=== PATIENT | female | born 1940 | race Caucasian/White ===

== ENCOUNTER → 2021-07-01 15:54 | Outpatient (CLI) | payer MEDICARE, SELFPAY ==
--- NOTE | ~2021-07-01 | XR_ITS ---
EXAMINATION: XR knee LT 3V DATE: 07/01/2021 16:16 INDICATION: Left knee pain. TECHNIQUE: 3 views of left knee were obtained. COMPARISON: None. FINDINGS: Bone alignment is normal. No fracture. There is mild tricompartmental osteoarthritis. No kn ee joint effusion. IMPRESSION: 1. Mild left knee osteoarthritis. Reviewed, dictated and finalized at location A.
== END ==
PROVIDERS: PCP Family Medicine; Visit Provider Family Medicine
DX: M17.12 Unilateral primary osteoarthritis, left knee (principal)
CPT/HCPCS: 73562

== ENCOUNTER 2021-12-11 09:30 | Outpatient (RCR) | payer MEDICARE, SELFPAY ==
--- NOTE | 2021-11-05 13:32 | PTOPEVAL ---
PHYSICAL THERAPY EVALUATION AND PLAN OF CARE Thank you for referring Maria Victoria Alfaro to [facility].? The patient is scheduled to be seen for therapy? 2x/week for 4 weeks. Please review, sign, date and return this plan of care JR. I agree with and certify that the following plan of care is medically necessary. Referring Physician Date Attending Provider: [place] [facility] Evaluation Outpatient Past Medical History Neurological History Hx Multiple Sclerosis Yes: 1980 Diagnosis left knee pain Onset chronic Additional Evaluation Detail symptoms of MS: left LE weakness; attacks of pain Subjective Information Maria Victoria is here today with c/o Query Text:As Reported By Patient/ left knee pain. She has had Family chronic pain. She states that the left leg became weak a long long time ago due to her MS and the knee has been hyperextending due to the weakness for a long long time . She has been using a cane for a very long time. Self Report Pain Assessment Left Leg(s) Reported Pain Level 3 Pain Description Aching Pain Frequency Chronic Lowest Pain Intensity 1 Greatest Pain Intensity 6 Pain Score Pain Score 3: Self Report Interventions Used Interventions Used By Clinicians Exercise Lower Extremity Muscle Strength Testing Hip Strength Left Hip Flexion Strength 3 Fair Hip Extension Strength 2+ Poor + Hip Abduction Strength 2+ Poor + Knee Strength Left Knee Flexion Strength 2+ Poor + Knee Extension Strength 3- Fair - Muscle Length Testing Muscle Length Testing Left Prone Knee Flexor Muscle Length ( 90 degrees) Balance Assessment 5 Time Sit to Stand Time in Seconds 20.86 5 Time Sit to Stand Comments with arm rests Query Text:Normative Data: If Greater Than 15 Seconds, 74% Increase Risk for Recurrent Falls Gait Assessment Gait Pattern Assessment Other Gait Observations severe hyperextension and valgus in stance phase; femoral adduction and internal rotation General Exercise General Exercises Side Left Exercise Location LE Exercise Type Active Exercise Description -clamshell Query Text:Record Sets, Reps, -supine hip abduction Resistance, and Position -bridge -supine SLR -prone knee flexi
--- NOTE | 2021-11-13 09:48 | PCPTNOTE ---
Called pt and she said that she can't come in today because she has family in town.
--- NOTE | 2021-12-04 10:24 | PTOPEVAL ---
PHYSICAL THERAPY PROGRESS REPORT Thank you for referring Maria Victoria Alfaro to [facility].? The patient is scheduled to be seen for therapy? 1x/week for 4 weeks. Please review, sign, date and return this plan of care JR. I agree with and certify that the following plan of care is medically necessary. Referring Physician Date Attending Provider: [place] AP[facility] Hx Multiple Sclerosis Yes: 1979 Diagnosis left knee pain Onset chronic Additional Evaluation Detail symptoms of MS: left LE weakness; attacks of pain Subjective Information Maria Victoria is here today with c/o Query Text:As Reported By Patient/ left knee pain. She has had Family chronic pain. She states that the left leg became weak a long long time ago due to her MS and the knee has been hyperextending due to the weakness for a long long time . She has been using a cane for a very long time. Pain Score Pain Score 0: Self Report Lower Extremity Muscle Strength Testing Hip Strength Left Hip Flexion Strength 4- Good - Hip Extension Strength 3- Fair - Hip Abduction Strength 3 Fair Knee Strength Left Knee Flexion Strength 3+ Fair + Knee Extension Strength 3+ Fair + Balance Assessment 5 Time Sit to Stand Time in Seconds 19.54 5 Time Sit to Stand Comments with arm rests Query Text:Normative Data: If Greater 1month ago = 20.86seconds Than 15 Seconds, 74% Increase Risk for Recurrent Falls General Exercise General Exercises Side Left Exercise Location LE Exercise Type Active,Resistive Exercise Description Yao: Query Text:Record Sets, Reps, -clamshell with yellow band Resistance, and Position resistance x15 -eccentric single leg bridge ( up on two, down on left) -sidelying hip abduction x10 - - assist to hold hip in proper position for hips -bridge with feet staggered x15 -lower abdominal bracing with marching held for time - continue -supine SLR 1#x 15 -supine SAQ x1#[id number] -prone knee flexion x1#x15 -prone hip ext 1#x 10 -resisted marchin
--- NOTE | 2021-12-18 09:36 | PCPTNOTE ---
Patient called & cancelled scheduled appointment this date due to having a fall yesterday and is unable to make it in. Informed PT will continue per POC.
--- NOTE | 2022-01-01 10:19 | PCPTNOTE ---
Patient did not show up for scheduled appointment this date. Called and left a voicemail.
--- NOTE | 2022-01-19 17:06 | PCPTNOTE ---
PHYSICAL THERAPY DISCHARGE NOTE Attending Provider: [place] [facility] Patient:Maria Victoria Alfaro Date of :1940 Patient has not returned for any further treatments since 12/11/2021, therefore she will be discharged at this time. Patient?s initial visit was on 11/05/2021 she had a total of 9 visits. She cancelled several visits due to inclement weather. At her attended visits she participated in and tolerated strengthening exercises for her left knee. We also discussed how she might obtain a brace for the knee that protects against hyperextension. She has not returned since this discussion. Thank you for referring this patient to [facility]. Please review, sign, date and return this discharge summary JR. I have been updated about the patient's current status and I agree with discharge from the above service at this time. Referring Physician Date
== END 2022-01-19 12:40 | disposition home or self-care (01) ==
LOC: ANHPT 09:30
PROVIDERS: PCP Family Medicine; Visit Provider Nurse Practitioner
DX: M25.562 Pain in left knee (principal)
CPT/HCPCS: 97110; 97162

== ENCOUNTER → 2022-06-11 12:59 | Outpatient (CLI) | payer MEDICARE, SELFPAY ==
--- NOTE | ~2022-06-11 | MR_ITS ---
EXAMINATION: MR brain/brain stem wo con DATE: 06/11/2022 13:52 INDICATION: Multiple sclerosis. TECHNIQUE: Magnetic resonance imaging (MRI) of the brain and brainstem was performed without intraven ous contrast. COMPARISON: None. FINDINGS: There are greater than 30 total lesions of increased T2-weighted signal intensity in the br ain. Of these lesions, many are periventricular, a few are juxtacortical, and some are infratentorial including in cervical spinal cord. There is no acute ischemic infarct or intracranial hemorrhage. Th e ventricles are normal in size. The orbits are normal. There is mild mucosal thickening in the ethmo id sinuses. The mastoid air cells are normal. IMPRESSION: 1. Lesions in the brain and spinal cord, likely a combination of multiple sclerosis and chronic small vessel ischemic disease. Reviewed, dictated and finalized at location A. IMPRESSION: 1. Lesions in the brain and spinal cord, likely a combination of multiple scler osis and chronic small vessel ischemic disease.
== END ==
PROVIDERS: PCP Family Medicine; Visit Provider Family Medicine
DX: R29.898 Other symptoms and signs involving the musculoskeletal system (principal); G35 Multiple sclerosis
CPT/HCPCS: 70551

== ENCOUNTER 2022-09-24 13:37 | Outpatient (CLI) | payer MEDICARE, SELFPAY ==
[2022-09-24 18:46] LABS: Alanine Aminotransferase 23 U/L (6-35); Albumin Level 4.6 g/dL (3.5-5.1); Alkaline Phosphatase 86 U/L (38-126); Anion Gap 12 mmol/L (8-16); Aspartate Amino Transferase 36 U/L (14-36); Bilirubin,Total 0.8 mg/dL (0.2-1.3); Blood Urea Nitrogen 15 mg/dL (7-17); Calcium 9.3 mg/dL (8.4-10.2); Carbon Dioxide 22 mmol/L (22-30); Chloride 101 mmol/L (98-107); Cholesterol 294 mg/dL (0-200); Estimated Glomerular Filt Rate > 60; Glucose 93 mg/dL (65-110); HDL Direct 67 mg/dL; Potassium 4.1 mmol/L (3.4-5.0); Sodium 135 mmol/L (137-145); Triglycerides 89 mg/dL (<150)
[2022-09-24 18:48] LABS: Basophils Percent Auto 0.6 % (0.2-1.2); Eosinophils Percent Auto 0.8 % (0-4.4); Hematocrit 41.3 % (37.0-47.0); Hemoglobin 13.6 g/dL (12.0-15.0); Immature Granulocyte Absolute 0.01 K/mm3 (0.00-0.031); Immature Granulocyte Percent A 0.2 % (0-0.5); Lymphocytes Absolute Auto 1.24 K/mm3 (0.9-3.2); Lymphocytes Percent Auto 25.4 % (18.3-44.2); Mean Corpuscular HGB Conc 32.9 g/dl (32-36); Mean Corpuscular Hemoglobin 30.4 pg (26-34); Mean Corpuscular Volume 92.2 fl (80-100); Mean Platelet Volume 9.1 fl (7.4-10.4); Monocytes Absolute Auto 0.6 K/mm3 (0.1-0.6); Monocytes Percent Auto 11.5 % (2.6-8.5); Neutrophils Percent Auto 61.5 % (45.5-73.1); Platelet Count Result 204 k/mm3 (150-375); Red Blood Count 4.48 M/mm3 (4.2-5.4); Red Cell Distribution Width 13.7 % (11.5-14.5); White Blood Count 4.9 K/mm3 (4.5-10.0)
[2022-09-24 18:57] LABS: LDL Cholesterol Direct 161 mg/dL
== END 2022-09-24 13:38 | disposition home or self-care (01) ==
LOC: ANHGOSHLAB 13:41
PROVIDERS: PCP Family Medicine; Visit Provider Family Medicine
DX: E03.9 Hypothyroidism, unspecified (principal); R53.83 Other fatigue; I10 Essential (primary) hypertension
CPT/HCPCS: 36415; 80053; 80061; 82607; 84443; 85025

== ENCOUNTER 2022-12-14 18:06 | Inpatient (IN) | payer MEDICARE, SELFPAY ==
[2022-12-14] VITALS (7 sets, daily range): BP systolic 126–179; BP diastolic 82–100; PULSE 92–110; RESP 13–30; TEMP 36.6–36.8; O2SAT 97–100
--- NOTE | ~2022-12-14 | XR_ITS ---
EXAMINATION: XR barium swallow modified DATE: 12/17/2022 09:20 INDICATION: Aspiration. TECHNIQUE: The patient was given barium-containing material of multiple consistencies to swallow by t audrey speech pathologist while I performed fluoroscopy. Fluoroscopy exposure time was 1.0 minutes. The n umber of fluoroscopy images saved to the PACS was 2. Dose-area product was 0.786 Gy-cm^2. FINDINGS: There is reduced laryngeal elevation, reduced tongue base retraction, vallecular residue, piriform si nus residue, and pharyngeal wall residue. There is laryngeal penetration without cough reflex with th in liquids, mildly thick liquids, and pudding with expected aspiration. IMPRESSION: 1. Laryngeal penetration and expected aspiration. 2. Please refer to the speech therapy report for recommendations. Reviewed, dictated and finalized at location A. FILLER MACHINE OPERATOR
--- NOTE | ~2022-12-14 | CT_ITS ---
EXAMINATION: CT cervical spine wo con DATE: 12/14/2022 19:09 INDICATION: Trauma, found on floor, cannot clear per NEXUS TECHNIQUE: Computed tomography (CT) of the cervical spine was performed without intravenous contrast. Automated exposure control and iterative reconstruction technique were employed. The dose-length pro duct was 105.81 mGy-cm. COMPARISON: None. FINDINGS: Vertebral Body Alignment: Intact. . Craniocervical and atlantoaxial alignment: Moderate degenerative change. Alignment intact. Osseous structures/fracture: No evidence of a lytic or blastic process in the visualized spine. No e vidence of acute fracture. . Cervical soft tissues: The paraspinal soft tissues planes are maintained. Senescent changes in the cher ngs. Degenerative changes: Multilevel degenerative disc disease, moderate-severe at C5-6. Severe left neur al foraminal narrowing at C5-6. Multilevel facet arthropathy. No severe central canal narrowing. IMPRESSION: No acute fracture or traumatic malalignment in the cervical spine Reviewed, dictated and finalized at location K. OR CLERK
--- NOTE | ~2022-12-14 | CT_ITS ---
EXAMINATION: CT chest abdomen pelvis wo con DATE: 12/14/2022 19:13 INDICATION: trauma, ams, found down on floor . TECHNIQUE: Computed tomography (CT) of the chest, abdomen, and pelvis was performed with 100 mL Omnip aque-350 intravenous contrast. Automated exposure control and iterative reconstruction technique were employed. The dose-length product was 366.20 mGy-cm. COMPARISON: X-ray shoulder, same date. FINDINGS: CHEST: No thoracic aortic injury. Mild arch ectasia and calcification. No mediastinal hematoma. Calcified right hilar and subcarinal nodes. Small hiatal hernia. No pericardial effusion. Moderate coronary artery calcification. Cardiomegaly. No acute lung injury. Senescent change. Dependent and basilar left lung scar/atelectasis. Right lower lobe granuloma. No pleural effusion or pneumothorax. ABDOMEN/PELVIS: No solid organ injury. Granulomatous calcifications in the spleen. Exophytic right upper pole subtle cyst. Nonobstructive right mid and lower pole calculi. No evidence of bowel or mesenteric injury. The rectum is dilated to 5.3 cm by formed stool. No free fluid or free air. No retroperitoneal hematoma. Atherosclerotic abdominal aortic and/or arterial calcifications. Pelvic contents are atraumatic. Uterus likely surgically absent. MUSCULOSKELETAL: No acute fracture. Soft tissue contusion over the left hip. Small left hip effusion. No fracture or traumatic malalignment of the thoracic or lumbar spine. IMPRESSION: Left hip soft tissue contusion. Otherwise, no acute traumatic detected in the chest, abdomen, or pelv is. Possible mild fecal impaction. Small left hip joint effusion. Additional chronic and incidental f indings are detailed above. Reviewed, dictated and finalized at location K. RY RIGGER IMPRESSION: Left hip soft tissue contusion. Otherwise, no acute traumatic detected in the c hest, abdomen, or pelvis. Possible mild fecal impaction. Small left hip joint e ffusion. Additional chronic and incidental findings are detailed above.
--- NOTE | ~2022-12-14 | XR_ITS ---
EXAMINATION: XR barium swallow modified DATE: 12/22/2022 10:13 INDICATION: Aspiration. TECHNIQUE: The patient was given barium-containing material of multiple consistencies to swallow by t he speech pathologist while I performed fluoroscopy. Fluoroscopy exposure time was 2.0 minutes. The n umber of fluoroscopy images saved to the PACS was 1. Dose-area product was 1.166 Gy-cm^2. FINDINGS: There was laryngeal penetration without cough. IMPRESSION: 1. Laryngeal penetration. 2. Please refer to the speech therapy report for recommendations. Reviewed, dictated and finalized at location A. RINARY MICROBIOLOGIST
--- NOTE | ~2022-12-14 | CT_ITS ---
EXAMINATION: CT brain wo con DATE: 12/14/2022 19:06 INDICATION: Trauma, AMS . TECHNIQUE: Computed tomography (CT) of the head was performed without intravenous contrast. The mA wa s adjusted according to patient size. Iterative reconstruction technique was employed. The dose-lengt h product was 605.33 mGy-cm. COMPARISON: None. FINDINGS: No acute intracranial hemorrhage or extra-axial fluid collection. No hydrocephalus, mass, or herniation. No acute ischemic infarct. Unremarkable dural venous sinus attenuation. No acute osseous abnormality. Dependent mucosal thickening/fluid in the left maxillary sinus. The remaining aerated spaces are jorge alberto r. Mild atrophy and moderate chronic white matter change. Atherosclerotic intracranial calcification. IMPRESSION: No acute intracranial process. Reviewed, dictated and finalized at location K. LE ROLL OPERATOR
--- NOTE | ~2022-12-14 | XR_ITS ---
EXAM: XR shoulder LT min 2V DATE: 12/14/2022 19:00 HISTORY: Bruising noted, appears fresh, pt. found on floor . COMPARISON: CT chest abdomen and pelvis, same date. FINDINGS: Decreased mineralization. Vertically oriented linear lucency in the body of the scapula re presents artifact or a vascular channel and was not evident in the subsequent CT. Distal narrowing of the clavicle. Superior displacement of the clavicle relative to the acromion which was reduced in th e following CT scan. The glenohumeral alignment is preserved. No erosion or periosteal change. Soft t issues within normal limits. IMPRESSION: Acute versus chronic AC separation, correlate with pain/tenderness. Distal clavicular ost eolysis. Reviewed, dictated and finalized at location K. MARKET SELLER IMPRESSION: Acute versus chronic AC separation, correlate with pain/tenderness. Distal clavicular osteolysis.
--- NOTE | ~2022-12-14 | XR_ITS ---
EXAMINATION: XR abdomen NG/feed tube insert DATE: 12/17/2022 14:09 INDICATION: Dysphagia. Nasogastric tube placement. TECHNIQUE: A supine view of the abdomen and lower chest was obtained for evaluation of feeding tube placement. COMPARISON: CT dated 12/14/2022 FINDINGS: Nasogastric tube tip in proximal side port in the body of the stomach. No dilated loops of gas-filled bowel to suggest obstruction. Small amount of oral contrast material project over the central abdome n likely related to prior modified barium swallow study. Discoid atelectasis at the bilateral lung ba ses. Cardiomegaly. IMPRESSION: 1. Nasogastric tube in the body of the stomach. Reviewed, dictated and finalized at location L. UNT RETENTION REPRESENTATIVE
--- NOTE | 2022-12-14 18:06 | ECG_ITS ---
Measurements Intervals [place] Rate: 101 P: 64 WI: 130 QRS: 10 QRSD: 78 T: 20 QT: 295 QTc: 383 Interpretive Statements SINUS TACHYCARDIA NONSPECIFIC T-WAVE ABNORMALITY- INFERIOR LEADS BASELINE ARTIFACT- I, II, III, AVR, AVL, AVF, V1-V6 BORDERLINE ECG NO PREVIOUS ECG AVAILABLE FOR COMPARISON Electronically Signed On 12-15-2022 7:44:53 LINE PREP COOK by Lauro Narvaez D.O.
--- NOTE | 2022-12-14 18:18 | ED.GENADULT ---
HPI - General Adult General Chief complaint: Seizure <KIMI Escobar - Last Filed: 02/22/23 09:02> Stated complaint: fall <KIMI Escobar Last Filed: 02/22/23 09:02> Time Seen by Provider: 12/14/22 18:06 <KIMI Escobar - Last Filed: 02/22/23 09:02> Source: EMS <KIMI Escobar - Last Filed: 02/22/23 09:02> Mode of arrival: EMS <KIMI Escobar Last Filed: 02/22/23 09:02> Limitations: altered mental status <KMII Escobar Last Filed: 02/22/23 09:02> History of Present Illness HPI narrative: All history provided by the EMS crew as the patient currently has AMS. Review of EMR documents a history of Hypothyroidism and MS. EMS was called by patient's neighbors as they had seen through her window that she was lying on the floor not moving. Upon arrival, EMS had to breach into the home and she was found laying in a bedroom. At that time she was alert and oriented and stated she falls all the time and that she had been there a couple of days. However, the neighbors state that they saw her the previous day. She was found to have blood around her and a cut on the back of her head. Initial oxygen saturations were low, requiring a NRB mask. En route to the ER she had an approximate 2-3 minute episode of tonic-clonic seizure activity. She arrives post-ictal, but arousable to pain. She has noted scabbed over laceration to the back of the head, purple bruise to the left anterior shoulder and an abraded area to the left lower abdomen in a belt like pattern. Pt. has pungent odor to her urine on arrival. Review of previous chart demonstrates a DNR. <KIMI Escobar Last Filed: 02/22/23 09:02> Onset (ago): unknown <KIMI Escobar Last Filed: 02/22/23 09:02> Location: head, pelvis and upper extremity <KMII Escobar - Last Filed: 02/22/23 09:02> Related Data Home medications: Home Medications Medication Instructions Recorded Confirmed gabapentin 100 mg capsule 200 mg PO TID 12/14/22 12/14/22 levothyroxine 88 mcg tablet 88 mcg PO DAILY 01/05/23 <KIMI Escobar - Last Filed: 02/22/23 09:02> Allergies/adverse reactions: Allergies Allergy/AdvReac Type Severity Reaction Status Date / Time No Known Allergies Allergy Unknown Verified 12/18/22 11:21 <KIMI Escobar - Last Filed: 02/22/23 09:02> Review of Systems Review of Systems: ROS unobtainable: Yes unobtainable due to mental status <KIMI Escobar - Last Filed: 02/22/23 09:02> [facility] Past Medical History Medical History: Medical History (System 12/18/22 @ 11:21 by Sandi Carlson) Hypertension Hypothyroid Multiple sclerosis Osteoarthritis of left knee Vitamin D deficiency <KIMI Escobar Last Filed: 02/22/23 09:02> Surgical History Surgical History: Surgical History (System 12/18/22 @ 11:21 by Sandi Carlson) Deficient knowledge of hysterectomy H/O thumb surgery ORIF right thumb Hx of tonsillectomy <KIMI Escobar - Last Filed: 02/22/23 09:02> Family History Family History: Family History (System 12/18/22 @ 11:21 by Sandi Carlson) Father Family history of premature coronary heart disease, Onset Age: 69 Mother Family history of Alzheimer's disease, Onset Age: 67 Sibling Multiple sclerosis <KIMI Escobar - Last Filed: 02/22/23 09:02> Social History Social History: Social History (System 12/18/22 @ 11:21 by Sandi Carlson) Social History: The patient with home in her own home. Her closest family members live 2 hours away. She has a friend who checks on her. Code status: DNR/DNI (per outpatient primary care report) Smoking status: Never smoker Second hand tobacco smoke exposure: No Alcohol intake: never Drinks per week: 1 Alcohol use details: beer Substance us
[2022-12-14 18:54] LABS: Basophils Percent Auto 0.1 % (0.2-1.2); Eosinophils Percent Auto 0.1 % (0-4.4); Hematocrit 42.5 % (37.0-47.0); Hemoglobin 14.2 g/dL (12.0-15.0); Immature Granulocyte Absolute 0.06 K/mm3 (0.00-0.031); Immature Granulocyte Percent A 0.4 % (0-0.5); Lymphocytes Absolute Auto 0.69 K/mm3 (0.9-3.2); Mean Corpuscular HGB Conc 33.4 g/dl (32-36); Mean Corpuscular Hemoglobin 30.4 pg (26-34); Mean Platelet Volume 8.4 fl (7.4-10.4); Monocytes Percent Auto 7.4 % (2.6-8.5); Neutrophils Absolute Auto 12.1 K/mm3 (1.3-6.7); Platelet Count Result 272 k/mm3 (150-375); Red Blood Count 4.67 M/mm3 (4.2-5.4); Red Cell Distribution Width 13.5 % (11.5-14.5); White Blood Count 13.9 K/mm3 (4.5-10.0)
[2022-12-14 19:05] LABS: Lactic Acid Reflex 3.9 mmol/L (0.7-2.0)
[2022-12-14 19:11] LABS: Appearance Urine Cloudy (Clear); Bilirubin Urine Negative (Negative); Blood Urine 3+ (Negative); Color Urine Yellow (Yellow); Glucose Urine UA Negative (Negative); Ketones Urine Trace mg/dL (Negative); Leukocyte Esterase Ur 2+ LEU/UL (Negative); Nitrate Urine Negative (Negative); Protein Urine 2+ mg/dL (Negative); Specific Grav Ur 1.025 (1.001-1.035); Urobilinogen Urine 0.2 mg/dL (<2.0)
[2022-12-14 19:16] LABS: Bacteria Urine Trace /hpf; Mucus Urine Few /lpf; WBC Clumps Urine Present /HPF; WBC Urine >75 /hpf
[2022-12-14 19:18] LABS: Partial Thromboplastin Time 25.5 SECONDS (22.3-36.8)
[2022-12-14 19:23] LABS: Add Urine Microscopic? YES
[2022-12-14 19:24] LABS: Alanine Aminotransferase 41 U/L (6-35); Albumin Level 4.2 g/dL (3.5-5.1); Alkaline Phosphatase 105 U/L (38-126); Anion Gap 10 mmol/L (8-16); Aspartate Amino Transferase 151 U/L (14-36); Bilirubin,Total 1.3 mg/dL (0.2-1.3); Blood Urea Nitrogen 16 mg/dL (7-17); Calcium 9.3 mg/dL (8.4-10.2); Carbon Dioxide 25 mmol/L (22-30); Chloride 105 mmol/L (98-107); Creatine Kinase > 3200 U/L (30-135); Estimated CRCL calculation 46 ml/min; Estimated Glomerular Filt Rate > 60; Glucose 158 mg/dL (65-110); Magnesium 1.8 mg/dL (1.6-2.3); Potassium 3.6 mmol/L (3.4-5.0); Sodium 140 mmol/L (137-145); Troponin I 0.209 ng/mL (0.000-0.034)
[2022-12-14 19:32] LABS: Influenza A QL RT-PCR Negative (Negative); Influenza B QL RT-PCR Negative (Negative); SARS-CoV-2 RNA PCR Negative
[2022-12-14] MEDS: cefTRIAXone 2 GM in SODIUM CHLORIDE 0.9% IV 100 ML 200 ML IVPB (19:42)
[2022-12-14] MEDS: SODIUM CHLORIDE 0.9% IV 1,000 ML 500 ML IV CONT (19:42)
[2022-12-14] MEDS: levETIRAcetam 1000MG/NACL100ML 1,000 MG/100 ML BAG 400 MG IVPB (20:42)
[2022-12-14] MEDS: SODIUM BICARBONATE 8.4% 150 MEQ in DEXTROSE 5% 1,000 ML 950 ML 100 MEQ IV CONT (21:30)
[2022-12-14] MEDS: SODIUM CHLORIDE 0.9% IV 1,000 ML 100 ML IV CONT (21:44)
[2022-12-14 21:52] LABS: Reflex Lactic Acid Yes or No Add Lactic
[2022-12-14 23:12] LABS: Lactic Acid 1.7 mmol/L (0.7-2.0)
--- NOTE | 2022-12-14 23:24 | ADMGEN ---
This patient, Maria Victoria Alfaro, was admitted to IMU Room 205-01. Patient/family oriented to hospital policies and general routines including ID bracelet, bed and alarms, visiting hours, pain management, procedures, bathroom and other care routines, personal items, smoking policy, room service/diet, and visiting hours. Information on how to activate the Rapid Response Team has been discussed. Patient/Family are encouraged to report perceived risks to care and to ask questions if they do not understand what they are told or what they should do.
[2022-12-14 23:30] LABS: Troponin I 0.267 ng/mL (0.000-0.034)
[2022-12-15] VITALS (12 sets, daily range): BP systolic 103–156; BP diastolic 54–85; PULSE 80–969; RESP 18–20; TEMP 36.4–37.3; O2SAT 95–99
[2022-12-15 01:49] LABS: Troponin I 0.269 ng/mL (0.000-0.034)
--- NOTE | 2022-12-15 03:17 | PM.IMHP ---
H&P: HPI History of Present Illness Date/Time: 12/15/22 03:17 Chief Complaint: Found down at home, witnessed seizure Narrative: 82-year-old female with a past medical history of multiple sclerosis, chronic pain and recent diagnosis of hypothyroidism who presented to the ER from home via EMS after she was found down. The entirety of history was obtained from ER report and EMS report. The patient was only answering yes and no questions to nursing staff. But at the time of my evaluation the patient had be sternal rubbed in order to moan at me in tell me know when I asked her to open her eyes. The patient would not answer any questions. Evidently the neighbor called EMS when she saw that the patient was down on the floor through a window. EMS had to break into the home and found the patient lying in her bedroom. At the time she is alert oriented in stated that she falls all the time. She stated that she had been on the floor for a couple of days but the neighbor stated that they saw the patient to previous day in the afternoon. She had a cut on the back of her head. EMS reported that there had been blood on the door to the patient's bedroom and near the patient's head where she was lying. The patient was reportedly alert oriented to person place and time but thought that she was lying on the bed when she was in fact on the floor. When EMS stood her up to put her on the stretcher the patient had a 2-3 minute tonic clonic seizure. By the time EMS could establish an IV the seizure had resolved. They put the patient on a non-rebreather as she became hypoxic during her seizure but patient was saturating fine on arrival to the ER. In route to the ER the the patient was postictal. The patient had loss of bladder control during seizure. In the ER the patient received 1.5 L of IV fluid hydration and I requested 1 g of Keppra be administered. Outpatient office visit notes were reviewed. At that time the patient stated that she wanted to be a DNR. The patient's multiple sclerosis is managed by Dr. Ciaran Galindo. Review of Systems Review of Systems: ROS unobtainable: Yes unobtainable due to medical condition (Postictal) [facility] Past Medical History Medical History (Updated 12/15/22 @ 04:06 by Belkis Galloway DO) Hypertension Hypothyroid Multiple sclerosis Osteoarthritis of left knee Vitamin D deficiency Surgical History Surgical History (Updated 12/15/22 @ 03:40 by Belkis Galloway DO) Deficient knowledge of hysterectomy H/O thumb surgery ORIF right thumb Hx of tonsillectomy Family History Family History (Updated 12/15/22 @ 03:40 by Belkis Galloway DO) Father Family history of premature coronary heart disease, Onset Age: 69 Mother Family history of Alzheimer's disease, Onset Age: 67 Sibling Multiple sclerosis Social History Social History (Updated 12/15/22 @ 03:42 by Belkis Galloway DO) Social History: The patient with home in her own home. Her closest family members live 2 hours away. She has a friend who checks on her. Code status: DNR/DNI (per outpatient primary care report) Smoking status: Never smoker Second hand tobacco smoke exposure: No Alcohol intake: never Drinks per week: 1 Alcohol use details: beer Substance use: never Substance use type: does not use Lack of Transportation: No Lack of Food: Never True Current Housing: I Have Housing Concerned About Future Housing: No Difficulty Paying Gas/Electric Bills: No Difficulty Paying for Meds: No Currently Unemployed: No Education: High School Diploma/GED Difficulty w/ Childcare or Family Care: No Living arrangements: alone Occupation/Education: retired Gender identity (if verbalized by the patient): Female Spiritual care concerns: No Agree to blood products: Yes Meds Home Medications and Allergies Home Medications Medication Instructions Recorded Confirmed Type lev
[2022-12-15] MEDS: SODIUM CHLORIDE 0.9% IV 1,000 ML 200 ML IV CONT ×4 (04:11→22:14)
[2022-12-15 05:00] LABS: Basophils Percent Auto 0.1 % (0.2-1.2); Eosinophils Percent Auto 0.1 % (0-4.4); Hemoglobin 10.4 g/dL (12.0-15.0); Immature Granulocyte Absolute 0.03 K/mm3 (0.00-0.031); Immature Granulocyte Percent A 0.4 % (0-0.5); Lymphocytes Absolute Auto 0.89 K/mm3 (0.9-3.2); Lymphocytes Percent Auto 11.5 % (18.3-44.2); Mean Corpuscular HGB Conc 32.5 g/dl (32-36); Mean Corpuscular Hemoglobin 30.1 pg (26-34); Mean Corpuscular Volume 92.5 fl (80-100); Mean Platelet Volume 8.9 fl (7.4-10.4); Monocytes Absolute Auto 0.7 K/mm3 (0.1-0.6); Monocytes Percent Auto 9.3 % (2.6-8.5); Neutrophils Absolute Auto 6.1 K/mm3 (1.3-6.7); Neutrophils Percent Auto 78.6 % (45.5-73.1); Platelet Count Result 195 k/mm3 (150-375); Red Blood Count 3.46 M/mm3 (4.2-5.4); Red Cell Distribution Width 13.3 % (11.5-14.5); White Blood Count 7.8 K/mm3 (4.5-10.0)
[2022-12-15 05:10] LABS: Alanine Aminotransferase 36 U/L (6-35); Alkaline Phosphatase 62 U/L (38-126); Anion Gap 3 mmol/L (8-16); Aspartate Amino Transferase 127 U/L (14-36); Bilirubin,Total 0.7 mg/dL (0.2-1.3); Blood Urea Nitrogen 14 mg/dL (7-17); Calcium 8.2 mg/dL (8.4-10.2); Carbon Dioxide 23 mmol/L (22-30); Chloride 109 mmol/L (98-107); Estimated CRCL calculation 56 ml/min; Estimated Glomerular Filt Rate > 60; Glucose 92 mg/dL (65-110); Potassium 3.4 mmol/L (3.4-5.0); Sodium 135 mmol/L (137-145)
[2022-12-15 05:34] LABS: Creatine Kinase 4131 U/L (30-135)
[2022-12-15 05:35] LABS: Magnesium 1.6 mg/dL (1.6-2.3)
[2022-12-15] MEDS: levETIRAcetam 1000MG/NACL100ML 1,000 MG/100 ML BAG 400 MG IVPB ×2 (08:27→20:36)
[2022-12-15 11:05] LABS: Creatine Kinase 5768 U/L (30-135)
--- NOTE | 2022-12-15 12:53 | WPDNEURCNPN ---
Assessment and Plan Assessment and plan (1) Seizure: Code(s): R56.9 - Unspecified convulsions Status: Acute (2) Head injury: Code(s): S09.90XA - Unspecified injury of head, initial encounter Status: Acute (3) Rhabdomyolysis: Qualifiers: Rhabdomyolysis type: non-traumatic Qualified Code(s): M62.82 - Rhabdomyolysis Code(s): M62.82 - Rhabdomyolysis Status: Acute (4) Laceration of scalp: Qualifiers: Encounter type: initial encounter Qualified Code(s): S01.01XA - Laceration without foreign body of scalp, initial encounter Code(s): S01.01XA - Laceration without foreign body of scalp, initial encounter Status: Acute (5) Multiple sclerosis: Code(s): G35 - Multiple sclerosis Status: Acute Plan 1 seizures 2 significant neurological deficit with history of multiple sclerosis 3 hypothyroidism by history for UTI 5 rhabdomyolysis and plan at this stage is to general medical care with hydration mode discussion with the family about the MS she has had recent B12 and folate levels which were within normal limits and will also obtain the EEG Consult date: 12/15/22 HPI: Maria Victoria Alfaro is a 82 year old female admitted to the hospital through the emergency room where all the information was provided by EMS crew patient carries the diagnosis of hypo thyroidism and MS reportedly EMS was called by patient's neighbors as he had seen through the window that she was lying on the floor and not moving EMS had to break in to the home she was found laying in a bedroom though she was alert and oriented and reported that she falls all the time with blood around her mouth and cart on the back of her head with low oxygen on initial evaluation and subsequently documented 3 minutes duration tonic clonic seizure observed by the EMS noted Abena postictal on arrival and and found to have laceration to the back of the head with bruise to the left anterior shoulder and abrasion on the left lower abdomen with poor hygiene. Patient carries the diagnosis of multiple sclerosis, osteoarthritis of left knee, history of currently alcohol intake or 1 drink per week, no substance use, and no tobacco use, initial vital signs with hypertension temp of 36.8? and pulse is 107 with respiration 30 routine lab with hematuria Dawson negative nitrate, medications included gabapentin 200 mg 3 times a day and levothyroxine 75 micro g daily, CT scan of the cervical spine negative for fracture dislocation , CT of the head negative for the bleed or territorial stroke, shoulder x-ray with AC separation acute versus chronic. She has had MRI of the brain in May of 2022 which has documented multiple sclerosis type of lesion involving the brainstem as Review of Systems Review of Systems: All systems reviewed & are unremarkable except as noted in HPI and below PMFSH Past Medical History Medical History (Updated 12/15/22 @ 04:06 by Belkis Galloway DO) Hypertension Hypothyroid Multiple sclerosis Osteoarthritis of left knee Vitamin D deficiency Surgical History Surgical History (Updated 12/15/22 @ 03:40 by Belkis Galloway DO) Deficient knowledge of hysterectomy H/O thumb surgery ORIF right thumb Hx of tonsillectomy Family History Family History (Updated 12/15/22 @ 03:40 by Belkis Galloway DO) Father Family history of premature coronary heart disease, Onset Age: 69 Mother Family history of Alzheimer's disease, Onset Age: 67 Sibling Multiple sclerosis Social History Social History (Updated 12/15/22 @ 03:42 by Belkis Galloway DO) Social History: The patient with home in her own home. Her closest family members live 2 hours away. She has a friend who checks on her. Code status: DNR/DNI (per outpatient primary care report) Smoking status: Never smoker Second hand tobacco smoke exposure: No Alcohol intake: never Drinks per week: 1 Alcohol use details: b
--- NOTE | 2022-12-15 15:27 | PM.IMPN ---
Progress Note: A&P Assessment and Plan (1) Seizure: Code(s): R56.9 - Unspecified convulsions Status: Acute (2) Acute UTI: Code(s): N39.0 - Urinary tract infection, site not specified Status: Acute (3) Rhabdomyolysis: Qualifiers: Rhabdomyolysis type: non-traumatic Qualified Code(s): M62.82 - Rhabdomyolysis Code(s): M62.82 - Rhabdomyolysis Status: Acute (4) Laceration of scalp: Qualifiers: Encounter type: initial encounter Qualified Code(s): S01.01XA - Laceration without foreign body of scalp, initial encounter Code(s): S01.01XA - Laceration without foreign body of scalp, initial encounter Status: Acute (5) Acute alteration in mental status: Code(s): R41.82 - Altered mental status, unspecified Status: Acute (6) Transaminitis: Code(s): R74.01 - Elevation of levels of liver transaminase levels Status: Acute Plan Seizures due to posttraumatic from fall versus new onset seizure disorder. Will place patient on seizure precautions. Neurology has been consulted. Patient received Keppra load. Will obtain EEG. Neuro checks q.4 hours. The patient does have increased tone on exam I think this is due to her multiple sclerosis. Especially given presence of Babinski's on the right. Will await further neurologic recommendations. Patient has acute altered mental status likely due to postictal phase in com been a mancia with metabolic encephalopathy. The patient does also have a known low mini-mental status exam in the past and has an MRI with significant evidence of microvascular changes. Patient may also have some underlying dementia. Patient had recent TSH with initiation of levothyroxine as outpatient. She had recent B12 and folate levels were within normal limits but borderline. Patient's urine is suggestive of probable UTI. Blood cultures and urine cultures have been obtained. Patient has been started on antibiotic therapy with Rocephin. Will check CBC with a.m. labs. White count was elevated in the ER. The patient had rhabdomyolysis from prolonged down time on the floor. Patient is on aggressive IV fluid hydration with normal saline. The patient's creatinine is not elevated but I suspect this is due to the patient's chronic low muscle mass. Will repeat CK level in a.m.. Will repeat electrolyte panel including magnesium and phosphorus. Patient had elevated troponins possibly due to type 2 infarct versus concomitant elevation with rhabdomyolysis. Patient is on telemetry in IMU. Patient has laceration scalp with adequate hemostasis. Will cleanse daily. Patient's transaminitis likely due to rhabdomyolysis. Will repeat CMP in a.m.. 12/15/2022 interval history: patient remains somnolent unable to provide any review of symptoms, clinically stable patient with new onset seizure started on Keppra 1000 mg b.i.d. patient also has developed rhabdomyolysis being gently hydrated will monitor CK level and kidney function, patient's urine is suspicious for UTI however patient unable to provide any symptoms review patient being treated with ceftriaxone, patient is seen by Neuro recommended EEG to further evaluate will follow-up. Subjective Date/time seen: 12/15/22 15:27 Chief Complaint: Found down at home, witnessed seizure HPI-Narrative: 82-year-old female with a past medical history of multiple sclerosis, chronic pain and recent diagnosis of hypothyroidism who presented to the ER from home via EMS after she was found down.? The entirety of history was obtained from ER report and EMS report.? The patient was only answering yes and no questions to nursing staff.? But at the time of my evaluation the patient had be sternal rubbed in order to moan at me in tell me know when I asked her to open her eyes.? The patient would not answer any questions.? Evidently the neighbor called EMS when she saw that the patient was down on the floor through
[2022-12-16] VITALS (14 sets, daily range): BP systolic 145–172; BP diastolic 72–94; PULSE 75–100; RESP 16–24; TEMP 36–36.7; O2SAT 95–99; BMI 10.0
[2022-12-16] MEDS: SODIUM CHLORIDE 0.9% IV 1,000 ML 200 ML IV CONT ×2 (03:08→08:34)
[2022-12-16 05:02] LABS: Hematocrit 35.7 % (37.0-47.0); Hemoglobin 11.4 g/dL (12.0-15.0); Mean Corpuscular HGB Conc 31.9 g/dl (32-36); Mean Corpuscular Volume 93.9 fl (80-100); Platelet Count Result 179 k/mm3 (150-375); Red Cell Distribution Width 13.6 % (11.5-14.5); White Blood Count 7.6 K/mm3 (4.5-10.0)
[2022-12-16 05:15] LABS: Alanine Aminotransferase 60 U/L (6-35); Albumin Level 3.2 g/dL (3.5-5.1); Alkaline Phosphatase 74 U/L (38-126); Anion Gap 6 mmol/L (8-16); Aspartate Amino Transferase 227 U/L (14-36); Bilirubin,Total 0.7 mg/dL (0.2-1.3); Blood Urea Nitrogen 12 mg/dL (7-17); Carbon Dioxide 18 mmol/L (22-30); Chloride 112 mmol/L (98-107); Estimated CRCL calculation 56 ml/min; Estimated Glomerular Filt Rate > 60; Glucose 66 mg/dL (65-110); Magnesium 1.7 mg/dL (1.6-2.3); Potassium 3.3 mmol/L (3.4-5.0); Sodium 136 mmol/L (137-145)
[2022-12-16] MEDS: levETIRAcetam 1000MG/NACL100ML 1,000 MG/100 ML BAG 400 MG IVPB ×2 (08:31→20:20)
--- NOTE | 2022-12-16 09:16 | WPDNEUROLOGY ---
Neurology EEG Report General Information Date of Study: 12/15/22 TEST eeg DIAGNOSIS Seizures CONDITION OF RECORDING drowsy and sleep EEG NUMBER [id number] CLINICAL HISTORY patient slept throughout the setting and tracing no particular history was available EEG DESCRIPTION background rhythm consists of medium voltage
--- NOTE | 2022-12-16 09:42 | PCOTNOTE ---
Attempted OT evaluation, patient is currently with PT, will follow.
--- NOTE | 2022-12-16 11:42 | PCSTNOTE ---
Therapist attempted Bedside Swallow Evaluation however patient refused due to significant pain in her legs, refused to sit up. THerapist suggested if she sat up and drank water, perhaps she would be able to take pain pills that way and patient still refused. Nurse was notified of patient's complain of pain in her legs and her refusal to cooperate with swallow evaluation secondary to pain in her legs. Therapist will attempt later.
[2022-12-16] MEDS: MORPHINE SULFATE (*CRX) 2 MG/ML INJ IV PUSH (11:53)
--- NOTE | 2022-12-16 15:00 | PCSTNOTE ---
Please refer to the Bedside Swallow Evaluation in the EMR. Please note, silent aspiration cannot be ruled out at bedside.
[2022-12-16] MEDS: GABAPENTIN 100 MG CAPSULE 200 MG PO ×2 (15:01→16:48)
--- NOTE | 2022-12-16 15:24 | PM.IMPN ---
Progress Note: A&P Assessment and Plan (1) Seizure: Code(s): R56.9 - Unspecified convulsions Status: Acute (2) Acute UTI: Code(s): N39.0 - Urinary tract infection, site not specified Status: Acute (3) Rhabdomyolysis: Qualifiers: Rhabdomyolysis type: non-traumatic Qualified Code(s): M62.82 - Rhabdomyolysis Code(s): M62.82 - Rhabdomyolysis Status: Acute (4) Laceration of scalp: Qualifiers: Encounter type: initial encounter Qualified Code(s): S01.01XA - Laceration without foreign body of scalp, initial encounter Code(s): S01.01XA - Laceration without foreign body of scalp, initial encounter Status: Acute (5) Acute alteration in mental status: Code(s): R41.82 - Altered mental status, unspecified Status: Acute (6) Transaminitis: Code(s): R74.01 - Elevation of levels of liver transaminase levels Status: Acute Plan Seizures due to posttraumatic from fall versus new onset seizure disorder. Will place patient on seizure precautions. Neurology has been consulted. Patient received Keppra load. Will obtain EEG. Neuro checks q.4 hours. The patient does have increased tone on exam I think this is due to her multiple sclerosis. Especially given presence of Babinski's on the right. Will await further neurologic recommendations. Patient has acute altered mental status likely due to postictal phase in com been a mancia with metabolic encephalopathy. The patient does also have a known low mini-mental status exam in the past and has an MRI with significant evidence of microvascular changes. Patient may also have some underlying dementia. Patient had recent TSH with initiation of levothyroxine as outpatient. She had recent B12 and folate levels were within normal limits but borderline. Patient's urine is suggestive of probable UTI. Blood cultures and urine cultures have been obtained. Patient has been started on antibiotic therapy with Rocephin. Will check CBC with a.m. labs. White count was elevated in the ER. The patient had rhabdomyolysis from prolonged down time on the floor. Patient is on aggressive IV fluid hydration with normal saline. The patient's creatinine is not elevated but I suspect this is due to the patient's chronic low muscle mass. Will repeat CK level in a.m.. Will repeat electrolyte panel including magnesium and phosphorus. Patient had elevated troponins possibly due to type 2 infarct versus concomitant elevation with rhabdomyolysis. Patient is on telemetry in IMU. Patient has laceration scalp with adequate hemostasis. Will cleanse daily. Patient's transaminitis likely due to rhabdomyolysis. Will repeat CMP in a.m.. 12/16/2022 interval history: patient remains somnolent unable to provide any review of symptoms, clinically stable patient with new onset seizure started on Keppra 1000 mg b.i.d. patient had a EEG today essentially normal, patient also has developed rhabdomyolysis being gently hydrated, patient's CK levels are rising, and will monitor kidney function, patient's urine is suspicious for UTI however patient unable to provide any symptoms review, urine culture is growing E coli pansensitive, patient being treated with ceftriaxone, patient was seen by speech pathology patient with difficulty swallowing will have MBS tomorrow and further recommendation to follow. Subjective Date/time seen: 12/16/22 15:24 12/16/2022 interval history: patient remains somnolent unable to provide any review of symptoms, clinically stable patient with new onset seizure started on Keppra 1000 mg b.i.d. patient had a EEG today essentially normal, patient also has developed rhabdomyolysis being gently hydrated, patient's CK levels are rising, and will monitor kidney function, patient's urine is suspicious for UTI however patient unable to provide any symptoms review, urine culture is growing E coli pansensitive, patient
[2022-12-16] MEDS: SODIUM CHLORIDE 0.9% IV 1,000 ML 100 ML IV CONT (16:48)
[2022-12-17] VITALS (13 sets, daily range): BP systolic 142–188; BP diastolic 83–95; PULSE 79–105; RESP 16–20; TEMP 36.3–36.8; O2SAT 92–100
[2022-12-17] MEDS: SODIUM CHLORIDE 0.9% IV 1,000 ML 100 ML IV CONT ×2 (02:00→16:26)
[2022-12-17 04:46] LABS: Hematocrit 34.9 % (37.0-47.0); Hemoglobin 11.3 g/dL (12.0-15.0); Mean Corpuscular HGB Conc 32.4 g/dl (32-36); Mean Corpuscular Hemoglobin 30.7 pg (26-34); Mean Corpuscular Volume 94.8 fl (80-100); Mean Platelet Volume 8.7 fl (7.4-10.4); Platelet Count Result 168 k/mm3 (150-375); Red Blood Count 3.68 M/mm3 (4.2-5.4); Red Cell Distribution Width 13.5 % (11.5-14.5); White Blood Count 5.7 K/mm3 (4.5-10.0)
[2022-12-17] MEDS: LEVOTHYROXINE SODIUM 75 MCG TABLET PO (04:53)
[2022-12-17] MEDS: MORPHINE SULFATE (*CRX) 2 MG/ML INJ IV PUSH ×3 (04:53→20:36)
[2022-12-17 05:08] LABS: Alanine Aminotransferase 66 U/L (6-35); Alkaline Phosphatase 63 U/L (38-126); Anion Gap 8 mmol/L (8-16); Aspartate Amino Transferase 190 U/L (14-36); Bilirubin,Total 0.7 mg/dL (0.2-1.3); Blood Urea Nitrogen 7 mg/dL (7-17); Calcium 7.9 mg/dL (8.4-10.2); Carbon Dioxide 17 mmol/L (22-30); Chloride 109 mmol/L (98-107); Estimated CRCL calculation 69 ml/min; Estimated Glomerular Filt Rate > 60; Glucose 77 mg/dL (65-110); Magnesium 1.6 mg/dL (1.6-2.3); Potassium 2.8 mmol/L (3.4-5.0); Sodium 134 mmol/L (137-145)
[2022-12-17] MEDS: POTASSIUM CHLORIDE INJ 40 MEQ in SODIUM CHLORIDE 0.9% IV 500 ML 125 MEQ IVPB (06:24)
[2022-12-17] MEDS: ASPIRIN 81 MG CHEWABLE TABLET PO (08:23)
[2022-12-17] MEDS: GABAPENTIN 100 MG CAPSULE 200 MG PO ×2 (08:24→16:26)
--- NOTE | 2022-12-17 08:47 | PCOTNOTE ---
Attempted OT evaluation, unable to complete at this time due to patients increased pain. Will follow.
--- NOTE | 2022-12-17 09:01 | PCPTNOTE ---
The patient treatment was not able to be completed due to patient out of room for testing. Will plan to continue treatment per plan of care.
[2022-12-17] MEDS: levETIRAcetam 1000MG/NACL100ML 1,000 MG/100 ML BAG 400 MG IVPB ×2 (10:07→22:25)
--- NOTE | 2022-12-17 10:13 | PCSTNOTE ---
Please refer to the Modified Barium Swallow Evaluation in the EMR.
--- NOTE | 2022-12-17 11:59 | PCNFU ---
Nutrition Follow-Up Complete: Inadequate energy intake related to diet order as evidenced by NPO status Goal:Diet advanced PO intake 50% or greater of meals. Pt is not progressing towards goal. Pt current nutrition is NPO per [employer]UE [employer]ENT recommendations. Nutrition recommendation: NPO, alternative nutrition support as needed Last recorded weight is 57 kg - increased from 48kg Bowel Motility: no BM recorded Labs Reviewed:hgb:11.3 HCT:34.9, Alb:3, NA:134, Cr:0.4 Meds Noted: KCL Skin: no skin issues noted Additional Notes: Pt was on a pureed diet, [employer]UE [employer] eval and MBS recommended NPO due to aspiration. Pt just completed both this AM. Recommendations for possible tube feeding if that route is chosen: Jevity 1.5 @ goal rate of 50ml/hr to total 1650kcals, 55g protein, 836ml fluid, plus 120ml flush q 4hrs for a total of 1556ml free water / day. Monitor for diet orders and/or alternative nutrition support, iwt, labs. Follow up in 3 days.
--- NOTE | 2022-12-17 12:53 | PCDIET ---
Recommendation for alternative nutrition support. Recommend tube feedings via an NGT: Jevity 1.5 @ goal rate of 50ml/hr to total 1650kcals, 55g protein, 836ml fluid, plus 120ml flush q 4hrs for a total of 1556ml free water / day. *Start Tube feeding at 20ml/hr and advance by 10ml q 4 hrs as tolerated, to goal rate.
--- NOTE | 2022-12-17 13:53 | PCOTNOTE ---
Attempted to see pt. for occupational therapy evaluation. Pt. currently having NG tub placed with nursing. Unable to participate at this time. Following.
--- NOTE | 2022-12-17 15:00 | PM.IMPN ---
Progress Note: A&P Assessment and Plan (1) Seizure: Code(s): R56.9 - Unspecified convulsions Status: Acute (2) Acute UTI: Code(s): N39.0 - Urinary tract infection, site not specified Status: Acute (3) Rhabdomyolysis: Qualifiers: Rhabdomyolysis type: non-traumatic Qualified Code(s): M62.82 - Rhabdomyolysis Code(s): M62.82 - Rhabdomyolysis Status: Acute (4) Laceration of scalp: Qualifiers: Encounter type: initial encounter Qualified Code(s): S01.01XA - Laceration without foreign body of scalp, initial encounter Code(s): S01.01XA - Laceration without foreign body of scalp, initial encounter Status: Acute (5) Acute alteration in mental status: Code(s): R41.82 - Altered mental status, unspecified Status: Acute (6) Transaminitis: Code(s): R74.01 - Elevation of levels of liver transaminase levels Status: Acute Plan Seizures due to posttraumatic from fall versus new onset seizure disorder. Will place patient on seizure precautions. Neurology has been consulted. Patient received Keppra load. Will obtain EEG. Neuro checks q.4 hours. The patient does have increased tone on exam I think this is due to her multiple sclerosis. Especially given presence of Babinski's on the right. Will await further neurologic recommendations. Patient has acute altered mental status likely due to postictal phase in com been a mancia with metabolic encephalopathy. The patient does also have a known low mini-mental status exam in the past and has an MRI with significant evidence of microvascular changes. Patient may also have some underlying dementia. Patient had recent TSH with initiation of levothyroxine as outpatient. She had recent B12 and folate levels were within normal limits but borderline. Patient's urine is suggestive of probable UTI. Blood cultures and urine cultures have been obtained. Patient has been started on antibiotic therapy with Rocephin. Will check CBC with a.m. labs. White count was elevated in the ER. The patient had rhabdomyolysis from prolonged down time on the floor. Patient is on aggressive IV fluid hydration with normal saline. The patient's creatinine is not elevated but I suspect this is due to the patient's chronic low muscle mass. Will repeat CK level in a.m.. Will repeat electrolyte panel including magnesium and phosphorus. Patient had elevated troponins possibly due to type 2 infarct versus concomitant elevation with rhabdomyolysis. Patient is on telemetry in IMU. Patient has laceration scalp with adequate hemostasis. Will cleanse daily. Patient's transaminitis likely due to rhabdomyolysis. Will repeat CMP in a.m.. 12/17/2022 interval history: patient remains somnolent unable to provide any review of symptoms, clinically stable patient with new onset seizure started on Keppra 1000 mg b.i.d. patient had a EEG on 12/16 essentially normal, patient also has developed rhabdomyolysis being gently hydrated, patient's CK levels were rising, and will monitor kidney function, patient's urine is suspicious for UTI however patient unable to provide any symptoms review, urine culture is growing E coli pansensitive, patient being treated with ceftriaxone, patient was seen by speech pathology patient with difficulty swallowing patient patient had MBS today and failed, will start the patient on NG and tube feeding will continue to monitor. Subjective Date/time seen: 12/17/22 15:00 12/17/2022 interval history: patient remains somnolent unable to provide any review of symptoms, clinically stable patient with new onset seizure started on Keppra 1000 mg b.i.d. patient had a EEG on 12/16 essentially normal, patient also has developed rhabdomyolysis being gently hydrated, patient's CK levels were rising, and will monitor kidney function, patient's urine is suspicious for UTI however patient unable to provide any symptoms revie
[2022-12-17 17:14] LABS: Basophils Percent Auto 0.2 % (0.2-1.2); Eosinophils Absolute Auto 0.1 K/mm3 (0-0.3); Eosinophils Percent Auto 1.2 % (0-4.4); Hematocrit 27.4 % (37.0-47.0); Hemoglobin 9.1 g/dL (12.0-15.0); Immature Granulocyte Absolute 0.02 K/mm3 (0.00-0.031); Immature Granulocyte Percent A 0.3 % (0-0.5); Lymphocytes Absolute Auto 0.42 K/mm3 (0.9-3.2); Lymphocytes Percent Auto 7.2 % (18.3-44.2); Mean Corpuscular HGB Conc 33.2 g/dl (32-36); Mean Corpuscular Hemoglobin 30.7 pg (26-34); Mean Corpuscular Volume 92.6 fl (80-100); Mean Platelet Volume 8.4 fl (7.4-10.4); Monocytes Absolute Auto 0.6 K/mm3 (0.1-0.6); Monocytes Percent Auto 9.9 % (2.6-8.5); Neutrophils Absolute Auto 4.8 K/mm3 (1.3-6.7); Neutrophils Percent Auto 81.2 % (45.5-73.1); Platelet Count Result 136 k/mm3 (150-375); Red Blood Count 2.96 M/mm3 (4.2-5.4); Red Cell Distribution Width 13.6 % (11.5-14.5); White Blood Count 5.9 K/mm3 (4.5-10.0)
[2022-12-17 17:24] LABS: Partial Thromboplastin Time 32.1 SECONDS (22.3-36.8)
[2022-12-17 17:27] LABS: Alanine Aminotransferase 38 U/L (6-35); Albumin Level 1.4 g/dL (3.5-5.1); Alkaline Phosphatase 35 U/L (38-126); Anion Gap 4 mmol/L (8-16); Aspartate Amino Transferase 85 U/L (14-36); Bilirubin,Total 0.4 mg/dL (0.2-1.3); Blood Urea Nitrogen 4 mg/dL (7-17); Calcium 4.4 mg/dL (8.4-10.2); Carbon Dioxide 10 mmol/L (22-30); Chloride 126 mmol/L (98-107); Estimated CRCL calculation 121 ml/min; Estimated Glomerular Filt Rate > 60; Glucose 55 mg/dL (65-110); Sodium 140 mmol/L (137-145)
[2022-12-17 17:37] LABS: Glucose Point of Care 81 mg/dl (65-105)
[2022-12-17 17:49] LABS: Transferrin < 80 mg/dL (206-381)
[2022-12-17] MEDS: POTASSIUM CHLORIDE INJ 40 MEQ in SODIUM CHLORIDE 0.9% IV 500 ML 130 MEQ IVPB (18:35)
[2022-12-17] MEDS: MAGNESIUM SULF 4 GM/WATER100ML 4 GM/100 ML BAG IVPB (18:35)
[2022-12-17] MEDS: POTASSIUM CHLORIDE 20 MEQ PACKET (FOR LIQUID) 40 MEQ FEED TUBE (18:41)
[2022-12-17 19:58] LABS: Methylmalonic Acid 122 nmol/L (87-318)
[2022-12-17] MEDS: CEPHALEXIN 500 MG CAPSULE PO (20:36)
[2022-12-18] VITALS (9 sets, daily range): BP systolic 149–175; BP diastolic 85–91; PULSE 81–111; RESP 20–25; TEMP 36.2–37.8; O2SAT 93–98
[2022-12-18] MEDS: CEPHALEXIN 500 MG CAPSULE PO ×4 (00:04→17:23)
[2022-12-18 00:14] LABS: Glucose Point of Care 139 mg/dl (65-105)
[2022-12-18 02:55] LABS: Anion Gap 4 mmol/L (8-16); Blood Urea Nitrogen 7 mg/dL (7-17); Carbon Dioxide 18 mmol/L (22-30); Chloride 111 mmol/L (98-107); Estimated CRCL calculation 69 ml/min; Estimated Glomerular Filt Rate > 60; Glucose 143 mg/dL (65-110); Magnesium 2.1 mg/dL (1.6-2.3); Potassium 3.9 mmol/L (3.4-5.0); Sodium 133 mmol/L (137-145)
[2022-12-18 03:04] LABS: Alanine Aminotransferase 65 U/L (6-35); Albumin Level 2.9 g/dL (3.5-5.1); Alkaline Phosphatase 66 U/L (38-126); Anion Gap 5 mmol/L (8-16); Aspartate Amino Transferase 145 U/L (14-36); Bilirubin,Total 0.7 mg/dL (0.2-1.3); Blood Urea Nitrogen 7 mg/dL (7-17); Carbon Dioxide 17 mmol/L (22-30); Chloride 111 mmol/L (98-107); Estimated CRCL calculation 69 ml/min; Estimated Glomerular Filt Rate > 60; Glucose 143 mg/dL (65-110); Magnesium 2.1 mg/dL (1.6-2.3); Phosphorus 2.1 mg/dL (2.5-4.5); Potassium 3.9 mmol/L (3.4-5.0); Sodium 133 mmol/L (137-145); Triglycerides 105 mg/dL (<150)
[2022-12-18 05:14] LABS: Hematocrit 33.4 % (37.0-47.0); Hemoglobin 11.2 g/dL (12.0-15.0); Mean Corpuscular HGB Conc 33.5 g/dl (32-36); Mean Corpuscular Hemoglobin 30.1 pg (26-34); Mean Corpuscular Volume 89.8 fl (80-100); Platelet Count Result 201 k/mm3 (150-375); Red Blood Count 3.72 M/mm3 (4.2-5.4); Red Cell Distribution Width 13.3 % (11.5-14.5); White Blood Count 6.2 K/mm3 (4.5-10.0)
[2022-12-18] MEDS: SODIUM CHLORIDE 0.9% IV 1,000 ML 100 ML IV CONT ×2 (05:30→17:23)
[2022-12-18] MEDS: LEVOTHYROXINE SODIUM 75 MCG TABLET PO (05:31)
[2022-12-18] MEDS: GABAPENTIN 100 MG CAPSULE 200 MG PO ×3 (08:54→17:23)
[2022-12-18] MEDS: ASPIRIN 81 MG CHEWABLE TABLET PO (08:55)
[2022-12-18] MEDS: levETIRAcetam 1000MG/NACL100ML 1,000 MG/100 ML BAG 400 MG IVPB ×2 (08:56→21:01)
[2022-12-18 09:10] LABS: Creatine Kinase 2391 U/L (30-135)
--- NOTE | 2022-12-18 10:53 | PCPTNOTE ---
Attempted to see patient for PT, however patient was too worn out from sitting up in chair and declined PT. Patient was leaning in chair and looked exhausted. Patient unable to participate in therapy at this time. Nursing assisting patient back to bed with Jose bowser.
--- NOTE | 2022-12-18 11:00 | PCNFU ---
Nutrition Follow-Up Complete: Inadequate energy intake related to diet order as evidenced by NPO status Goal:Diet advanced PO intake 50% or greater of meals - Not able to meet goal. Stared on NG tube feedings Pt current nutrition is Jevity 1.5 @ goal rate 50 ml/h with flushes 120 ml q 4 h. 1650 kcals, 55 g protein, 836 ml free water. Total water with flushes 1556 ml/day. Nutrition recommendation: Tube feeding is adequate for needs. Continue tube feeding. Patient may need PEG tube for long-term nutrition if swallowing issues continue. Last recorded weight is 57 kg. Bowel Motility: Last BM 12/14/22 Labs Reviewed: Hgb 11.2, Hct 33.4, Alb 2.9, Na 133, Cre 0.4, PO4 2.1 Meds Noted:Keppra, morphine Skin: Laceration to head with prasanth Additional Notes: Failed MBSS yesterday and stared on NG feeding. If swallow does not improve, likely patient will need a PEG tube for watermaster nutrition. Monitor for diet order, intake, wt, labs. Follow up Wednesday/Wednesday for tube feeding
[2022-12-18 11:58] LABS: Glucose Point of Care 150 mg/dl (65-105)
--- NOTE | 2022-12-18 11:59 | PM.IMPN ---
Progress Note: A&P Assessment and Plan (1) Seizure: Code(s): R56.9 - Unspecified convulsions Status: Acute Assessment and Plan: Continue antiseizure medication (2) Acute UTI: Code(s): N39.0 - Urinary tract infection, site not specified Status: Acute Assessment and Plan: Continue antibiotics (3) Rhabdomyolysis: Qualifiers: Rhabdomyolysis type: non-traumatic Qualified Code(s): M62.82 - Rhabdomyolysis Code(s): M62.82 - Rhabdomyolysis Status: Acute Assessment and Plan: CK improving (4) Laceration of scalp: Qualifiers: Encounter type: initial encounter Qualified Code(s): S01.01XA - Laceration without foreign body of scalp, initial encounter Code(s): S01.01XA - Laceration without foreign body of scalp, initial encounter Status: Acute (5) Acute alteration in mental status: Code(s): R41.82 - Altered mental status, unspecified Status: Acute Assessment and Plan: Improved (6) Transaminitis: Code(s): R74.01 - Elevation of levels of liver transaminase levels Status: Acute Subjective Date/time seen: 12/18/22 11:59 No new complaints Exam Narrative: Patient is comfortable, NAD HEENT: eyes are clear and none icteric LUNGS: normal respiratory effort ABD: not distended Lower extremities: no edema SKIN: nonjaundiced Neuro: grossly intact somnolent. Objective Data Vital Signs Vital Signs: Vital Signs - 24 hr 12/17/22 12:00 12/17/22 12:00 12/17/22 12:00 Temperature 97.4 F L Pulse Rate 88 85 Respiratory Rate 16 Blood Pressure 176/86 H Pulse Oximetry 98 Oxygen Delivery Room Air 12/17/22 14:00 12/17/22 15:22 12/17/22 16:00 Temperature 98.3 F Pulse Rate 87 91 Respiratory Rate 20 Blood Pressure 169/83 H Pulse Oximetry 92 98 Oxygen Delivery Room Air 12/17/22 16:00 12/17/22 18:00 12/17/22 16:00 Temperature Pulse Rate 85 84 Respiratory Rate Blood Pressure Pulse Oximetry Oxygen Delivery Room Air 12/17/22 20:00 12/17/22 20:00 12/17/22 20:00 Temperature 97.6 F Pulse Rate 95 105 H 105 H Respiratory Rate 16 16 Blood Pressure 178/95 H Pulse Oximetry 96 96 Oxygen Delivery Room Air 12/17/22 22:00 12/18/22 00:00 12/18/22 00:00 Temperature 99.2 F Pulse Rate 102 H 108 H 105 H Respiratory Rate 20 Blood Pressure 155/88 H Pulse Oximetry 93 Oxygen Delivery 12/18/22 00:00 12/18/22 02:00 12/18/22 04:00 Temperature Pulse Rate 105 H 98 111 H Respiratory Rate 20 Blood Pressure Pulse Oximetry 93 Oxygen Delivery Room Air 12/18/22 04:00 12/18/22 04:00 12/18/22 06:00 Temperature 97.2 F L Pulse Rate 111 H 103 H 98 Respiratory Rate 20 20 Blood Pressure 169/88 H Pulse Oximetry 93 94 Oxygen Delivery Room Air 12/18/22 08:00 12/18/22 08:24 12/18/22 08:00 Temperature 100.0 F H Pulse Rate 101 H Respiratory Rate 25 H Blood Pressure 175/86 H Pulse Oximetry 94 95 Oxygen Delivery Room Air Room Air 12/18/22 08:00 Temperature Pulse Rate 94 Respiratory Rate Blood Pressure Pulse Oximetry Oxygen Delivery Intake/Output Intake/Output: Intake & Output 12/15/22 12/16/22 12/17/22 12/18/22 23:59 23:59 23:59 23:59 Intake Total 3350 2370 3700 1100 Output Total 1350 3950 1500 1350 Balance 2000 -1580 2200 -250 Meds/Results Medications: Active Medications Generic Name Dose Route Start Last Admin Trade Name Zaireq PRN Reason Stop Dose Admin Aspirin 81 mg 12/15/22 08:00 12/18/22 08:55 Aspirin 81 Mg Chewable Tablet PO 81 mg DAILY@0800 MARCIO Administration Cephalexin HCl 500 mg 12/17/22 18:00 12/18/22 11:58 Cephalexin 500 Mg Capsule PO 12/21/22 12:01 500 mg Q6HR MARCIO Administration Gabapentin 200 mg 12/15/22 09:00 12/18/22 08:54 Gabapentin 100 Mg Capsule PO 200 mg TID MARCIO Administration Levetiracetam 1,000 mg in 100 mls @ 400 mls/hr
[2022-12-18 18:31] LABS: Glucose Point of Care 156 mg/dl (65-105)
[2022-12-18] MEDS: MORPHINE SULFATE (*CRX) 2 MG/ML INJ IV PUSH (21:01)
[2022-12-18 23:15] LABS: Glucose Point of Care 131 mg/dl (65-105)
[2022-12-19] VITALS (8 sets, daily range): BP systolic 118–141; BP diastolic 61–81; PULSE 84–100; RESP 14–22; TEMP 36.3–36.9; O2SAT 93–100
[2022-12-19] MEDS: CEPHALEXIN 500 MG CAPSULE PO ×4 (00:17→17:11)
[2022-12-19] MEDS: MORPHINE SULFATE (*CRX) 2 MG/ML INJ IV PUSH ×4 (01:24→21:09)
[2022-12-19 03:59] LABS: Hematocrit 30.9 % (37.0-47.0); Hemoglobin 10.4 g/dL (12.0-15.0); Mean Corpuscular HGB Conc 33.7 g/dl (32-36); Mean Corpuscular Hemoglobin 30.4 pg (26-34); Mean Corpuscular Volume 90.4 fl (80-100); Mean Platelet Volume 8.9 fl (7.4-10.4); Platelet Count Result 155 k/mm3 (150-375); Red Blood Count 3.42 M/mm3 (4.2-5.4); Red Cell Distribution Width 13.8 % (11.5-14.5); White Blood Count 5.5 K/mm3 (4.5-10.0)
[2022-12-19] MEDS: SODIUM CHLORIDE 0.9% IV 1,000 ML 100 ML IV CONT ×2 (04:08→15:06)
[2022-12-19 04:16] LABS: Alanine Aminotransferase 54 U/L (6-35); Albumin Level 2.5 g/dL (3.5-5.1); Alkaline Phosphatase 61 U/L (38-126); Anion Gap 0 mmol/L (8-16); Aspartate Amino Transferase 97 U/L (14-36); Bilirubin,Total 0.5 mg/dL (0.2-1.3); Blood Urea Nitrogen 10 mg/dL (7-17); Calcium 7.5 mg/dL (8.4-10.2); Carbon Dioxide 24 mmol/L (22-30); Chloride 113 mmol/L (98-107); Estimated CRCL calculation 69 ml/min; Estimated Glomerular Filt Rate > 60; Glucose 130 mg/dL (65-110); Magnesium 1.7 mg/dL (1.6-2.3); Phosphorus 2.8 mg/dL (2.5-4.5); Potassium 3.4 mmol/L (3.4-5.0); Sodium 137 mmol/L (137-145)
[2022-12-19] MEDS: LEVOTHYROXINE SODIUM 75 MCG TABLET PO (05:48)
[2022-12-19] MEDS: GABAPENTIN 100 MG CAPSULE 200 MG PO ×3 (08:34→16:36)
[2022-12-19] MEDS: levETIRAcetam 1000MG/NACL100ML 1,000 MG/100 ML BAG 400 MG IVPB (08:36)
[2022-12-19] MEDS: ASPIRIN 81 MG CHEWABLE TABLET PO (08:45)
[2022-12-19 11:58] LABS: Glucose Point of Care 113 mg/dl (65-105)
--- NOTE | 2022-12-19 13:23 | PM.IMPN ---
Progress Note: A&P Assessment and Plan (1) Seizure: Code(s): R56.9 - Unspecified convulsions Status: Acute Assessment and Plan: Continue antiseizure medication (2) Acute UTI: Code(s): N39.0 - Urinary tract infection, site not specified Status: Acute Assessment and Plan: Continue antibiotics (3) Rhabdomyolysis: Qualifiers: Rhabdomyolysis type: non-traumatic Qualified Code(s): M62.82 - Rhabdomyolysis Code(s): M62.82 - Rhabdomyolysis Status: Acute Assessment and Plan: CK improving (4) Laceration of scalp: Qualifiers: Encounter type: initial encounter Qualified Code(s): S01.01XA - Laceration without foreign body of scalp, initial encounter Code(s): S01.01XA - Laceration without foreign body of scalp, initial encounter Status: Acute (5) Acute alteration in mental status: Code(s): R41.82 - Altered mental status, unspecified Status: Acute Assessment and Plan: Improved (6) Transaminitis: Code(s): R74.01 - Elevation of levels of liver transaminase levels Status: Acute Subjective Date/time seen: 12/19/22 13:23 No new complaints Exam Narrative: Patient is comfortable, NAD HEENT: eyes are clear and none icteric LUNGS: normal respiratory effort ABD: not distended Lower extremities: no edema SKIN: nonjaundiced Neuro: grossly intact somnolent. Objective Data Vital Signs Vital Signs: Vital Signs - 24 hr 12/18/22 16:00 12/18/22 16:00 12/18/22 16:00 Temperature 98.3 F Pulse Rate 102 H 106 H Respiratory Rate 24 H Blood Pressure 149/85 H Pulse Oximetry 95 94 Oxygen Delivery Room Air 12/18/22 18:00 12/18/22 20:00 12/18/22 20:00 Temperature 97.3 F L Pulse Rate 87 107 H Respiratory Rate 22 H Blood Pressure 163/91 H Pulse Oximetry 95 Oxygen Delivery Room Air 12/19/22 00:00 12/18/22 20:00 12/19/22 00:00 Temperature 98.4 F Pulse Rate 91 104 H 87 Respiratory Rate 22 H Blood Pressure 126/78 Pulse Oximetry 97 Oxygen Delivery 12/19/22 04:00 12/19/22 04:00 12/19/22 07:36 Temperature 97.6 F Pulse Rate 94 94 Respiratory Rate 22 H Blood Pressure 119/75 Pulse Oximetry 93 100 Oxygen Delivery Room Air 12/19/22 08:00 12/19/22 08:00 12/19/22 11:59 Temperature 97.8 F 97.4 F L Pulse Rate 88 91 85 Respiratory Rate 20 16 Blood Pressure 129/68 119/61 Pulse Oximetry 94 98 Oxygen Delivery 12/19/22 12:00 Temperature Pulse Rate 84 Respiratory Rate Blood Pressure Pulse Oximetry Oxygen Delivery Intake/Output Intake/Output: Intake & Output 12/16/22 12/17/22 12/18/22 12/19/22 23:59 23:59 23:59 23:59 Intake Total 2370 3700 2825 1797 Output Total 3950 1500 1800 925 Balance -1580 2200 1025 872 Meds/Results Medications: Active Medications Generic Name Dose Route Start Last Admin Trade Name Freq PRN Reason Stop Dose Admin Aspirin 81 mg 12/15/22 08:00 12/19/22 08:45 Aspirin 81 Mg Chewable Tablet PO 81 mg DAILY@0800 MARCIO Administration Cephalexin HCl 500 mg 12/17/22 18:00 12/19/22 12:07 Cephalexin 500 Mg Capsule PO 12/21/22 12:01 500 mg Q6HR MARCIO Administration Gabapentin 200 mg 12/15/22 09:00 12/19/22 12:07 Gabapentin 100 Mg Capsule PO 200 mg TID MARCIO Administration Sodium Chloride 1,000 mls @ 100 mls/hr 12/16/22 15:35 12/19/22 04:08 Normal Saline Iv IV CONT 100 mls/hr .Q10H MARCIO Administration Levetiracetam 500 mg 12/19/22 21:00 Levetiracetam 500 Mg Tablet PO Q12HR MARCIO Levothyroxine Sodium 75 mcg 12/15/22 06:30 12/19/22 05:48 Levothyroxine Sodium 75 Mcg Tablet PO 75 mcg DAILY@0630 [facility] Administration Morphine Sulfate 2 mg 12/16/22 11:47 12/19/22 09:53 Morphine Sulfate (*Crx) 2 Mg/Ml Inj IV PUSH 2 mg Q4H PRN Administration Pain Rated 7-10 Radiology Results: ITS Impressions Shoulder X-Ray 12/14/22 19:02 IMPR
--- NOTE | 2022-12-19 13:33 | PCSTNOTE ---
Speech therapy attempted bedside swallowing treatment, patient sleeping soundly and unable to stay awake when woken.
--- NOTE | 2022-12-19 14:29 | PCOTNOTE ---
Attempted to see pt for Occupational therapy treatment. Pt was unable to stay awake for participation in treatment, therefore, therapy session was not completed at this time. Will continue per POC duration/frequency tomorrow.
--- NOTE | 2022-12-19 16:18 | PC.NURSE ---
Pt transferred to room 306-1. Report given to DELROY Linares. All questions answered. pt oriented to call light. Bed is in lowest and locked position with bed alarm on.
--- NOTE | 2022-12-19 16:41 | ADMGEN ---
This patient, Maria Victoria Alfaro, was admitted to 3 Med Surg Room 306-01 @ 1620. Patient/family oriented to hospital policies and general routines including ID bracelet, bed and alarms, visiting hours, pain management, procedures, bathroom and other care routines, personal items, smoking policy, room service/diet, and visiting hours. Information on how to activate the Rapid Response Team has been discussed. Patient/Family are encouraged to report perceived risks to care and to ask questions if they do not understand what they are told or what they should do.
[2022-12-19 18:02] LABS: Glucose Point of Care 146 mg/dl (65-105)
[2022-12-19] MEDS: levETIRAcetam 500 MG TABLET PO (21:11)
[2022-12-20] VITALS (9 sets, daily range): BP systolic 114–126; BP diastolic 74–87; PULSE 73–101; RESP 16–18; TEMP 36.2–37.2; O2SAT 96–99
[2022-12-20] MEDS: CEPHALEXIN 500 MG CAPSULE PO ×4 (00:26→17:38)
[2022-12-20] MEDS: SODIUM CHLORIDE 0.9% IV 1,000 ML 100 ML IV CONT ×2 (01:43→12:55)
[2022-12-20 02:32] LABS: Glucose Point of Care 145 mg/dl (65-105)
[2022-12-20] MEDS: MORPHINE SULFATE (*CRX) 2 MG/ML INJ IV PUSH ×5 (03:19→20:53)
[2022-12-20] MEDS: LEVOTHYROXINE SODIUM 75 MCG TABLET PO (05:11)
[2022-12-20 06:02] LABS: Hematocrit 30.3 % (37.0-47.0); Hemoglobin 9.9 g/dL (12.0-15.0); Mean Corpuscular HGB Conc 32.7 g/dl (32-36); Mean Corpuscular Hemoglobin 30.3 pg (26-34); Mean Corpuscular Volume 92.7 fl (80-100); Mean Platelet Volume 9.4 fl (7.4-10.4); Platelet Count Result 174 k/mm3 (150-375); Red Blood Count 3.27 M/mm3 (4.2-5.4); White Blood Count 6.1 K/mm3 (4.5-10.0)
[2022-12-20 06:16] LABS: Alanine Aminotransferase 53 U/L (6-35); Albumin Level 2.4 g/dL (3.5-5.1); Alkaline Phosphatase 56 U/L (38-126); Anion Gap 2 mmol/L (8-16); Aspartate Amino Transferase 73 U/L (14-36); Bilirubin,Total 0.5 mg/dL (0.2-1.3); Blood Urea Nitrogen 11 mg/dL (7-17); Calcium 7.5 mg/dL (8.4-10.2); Carbon Dioxide 24 mmol/L (22-30); Chloride 109 mmol/L (98-107); Estimated CRCL calculation 69 ml/min; Estimated Glomerular Filt Rate > 60; Glucose 115 mg/dL (65-110); Magnesium 1.7 mg/dL (1.6-2.3); Phosphorus 3.5 mg/dL (2.5-4.5); Potassium 3.5 mmol/L (3.4-5.0); Sodium 135 mmol/L (137-145)
[2022-12-20] MEDS: levETIRAcetam 500 MG TABLET PO ×2 (09:10→20:54)
[2022-12-20] MEDS: GABAPENTIN 100 MG CAPSULE 200 MG PO ×3 (09:10→17:38)
[2022-12-20] MEDS: ASPIRIN 81 MG CHEWABLE TABLET PO (09:10)
--- NOTE | 2022-12-20 10:39 | PM.IMPN ---
Progress Note: A&P Assessment and Plan (1) Seizure: Code(s): R56.9 - Unspecified convulsions Status: Acute Assessment and Plan: Continue antiseizure medication (2) Acute UTI: Code(s): N39.0 - Urinary tract infection, site not specified Status: Acute Assessment and Plan: Continue antibiotics (3) Rhabdomyolysis: Qualifiers: Rhabdomyolysis type: non-traumatic Qualified Code(s): M62.82 - Rhabdomyolysis Code(s): M62.82 - Rhabdomyolysis Status: Acute Assessment and Plan: CK improving (4) Laceration of scalp: Qualifiers: Encounter type: initial encounter Qualified Code(s): S01.01XA - Laceration without foreign body of scalp, initial encounter Code(s): S01.01XA - Laceration without foreign body of scalp, initial encounter Status: Acute (5) Acute alteration in mental status: Code(s): R41.82 - Altered mental status, unspecified Status: Acute Assessment and Plan: Improved (6) Transaminitis: Code(s): R74.01 - Elevation of levels of liver transaminase levels Status: Acute Subjective Date/time seen: 12/20/22 10:39 Resting comfortably when I was in the room. Exam Narrative: Patient is comfortable, NAD HEENT: eyes are clear and none icteric LUNGS: normal respiratory effort ABD: not distended Lower extremities: no edema SKIN: nonjaundiced Neuro: grossly intact somnolent. Objective Data Vital Signs Vital Signs: Vital Signs - 24 hr 12/19/22 11:59 12/19/22 12:00 12/19/22 16:25 Temperature 97.4 F L Pulse Rate 85 84 Respiratory Rate 16 Blood Pressure 119/61 Pulse Oximetry 98 Oxygen Delivery Room Air 12/19/22 16:00 12/19/22 20:00 12/19/22 20:00 Temperature 98 F 97.3 F L Pulse Rate 95 99 100 Respiratory Rate 14 16 Blood Pressure 118/67 141/81 H Pulse Oximetry 95 96 Oxygen Delivery 12/20/22 00:00 12/20/22 04:00 12/20/22 04:00 Temperature 97.2 F L Pulse Rate 101 H 96 73 Respiratory Rate 18 Blood Pressure 123/87 Pulse Oximetry 99 Oxygen Delivery Intake/Output Intake/Output: Intake & Output 01/2612/18/22 12/19/22 12/20/22 23:59 23:59 23:59 23:59 Intake Total 3700 2825 2797 1000 Output Total 1500 1800 1325 1550 Balance 2200 1025 1472 -550 Meds/Results Medications: Active Medications Generic Name Dose Route Start Last Admin Trade Name Freq PRN Reason Stop Dose Admin Aspirin 81 mg 12/15/22 08:00 12/20/22 09:10 Aspirin 81 Mg Chewable Tablet PO 81 mg DAILY@0800 MARCIO Administration Cephalexin HCl 500 mg 12/17/22 18:00 12/20/22 05:11 Cephalexin 500 Mg Capsule PO 12/21/22 12:01 500 mg Q6HR MARCIO Administration Gabapentin 200 mg 12/15/22 09:00 12/20/22 09:10 Gabapentin 100 Mg Capsule PO 200 mg TID MARCIO Administration Sodium Chloride 1,000 mls @ 100 mls/hr 12/16/22 15:35 12/20/22 01:43 Normal Saline Iv IV CONT 100 mls/hr .Q10H MARCIO Administration Levetiracetam 500 mg 12/19/22 21:00 12/20/22 09:10 Levetiracetam 500 Mg Tablet PO 500 mg Q12HR MARCIO Administration Levothyroxine Sodium 75 mcg 12/15/22 06:30 12/20/22 05:11 Levothyroxine Sodium 75 Mcg Tablet PO 75 mcg DAILY@0630 MARCIO Administration Morphine Sulfate 2 mg 12/16/22 11:47 12/20/22 07:32 Morphine Sulfate (*Crx) 2 Mg/Ml Inj IV PUSH 2 mg Q4H PRN Administration Pain Rated 7-10 Radiology Results: ITS Impressions Shoulder X-Ray 12/14/22 19:02 IMPRESSION: Acute versus chronic AC separation, correlate with pain/tenderness. Distal clavicular osteolysis. Head CT 12/14/22 19:09 IMPRESSION: No acute intracranial process. Chest/Abdomen/Pelvis CT 12/14/22 19:17 IMPRESSION: Left hip soft tissue contusion. Otherwise, no acute traumatic detected in the chest, abdomen, or pelvis. Possible mild fecal impaction. Small left hip joint effusion. Additional chronic and incidental findi
[2022-12-20 11:26] LABS: Triglycerides 98 mg/dL (<150)
[2022-12-20 11:33] LABS: Creatine Kinase 782 U/L (30-135)
[2022-12-20 12:13] LABS: Glucose Point of Care 110 mg/dl (65-105)
--- NOTE | 2022-12-20 12:29 | PCOTNOTE ---
Attempted to see pt for Occupational therapy treatment today. Pt observed to be very lethargic and requires max cueing for arousal to participate in ROM exercises. Pt is able to complete 5 reps of active assist ROM of LUE shoulder flexion with several rest breaks. Pt refuses to participate in anymore ROM requiring PROM for RUE shoulder flexion. Pt cries out in pain intermittently, but is unable to state where the pain is located. Due to decrease participation and inability to stay awake, therapy session was ended at this time. RN was made aware of pt's participation in therapy and having difficulty staying awake. Will continue per poc duration/frequency tomorrow.
[2022-12-20 17:50] LABS: Glucose Point of Care 110 mg/dl (65-105)
[2022-12-21] VITALS (9 sets, daily range): BP systolic 134–155; BP diastolic 76–89; PULSE 77–104; RESP 16–18; TEMP 36.4–36.8; O2SAT 95–99
[2022-12-21 00:59] LABS: Glucose Point of Care 106 mg/dl (65-105)
[2022-12-21] MEDS: MORPHINE SULFATE (*CRX) 2 MG/ML INJ IV PUSH ×4 (01:01→13:46)
[2022-12-21] MEDS: SODIUM CHLORIDE 0.9% IV 1,000 ML 100 ML IV CONT ×2 (01:01→12:30)
[2022-12-21] MEDS: CEPHALEXIN 500 MG CAPSULE PO ×3 (01:02→12:25)
[2022-12-21] MEDS: LEVOTHYROXINE SODIUM 75 MCG TABLET PO (05:20)
[2022-12-21 05:47] LABS: Glucose Point of Care 99 mg/dl (65-105)
[2022-12-21 06:40] LABS: Alanine Aminotransferase 57 U/L (6-35); Albumin Level 2.4 g/dL (3.5-5.1); Alkaline Phosphatase 59 U/L (38-126); Anion Gap 1 mmol/L (8-16); Aspartate Amino Transferase 69 U/L (14-36); Bilirubin,Total 0.5 mg/dL (0.2-1.3); Blood Urea Nitrogen 13 mg/dL (7-17); Calcium 7.7 mg/dL (8.4-10.2); Carbon Dioxide 27 mmol/L (22-30); Chloride 106 mmol/L (98-107); Estimated CRCL calculation 69 ml/min; Estimated Glomerular Filt Rate > 60; Glucose 106 mg/dL (65-110); Magnesium 1.8 mg/dL (1.6-2.3); Phosphorus 3.8 mg/dL (2.5-4.5); Potassium 4.1 mmol/L (3.4-5.0); Sodium 134 mmol/L (137-145)
[2022-12-21 06:41] LABS: Prothrombin Time 12.5 Seconds (11.1-14.7)
[2022-12-21 06:42] LABS: Partial Thromboplastin Time 20.4 SECONDS (22.3-36.8)
[2022-12-21 06:47] LABS: Transferrin 131 mg/dL (206-381)
[2022-12-21 07:37] LABS: Basophils Percent Auto 0.4 % (0.2-1.2); Eosinophils Absolute Auto 0.3 K/mm3 (0-0.3); Eosinophils Percent Auto 4.2 % (0-4.4); Hematocrit 36.9 % (37.0-47.0); Hemoglobin 11.7 g/dL (12.0-15.0); Immature Granulocyte Absolute 0.03 K/mm3 (0.00-0.031); Immature Granulocyte Percent A 0.4 % (0-0.5); Lymphocytes Absolute Auto 1.01 K/mm3 (0.9-3.2); Lymphocytes Percent Auto 15.1 % (18.3-44.2); Mean Corpuscular HGB Conc 31.7 g/dl (32-36); Mean Corpuscular Hemoglobin 30.4 pg (26-34); Mean Corpuscular Volume 95.8 fl (80-100); Monocytes Absolute Auto 0.9 K/mm3 (0.1-0.6); Monocytes Percent Auto 12.8 % (2.6-8.5); Neutrophils Absolute Auto 4.5 K/mm3 (1.3-6.7); Neutrophils Percent Auto 67.1 % (45.5-73.1); Platelet Count Result 212 k/mm3 (150-375); Red Blood Count 3.85 M/mm3 (4.2-5.4); Red Cell Distribution Width 14.3 % (11.5-14.5); White Blood Count 6.7 K/mm3 (4.5-10.0)
[2022-12-21] MEDS: levETIRAcetam 500 MG TABLET PO ×2 (09:01→20:47)
[2022-12-21] MEDS: ASPIRIN 81 MG CHEWABLE TABLET PO (09:01)
[2022-12-21] MEDS: GABAPENTIN 100 MG CAPSULE 200 MG PO ×3 (09:04→17:34)
--- NOTE | 2022-12-21 11:23 | PM.IMPN ---
Progress Note: A&P Assessment and Plan (1) Seizure: Code(s): R56.9 - Unspecified convulsions Status: Acute Assessment and Plan: Continue antiseizure medication No additional seizure activity noted (2) Acute UTI: Code(s): N39.0 - Urinary tract infection, site not specified Status: Acute Assessment and Plan: Continue antibiotics (3) Rhabdomyolysis: Qualifiers: Rhabdomyolysis type: non-traumatic Qualified Code(s): M62.82 - Rhabdomyolysis Code(s): M62.82 - Rhabdomyolysis Status: Acute Assessment and Plan: CK improving (4) Laceration of scalp: Qualifiers: Encounter type: initial encounter Qualified Code(s): S01.01XA - Laceration without foreign body of scalp, initial encounter Code(s): S01.01XA - Laceration without foreign body of scalp, initial encounter Status: Acute (5) Acute alteration in mental status: Code(s): R41.82 - Altered mental status, unspecified Status: Acute Assessment and Plan: Improved (6) Transaminitis: Code(s): R74.01 - Elevation of levels of liver transaminase levels Status: Acute Subjective Date/time seen: 12/21/22 11:23 More alert today, no new complaints Exam Narrative: Patient is comfortable, NAD HEENT: eyes are clear and none icteric LUNGS: normal respiratory effort ABD: not distended Lower extremities: no edema SKIN: nonjaundiced Neuro: grossly intact somnolent. Objective Data Vital Signs Vital Signs: Vital Signs - 24 hr 12/20/22 14:25 12/20/22 12:00 12/20/22 16:00 Temperature 98.9 F Pulse Rate 80 93 84 Respiratory Rate 16 Blood Pressure 126/80 Pulse Oximetry 97 12/20/22 22:13 12/20/22 20:00 12/21/22 00:00 Temperature 98.2 F Pulse Rate 85 84 83 Respiratory Rate 18 Blood Pressure 124/74 Pulse Oximetry 97 12/21/22 05:33 12/21/22 04:00 Temperature 98.3 F Pulse Rate 86 84 Respiratory Rate 18 Blood Pressure 155/89 H Pulse Oximetry 98 Intake/Output Intake/Output: Intake & Output 12/18/22 12/19/22 12/20/22 12/21/22 23:59 23:59 23:59 23:59 Intake Total 2825 2797 3000 Output Total 1800 1325 2350 650 Balance 1025 1472 650 -650 Meds/Results Medications: Active Medications Generic Name Dose Route Start Last Admin Trade Name Jennifer PRN Reason Stop Dose Admin Aspirin 81 mg 12/15/22 08:00 12/21/22 09:01 Aspirin 81 Mg Chewable Tablet PO 81 mg DAILY@0800 MARCIO Administration Cephalexin HCl 500 mg 12/17/22 18:00 12/21/22 05:20 Cephalexin 500 Mg Capsule PO 12/21/22 12:01 500 mg Q6HR MARCIO Administration Gabapentin 200 mg 12/15/22 09:00 12/21/22 09:04 Gabapentin 100 Mg Capsule PO 200 mg TID MARCIO Administration Sodium Chloride 1,000 mls @ 100 mls/hr 12/16/22 15:35 12/21/22 01:01 Normal Saline Iv IV CONT 100 mls/hr .Q10H MARCIO Administration Levetiracetam 500 mg 12/19/22 21:00 12/21/22 09:01 Levetiracetam 500 Mg Tablet PO 500 mg Q12HR MARCIO Administration Levothyroxine Sodium 75 mcg 12/15/22 06:30 12/21/22 05:20 Levothyroxine Sodium 75 Mcg Tablet PO 75 mcg DAILY@0630 MARCIO Administration Morphine Sulfate 2 mg 12/16/22 11:47 12/21/22 09:39 Morphine Sulfate (*Crx) 2 Mg/Ml Inj IV PUSH 2 mg Q4H PRN Administration Pain Rated 7-10 Radiology Results: ITS Impressions Shoulder X-Ray 12/14/22 19:02 IMPRESSION: Acute versus chronic AC separation, correlate with pain/tenderness. Distal clavicular osteolysis. Head CT 12/14/22 19:09 IMPRESSION: No acute intracranial process. Chest/Abdomen/Pelvis CT 12/14/22 19:17 IMPRESSION: Left hip soft tissue contusion. Otherwise, no acute traumatic detected in the chest, abdomen, or pelvis. Possible mild fecal impaction. Small left hip joint effusion. Additional chronic and incidental findings are detailed above. Cervical Spine CT 12/14/22 19:29 IMPRESSION: No a
--- NOTE | 2022-12-21 12:23 | PCDIET ---
Pt has a new DTPI to Left heel. Recommend TRISH BID, mix and administer via tube feeding.
[2022-12-21 12:43] LABS: Glucose Point of Care 103 mg/dl (65-105)
[2022-12-21 14:51] LABS: Glucose Point of Care 110 mg/dl (65-105)
[2022-12-21 18:22] LABS: Glucose Point of Care 120 mg/dl (65-105)
[2022-12-22] VITALS (9 sets, daily range): BP systolic 123–127; BP diastolic 63–84; PULSE 82–92; RESP 18–22; TEMP 36.3–36.8; O2SAT 95–99
[2022-12-22 00:20] LABS: Glucose Point of Care 97 mg/dl (65-105)
[2022-12-22] MEDS: MORPHINE SULFATE (*CRX) 2 MG/ML INJ IV PUSH ×4 (02:25→22:49)
[2022-12-22] MEDS: SODIUM CHLORIDE 0.9% IV 1,000 ML 100 ML IV CONT ×3 (02:25→21:11)
[2022-12-22 05:40] LABS: Glucose Point of Care 105 mg/dl (65-105)
[2022-12-22] MEDS: LEVOTHYROXINE SODIUM 75 MCG TABLET PO (05:41)
[2022-12-22 06:17] LABS: Hematocrit 32.8 % (37.0-47.0); Hemoglobin 10.6 g/dL (12.0-15.0); Mean Corpuscular HGB Conc 32.3 g/dl (32-36); Mean Corpuscular Hemoglobin 30.2 pg (26-34); Mean Corpuscular Volume 93.4 fl (80-100); Mean Platelet Volume 9.3 fl (7.4-10.4); Platelet Count Result 210 k/mm3 (150-375); Red Blood Count 3.51 M/mm3 (4.2-5.4); Red Cell Distribution Width 13.8 % (11.5-14.5); White Blood Count 4.7 K/mm3 (4.5-10.0)
[2022-12-22 06:33] LABS: Alanine Aminotransferase 62 U/L (6-35); Albumin Level 2.6 g/dL (3.5-5.1); Alkaline Phosphatase 73 U/L (38-126); Anion Gap 2 mmol/L (8-16); Aspartate Amino Transferase 62 U/L (14-36); Bilirubin,Total 0.5 mg/dL (0.2-1.3); Blood Urea Nitrogen 13 mg/dL (7-17); Carbon Dioxide 28 mmol/L (22-30); Chloride 108 mmol/L (98-107); Estimated CRCL calculation 69 ml/min; Estimated Glomerular Filt Rate > 60; Glucose 91 mg/dL (65-110); Phosphorus 3.9 mg/dL (2.5-4.5); Potassium 3.9 mmol/L (3.4-5.0); Sodium 138 mmol/L (137-145); Triglycerides 124 mg/dL (<150)
--- NOTE | 2022-12-22 09:58 | PCPTNOTE ---
The patient treatment was not able to be completed this morning due to being off the floor for test. Will plan to continue treatment per plan of care.
[2022-12-22] MEDS: levETIRAcetam 500 MG TABLET PO ×2 (10:35→21:11)
[2022-12-22] MEDS: ASPIRIN 81 MG CHEWABLE TABLET PO (10:35)
--- NOTE | 2022-12-22 10:38 | PCSTNOTE ---
Please refer to the Modified Barium Swallow Evaluation in the EMR.
[2022-12-22] MEDS: GABAPENTIN 100 MG CAPSULE 200 MG PO ×3 (10:40→16:33)
--- NOTE | 2022-12-22 11:16 | PM.IMPN ---
Progress Note: A&P Assessment and Plan (1) Seizure: Code(s): R56.9 - Unspecified convulsions Status: Acute Assessment and Plan: Continue antiseizure medication No additional seizure activity noted Mental status is much improved. NG tube has been pulled. Modified diet. (2) Acute UTI: Code(s): N39.0 - Urinary tract infection, site not specified Status: Acute Assessment and Plan: Treated (3) Rhabdomyolysis: Qualifiers: Rhabdomyolysis type: non-traumatic Qualified Code(s): M62.82 - Rhabdomyolysis Code(s): M62.82 - Rhabdomyolysis Status: Acute Assessment and Plan: CK improving (4) Laceration of scalp: Qualifiers: Encounter type: initial encounter Qualified Code(s): S01.01XA - Laceration without foreign body of scalp, initial encounter Code(s): S01.01XA - Laceration without foreign body of scalp, initial encounter Status: Acute (5) Acute alteration in mental status: Code(s): R41.82 - Altered mental status, unspecified Status: Acute Assessment and Plan: Improved (6) Transaminitis: Code(s): R74.01 - Elevation of levels of liver transaminase levels Status: Acute Plan Continue therapy and plan for discharge Subjective Date/time seen: 12/22/22 11:16 NG tube was incidentally pulled overnight. Modified barium swallow was performed patient did have some improvement her swallow eval. Exam Narrative: Patient is comfortable, NAD HEENT: eyes are clear and none icteric LUNGS: normal respiratory effort ABD: not distended Lower extremities: no edema SKIN: nonjaundiced Neuro: grossly intact somnolent. Objective Data Vital Signs Vital Signs: Vital Signs - 24 hr 12/21/22 14:00 12/21/22 12:00 12/21/22 16:00 Temperature 97.6 F Pulse Rate 77 94 94 Respiratory Rate 16 Blood Pressure 141/77 H Pulse Oximetry 95 12/21/22 22:27 12/21/22 20:00 12/22/22 00:00 Temperature 97.7 F Pulse Rate 80 79 83 Respiratory Rate 18 Blood Pressure 134/76 Pulse Oximetry 99 12/22/22 04:00 12/22/22 05:17 Temperature 98.2 F Pulse Rate 86 90 Respiratory Rate 18 Blood Pressure 123/68 Pulse Oximetry 99 Intake/Output Intake/Output: Intake & Output 01/28/23 01/29/23 01/30/23 01/31/23 23:59 23:59 23:59 23:59 Intake Total 2797 3000 2200 1100 Output Total 1325 2350 2350 2200 Balance 1472 650 -150 -1100 Meds/Results Medications: Active Medications Generic Name Dose Route Start Last Admin Trade Name Freq PRN Reason Stop Dose Admin Aspirin 81 mg 12/15/22 08:00 12/22/22 10:35 Aspirin 81 Mg Chewable Tablet PO 81 mg DAILY@0800 MARCIO Administration Gabapentin 200 mg 12/15/22 09:00 12/22/22 10:40 Gabapentin 100 Mg Capsule PO 200 mg TID MARCIO Administration Sodium Chloride 1,000 mls @ 100 mls/hr 12/16/22 15:35 12/22/22 10:40 Normal Saline Iv IV CONT 100 mls/hr .Q10H MARCIO Administration Acetaminophen 1,000 mg in 100 mls @ 400 mls/hr 12/21/22 14:00 12/22/22 05:55 Ofirmev 1,000 Mg Ivpb IVPB 12/22/22 13:59 Infused Q8HR MARCIO Infusion Levetiracetam 500 mg 12/19/22 21:00 12/22/22 10:35 Levetiracetam 500 Mg Tablet PO 500 mg Q12HR MARCIO Administration Levothyroxine Sodium 75 mcg 12/15/22 06:30 12/22/22 05:41 Levothyroxine Sodium 75 Mcg Tablet PO 75 mcg DAILY@0630 MARCIO Administration Morphine Sulfate 2 mg 12/16/22 11:47 12/22/22 10:46 Morphine Sulfate (*Crx) 2 Mg/Ml Inj IV PUSH 2 mg Q4H PRN Administration Pain Rated 7-10 Radiology Results: ITS Impressions Shoulder X-Ray 12/14/22 19:02 IMPRESSION: Acute versus chronic AC separation, correlate with pain/tenderness. Distal clavicular osteolysis. Head CT 12/14/22 19:09 IMPRESSION: No acute intracranial process. Chest/Abdomen/Pelvis CT 12/14/22 19:17 IMPRESSION: Left hip soft tissue contusion. Otherwise, no acute traumatic
[2022-12-22 11:26] LABS: Glucose Point of Care 87 mg/dl (65-105)
--- NOTE | 2022-12-22 11:36 | PC.NURSE ---
Upon entering the patient's room at 0835, the patient's NG tube was found on the floor. The patient stated that she doesn't need all of these tubes. Notified Dr. Carbajal that the patient removed her own NG. Dr. Carbajal gave me orders to request another MBS with speech therapy and leave the NG out.
--- NOTE | 2022-12-22 13:31 | PCNFU ---
Nutrition Follow-Up Complete: Inadequate energy intake related to diet order as evidenced by NPO status Goal:Diet advanced PO intake 50% or greater of meals. pt is progressing towards goal, Diet advanced today. Pt current nutrition is Pureed, honey thick liquids. Nutrition recommendation: Add TRISH BID and Ensure compact BID Last recorded weight is 56.8 kg - up 10kg from admission. Bowel Motility: +BM 12/18 Labs Reviewed: Hgb: 10.6, HCT:32.8, Alb:2.6, Cr:0.4 Meds Noted:KCL, keppra, morphine Skin: L heel DTPI - new Additional Notes: Pt pulled NG out, [employer]PER evaluated and recommendation for a pureed diet with honey thick liquids per order, to advance as tolerated. pt eager to advance to PO intake. Will add Ensure compact for additional calories and TRISH BID for wound healing due to new pressure injury on heel. Monitor for diet order, intake, wt, labs. Follow up in 3 days.
--- NOTE | 2022-12-22 14:13 | PCOTNOTE ---
Attempted to see pt for Occupational therapy treatment. Pt is with PT at this time. Will continue per POC duration/frequency tomorrow.
[2022-12-22 17:43] LABS: Glucose Point of Care 110 mg/dl (65-105)
[2022-12-23] VITALS (8 sets, daily range): BP systolic 128–148; BP diastolic 70–96; PULSE 73–89; RESP 14–18; TEMP 36.2–36.7; O2SAT 96–99
[2022-12-23 01:02] LABS: Glucose Point of Care 98 mg/dl (65-105)
[2022-12-23] MEDS: MORPHINE SULFATE (*CRX) 2 MG/ML INJ IV PUSH ×2 (05:25→18:10)
[2022-12-23] MEDS: LEVOTHYROXINE SODIUM 75 MCG TABLET PO (05:38)
[2022-12-23 06:07] LABS: Hematocrit 30.2 % (37.0-47.0); Hemoglobin 9.7 g/dL (12.0-15.0); Mean Corpuscular HGB Conc 32.1 g/dl (32-36); Mean Corpuscular Hemoglobin 30.2 pg (26-34); Mean Corpuscular Volume 94.1 fl (80-100); Mean Platelet Volume 9.3 fl (7.4-10.4); Platelet Count Result 231 k/mm3 (150-375); Red Blood Count 3.21 M/mm3 (4.2-5.4); White Blood Count 4.1 K/mm3 (4.5-10.0)
[2022-12-23 06:19] LABS: Glucose Point of Care 105 mg/dl (65-105)
[2022-12-23 06:22] LABS: Alanine Aminotransferase 53 U/L (6-35); Albumin Level 2.6 g/dL (3.5-5.1); Alkaline Phosphatase 64 U/L (38-126); Anion Gap 4 mmol/L (8-16); Aspartate Amino Transferase 47 U/L (14-36); Bilirubin,Total 0.5 mg/dL (0.2-1.3); Blood Urea Nitrogen 11 mg/dL (7-17); Calcium 8.3 mg/dL (8.4-10.2); Carbon Dioxide 26 mmol/L (22-30); Chloride 107 mmol/L (98-107); Estimated CRCL calculation 79 ml/min; Estimated Glomerular Filt Rate > 60; Glucose 98 mg/dL (65-110); Phosphorus 4.2 mg/dL (2.5-4.5); Potassium 3.9 mmol/L (3.4-5.0); Sodium 137 mmol/L (137-145)
[2022-12-23] MEDS: SODIUM CHLORIDE 0.9% IV 1,000 ML 100 ML IV CONT (06:42)
--- NOTE | 2022-12-23 11:24 | PM.IMPN ---
Progress Note: A&P Assessment and Plan (1) Seizure: Code(s): R56.9 - Unspecified convulsions Status: Acute Assessment and Plan: New onset seizures. EEG showing background rhythm consists of medium voltage. HCT showing no acute findings. No additional seizure activity noted. Mental status is much improved. NG tube has been pulled and she is tolerating modified diet. Continue antiseizure medication. Okay to stop tele Placement being arranged. Okay for discharge to SNF when available (2) Rhabdomyolysis: Qualifiers: Rhabdomyolysis type: non-traumatic Qualified Code(s): M62.82 - Rhabdomyolysis Code(s): M62.82 - Rhabdomyolysis Status: Acute Assessment and Plan: TCK up to 5770 but trending down now. Appears fluid overloaded. Will stop IV fluids. (3) Laceration of scalp: Qualifiers: Encounter type: initial encounter Qualified Code(s): S01.01XA - Laceration without foreign body of scalp, initial encounter Code(s): S01.01XA - Laceration without foreign body of scalp, initial encounter Status: Acute Assessment and Plan: Noted. Will need to have prasanth removed in 7-10 days. (4) Acute alteration in mental status: Code(s): R41.82 - Altered mental status, unspecified Status: Acute Assessment and Plan: Related to above. Improving (5) Transaminitis: Code(s): R74.01 - Elevation of levels of liver transaminase levels Status: Acute Assessment and Plan: LFTs elevated related to above. Levels trending down and are close to normal. (6) Multiple sclerosis: Code(s): G35 - Multiple sclerosis Status: Acute Assessment and Plan: MRI brain May 2022 showing lesions in the brain and spinal cord, likely a combination of multiple sclerosis and chronic small vessel ischemic disease. Neurology following. Contineu therapy. (7) Acute UTI: Code(s): N39.0 - Urinary tract infection, site not specified Status: Acute Assessment and Plan: UCx growing Ecoli and she has completed treatment Plan Continue therapy and plan for discharge Subjective Date/time seen: 12/23/22 11:24 Interval history: 82yo female with MS, HTN and hypothyroidism here for seizure. Assuming care. Chart reviewed. She denies chest pain or shortness of breath. She has been eating well. She has been able to sit side of the bed with assistance today. Exam Narrative: AF 7.1 148/96 81 18 96% ra Gen - NARD HEENT - posterior scalp laceration with prasanth in place Chest - bibasilar crackles, nml RR CV - RRR S1/S2. Tele showing PVCs Abd - Soft, NT/ND, Positive BS Ext - 1+ pedal edema Neuro - Alert and oriented x4. truncal ataxia Psych - Nml mood and affect Skin - splotchy faint red rash on her back Objective Data Vital Signs Vital Signs: Vital Signs - 24 hr 12/22/22 14:00 12/22/22 12:00 12/22/22 16:00 Temperature 97.3 F L Pulse Rate 92 84 85 Respiratory Rate 22 H Blood Pressure 127/63 Pulse Oximetry 96 Oxygen Delivery 12/22/22 21:25 12/22/22 21:11 12/22/22 20:00 Temperature 98.2 F Pulse Rate 84 82 Respiratory Rate 18 Blood Pressure 124/84 Pulse Oximetry 95 Oxygen Delivery Room Air 12/23/22 00:00 12/23/22 04:00 12/23/22 05:50 Temperature 97.1 F L Pulse Rate 83 76 82 Respiratory Rate 18 Blood Pressure 148/96 H Pulse Oximetry 96 Oxygen Delivery 12/23/22 08:00 Temperature Pulse Rate 81 Respiratory Rate Blood Pressure Pulse Oximetry Oxygen Delivery Intake/Output Intake/Output: Intake & Output 12/20/22 12/21/22 12/22/22 12/23/22 23:59 23:59 23:59 23:59 Intake Total 3000 2200 2440 1000 Output Total 2350 2350 4250 1250 Balance 567 -150 -1810 -250 Meds/Results Medications: Active Medications Generic Name Dose Route Start Last Admin Trade Name Freq PRN Reason Stop Dose Admin Aspirin 81 mg 12/15/22
[2022-12-23] MEDS: levETIRAcetam 500 MG TABLET PO (11:26)
[2022-12-23] MEDS: ASPIRIN 81 MG CHEWABLE TABLET PO (11:26)
[2022-12-23] MEDS: GABAPENTIN 100 MG CAPSULE 200 MG PO ×3 (11:31→17:11)
[2022-12-23 11:45] LABS: Glucose Point of Care 85 mg/dl (65-105)
[2022-12-23 18:17] LABS: Glucose Point of Care 106 mg/dl (65-105)
[2022-12-23] MEDS: levETIRAcetam 500MG/NACL 100ML 500 MG/100 ML BAG 400 MG IVPB (22:19)
[2022-12-24 00:02] LABS: Glucose Point of Care 82 mg/dl (65-105)
[2022-12-24 05:26] LABS: Glucose Point of Care 91 mg/dl (65-105)
[2022-12-24] MEDS: LEVOTHYROXINE SODIUM 75 MCG TABLET PO (05:37)
[2022-12-24 05:56] VITALS: BP 154/96; PULSE 82; RESP 18; TEMP 36.2; O2SAT 99
[2022-12-24] MEDS: MORPHINE SULFATE (*CRX) 2 MG/ML INJ IV PUSH ×2 (06:02→18:35)
[2022-12-24] MEDS: GABAPENTIN 100 MG CAPSULE 200 MG PO ×3 (08:12→17:13)
[2022-12-24] MEDS: levETIRAcetam 500MG/NACL 100ML 500 MG/100 ML BAG 400 MG IVPB (08:13)
[2022-12-24] MEDS: ASPIRIN 81 MG CHEWABLE TABLET PO (08:13)
--- NOTE | 2022-12-24 11:29 | PCNFU ---
Nutrition Follow-Up Complete: Inadequate energy intake related to diet order as evidenced by NPO status Goal:Diet advanced - pts diet has been advanced. PO intake 50% or greater of meals - pt slowly progressing, not meeting goal. Continue with same goal. Pt current nutrition is Pureed level 4, level 3 liquids. Nutrition recommendation: Add nutrition ice cream BID, increase Ensure compact to TID Last recorded weight is 66.2 kg. Bowel Motility: +BM 12/22 Labs Reviewed: Hgb:9.7, HCT:30.2, Alb:2.6 Meds Noted: Kcl, keppra, morphine Skin: L heel DTPI Additional Notes: Pt continues on a pureed diet, intake poor overall. pt reports being a small eater. Encouraged supplement intake and explained importance. Increased Ensure compact to TID and added nutritional ice cream treats BID per pt preference. Monitor for diet order, intake, wt, labs. Follow up in 5 days.
[2022-12-24 11:49] LABS: Glucose Point of Care 85 mg/dl (65-105)
--- NOTE | 2022-12-24 13:41 | PCPTNOTE ---
Attempted to see patient for PT, however patient was working with OT.
[2022-12-24 15:00] VITALS: BP 146/76; PULSE 80; RESP 17; TEMP 36.2; O2SAT 100
--- NOTE | 2022-12-24 15:26 | PM.IMPN ---
Progress Note: A&P Assessment and Plan (1) Seizure: Code(s): R56.9 - Unspecified convulsions Status: Acute Assessment and Plan: New onset seizures. EEG showing background rhythm consists of medium voltage. HCT showing no acute findings. No additional seizure activity noted. Mental status is much improved. NG tube has been pulled and she is tolerating modified diet. Continue antiseizure medication. Placement being arranged. Okay for discharge to SNF when available (2) Rhabdomyolysis: Qualifiers: Rhabdomyolysis type: non-traumatic Qualified Code(s): M62.82 - Rhabdomyolysis Code(s): M62.82 - Rhabdomyolysis Status: Acute Assessment and Plan: TCK up to 5770 but trending down now. Appeared fluid overloaded so IV fluids stopped. Exam better today. (3) Laceration of scalp: Qualifiers: Encounter type: initial encounter Qualified Code(s): S01.01XA - Laceration without foreign body of scalp, initial encounter Code(s): S01.01XA - Laceration without foreign body of scalp, initial encounter Status: Acute Assessment and Plan: Noted. Will need to have prasanth removed in 7-10 days. (4) Acute alteration in mental status: Code(s): R41.82 - Altered mental status, unspecified Status: Acute Assessment and Plan: Related to above. Improving (5) Transaminitis: Code(s): R74.01 - Elevation of levels of liver transaminase levels Status: Acute Assessment and Plan: LFTs elevated related to above. Levels trending down and are close to normal. (6) Multiple sclerosis: Code(s): G35 - Multiple sclerosis Status: Acute Assessment and Plan: MRI brain May 2022 showing lesions in the brain and spinal cord, likely a combination of multiple sclerosis and chronic small vessel ischemic disease. Neurology following. Continue therapy. Continue current diet. (7) Acute UTI: Code(s): N39.0 - Urinary tract infection, site not specified Status: Acute Assessment and Plan: UCx growing Ecoli and she has completed treatment Subjective Date/time seen: 12/24/22 15:26 Interval history: 82yo female with MS, HTN and hypothyroidism here for seizure. No complaints. Eating okay. Able to sit at the side of the bed unassisted now. No CP or SOB. Exam Narrative: AF 146/76 80 17 100% ra Gen - NARD HEENT - posterior scalp laceration with prasanth in place Chest - CTA bilaterally, nmlRR CV - RRR S1/S2 Abd - Soft, NT/ND, Positive BS - [place] secured draining clear yellow urine Ext - no pedal edema Back - kyphosis Neuro - Alert and appropriate. truncal ataxia much better today. Psych - Nml mood and affect Skin - splotchy faint red rash on her back is fading. Objective Data Vital Signs Vital Signs: Vital Signs - 24 hr 12/23/22 16:00 12/23/22 21:50 12/23/22 20:30 Temperature 97.5 F L Pulse Rate 89 77 Respiratory Rate 18 Blood Pressure 132/72 Pulse Oximetry 99 Oxygen Delivery Room Air 12/24/22 05:56 Temperature 97.2 F L Pulse Rate 82 Respiratory Rate 18 Blood Pressure 154/96 H Pulse Oximetry 99 Oxygen Delivery Intake/Output Intake/Output: Intake & Output 12/21/22 12/22/22 12/23/22 12/24/22 23:59 23:59 23:59 23:59 Intake Total 2200 2440 1280 100 Output Total 2350 4250 2700 1650 Balance -150 -1810 -1420 -1550 Meds/Results Medications: Active Medications Generic Name Dose Route Start Last Admin Trade Name Jennifer PRN Reason Stop Dose Admin Aspirin 81 mg 12/15/22 08:00 12/24/22 08:13 Aspirin 81 Mg Chewable Tablet PO 81 mg DAILY@0800 MARCIO Administration Gabapentin 200 mg 12/15/22 09:00 12/24/22 12:20 Gabapentin 100 Mg Capsule PO 200 mg TID MARCIO Administration Levetiracetam 500 mg in 100 mls @ 400 mls/hr 12/23/22 21:00 12/24/22 08:28 Keppra Iv IVPB Infused Q12HR MARCIO Infusion Levothyroxine Sodium 7
[2022-12-24 17:35] LABS: Glucose Point of Care 97 mg/dl (65-105)
[2022-12-24] MEDS: levETIRAcetam 500MG/NACL 100ML 500 MG/100 ML BAG 125 MG IVPB (20:06)
[2022-12-24 21:37] VITALS: BP 152/89; PULSE 85; RESP 16; TEMP 37.1; O2SAT 98
[2022-12-25] MEDS: LEVOTHYROXINE SODIUM 75 MCG TABLET PO (05:25)
[2022-12-25 06:00] VITALS: BP 132/83; PULSE 77; RESP 12; TEMP 36.1; O2SAT 97
[2022-12-25] MEDS: MORPHINE SULFATE (*CRX) 2 MG/ML INJ IV PUSH (06:41)
[2022-12-25] MEDS: ASPIRIN 81 MG CHEWABLE TABLET PO (09:00)
[2022-12-25] MEDS: GABAPENTIN 100 MG CAPSULE 200 MG PO ×3 (09:00→15:58)
[2022-12-25] MEDS: levETIRAcetam 500 MG TABLET PO ×2 (09:01→20:11)
[2022-12-25] MEDS: HYDROcodone/acetaminophen (*CRX) 5-325 MG TABLET 1 TAB PO ×2 (09:03→21:22)
--- NOTE | 2022-12-25 13:00 | PCOTNOTE ---
Attempted to see pt for Occupational Therapy. Pt is currently eating lunch at this time. Will attempt at a later time.
--- NOTE | 2022-12-25 14:23 | PM.DS ---
DS: Admitting Diagnosis Discharge Date 12/25/22 Admitting Diagnosis Seizure DS: Discharge Diagnosis Discharge Diagnosis (1) Seizure: Code(s): R56.9 - Unspecified convulsions Status: Acute (2) Rhabdomyolysis: Qualifiers: Rhabdomyolysis type: non-traumatic Qualified Code(s): M62.82 - Rhabdomyolysis Code(s): M62.82 - Rhabdomyolysis Status: Acute (3) Laceration of scalp: Qualifiers: Encounter type: initial encounter Qualified Code(s): S01.01XA - Laceration without foreign body of scalp, initial encounter Code(s): S01.01XA - Laceration without foreign body of scalp, initial encounter Status: Acute (4) Acute alteration in mental status: Code(s): R41.82 - Altered mental status, unspecified Status: Acute (5) Transaminitis: Code(s): R74.01 - Elevation of levels of liver transaminase levels Status: Acute (6) Multiple sclerosis: Code(s): G35 - Multiple sclerosis Status: Acute (7) Acute UTI: Code(s): N39.0 - Urinary tract infection, site not specified Status: Acute DS: Summary Hospital Course Reason for hospitalization: 82yo female with MS, HTN and hypothyroidism here for seizure. Please see H&P for details Hospital Course: Patient presents after having new onset seizure. EEG showing background rhythm consists of medium voltage. Head CT showing no acute findings. [place] related to her MS. Neuro consulted and appreciate their input. She was started on Keppra. No additional seizure activity noted. Mental status is much improved.? NG tube placed for nutrition but able to be removed. She is now tolerating modified diet. TCK up to 5770 related to the seizure but trending down on repeat; she was treated with IV fluids. Scalp laceration treated with tayler. Tayler removed prior to discharge. LFTs were elevated related to above. Levels trending down and are close to normal. Patient has Multiple sclerosis. MRI brain May 2022 showing?lesions in the brain and spinal cord, likely a combination of multiple sclerosis and chronic small vessel ischemic disease. UA noted and UCx grew Ecoli. She completed treatment during her hospital course. She worked with PT/OT. She did well and was able to be discharged to SNF on 12/25/22. Status at Discharge Cognitive/behavioral status at discharge: Stable Time Spent with Patient Time attestation: Total time spent providing and/or coordinating discharge services: 34 minutes Time spent: Greater than 30 minutes Exam Narrative: AF 132/83 77 12 97% ra Gen - NARD sitting up in chair Chest - CTA bilaterally, nmlRR CV - RRR S1/S2 Abd - Soft, NT/ND, Positive BS Ext - no pedal edema Psych - Nml mood and affect Skin - warm and dry. wound dressings clean and dry. DS: Data Data Completed and Pending Labs on day of discharge: Labs from last 24 hours 12/24/22 17:32 POC Capillary Glucose 97 Discharge Plan Discharge Attending physician on discharge: Irineo Aguilar Consulting providers: Ciaran Galindo Discharging Clinician: Irineo Aguilar Anticipated Discharge Date/Time: 12/25/22 14:30 Patient Disposition: SNF Activity: as tolerated Diet: other - see discharge instructions Discharge Instructions: Pureed Level 4 regular diet with moderately level 3 thickened liquids. Continue supplements. Take precautions to avoid falls. Rise slowly from a lying or sitting position. Pause before standing or walking. Follow-up with the provider at the facility Follow-up with Neurologist in 3-4 months. Thank you for using [facility] for your health care needs. Stand Alone Forms: General Discharge Information Follow-up/Referrals: Arti Barrientos MD [Primary Care Provider] - Call for Appointment Ciaran Galindo MD [Physician] - Call for Appointment Discharge Medications: New aspirin [Children's Aspirin] 81 mg Tablet,Chewable
[2022-12-25 15:33] LABS: EDCOVIDSCREEN Negative (Negative)
[2022-12-25 17:06] VITALS: BP 130/85; PULSE 70; RESP 17; TEMP 36.6; O2SAT 97
[2022-12-25 22:00] VITALS: BP 135/78; PULSE 75; RESP 14; TEMP 36.7; O2SAT 100
== END 2022-12-25 21:30 | DRG 101 ==
LOC: ANHED 20:39 → ANHIMU 21:35 → ANH3MEDSUR 12-19 15:52
PROVIDERS: Chiropractor; Emergency Medicine; Family Medicine; Admitting Provider Internal Medicine; Emergency Provider Nurse Practitioner Adult Health; PCP Family Medicine; Visit Provider Internal Medicine
DX: G40.89 Other seizures (principal); N39.0 Urinary tract infection, site not specified; M62.82 Rhabdomyolysis; G35 Multiple sclerosis; S01.01XA Laceration without foreign body of scalp, initial encounter; S30.1XXA Contusion of abdominal wall, initial encounter; S40.012A Contusion of left shoulder, initial encounter; W19.XXXA Unspecified fall, initial encounter; B96.20 Unspecified Escherichia coli [E. coli] as the cause of diseases classified elsewhere; E03.9 Hypothyroidism, unspecified; E55.9 Vitamin D deficiency, unspecified; F03.90 Unspecified dementia, unspecified severity, without behavioral disturbance, psychotic disturbance, mood disturbance, and anxiety; G89.29 Other chronic pain; I10 Essential (primary) hypertension; M17.12 Unilateral primary osteoarthritis, left knee; R41.82 Altered mental status, unspecified; R74.01 Elevation of levels of liver transaminase levels; R77.8 Other specified abnormalities of plasma proteins; Z20.822 Contact with and (suspected) exposure to COVID-19; Z91.81 History of falling; Z66 Do not resuscitate
CPT/HCPCS: 12002; 36415; 51701; 70450; 71250; 72125; 73030; 74176; 80048; 80053; 81001; 82550; 82948; 83605; 83735; 83921; 84100; 84466; 84478; 84484; 85025; 85027; 85610; 85730; 87040; 87077; 87086; 87088; 87186; 87426; 87636; 92526; 92610; 92611; 93005; 95816; 96365; 97110; 97162; 97166; 97530; 97535; 99285; A9270; C9803; J0131; J0696; J1953; J2270; J3475; J3480; J7030; J7040; J7070

== ENCOUNTER 2023-03-18 10:21 | Observation (INO) | payer MEDICARE, SELFPAY ==
[2023-03-18] VITALS (45 sets, daily range): BP systolic 110–177; BP diastolic 68–125; PULSE 80–98; RESP 13–26; TEMP 36.4–37; O2SAT 98–100; BMI 17.4
--- NOTE | ~2023-03-18 | CT_ITS ---
EXAMINATION: CT brain wo con INDICATION: Weakness, fall COMPARISON: 12/14/2022 TECHNIQUE: Standard unenhanced head CT. The dose-length product (DLP) was 605.33 mGy-cm. The mA was a djusted according to patient size. Iterative reconstruction technique was employed. FINDINGS: There is no acute intraparenchymal hemorrhage. No evidence of mass lesion. No evidence of a cute infarction. Again noted are multiple areas of low attenuation, particularly in the periventricul ar regions, consistent with history of multiple sclerosis. There is mild periventricular and subcorti saige hypodensity probably related to small vessel ischemic disease. There is mild prominence of the gagnon lci and ventricles related to cerebral atrophy. Intracranial calcified cerebral atherosclerosis is no claudia. There are no extra-axial collections. There is no mass effect or midline shift. The orbits and s oft tissues are unremarkable. The visualized sinuses and mastoid air cells are well aerated. IMPRESSION: 1. No acute intracranial abnormality. 2. Chronic findings related to multiple sclerosis. Reviewed, dictated and finalized at location L.
--- NOTE | ~2023-03-18 | XR_ITS ---
EXAMINATION: XR knee LT min 4V DATE: 03/18/2023 12:48 INDICATION: Left knee pain TECHNIQUE: Four views of the left knee were obtained. COMPARISON: 07/01/2021 FINDINGS: Alignment is normal. No fracture or osteochondral lesion. There is tricompartmental osteoar thritis, moderate in the lateral compartment. No joint effusion/synovitis. Soft tissues are unremark able. IMPRESSION: 1. Mild osteoarthritis without acute osseous abnormality. Reviewed, dictated and finalized at location L.
--- NOTE | 2023-03-18 10:38 | ECG_ITS ---
Measurements Intervals [place] Rate: 91 P: 41 MT: 132 QRS: 4 QRSD: 85 T: 16 QT: 380 QTc: 469 Interpretive Statements SINUS RHYTHM COMPARED TO ECG 12/14/2022 20:05:45 SINUS RHYTHM NOW PRESENT Electronically Signed On 03-18-2023 11:58:12 CDT by Yung Cabrera M.D.
--- NOTE | 2023-03-18 10:38 | PC.NURSE ---
Pt does have complaints of bilateral leg pain but states this is a chronic pain due to her MS.
--- NOTE | 2023-03-18 12:01 | ED.GENADULT ---
HPI - General Adult General Chief complaint: Weakness Stated complaint: FALL/LETHARGY Time Seen by Provider: 03/18/23 10:52 History of Present Illness HPI narrative: 82-year-old female presented the emergency department for evaluation after having a ground-level fall. Patient states that last night when she was at her home she saw some bright lights and thought there was some issue with the neighbors so she reports that she laid down on the floor and was unable to get off the floor. Patient does have history of frequent falls but states she did not have a fall last night. Patient denies striking her head denies loss of consciousness. Patient has history of MS and does appear more confused per the patient's friend. Patient [place] [facility] previously and was discharged back to home. Patient was supposed to have evaluation by Anca Anne today regarding placement back into a care facility. Patient states that she has not been eating and drinking well. Related Data Home Medications Medication Instructions Recorded Confirmed levetiracetam 500 mg tablet 500 mg PO Q12HR 02/23/23 02/23/23 (Keppra) potassium chloride 10 mEq 10 meq PO DAILY 02/23/23 02/23/23 capsule,extended release Allergies Allergy/AdvReac Type Severity Reaction Status Date / Time No Known Allergies Allergy Unknown Verified 02/23/23 13:43 Review of Systems Review of Systems: All systems reviewed & are unremarkable except as noted in HPI and below PMFSH Past Medical History Medical History (Updated 03/18/23 @ 18:59 by Chucho Diamond MD) Hypertension Hypothyroid Multiple sclerosis Osteoarthritis of left knee Vitamin D deficiency Surgical History Surgical History Deficient knowledge of hysterectomy H/O thumb surgery ORIF right thumb Hx of tonsillectomy Family History Family History Father Family history of premature coronary heart disease, Onset Age: 69 Mother Family history of Alzheimer's disease, Onset Age: 67 Sibling Multiple sclerosis Social History Social History Social History: The patient with home in her own home. Her closest family members live 2 hours away. She has a friend who checks on her. Code status: DNR/DNI (per outpatient primary care report) Smoking status: Never smoker Second hand tobacco smoke exposure: No Alcohol intake: never Drinks per week: 1 Alcohol use details: beer Substance use: never Substance use type: does not use Lack of Transportation: No Lack of Food: Never True Current Housing: I Have Housing Concerned About Future Housing: No Difficulty Paying Gas/Electric Bills: No Difficulty Paying for Meds: No Currently Unemployed: No Education: High School Diploma/GED Difficulty w/ Childcare or Family Care: No Living arrangements: alone Occupation/Education: retired Gender identity (if verbalized by the patient): Female Spiritual care concerns: No Agree to blood products: Yes Exam Narrative: APPEARANCE: Well appearing, no pain, no distress, well-nourished. HEAD: normocephalic, atraumatic. EYES: PERRLA/EOMI, conjunctivae clear. NOSE: Normal no drainage NECK: Supple. No adenopathy, no masses. RESPIRATORY: Airway patent, respirations nonlabored. Clear to auscultation bilaterally, no rales, rhonchi, wheezing. CARDIOVASCULAR: Regular rate and rhythm without murmurs rubs or gallops. ABDOMINAL: Soft, nontender, nondistended, normal bowel sounds MUSCULOSKELETAL: Moves all extremities. Left knee contusion. NEURO: Alert. Cranial nerves II through XII intact. SKIN: Contusions to knees Course Course Emergency Course: 82-year-old female presented to the emergency department for evaluation of increased weakness, increased falls and knee pain. Ileana
[2023-03-18 12:43] LABS: Basophils Percent Auto 0.3 % (0.2-1.2); Eosinophils Percent Auto 0.1 % (0-4.4); Hematocrit 37.7 % (37.0-47.0); Hemoglobin 12.3 g/dL (12.0-15.0); Immature Granulocyte Absolute 0.03 K/mm3 (0.00-0.031); Immature Granulocyte Percent A 0.4 % (0-0.5); Lymphocytes Absolute Auto 0.37 K/mm3 (0.9-3.2); Lymphocytes Percent Auto 4.6 % (18.3-44.2); Mean Corpuscular HGB Conc 32.6 g/dl (32-36); Mean Corpuscular Hemoglobin 29.9 pg (26-34); Mean Corpuscular Volume 91.7 fl (80-100); Mean Platelet Volume 9.2 fl (7.4-10.4); Monocytes Absolute Auto 0.6 K/mm3 (0.1-0.6); Monocytes Percent Auto 7.4 % (2.6-8.5); Neutrophils Absolute Auto 6.9 K/mm3 (1.3-6.7); Neutrophils Percent Auto 87.2 % (45.5-73.1); Platelet Count Result 251 k/mm3 (150-375); Red Blood Count 4.11 M/mm3 (4.2-5.4); Red Cell Distribution Width 13.7 % (11.5-14.5)
[2023-03-18 12:44] LABS: Alanine Aminotransferase 20 U/L (6-35); Albumin Level 4.2 g/dL (3.5-5.1); Alkaline Phosphatase 78 U/L (38-126); Anion Gap 4 mmol/L (8-16); Aspartate Amino Transferase 29 U/L (14-36); Bilirubin,Total 0.9 mg/dL (0.2-1.3); Blood Urea Nitrogen 13 mg/dL (7-17); Calcium 9.4 mg/dL (8.4-10.2); Carbon Dioxide 31 mmol/L (22-30); Chloride 102 mmol/L (98-107); Creatine Kinase 155 U/L (30-135); Estimated CRCL calculation 58 ml/min; Estimated Glomerular Filt Rate > 60; Glucose 112 mg/dL (65-110); Potassium 3.7 mmol/L (3.4-5.0); Sodium 137 mmol/L (137-145)
[2023-03-18 13:04] LABS: Influenza A QL RT-PCR Negative (Negative); Influenza B QL RT-PCR Negative (Negative); RSV RNA, RT-PCR Negative (Negative); SARS-CoV-2 RNA PCR Negative (Negative)
[2023-03-18 13:12] LABS: Appearance Urine Clear (Clear); Bacteria Urine None Seen /hpf; Bilirubin Urine Negative (Negative); Blood Urine Negative (Negative); Color Urine Yellow (Yellow); Glucose Urine UA Negative (Negative); Ketones Urine Negative (Negative); Leukocyte Esterase Ur Negative LEU/UL (Negative); Need Manual Microscopic Reviewed; Nitrate Urine Negative (Negative); Non Pathogenic Casts 0-2; Protein Urine Trace mg/dL (Negative); RBC Urine 0-2 /hpf (0-2); Squamous Epithelial Cell Urine None seen /hpf (Few); Urobilinogen Urine 0.2 mg/dL (<2.0); WBC Urine 0-5 /hpf
[2023-03-18 13:18] LABS: Add Urine Microscopic? YES
--- NOTE | 2023-03-18 16:31 | PM.IMHP ---
H&P: HPI History of Present Illness Date/Time: 03/18/23 17:30 Chief Complaint: Weakness. Narrative: This is a very pleasant 82-year-old female with history of seizures, multiple sclerosis, and hypothyroidism who presented to the emergency department via EMS from home for evaluation of weakness. The patient provides the following history; her friend Dayanna provides additional information with the patients permission. The patient lives in her own apartment and she has recently realized that she needs more help and in fact today a floor representative from [facility] was coming to her home today to evaluate her for placement. Friend Dayanna came over this morning as she wanted to be present for that meeting and she found the patient lying on the floor near the kitchen in her undergarments. Patient reports that last night she was seeing flashes of bright lights and a lot of noise which reportedly made her lie down on the floor. She seems confused when talking about that now, however. Dayanna reports that the patient was incontinent of urine when she found her on the floor today and she is wondering if perhaps she may have had a seizure sometime last evening. It does not look like she ever made to bed. The patient herself has no complaints at this time and she denies headache, neck ache, vertigo, focal weakness, paresthesias, visual changes, difficulty speaking and swallowing, chest pain, pleuritic pain, shortness a breath, cough, nausea, vomiting, diarrhea, and dysuria. Her vital signs were stable on arrival to the ED. Her CK was mildly elevated at 155 but other labs were pretty unremarkable. Brain CT and left knee x-ray showed no acute findings. She is being admitted in this setting for hydration and care coordination consult for help with placement. Review of Systems Review of Systems: Twelve systems were reviewed and are negative except for as per HPI. [facility] Past Medical History Medical History (Updated 03/18/23 @ 22:47 by Sarai Nascimento PA-C) Hypertension Multiple sclerosis Osteoarthritis of left knee Seizures Vitamin D deficiency Surgical History Surgical History Deficient knowledge of hysterectomy History of hysterectomy History of open reduction and internal fixation (ORIF) procedure Repair of right thumb fracture. 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 Code status: Full code. Smoking status: Never smoker Second hand tobacco smoke exposure: No Alcohol intake: never Substance use: never Substance use type: does not use Lack of Transportation: No Lack of Food: Never True Current Housing: I Have Housing Concerned About Future Housing: No Difficulty Paying Gas/Electric Bills: No Difficulty Paying for Meds: No Currently Unemployed: No Education: High School Diploma/GED Difficulty w/ Childcare or Family Care: No Living arrangements: alone Additional living arrangements comments: Lives in her own apartment in [place]. Three children who all live out of town. 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 Spiritual care concerns: No Agree to blood products: Yes Meds Home Medications and Allergies Home Medications Medication Instructions Recorded Confirmed Type cholecalciferol (vitamin D3) 1,250 1,250 mcg PO WEEKLY #12 caps 12/18/22 03/18/23 Rx mcg (50,000 unit) capsule aspirin 81 mg chewable tablet 81 mg PO DAILY@0800 #30 tabs 12/25/22 03/18/23 Rx (Children's Aspirin)
[2023-03-19] MEDS: levETIRAcetam 500 MG TABLET PO ×2 (00:14→20:54)
[2023-03-19] MEDS: SODIUM CHLORIDE 0.9% IV 1,000 ML 100 ML IV CONT (00:14)
[2023-03-19] MEDS: GABAPENTIN 100 MG CAPSULE 200 MG BY MOUTH ×2 (00:15→16:29)
[2023-03-19 05:13] LABS: Hematocrit 33.3 % (37.0-47.0); Hemoglobin 11.1 g/dL (12.0-15.0); Mean Corpuscular HGB Conc 33.3 g/dl (32-36); Mean Corpuscular Hemoglobin 30.6 pg (26-34); Mean Corpuscular Volume 91.7 fl (80-100); Mean Platelet Volume 8.6 fl (7.4-10.4); Platelet Count Result 215 k/mm3 (150-375); Red Blood Count 3.63 M/mm3 (4.2-5.4); Red Cell Distribution Width 13.8 % (11.5-14.5); White Blood Count 5.5 K/mm3 (4.5-10.0)
[2023-03-19 05:32] LABS: Anion Gap 8 mmol/L (8-16); Blood Urea Nitrogen 13 mg/dL (7-17); Calcium 9.4 mg/dL (8.4-10.2); Carbon Dioxide 26 mmol/L (22-30); Chloride 106 mmol/L (98-107); Estimated CRCL calculation 54 ml/min; Estimated Glomerular Filt Rate > 60; Glucose 103 mg/dL (65-110); Magnesium 1.9 mg/dL (1.6-2.3); Potassium 3.5 mmol/L (3.4-5.0); Sodium 140 mmol/L (137-145)
[2023-03-19] MEDS: LEVOTHYROXINE SODIUM 75 MCG TABLET PO (05:40)
[2023-03-19 06:33] VITALS: PULSE 72; RESP 16; TEMP 36.4; O2SAT 97
--- NOTE | 2023-03-19 12:54 | PC.NURSE ---
On 03/19/23, the student, [Taina Serrato], provided care and [facility]. I have reviewed the student's documentation and agree with the findings.
[2023-03-19 13:01] VITALS: BMI 17.4
[2023-03-19 14:00] VITALS: BP 169/71; PULSE 69; RESP 16; TEMP 36.6; O2SAT 100
--- NOTE | 2023-03-19 14:41 | PM.IMPN ---
Progress Note: A&P Assessment and Plan (1) Fall from ground level: Code(s): W18.30XA - Fall on same level, unspecified, initial encounter Status: Acute Assessment and Plan: Patient reports that she lay on the ground last night after seeing a bunch of bright lights and hearing noises. Friend found her in her undergarments and incontinent of urine this morning as detailed above. I am wondering if perhaps she had a seizure last night. Luckily she sustained no injuries. Initiate fall precautions. CT head acute intracranial process Patient is not orthostatic Labs and vital signs stable Knee x-ray negative for fracture Patient negative for COVID and flu Patient need placement into assisted living facility PT and OT evaluation. (2) Elevated creatine kinase level: Code(s): R74.8 - Abnormal levels of other serum enzymes Status: Acute Assessment and Plan: CK is only minimally elevated. patient received IV fluids. CK under 1000 and not concerning. Liver enzymes within normal limits (3) Seizures: Code(s): R56.9 - Unspecified convulsions Status: Chronic Assessment and Plan: Continue levetiracetam; she states compliance with the medication. (4) Multiple sclerosis: Code(s): G35 - Multiple sclerosis Status: Acute Assessment and Plan: She has gotten progressively more weak and is having difficulties caring for self. Care coordination consulted as she is hoping to get into assisted living at [facility]. Plan Patient having difficulty swallowing. When looking back at patient's record she was seen at the end of November by speech therapy and they recommended mildly thick liquids level 2 and Minced and moist diet level 5. will order additional speech therapy evaluation but for now will place patient on this diet. Subjective Date/time seen: 03/19/23 14:41 Interval history: Patient is lying in bed and is very lethargic. I talked with the patient and she was able to answer my questions. She kept falling asleep in the middle of talking to me. She stated that she is very and did not have any other complaints. Patient could be postictal. Per nurse she is having trouble swallowing water and had a choking episode earlier today. Speech evaluation consult ordered. Patient needing placement at this time Review of Systems Review of Systems: All systems reviewed & are unremarkable except as noted in HPI and below Exam Narrative: GENERAL: Comfortable, no acute distress, lethargic HENMT: moist mucous membranes EYES: EOM intact b/l NECK: no lymphadenopathy RESPIRATORY: clear to auscultation CARDIO: RRR GI: soft, nontender, bowel sounds present SKIN: no rashes EXTREMITIES: no edema, redness or tenderness Objective Data Vital Signs Vital Signs: Vital Signs - 24 hr 03/18/23 16:25 03/18/23 14:45 03/18/23 15:00 Temperature Pulse Rate 90 89 88 Respiratory Rate 20 19 17 Blood Pressure 163/93 H Pulse Oximetry 98 100 Oxygen Delivery 03/18/23 15:15 03/18/23 15:30 03/18/23 15:45 Temperature Pulse Rate 87 90 92 Respiratory Rate 17 20 23 H Blood Pressure Pulse Oximetry Oxygen Delivery 03/18/23 16:00 03/18/23 16:15 03/18/23 17:58 Temperature Pulse Rate 90 92 93 Respiratory Rate 16 26 H 14 Blood Pressure 148/83 H Pulse Oximetry 98 Oxygen Delivery 03/18/23 16:25 03/18/23 16:30 03/18/23 16:31 Temperature Pulse Rate 86 89 89 Respiratory Rate 18 18 17 Blood Pressure 163/103 H 177/109 H Pulse Oximetry Oxygen Delivery 03/18/23 16:45 03/18/23 17:00 03/18/23 17:01 Temperature Pulse Rate 80 86 89 Respiratory Rate 20 19 18 Blood Pressure 174/99 H Pulse Oximetry Oxygen Delivery 03/18/23 17:15 03/18/23 17:30 03/18/23 17:31 Temperature Pulse Rate 94 96 93 Respiratory Rate 17 19 20 Blood Pressure 169/104 H
[2023-03-19 20:00] VITALS: PULSE 75; RESP 14; O2SAT 100
[2023-03-19 22:37] VITALS: BP 143/72; PULSE 75; RESP 14; TEMP 36.4; O2SAT 100
[2023-03-20 06:00] VITALS: BP 132/78; PULSE 76; RESP 16; TEMP 36.6; O2SAT 97
[2023-03-20] MEDS: LEVOTHYROXINE SODIUM 75 MCG TABLET PO (06:10)
[2023-03-20 06:22] LABS: Hematocrit 31.7 % (37.0-47.0); Mean Corpuscular HGB Conc 31.5 g/dl (32-36); Mean Corpuscular Hemoglobin 29.5 pg (26-34); Mean Corpuscular Volume 93.5 fl (80-100); Mean Platelet Volume 9.3 fl (7.4-10.4); Platelet Count Result 177 k/mm3 (150-375); Red Blood Count 3.39 M/mm3 (4.2-5.4); Red Cell Distribution Width 13.7 % (11.5-14.5); White Blood Count 4.4 K/mm3 (4.5-10.0)
[2023-03-20 06:39] LABS: Alanine Aminotransferase 16 U/L (6-35); Albumin Level 3.4 g/dL (3.5-5.1); Alkaline Phosphatase 58 U/L (38-126); Anion Gap 5 mmol/L (8-16); Aspartate Amino Transferase 26 U/L (14-36); Bilirubin,Total 0.9 mg/dL (0.2-1.3); Blood Urea Nitrogen 13 mg/dL (7-17); Carbon Dioxide 26 mmol/L (22-30); Chloride 106 mmol/L (98-107); Estimated CRCL calculation 46 ml/min; Estimated Glomerular Filt Rate > 60; Glucose 87 mg/dL (65-110); Potassium 3.1 mmol/L (3.4-5.0); Sodium 137 mmol/L (137-145)
[2023-03-20] MEDS: POTASSIUM CHLORIDE 20 MEQ PACKET (FOR LIQUID) 60 MEQ PO (10:14)
[2023-03-20] MEDS: ASPIRIN 81 MG CHEWABLE TABLET PO (10:15)
[2023-03-20] MEDS: levETIRAcetam 500 MG TABLET PO ×2 (10:15→21:34)
[2023-03-20] MEDS: GABAPENTIN 100 MG CAPSULE 200 MG BY MOUTH ×3 (10:15→17:51)
[2023-03-20] MEDS: POTASSIUM CHLORIDE 10 MEQ TABLET.ER PO (10:15)
[2023-03-20] MEDS: traMADol HCL (*CRX) 50 MG TABLET PO ×2 (10:19→17:50)
--- NOTE | 2023-03-20 10:31 | WPDNEURCNPN ---
Assessment and Plan Assessment and plan (1) Seizures: Code(s): R56.9 - Unspecified convulsions Status: Chronic (2) Elevated creatine kinase level: Code(s): R74.8 - Abnormal levels of other serum enzymes Status: Acute (3) Fall from ground level: Code(s): W18.30XA - Fall on same level, unspecified, initial encounter Status: Acute (4) Multiple sclerosis: Code(s): G35 - Multiple sclerosis Status: Acute Plan Maria Victoria Alfaro is a 82 year old female with a history of MS, hypothyroidism, epilepsy who was found down with urinary incontinence confusion. She does have a history of epilepsy so breakthrough seizure is a concern. She has not been taking Keppra correctly, which could be the culprit. - Recommend Keppra 500mg BID. Discussed importance of taking twice a day. - Discussed no driving until seizure free for at least 6 months Consult date: 03/20/23 HPI: Maria Victoria Alfaro is a 82 year old female with a history of MS, hypothyroidism, epilepsy who presented from home due to concerns for altered mental status. Patient lives alone in her apartment. Her friend came over on the day of presentation and found patient lying on the floor in her undergarments. Patient reports that the night prior to this she was seeing flashes of bright lights and a lot of noise, which caused her to lie down on the floor. She appeared to be confused when talking to her friend and she was also incontinence of urine at that time.When patient presented to [place] ED, she was back to baseline. Her CK was mildly elevated to 155 but the rest of her labs were unrevealing. CT head showed no acute changes. For her epilepsy she is supposed to take Keppra 500mg BID, but only taking 500mg daily. She has had only one lifetime seizure, that occurred several months ago. Review of Systems Constitutional: Constitutional: Reports weakness Eyes: Eyes: Reports no additional eye complaints ENT: Reports system reviewed and no additional complaints, except as documented Cardiovascular: Cardiovascular: Reports no additional cardiovascular complaints Respiratory: Respiratory: Reports no additional respiratory complaints Gastrointestinal: Gastrointestinal: Reports constipation Genitourinary: Genitourinary: Reports no additional female genitourinary complaints Musculoskeletal: Musculoskeletal: Reports myalgias Integumentary/Breasts: Skin/Breast: Reports system reviewed and no additional complaints, except as docu Neurologic: Reports as per HPI Psychiatric: Psychiatric: Reports depression PMFSH Past Medical History Medical History Hypertension Multiple sclerosis Osteoarthritis of left knee Seizures Vitamin D deficiency Surgical History Surgical History Deficient knowledge of hysterectomy History of hysterectomy History of open reduction and internal fixation (ORIF) procedure Repair of right thumb fracture. Family History Family History Father Family history of premature coronary heart disease, Onset Age: 69 Mother Family history of Alzheimer's disease, Onset Age: 67 Sibling Multiple sclerosis Social History Social History Social History: Healthcare power of state attorney: Manan Paula, son. Code status: Full code. Smoking status: Never smoker Second hand tobacco smoke exposure: No Alcohol intake: never Substance use: never Substance use type: does not use Lack of Transportation: No Lack of Food: Never True Current Housing: I Have Housing Concerned About Future Housing: No Difficulty Paying Gas/Electric Bills: No Difficulty Paying for Meds: No Currently Unemployed: No Education: High School Diploma/GED Difficulty w/ Childcare or Family Care: No
--- NOTE | 2023-03-20 12:30 | PM.IMPN ---
Progress Note: A&P Assessment and Plan (1) Fall from ground level: Code(s): W18.30XA - Fall on same level, unspecified, initial encounter Status: Acute Assessment and Plan: Patient reports that she lay on the ground last night after seeing a bunch of bright lights and hearing noises. Friend found her in her undergarments and incontinent of urine this morning as detailed above. I am wondering if perhaps she had a seizure. Initiate fall precautions. CT head acute intracranial process Patient is not orthostatic Labs and vital signs stable Knee x-ray negative for fracture Patient negative for COVID and flu Patient need placement into assisted living facility PT and OT evaluation. (2) Elevated creatine kinase level: Code(s): R74.8 - Abnormal levels of other serum enzymes Status: Acute Assessment and Plan: CK is only minimally elevated. patient received IV fluids. CK under 1000 and not concerning. Liver enzymes within normal limits (3) Seizures: Code(s): R56.9 - Unspecified convulsions Status: Chronic Assessment and Plan: Continue levetiracetam Neurology consulted According the patient she had only been taking her Keppra once daily when was prescribed twice a day. Now giving Keppra b.i.d.. Seizure precautions initiated (4) Multiple sclerosis: Code(s): G35 - Multiple sclerosis Status: Acute Assessment and Plan: She has gotten progressively more weak and is having difficulties caring for self. Care coordination consulted as she is hoping to get into assisted living at [facility]. Subjective Date/time seen: 03/20/23 12:30 Interval history: Patient up to bed with no new complaints. Patient seen by speech therapy and they are not recommending any changes to her diet. Patient appears to be much better today and up awake in bed talking. Currently waiting for placement into medical administrative assistant living facility due to patient being unsafe at home by herself. PT and OT continuing to work with patient. Review of Systems Review of Systems: All systems reviewed & are unremarkable except as noted in HPI and below Exam Narrative: GENERAL: Comfortable, no acute distress, lethargic HENMT: moist mucous membranes EYES: EOM intact b/l NECK: no lymphadenopathy RESPIRATORY: clear to auscultation CARDIO: RRR GI: soft, nontender, bowel sounds present SKIN: no rashes EXTREMITIES: no edema, redness or tenderness Objective Data Vital Signs Vital Signs: Vital Signs - 24 hr 04/28/23 14:00 03/19/23 22:37 03/19/23 20:00 Temperature 97.9 F 97.6 F Pulse Rate 69 75 75 Respiratory Rate 16 14 14 Blood Pressure 169/71 H 143/72 H Pulse Oximetry 100 100 100 Oxygen Delivery Room Air 03/20/23 06:00 03/20/23 08:30 Temperature 97.8 F Pulse Rate 76 Respiratory Rate 16 Blood Pressure 132/78 Pulse Oximetry 97 Oxygen Delivery Room Air Intake/Output Intake/Output: Intake & Output 03/17/23 03/18/23 03/19/23 03/20/23 23:59 23:59 23:59 23:59 Intake Total 40 Output Total 100 Balance -60 Meds/Results Medications: Active Medications Generic Name Dose Route Start Last Admin Trade Name Freq PRN Reason Stop Dose Admin Acetaminophen 650 mg 03/18/23 22:50 Acetaminophen 325 Mg Tablet PO Q6H PRN Mild Pain (1-3) or Fever Aspirin 81 mg 03/19/23 08:00 03/20/23 10:15 Aspirin 81 Mg Chewable Tablet PO 81 mg DAILY@0800 MARCIO Administration Gabapentin 200 mg 03/18/23 22:55 03/20/23 10:15 Gabapentin 100 Mg Capsule BY MOUTH 200 mg TID MARCIO Administration Levetiracetam 500 mg 03/18/23 22:55 03/20/23 10:15 Levetiracetam 500 Mg Tablet PO 500 mg Q12HR MARCIO Administration Levothyroxine Sodium 75 mcg 03/19/23 06:30 03/20/23 06:10 Levothyroxine Sodium 75 Mcg Tablet PO 75 mcg DAILY@0630 MARCIO Administration Potassium C
[2023-03-20 14:12] VITALS: BP 113/66; PULSE 74; RESP 16; TEMP 36.3; O2SAT 96
[2023-03-20 15:04] LABS: Potassium 3.6 mmol/L (3.4-5.0)
[2023-03-20 20:00] VITALS: PULSE 74; RESP 16; O2SAT 96
[2023-03-20 22:00] VITALS: BP 123/78; PULSE 85; RESP 16; TEMP 36.6; O2SAT 99
[2023-03-21] MEDS: traMADol HCL (*CRX) 50 MG TABLET PO (04:21)
[2023-03-21 04:43] VITALS: BP 130/68; PULSE 65; RESP 16; TEMP 36.9; O2SAT 94
[2023-03-21] MEDS: LEVOTHYROXINE SODIUM 75 MCG TABLET PO (06:27)
[2023-03-21 07:04] LABS: Hematocrit 31.8 % (37.0-47.0); Mean Corpuscular HGB Conc 31.4 g/dl (32-36); Mean Corpuscular Hemoglobin 29.7 pg (26-34); Mean Corpuscular Volume 94.4 fl (80-100); Mean Platelet Volume 9.1 fl (7.4-10.4); Platelet Count Result 187 k/mm3 (150-375); Red Blood Count 3.37 M/mm3 (4.2-5.4); Red Cell Distribution Width 13.6 % (11.5-14.5); White Blood Count 4.5 K/mm3 (4.5-10.0)
[2023-03-21 07:13] LABS: Anion Gap 5 mmol/L (8-16); Blood Urea Nitrogen 15 mg/dL (7-17); Calcium 8.7 mg/dL (8.4-10.2); Carbon Dioxide 27 mmol/L (22-30); Chloride 104 mmol/L (98-107); Estimated CRCL calculation 57 ml/min; Estimated Glomerular Filt Rate > 60; Glucose 86 mg/dL (65-110); Potassium 3.5 mmol/L (3.4-5.0); Sodium 136 mmol/L (137-145)
[2023-03-21] MEDS: ASPIRIN 81 MG CHEWABLE TABLET PO (09:40)
[2023-03-21] MEDS: levETIRAcetam 500 MG TABLET PO ×2 (09:40→21:25)
[2023-03-21] MEDS: GABAPENTIN 100 MG CAPSULE 200 MG BY MOUTH ×2 (09:40→17:01)
[2023-03-21] MEDS: POTASSIUM CHLORIDE 10 MEQ TABLET.ER PO (09:40)
[2023-03-21 14:05] VITALS: BP 127/65; PULSE 75; RESP 16; TEMP 36.2; O2SAT 97
--- NOTE | 2023-03-21 15:10 | PM.IMPN ---
Progress Note: A&P Assessment and Plan (1) Fall from ground level: Code(s): W18.30XA - Fall on same level, unspecified, initial encounter Status: Acute Assessment and Plan: Patient reports that she lay on the ground last night after seeing a bunch of bright lights and hearing noises. Friend found her in her undergarments and incontinent of urine this morning as detailed above. I am wondering if perhaps she had a seizure. Initiate fall precautions. CT head acute intracranial process Patient is not orthostatic Labs and vital signs stable Knee x-ray negative for fracture Patient negative for COVID and flu Patient need placement into assisted living facility PT and OT evaluation. (2) Elevated creatine kinase level: Code(s): R74.8 - Abnormal levels of other serum enzymes Status: Acute Assessment and Plan: CK is only minimally elevated. patient received IV fluids. CK under 1000 and not concerning. Liver enzymes within normal limits (3) Seizures: Code(s): R56.9 - Unspecified convulsions Status: Chronic Assessment and Plan: Continue levetiracetam Neurology consulted According the patient she had only been taking her Keppra once daily when was prescribed twice a day. Now giving Keppra b.i.d.. Seizure precautions initiated (4) Multiple sclerosis: Code(s): G35 - Multiple sclerosis Status: Acute Assessment and Plan: She has gotten progressively more weak and is having difficulties caring for self. Care coordination consulted as she is hoping to get into assisted living at [facility]. Subjective Date/time seen: 03/21/23 15:10 Interval history: patient doing well today with no new complaints. Talked a residential child care counselor and patient is able to be accepted into SNF on Wednesday03/22/2023. Review of Systems Review of Systems: All systems reviewed & are unremarkable except as noted in HPI and below Exam Narrative: GENERAL: Comfortable, no acute distress, lethargic HENMT: moist mucous membranes EYES: EOM intact b/l NECK: no lymphadenopathy RESPIRATORY: clear to auscultation CARDIO: RRR GI: soft, nontender, bowel sounds present SKIN: no rashes EXTREMITIES: no edema, redness or tenderness Objective Data Vital Signs Vital Signs: Vital Signs - 24 hr 03/20/23 20:00 03/20/23 22:00 03/21/23 04:43 Temperature 97.8 F 98.4 F Pulse Rate 74 85 65 Respiratory Rate 16 16 16 Blood Pressure 123/78 130/68 Pulse Oximetry 96 99 94 Oxygen Delivery Room Air 03/21/23 08:30 Temperature Pulse Rate Respiratory Rate Blood Pressure Pulse Oximetry Oxygen Delivery Room Air Intake/Output Intake/Output: Intake & Output 03/18/23 03/19/23 03/20/23 03/21/23 23:59 23:59 23:59 23:59 Intake Total 40 790 100 Output Total 100 Balance -60 790 100 Meds/Results Medications: Active Medications Generic Name Dose Route Start Last Admin Trade Name Freq PRN Reason Stop Dose Admin Acetaminophen 650 mg 03/18/23 22:50 Acetaminophen 325 Mg Tablet PO Q6H PRN Mild Pain (1-3) or Fever Aspirin 81 mg 03/19/23 08:00 03/21/23 09:40 Aspirin 81 Mg Chewable Tablet PO 81 mg DAILY@0800 MARCIO Administration Gabapentin 200 mg 03/18/23 22:55 03/21/23 13:49 Gabapentin 100 Mg Capsule BY MOUTH Not Given TID MARCIO Levetiracetam 500 mg 03/18/23 22:55 03/21/23 09:40 Levetiracetam 500 Mg Tablet PO 500 mg Q12HR MARCIO Administration Levothyroxine Sodium 75 mcg 03/19/23 06:30 03/21/23 06:27 Levothyroxine Sodium 75 Mcg Tablet PO 75 mcg DAILY@0630 MARCIO Administration Potassium Chloride 10 meq 03/19/23 09:00 03/21/23 09:40 Potassium Chloride 10 Meq Tablet.Er PO 10 meq DAILY MARCIO Administration Tramadol HCl 50 mg 03/18/23 22:51 03/21/23 04:21 Tramadol Hcl (*Crx) 50 Mg Tablet PO 50 mg Q6H PRN Administration
[2023-03-21 20:00] VITALS: PULSE 76; RESP 17; O2SAT 98
[2023-03-21 20:19] VITALS: BP 124/58; PULSE 76; RESP 17; TEMP 36.6; O2SAT 98
[2023-03-22 05:17] VITALS: BP 130/73; PULSE 75; RESP 17; TEMP 36.9; O2SAT 97
[2023-03-22 05:57] LABS: Hematocrit 30.7 % (37.0-47.0); Hemoglobin 9.8 g/dL (12.0-15.0); Mean Corpuscular HGB Conc 31.9 g/dl (32-36); Mean Corpuscular Hemoglobin 29.8 pg (26-34); Mean Corpuscular Volume 93.3 fl (80-100); Mean Platelet Volume 9.1 fl (7.4-10.4); Platelet Count Result 194 k/mm3 (150-375); Red Blood Count 3.29 M/mm3 (4.2-5.4); Red Cell Distribution Width 13.4 % (11.5-14.5); White Blood Count 3.9 K/mm3 (4.5-10.0)
[2023-03-22] MEDS: LEVOTHYROXINE SODIUM 75 MCG TABLET PO (06:09)
[2023-03-22 06:12] LABS: Anion Gap 3 mmol/L (8-16); Blood Urea Nitrogen 15 mg/dL (7-17); Calcium 8.8 mg/dL (8.4-10.2); Carbon Dioxide 29 mmol/L (22-30); Chloride 106 mmol/L (98-107); Estimated CRCL calculation 57 ml/min; Estimated Glomerular Filt Rate > 60; Glucose 84 mg/dL (65-110); Potassium 3.5 mmol/L (3.4-5.0); Sodium 138 mmol/L (137-145)
[2023-03-22] MEDS: GABAPENTIN 100 MG CAPSULE 200 MG BY MOUTH ×3 (08:48→17:27)
[2023-03-22] MEDS: POTASSIUM CHLORIDE 10 MEQ TABLET.ER PO (08:48)
[2023-03-22] MEDS: ASPIRIN 81 MG CHEWABLE TABLET PO (08:48)
[2023-03-22] MEDS: levETIRAcetam 500 MG TABLET PO (08:48)
--- NOTE | 2023-03-22 11:29 | PM.DS ---
DS: Admitting Diagnosis Discharge Date 03/22/23 Admitting Diagnosis Fall, placement DS: Discharge Diagnosis Discharge Diagnosis (1) Fall from ground level: Code(s): W18.30XA - Fall on same level, unspecified, initial encounter Status: Acute Assessment and Plan: Patient reports that she lay on the ground last night after seeing a bunch of bright lights and hearing noises. Friend found her in her undergarments and incontinent of urine this morning as detailed above. I am wondering if perhaps she had a seizure. Initiate fall precautions. CT head acute intracranial process Patient is not orthostatic Labs and vital signs stable Knee x-ray negative for fracture Patient negative for COVID and flu Patient need placement into assisted living facility PT and OT evaluation. (2) Elevated creatine kinase level: Code(s): R74.8 - Abnormal levels of other serum enzymes Status: Acute Assessment and Plan: CK is only minimally elevated. patient received IV fluids. CK under 1000 and not concerning. Liver enzymes within normal limits (3) Seizures: Code(s): R56.9 - Unspecified convulsions Status: Chronic Assessment and Plan: Continue levetiracetam Neurology consulted According the patient she had only been taking her Keppra once daily when was prescribed twice a day. Now giving Keppra b.i.d.. Seizure precautions initiated (4) Multiple sclerosis: Code(s): G35 - Multiple sclerosis Status: Acute Assessment and Plan: She has gotten progressively more weak and is having difficulties caring for self. Care coordination consulted as she is hoping to get into assisted living at [facility]. DS: Summary Hospital Course Hospital Course: This is an 82-year-old female with history of seizures, multiple sclerosis, and hypothyroidism the presented to the ED on 03/18/2023 for evaluation of weakness. Patient had been found on the floor by her friend and had been incontinent of urine when she was found. Patient stated that she was seeing flashes of bright lights in a lot of noise which is reportedly made her lie down on the floor. Upon arrival to the ED patient's vital signs were stable. Her CK was mildly elevated 155 but other than that labs are pretty unremarkable. CT head and left knee x-ray no acute findings. Patient admitted for help with placement. Patient is stable during her hospital stay and worked with PT and OT. Is thought the patient had a seizure and Neurology was consulted. Patient was supposed to be taking her Keppra twice a day although she states that she is on the taking once a day. Neurology gave education to patient and reminded her to be taking Keppra twice a day. On 03/22/2023 she was placed into [facility]. Patient's labs and vital signs stable she is medically clear for discharge. Time Spent with Patient Time attestation: Total time spent providing and/or coordinating discharge services: Exam Narrative: GENERAL: Comfortable, no acute distress, lethargic HENMT: moist mucous membranes EYES: EOM intact b/l NECK: no lymphadenopathy RESPIRATORY: clear to auscultation CARDIO: RRR GI: soft, nontender, bowel sounds present SKIN: no rashes EXTREMITIES: no edema, redness or tenderness DS: Data Data Completed and Pending Labs on day of discharge: Labs from last 24 hours 03/22/23 05:32 WBC 3.9 L RBC 3.29 L Hgb 9.8 L Hct 30.7 L MCV 93.3 MCH 29.8 MCHC 31.9 L RDW 13.4 Plt Count 194 MPV 9.1 Sodium 138 Potassium 3.5 Chloride 106 Carbon Dioxide 29 Anion Gap 3 L BUN 15 Creatinine 0.50 L Estim Creat Clear Calc 57 Estimated GFR > 60 Glucose 84 Calcium 8.8 Discharge Plan Discharge Attending physician on discharge: Irineo Aguilar Consulting providers: Susan Whitfield Discharging Clinician: Radha Mccormick Patient Dis
--- NOTE | 2023-03-22 12:12 | WPDNEUROPN ---
Subjective Date/time seen: 03/22/23 12:12 Interval history: 82 years old right-handed female with ongoing history of multiple sclerosis for which she has not been taking any treatment in addition to the diagnosis of 1. Hypothyroidism 2. Epilepsy with the possibility of breakthrough seizures as she had not been taking Keppra regularly which was started during this hospitalization to the dosage of 500 mg twice a day and patient obviously is not expecting the treatment for the demyelinating disease. The seizure has happened only once several months ago and she is being continued on aspirin 81 mg daily along withe other medication. Objective Data Vital Signs Vital Signs: Vital Signs - 24 hr 03/21/23 14:05 03/21/23 20:19 03/21/23 20:00 Temperature 36.2 C L 36.6 C Pulse Rate 75 76 76 Respiratory Rate 16 17 17 Blood Pressure 127/65 124/58 L Pulse Oximetry 97 98 98 Oxygen Delivery Room Air 03/22/23 05:17 Temperature 36.9 C Pulse Rate 75 Respiratory Rate 17 Blood Pressure 130/73 Pulse Oximetry 97 Oxygen Delivery Intake/Output Intake/Output: Intake & Output 03/19/23 03/20/23 03/21/23 03/22/23 23:59 23:59 23:59 23:59 Intake Total 40 790 550 120 Output Total 100 Balance -60 790 550 120 Meds/Results Medications: Active Medications Generic Name Dose Route Start Last Admin Trade Name Freq PRN Reason Stop Dose Admin Acetaminophen 650 mg 03/18/23 22:50 Acetaminophen 325 Mg Tablet PO Q6H PRN Mild Pain (1-3) or Fever Aspirin 81 mg 03/19/23 08:00 03/22/23 08:48 Aspirin 81 Mg Chewable Tablet PO 81 mg DAILY@0800 MARCIO Administration Gabapentin 200 mg 03/18/23 22:55 03/22/23 12:10 Gabapentin 100 Mg Capsule BY MOUTH 200 mg TID MARCIO Administration Levetiracetam 500 mg 03/18/23 22:55 03/22/23 08:48 Levetiracetam 500 Mg Tablet PO 500 mg Q12HR MARCIO Administration Levothyroxine Sodium 75 mcg 03/19/23 06:30 03/22/23 06:09 Levothyroxine Sodium 75 Mcg Tablet PO 75 mcg DAILY@0630 MARCIO Administration Potassium Chloride 10 meq 03/19/23 09:00 03/22/23 08:48 Potassium Chloride 10 Meq Tablet.Er PO 10 meq DAILY MARCIO Administration Tramadol HCl 50 mg 03/18/23 22:51 03/21/23 04:21 Tramadol Hcl (*Crx) 50 Mg Tablet PO 50 mg Q6H PRN Administration Pain Rated 4-6 Radiology Results: ITS Impressions Head CT 03/18/23 12:38 IMPRESSION: 1. No acute intracranial abnormality. 2. Chronic findings related to multiple sclerosis. Knee X-Ray 03/18/23 12:57 IMPRESSION: 1. Mild osteoarthritis without acute osseous abnormality. Labs Labs: Laboratory Results - last 24 hr 03/22/23 05:32 WBC 3.9 L RBC 3.29 L Hgb 9.8 L Hct 30.7 L MCV 93.3 MCH 29.8 MCHC 31.9 L RDW 13.4 Plt Count 194 MPV 9.1 Sodium 138 Potassium 3.5 Chloride 106 Carbon Dioxide 29 Anion Gap 3 L BUN 15 Creatinine 0.50 L Estim Creat Clear Calc 57 Estimated GFR > 60 Glucose 84 Calcium 8.8 Amg Follow-up Billing [facility] Follow-up Hospital Follow-up: [id number] [facility]
[2023-03-22 13:35] LABS: EDCOVIDSCREEN Negative (Negative)
[2023-03-22 14:17] VITALS: BP 137/87; PULSE 89; RESP 17; TEMP 36.9; O2SAT 96
[2023-03-22] MEDS: traMADol HCL (*CRX) 50 MG TABLET PO (17:27)
== END 2023-03-22 18:45 ==
LOC: ANHED 16:25 → ANH2MED 03-19 14:00
PROVIDERS: Physician Assistant; Admitting Provider Internal Medicine; Emergency Provider Emergency Medicine; PCP Family Medicine; Visit Provider Internal Medicine Critical Care Medicine
DX: R74.8 Abnormal levels of other serum enzymes (principal); W18.30XA Fall on same level, unspecified, initial encounter; R56.9 Unspecified convulsions; G35 Multiple sclerosis; R42 Dizziness and giddiness; Z20.822 Contact with and (suspected) exposure to COVID-19; I10 Essential (primary) hypertension; E03.9 Hypothyroidism, unspecified; M19.90 Unspecified osteoarthritis, unspecified site; E55.9 Vitamin D deficiency, unspecified; M25.562 Pain in left knee; M62.81 Muscle weakness (generalized); R29.6 Repeated falls; M17.9 Osteoarthritis of knee, unspecified; Z79.82 Long term (current) use of aspirin; Z79.891 Long term (current) use of opiate analgesic; Z79.899 Other long term (current) drug therapy
CPT/HCPCS: 36415; 70450; 73564; 80048; 80053; 81001; 82550; 83735; 84132; 85025; 85027; 87426; 87637; 92610; 93005; 97161; 97165; 97530; 99285; A9270; C9803; G0378; J7030

== ENCOUNTER 2023-11-04 15:38 | Outpatient (CLI) | payer MEDICARE, SELFPAY ==
[2023-11-04 20:12] LABS: Basophils Percent Auto 0.5 % (0.2-1.2); Eosinophils Absolute Auto 0.1 K/mm3 (0-0.3); Eosinophils Percent Auto 1.4 % (0-4.4); Hematocrit 37.7 % (37.0-47.0); Hemoglobin 12.3 g/dL (12.0-15.0); Immature Granulocyte Absolute 0.01 K/mm3 (0.00-0.031); Immature Granulocyte Percent A 0.2 % (0-0.5); Lymphocytes Absolute Auto 0.78 K/mm3 (0.9-3.2); Lymphocytes Percent Auto 17.8 % (18.3-44.2); Mean Corpuscular HGB Conc 32.6 g/dl (32-36); Mean Corpuscular Hemoglobin 29.9 pg (26-34); Mean Corpuscular Volume 91.7 fl (80-100); Mean Platelet Volume 9.2 fl (7.4-10.4); Monocytes Absolute Auto 0.4 K/mm3 (0.1-0.6); Monocytes Percent Auto 9.2 % (2.6-8.5); Neutrophils Absolute Auto 3.1 K/mm3 (1.3-6.7); Neutrophils Percent Auto 70.9 % (45.5-73.1); Platelet Count Result 219 k/mm3 (150-375); Red Blood Count 4.11 M/mm3 (4.2-5.4); Red Cell Distribution Width 13.2 % (11.5-14.5); White Blood Count 4.4 K/mm3 (4.5-10.0)
[2023-11-04 20:33] LABS: Hepatitis B Surface Antigen Negative (Negative)
[2023-11-04 20:39] LABS: HAV RESULT Negative (Negative); Hepatitis B Core IgM Result Negative (Negative)
[2023-11-04 20:50] LABS: Hepatitis C Virus Antibody Negative (Negative)
[2023-11-04 21:29] LABS: Alanine Aminotransferase 20 U/L (6-35); Albumin Level 3.9 g/dL (3.5-5.1); Alkaline Phosphatase 75 U/L (38-126); Anion Gap 6 mmol/L (8-16); Aspartate Amino Transferase 42 U/L (14-36); Bilirubin,Total 0.7 mg/dL (0.2-1.3); Blood Urea Nitrogen 13 mg/dL (7-17); Calcium 9.5 mg/dL (8.4-10.2); Carbon Dioxide 26 mmol/L (22-30); Chloride 108 mmol/L (98-107); Cholesterol 235 mg/dL (0-200); Estimated Glomerular Filt Rate > 60; Glucose 113 mg/dL (65-110); HDL Direct 56 mg/dL; Potassium 3.8 mmol/L (3.4-5.0); Sodium 140 mmol/L (137-145); Triglycerides 64 mg/dL (<150)
[2023-11-04 21:40] LABS: LDL Cholesterol Direct 139 mg/dL
[2023-11-04 22:00] LABS: Thyroid Stimulating Hormone 0.677 uIU/mL (0.465-4.680)
== END 2023-11-04 15:39 | disposition home or self-care (01) ==
LOC: ANHGOSHLAB 15:40
PROVIDERS: PCP Family Medicine; Visit Provider Family Medicine
DX: E03.9 Hypothyroidism, unspecified (principal); R74.01 Elevation of levels of liver transaminase levels; G35 Multiple sclerosis; D64.9 Anemia, unspecified; F99 Mental disorder, not otherwise specified; Z78.0 Asymptomatic menopausal state; M62.81 Muscle weakness (generalized)
CPT/HCPCS: 36415; 80053; 80061; 80074; 82248; 82306; 82607; 82728; 84443; 85025

== ENCOUNTER 2023-11-23 12:02 | Emergency (ER) | payer MEDICARE, SELFPAY ==
[2023-11-23] VITALS (24 sets, daily range): BP systolic 120–188; BP diastolic 70–99; PULSE 63–80; RESP 12–22; TEMP 36.2–36.7; O2SAT 94–100
--- NOTE | ~2023-11-23 | XR_ITS ---
EXAM: [id number] DATE: 11/23/2023 17:39 HISTORY: NONTRAUMATIC PAIN; PT. UNABLE TO FULL EXTEND LEG . COMPARISON: None available. FINDINGS: Decreased mineralization. Subtle sclerosis in the medial tibial plateau. No lytic or blast ic lesion. Moderate lateral joint space narrowing. Chondrocalcinosis. Extrusion of the medial meniscu s. Mild tricompartmental osteophytosis. No erosion or periosteal change. Soft tissues within normal l imits. IMPRESSION: Findings suspicious for an incomplete, insufficiency type fracture of the medial tibial p lateau. Medial meniscal extrusion. Consider conservative management and MRI of the knee for further e valuation. Reviewed, dictated and finalized at location K. KNITTER IMPRESSION: Findings suspicious for an incomplete, insufficiency type fracture of the medial tibial plateau. Medial meniscal extrusion. Consider conservative management and MRI of the knee for further evaluation.
--- NOTE | ~2023-11-23 | XR_ITS ---
EXAMINATION: XR chest 1V portable Exam Date/Time: 11/23/2023 15:15 FIREBREAK CUTTER HISTORY: new weakness Comparison: CT cap. RESULT: Lines, tubes, and devices: None. Lungs and pleura: Rightward rotation. Senescent changes. Cardiomediastinal silhouette: Stable, given interval differences in positioning. Other: No acute osseous or upper abdominal finding. Osteopenia. IMPRESSION: No acute cardiopulmonary process. Reviewed, dictated and finalized at location K. BREAK CUTTER
--- NOTE | 2023-11-23 14:52 | ECG_ITS ---
Measurements Intervals [place] Rate: 68 P: 52 ND: 124 QRS: 22 QRSD: 85 T: 52 QT: 391 QTc: 418 Interpretive Statements SINUS RHYTHM VENTRICULAR PREMATURE COMPLEX BASELINE ARTIFACT- I, III, AVR, AVL, AVF, V5-V6 BORDERLINE ECG COMPARED TO ECG 03/18/2023 10:28:46 NO SIGNIFICANT CHANGES Electronically Signed On 11-23-2023 15:08:04 GIFT PACKER by Lauro Narvaez D.O.
[2023-11-23 15:55] LABS: Basophils Percent Auto 0.5 % (0.2-1.2); Eosinophils Absolute Auto 0.1 K/mm3 (0-0.3); Eosinophils Percent Auto 1.8 % (0-4.4); Hematocrit 34.9 % (37.0-47.0); Immature Granulocyte Absolute 0.01 K/mm3 (0.00-0.031); Immature Granulocyte Percent A 0.3 % (0-0.5); Lymphocytes Absolute Auto 0.99 K/mm3 (0.9-3.2); Lymphocytes Percent Auto 25.3 % (18.3-44.2); Mean Corpuscular HGB Conc 31.5 g/dl (32-36); Mean Corpuscular Hemoglobin 29.8 pg (26-34); Mean Corpuscular Volume 94.6 fl (80-100); Mean Platelet Volume 9.3 fl (7.4-10.4); Monocytes Absolute Auto 0.5 K/mm3 (0.1-0.6); Monocytes Percent Auto 12.3 % (2.6-8.5); Neutrophils Absolute Auto 2.3 K/mm3 (1.3-6.7); Neutrophils Percent Auto 59.8 % (45.5-73.1); Platelet Count Result 229 k/mm3 (150-375); Red Blood Count 3.69 M/mm3 (4.2-5.4); Red Cell Distribution Width 13.7 % (11.5-14.5); White Blood Count 3.9 K/mm3 (4.5-10.0)
[2023-11-23 15:57] LABS: Alanine Aminotransferase 18 U/L (6-35); Albumin Level 3.6 g/dL (3.5-5.1); Alkaline Phosphatase 66 U/L (38-126); Anion Gap 8 mmol/L (8-16); Aspartate Amino Transferase 33 U/L (14-36); Bilirubin,Total 0.7 mg/dL (0.2-1.3); Blood Urea Nitrogen 11 mg/dL (7-17); Calcium 9.1 mg/dL (8.4-10.2); Carbon Dioxide 26 mmol/L (22-30); Chloride 104 mmol/L (98-107); Estimated CRCL calculation 53 ml/min; Estimated Glomerular Filt Rate > 60; Glucose 82 mg/dL (65-110); Potassium 3.6 mmol/L (3.4-5.0); Sodium 138 mmol/L (137-145)
--- NOTE | 2023-11-23 16:10 | ED.WEAKNESS ---
HPI - Weakness General Chief complaint: Weakness Stated complaint: decline in health Time Seen by Provider: 11/23/23 16:10 Source: patient and EMS Mode of arrival: EMS Limitations: no limitations History of Present Illness HPI Narrative: PATIENT CAME TO THE ED FROM [facility] WITH GENERAL WEAKNESS. PATIENT DENIES ANY SYMPTOM. PATIENT IS AWAKE, ALERT ORIENTED X4, DOES NOT KNOW WHY THEY BROUGHT HER TO THE EMERGENCY ROOM. SHE DENIES ANY FEVER, CHILLS, NAUSEA, VOMITING, DIARRHEA, CONSTIPATION, CHEST PAIN, SHORTNESS OF BREATH, HEADACHE. Related Data Home Medications Medication Instructions Recorded Confirmed levetiracetam 500 mg tablet 500 mg PO Q12HR 02/23/23 11/04/23 (Keppra) potassium chloride 10 mEq 10 meq PO DAILY 02/23/23 11/04/23 capsule,extended release Allergies Allergy/AdvReac Type Severity Reaction Status Date / Time No Known Allergies Allergy Unknown Verified 11/04/23 14:29 Review of Systems Review of Systems: All systems reviewed & are unremarkable except as noted in HPI and below PMFSH Past Medical History Medical History Hypertension Multiple sclerosis Osteoarthritis of left knee Seizures Vitamin D deficiency Surgical History Surgical History Deficient knowledge of hysterectomy History of hysterectomy History of open reduction and internal fixation (ORIF) procedure Repair of right thumb fracture. Family History Family History Father Family history of premature coronary heart disease, Onset Age: 69 Mother Family history of Alzheimer's disease, Onset Age: 67 Sibling Multiple sclerosis Social History Social History Social History: Healthcare power of transactional attorney: Manan Paula, son. Code status: Full code. Smoking status: Never smoker Second hand tobacco smoke exposure: No Alcohol intake: current Alcohol use details: Rare Substance use: never Substance use type: does not use Lack of Transportation: No Lack of Food: Never True Current Housing: I Have Housing Concerned About Future Housing: No Difficulty Paying Gas/Electric Bills: No Difficulty Paying for Meds: No Currently Unemployed: No Education: High School Diploma/GED Difficulty w/ Childcare or Family Care: No Living arrangements: alone Additional living arrangements comments: Lives in her own apartment in [place]. Three children who all live out of town. 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 Spiritual care concerns: No Agree to blood products: Yes Exam Narrative: GENERAL APPEARANCE: WELL-DEVELOPED, WELL-NOURISHED SKIN: NORMAL COLOR HEAD: NORMOCEPHALIC, NONTRAUMATIC EYES: CLEAR CONJUNCTIVA ENT: OROPHARYNX NORMAL, EARS NORMAL, NOSE NORMAL NECK: SUPPLE, NONTENDER CHEST AND RESPIRATORY: AIRWAY PATENT, NO RESPIRATORY DISTRESS, NO ACCESSORY MUSCLE USE HEART: REGULAR RATE/RHYTHM ABDOMEN: SOFT, NONTENDER, NO ORGANOMEGALY, QUIET BOWEL SOUNDS VASCULAR: NORMAL PERIPHERAL PULSES, NORMAL CAPILLARY REFILL. MUSCULOSKELETAL: PAINFUL LEFT KNEE MOVEMENT, CHRONIC, NO SWELLING, NO RASH, NO ERYTHEMA, NO DEFORMITY NEUROLOGIC: ALERT AND ORIENTED ?3, WIRE GALVANIZER IS NORMAL TESTED, NO GROSS MOTOR DEFICIT Course Vital Signs Vital signs: Vital Signs Temperature 36.2 C L 11/23/23 12:18 Pulse Rate 69 11/23/23 12:18 Respiratory Rate 16 11/23/23 12:18 Blood Pressure 137/82 11/23/23 12:18 Pulse Oximetry 94
[2023-11-23 16:14] LABS: Appearance Urine Cloudy (Clear); Bacteria Urine 4+ /hpf; Bilirubin Urine Negative (Negative); Blood Urine Negative (Negative); Color Urine Yellow (Yellow); Glucose Urine UA Negative (Negative); Ketones Urine Negative (Negative); Leukocyte Esterase Ur 2+ LEU/UL (Negative); Need Manual Microscopic Reviewed; Nitrate Urine Negative (Negative); Non Pathogenic Casts 0-2; Protein Urine Negative (Negative); Specific Grav Ur 1.018 (1.001-1.035); Squamous Epithelial Cell Urine None seen /hpf (Few); WBC Urine 21-50 /hpf; pH Urine 6.5 (5.0-9.0)
[2023-11-23 16:19] LABS: Add Urine Microscopic? YES
[2023-11-23] MEDS: ACETAMINOPHEN 500 MG TABLET 1000 MG PO (17:14)
[2023-11-23 17:16] LABS: Influenza A QL RT-PCR Negative (Negative); Influenza B QL RT-PCR Negative (Negative); RSV RNA, RT-PCR Negative (Negative); SARS-CoV-2 RNA PCR Negative (Negative)
--- NOTE | 2023-11-23 17:53 | PC.NURSE ---
called mook ulrich @2155 to provide verbal discharge instruction. all questions answered.
== END 2023-11-23 18:38 ==
PROVIDERS: Emergency Provider Emergency Medicine; PCP Family Medicine
DX: N39.0 Urinary tract infection, site not specified (principal); R53.1 Weakness; I10 Essential (primary) hypertension; G35 Multiple sclerosis; M17.12 Unilateral primary osteoarthritis, left knee; R93.6 Abnormal findings on diagnostic imaging of limbs; I49.3 Ventricular premature depolarization
CPT/HCPCS: 36415; 71045; 73560; 80053; 81001; 85025; 87086; 87088; 87637; 93005; 96365; 99284; A9270; J0696

== ENCOUNTER 2023-12-22 11:12 | Emergency (ER) | payer MEDICARE, SELFPAY ==
--- NOTE | ~2023-12-22 | US_ITS ---
EXAMINATION: US venous doppler [facility] DATE: 12/22/2023 13:43 INDICATION: Lower limb swelling. TECHNIQUE: Grayscale ultrasound images without and with compression and Doppler ultrasound images of the bilateral lower extremity veins were obtained. COMPARISON: Ultrasound 05/31/2012 FINDINGS: The visualized portions of right common femoral vein, profunda (deep) femoral vein, femoral vein, pop liteal vein, peroneal veins, posterior tibial veins, and greater saphenous vein outflow are patent. The visualized portions of left common femoral vein, profunda femoral vein, femoral vein, popliteal v ein, peroneal veins, posterior tibial veins, and greater saphenous vein outflow are patent. IMPRESSION: 1. No deep venous thrombosis. Reviewed, dictated and finalized at location A. [facility]
[2023-12-22 11:17] VITALS: BP 154/90; PULSE 78; RESP 18; TEMP 36.6; O2SAT 100
[2023-12-22 12:54] LABS: Basophils Percent Auto 0.6 % (0.2-1.2); Eosinophils Percent Auto 1.2 % (0-4.4); Hematocrit 34.8 % (37.0-47.0); Hemoglobin 11.1 g/dL (12.0-15.0); Lymphocytes Percent Auto 23.5 % (18.3-44.2); Mean Corpuscular HGB Conc 31.9 g/dl (32-36); Mean Corpuscular Volume 94.1 fl (80-100); Mean Platelet Volume 8.7 fl (7.4-10.4); Monocytes Absolute Auto 0.5 K/mm3 (0.1-0.6); Monocytes Percent Auto 14.4 % (2.6-8.5); Neutrophils Absolute Auto 2.1 K/mm3 (1.3-6.7); Neutrophils Percent Auto 60.3 % (45.5-73.1); Platelet Count Result 214 k/mm3 (150-375); Red Cell Distribution Width 13.4 % (11.5-14.5); White Blood Count 3.4 K/mm3 (4.5-10.0)
[2023-12-22 13:13] LABS: Alanine Aminotransferase 13 U/L (6-35); Albumin Level 3.9 g/dL (3.5-5.1); Alkaline Phosphatase 68 U/L (38-126); Anion Gap 7 mmol/L (8-16); Aspartate Amino Transferase 26 U/L (14-36); Bilirubin,Total 0.7 mg/dL (0.2-1.3); Blood Urea Nitrogen 12 mg/dL (7-17); Calcium 9.4 mg/dL (8.4-10.2); Carbon Dioxide 26 mmol/L (22-30); Chloride 106 mmol/L (98-107); Estimated Glomerular Filt Rate > 60; Glucose 89 mg/dL (65-110); Sodium 139 mmol/L (137-145)
[2023-12-22 13:32] LABS: Influenza A QL RT-PCR Negative (Negative); Influenza B QL RT-PCR Negative (Negative); RSV RNA, RT-PCR Negative (Negative); SARS-CoV-2 RNA PCR Negative (Negative)
[2023-12-22 13:43] LABS: Thyroid Stimulating Hormone 0.203 uIU/mL (0.465-4.680)
[2023-12-22 14:04] LABS: Add Urine Microscopic? YES; Appearance Urine Clear (Clear); Bacteria Urine None Seen /hpf; Bilirubin Urine Negative (Negative); Blood Urine Negative (Negative); Color Urine Yellow (Yellow); Glucose Urine UA Negative (Negative); Ketones Urine Trace mg/dL (Negative); Leukocyte Esterase Ur Trace LEU/UL (Negative); Need Manual Microscopic Reviewed; Nitrate Urine Negative (Negative); Non Pathogenic Casts 0-2; Protein Urine Negative (Negative); RBC Urine 0-2 /hpf (0-2); Specific Grav Ur 1.019 (1.001-1.035); Squamous Epithelial Cell Urine None seen /hpf (Few); WBC Urine 0-5 /hpf
[2023-12-22 14:12] LABS: Amphetamine Screen Urine Negative (Negative); Barbiturate Screen Urine Negative (Negative); Benzodiazepines Screen Urine Negative (Negative); Cannabinoid Screen Urine Negative (Negative); Cocaine Screen Urine Negative (Negative); Methadone Screen Urine Negative (Negative); Opiate Screen Urine Negative (Negative); Phencyclidine Screen Urine Negative (Negative)
--- NOTE | 2023-12-22 15:21 | PC.NURSE ---
spoke to [place] digital content marketing manager Jeaneth. Updated her on pt condition.
[2023-12-22 16:03] LABS: Ethanol < 10 mg/dL (<10)
--- NOTE | 2023-12-22 17:10 | ED.GENADULT ---
HPI - General Adult General Chief complaint: Extremity Problem,Nontraumatic Stated complaint: lethargy Time Seen by Provider: 12/22/23 12:00 History of Present Illness HPI narrative: Patient is an 83-year-old female with history of MS who presents ER for 2 issues. First issues lower extremity swelling that is new the last week. Patient is bedbound does not walk. She has no chest pain or shortness of breath. No history DVT. No calf pain. No recent trauma or surgery. Additionally patient is here for evaluation for mental health. She had become agitated and fought with her nursing staff. She had told then she is going take some of her medication to hurt herself. At this time she has no SI. She reports she has no access to her medications and that they are not controlling her medication administration. Related Data Home Medications Medication Instructions Recorded Confirmed levetiracetam 500 mg tablet 500 mg PO Q12HR 02/23/23 11/04/23 (Keppra) potassium chloride 10 mEq 10 meq PO DAILY 02/23/23 11/04/23 capsule,extended release Allergies Allergy/AdvReac Type Severity Reaction Status Date / Time No Known Allergies Allergy Unknown Verified 12/15/23 15:06 Review of Systems Review of Systems: All systems reviewed & are unremarkable except as noted in HPI and below Constitutional: Constitutional: Reports no additional constitutional complaints ENT: Reports system reviewed and no additional complaints, except as documented Cardiovascular: Cardiovascular: Reports no additional cardiovascular complaints Respiratory: Respiratory: Reports no additional respiratory complaints Gastrointestinal: Gastrointestinal: Reports no additional gastrointestinal complaints Musculoskeletal: Musculoskeletal: Reports no additional musculoskeletal complaints Psychiatric: Psychiatric: Denies anxiety, Reports depression, Denies homicidal ideation and Reports suicidal ideation [facility] Past Medical History Medical History Hypertension Multiple sclerosis Osteoarthritis of left knee Seizures Vitamin D deficiency Surgical History Surgical History Deficient knowledge of hysterectomy History of hysterectomy History of open reduction and internal fixation (ORIF) procedure Repair of right thumb fracture. Family History Family History Father Family history of premature coronary heart disease, Onset Age: 69 Mother Family history of Alzheimer's disease, Onset Age: 67 Sibling Multiple sclerosis Social History Social History Social History: Healthcare power of criminal defense attorney: Manan Paula, son. Code status: Full code. Smoking status: Never smoker Second hand tobacco smoke exposure: No Alcohol intake: current Alcohol use details: Rare Substance use: never Substance use type: does not use Lack of Transportation: No Lack of Food: Never True Current Housing: I Have Housing Concerned About Future Housing: No Difficulty Paying Gas/Electric Bills: No Difficulty Paying for Meds: No Currently Unemployed: No Education: High School Diploma/GED Difficulty w/ Childcare or Family Care: No Living arrangements: alone Additional living arrangements comments: Lives in her own apartment in [place]. Three children who all live out of town. 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 Spiritual care concerns: No Agree to blood products: Yes Exam Narrative: GENERAL: Frail-appearing, well-nourished, and in no acute distress. HEAD: Normocephalic, atraumatic. ENT: Mucous membranes moist. NECK: Supple. CHEST: Clear to auscultation. No respiratory distress. HEART: Regular rate and rhythm. Normal periphera
--- NOTE | 2023-12-22 18:58 | PC.NURSE ---
Report was called to Anca Fox and Nurse Nia took report.
[2023-12-22 19:30] VITALS: BP 160/86; PULSE 77; RESP 16; TEMP 36.6; O2SAT 100
== END 2023-12-22 19:44 ==
PROVIDERS: Emergency Provider Emergency Medicine; PCP Family Medicine
DX: R60.0 Localized edema (principal); R45.1 Restlessness and agitation; Z11.52 Encounter for screening for COVID-19; G35 Multiple sclerosis; I10 Essential (primary) hypertension; M17.12 Unilateral primary osteoarthritis, left knee; E55.9 Vitamin D deficiency, unspecified; Z90.710 Acquired absence of both cervix and uterus; Z74.01 Bed confinement status; Z79.82 Long term (current) use of aspirin; Z79.899 Other long term (current) drug therapy
CPT/HCPCS: 36415; 80053; 80307; 81001; 84443; 85025; 87637; 93970; 99284

== ENCOUNTER 2024-03-15 10:46 | Outpatient (CLI) | payer MEDICARE, SELFPAY ==
[2024-03-15 20:18] LABS: Basophils Percent Auto 0.8 % (0.2-1.2); Eosinophils Absolute Auto 0.1 K/mm3 (0-0.3); Eosinophils Percent Auto 1.8 % (0-4.4); Hematocrit 38.7 % (37.0-47.0); Hemoglobin 11.9 g/dL (12.0-15.0); Immature Granulocyte Absolute 0.01 K/mm3 (0.00-0.031); Immature Granulocyte Percent A 0.3 % (0-0.5); Lymphocytes Absolute Auto 0.95 K/mm3 (0.9-3.2); Mean Corpuscular HGB Conc 30.7 g/dl (32-36); Mean Corpuscular Hemoglobin 28.8 pg (26-34); Mean Corpuscular Volume 93.7 fl (80-100); Mean Platelet Volume 9.4 fl (7.4-10.4); Monocytes Absolute Auto 0.4 K/mm3 (0.1-0.6); Monocytes Percent Auto 10.9 % (2.6-8.5); Neutrophils Absolute Auto 2.5 K/mm3 (1.3-6.7); Neutrophils Percent Auto 62.2 % (45.5-73.1); Platelet Count Result 241 k/mm3 (150-375); Red Blood Count 4.13 M/mm3 (4.2-5.4); Red Cell Distribution Width 13.3 % (11.5-14.5)
[2024-03-15 21:52] LABS: Vitamin B12 > 1000.0 pg/mL (239-931)
[2024-03-20 12:24] LABS: Immunoglobulin A 136 mg/dL (70-320); TTG IGA AB <1.0 U/mL
== END 2024-03-15 10:47 | disposition home or self-care (01) ==
LOC: ANHGOSHLAB 10:47
PROVIDERS: PCP Family Medicine; Visit Provider Family Medicine
DX: D64.9 Anemia, unspecified (principal)
CPT/HCPCS: 36415; 82607; 82728; 82784; 85025; 86364

== ENCOUNTER 2024-06-02 21:23 | Inpatient (IN) | payer MEDICARE, SELFPAY ==
--- NOTE | ~2024-06-02 | CT_ITS ---
EXAMINATION: CT brain wo con DATE: 06/02/2024 21:46 INDICATION: Head injury. Weakness. Multiple sclerosis. TECHNIQUE: Computed tomography (CT) of the head was performed without intravenous contrast. The mA wa s adjusted according to patient size. Iterative reconstruction technique was employed. The dose-lengt h product was 681.00 mGy-cm. COMPARISON: Head CT 03/18/2023 FINDINGS: There are scattered areas of low attenuation in the cerebral white matter. There is no intr acranial hemorrhage, acute infarction, or abnormal intracranial mass lesion. The ventricles are shandra l in size. The orbits are normal. There is mild mucosal thickening in the paranasal sinuses. The mast oid air cells are normal. IMPRESSION: 1. Stable moderate nonspecific cerebral white matter disease, consistent with chronic small vessel is chemic disease and/or multiple sclerosis. Reviewed, dictated and finalized at location E. IMPRESSION: 1. Stable moderate nonspecific cerebral white matter disease, consistent with c hronic small vessel ischemic disease and/or multiple sclerosis.
--- NOTE | ~2024-06-02 | XR_ITS ---
XR heel RT min 2V Ordering provider: Kai Figueroa MD History: . fracture . Comparison: None. FINDINGS: BONES: No definite acute fracture or dislocation although interruption of the bony trabeculae posteri karla is not excluded which may indicate stress fracture. Follow-up advised. JOINT SPACES: Well maintained. SOFT TISSUES: Normal. IMPRESSION: Possible interruption of the bony trabeculae posteriorly in the calcaneus which may indicate stress f racture. Follow-up advised. Reviewed, dictated and finalized at location A. IMPRESSION: Possible interruption of the bony trabeculae posteriorly in the calcaneus which may indicate stress fracture. Follow-up advised.
--- NOTE | ~2024-06-02 | XR_ITS ---
EXAMINATION: XR chest 2V DATE: 06/02/2024 21:56 INDICATION: Weakness. TECHNIQUE: Frontal and lateral views of the chest were obtained. COMPARISON: Chest single view 11/23/2023, chest CT 12/14/2022 FINDINGS: Calcified pulmonary nodules and calcified hilar lymph nodes are consistent with old granulo matous disease. There is no pneumonia, pleural effusion, or pneumothorax. Cardiomegaly is noted. IMPRESSION: 1. Cardiomegaly. Reviewed, dictated and finalized at location E. IMPRESSION: 1. Cardiomegaly.
--- NOTE | ~2024-06-02 | MR_ITS ---
EXAMINATION: MR foot RT wo con DATE: 06/05/2024 12:26 INDICATION: Heel pain. Concern for ligament injury. TECHNIQUE: Magnetic resonance imaging (MRI) of the right foot excluding the toes was performed withou t intravenous contrast. Sequences included axial, sagittal and coronal PD-weighted FSE and PD-weighte d FS FSE. COMPARISON: None FINDINGS: Bone alignment is normal. Nondisplaced stress versus insufficiency fracture underlying the posterior tuberosity of the calcaneus with surrounding edema. Bone marrow signal is otherwise normal throughout . Additional small region of indeterminate marrow edema without evident fracture line at the medial m argin of the medial malleolus. No other fractures or pathologic marrow replacing process. Plantar apo neurosis is normal. There is prominent increased signal of the distal 2 cm the Achilles tendon which does not appear thickened as would typically be expected for tendinosis severity sufficient to accoun t for the increased signal. Within this region of increased signal there is a thin low signal intensi ty line extending transversely across the tendon but without fluid evident tendon discontinuity or fl uid signal intensity tear defect. This could potentially represent scarring related to prior repair t ear or more likely along the surrounding increased signal related to magic angle artifact. The remain ing flexor and extensor tendons at the foot and ankle are normal. The medial and lateral stabilizing ligaments of the ankle are normal. Joint spaces appear relatively preserved. No joint effusions. Ther e is muscular edema along the quadratus plantae muscle. IMPRESSION: 1. Nondisplaced calcaneal tuberosity stress/insufficiency fracture. 2. Unusual appearance of abnormal signal at the distal Achilles tendon without evident thickening. Th e increased signal could represent tendinosis of a linear low signal is more difficult to explain the re is no evident fluid signal, architectural distortion or discontinuous tendon fibers which would be expected for a tear could potentially represent scarring related to a prior repaired tear or abnorma l signal related to magic angle artifact. 3. Diffuse increased signal throughout the quadratus plantae muscle which could be due to or low-grad e muscle strain, denervation change or nonspecific myositis. Reviewed, dictated and finalized at location A. IMPRESSION: 1. Nondisplaced calcaneal tuberosity stress/insufficiency fracture. 2. Unusual appearance of abnormal signal at the distal Achilles tendon without evident thickening. The increased signal could represent tendinosis of a linear low signal is more difficult to explain there is no evident fluid signal, arch itectural distortion or discontinuous tendon fibers which would be expected for a tear could potentially represent scarring related to a prior repaired tear o r abnormal signal related to magic angle artifact. 3. Diffuse increased signal throughout the quadratus plantae muscle which could be due to or low-grade muscle strain, denervation change or nonspecific myosit is.
[2024-06-02 21:22] VITALS: BP 135/97; PULSE 86; RESP 19; TEMP 36.4; O2SAT 97
--- NOTE | 2024-06-02 21:27 | ECG_ITS ---
Test Date: 2024-06-02 21:31:47 Measurements Intervals Prim Rate: 79 P: 55 WY: 153 QRS: 19 QRSD: 86 T: 42 QT: 363 QTc: 416 Interpretive Statements SINUS RHYTHM CONSIDER INFERIOR INFARCT, AGE INDETERMINATE ABNORMAL ECG No previous ECG available for comparison Electronically Signed On 06-03-2024 07:11:18 CDT by Lauro Narvaez D.O.
[2024-06-02 21:41] LABS: Basophils Percent Auto 0.5 % (0.2-1.2); Eosinophils Absolute Auto 0.1 K/mm3 (0-0.3); Hematocrit 33.1 % (37.0-47.0); Hemoglobin 10.9 g/dL (12.0-15.0); Immature Granulocyte Absolute 0.01 K/mm3 (0.00-0.031); Immature Granulocyte Percent A 0.2 % (0-0.5); Lymphocytes Absolute Auto 0.88 K/mm3 (0.9-3.2); Lymphocytes Percent Auto 21.7 % (18.3-44.2); Mean Corpuscular HGB Conc 32.9 g/dl (32-36); Mean Corpuscular Volume 91.2 fl (80-100); Mean Platelet Volume 8.9 fl (7.4-10.4); Monocytes Absolute Auto 0.5 K/mm3 (0.1-0.6); Monocytes Percent Auto 12.1 % (2.6-8.5); Neutrophils Absolute Auto 2.5 K/mm3 (1.3-6.7); Neutrophils Percent Auto 62.5 % (45.5-73.1); Platelet Count Result 229 k/mm3 (150-375); Red Blood Count 3.63 M/mm3 (4.2-5.4); Red Cell Distribution Width 14.3 % (11.5-14.5); White Blood Count 4.1 K/mm3 (4.5-10.0)
[2024-06-02 21:55] LABS: Alanine Aminotransferase 22 U/L (6-35); Albumin Level 4.4 g/dL (3.5-5.1); Alkaline Phosphatase 80 U/L (38-126); Anion Gap 9 mmol/L (4-12); Aspartate Amino Transferase 28 U/L (14-36); Bilirubin,Total 0.5 mg/dL (0.2-1.3); Blood Urea Nitrogen 24 mg/dL (7-17); Calcium 9.5 mg/dL (8.4-10.2); Carbon Dioxide 25 mmol/L (22-30); Chloride 104 mmol/L (98-107); Estimated CRCL calculation 44 ml/min; Estimated Glomerular Filt Rate > 60; Glucose 103 mg/dL (65-110); Potassium 4.3 mmol/L (3.4-5.0); Sodium 138 mmol/L (137-145)
--- NOTE | 2024-06-02 22:17 | ED.GENADULT ---
HPI - General Adult General Chief complaint: Weakness Stated complaint: weakness Time Seen by Provider: 06/02/24 21:30 History of Present Illness HPI narrative: 83-year-old female presenting emergency department for evaluation for worsening weakness over the last few days. Patient was at the care facility when she attempted to stand for a wheelchair but was too weak to do so. Patient denies any pain or injury. Related Data Home Medications Medication Instructions Recorded Confirmed levetiracetam 500 mg tablet 500 mg PO Q12HR 02/23/23 06/03/24 (Keppra) potassium chloride 10 mEq 10 meq PO DAILY 02/23/23 06/03/24 capsule,extended release acetaminophen 325 mg tablet 650 mg PO Q6H PRN Pain (Scale 06/03/24 06/03/24 Score 1-3) ascorbic acid (vitamin C) 500 mg 500 mg PO DAILY 06/03/24 06/03/24 tablet cholecalciferol (vitamin D3) 1,250 25 mcg PO DAILY 06/03/24 06/03/24 mcg (50,000 unit) capsule gabapentin 100 mg capsule 200 mg PO TID 06/03/24 06/03/24 magnesium hydroxide 400 mg/5 mL 30 ml PO DAILY PRN Constipation 06/03/24 06/03/24 oral suspension (Milk of Magnesia) sennosides 8.6 mg-docusate sodium 1 tab-cap PO BID 06/03/24 06/03/24 50 mg capsule (Senna Plus) tramadol 50 mg tablet 50 mg PO Q6H PRN Pain (Scale Score 06/03/24 06/03/24 4-6) Allergies Allergy/AdvReac Type Severity Reaction Status Date / Time No Known Allergies Allergy Unknown Verified 03/15/24 10:04 Review of Systems Review of Systems: All systems reviewed & are unremarkable except as noted in HPI and below PMFSH Past Medical History Medical History Hypertension Multiple sclerosis Osteoarthritis of left knee Seizures Vitamin D deficiency Surgical History Surgical History Deficient knowledge of hysterectomy History of hysterectomy History of open reduction and internal fixation (ORIF) procedure Repair of right thumb fracture. Family History Family History Father Family history of premature coronary heart disease, Onset Age: 69 Mother Family history of Alzheimer's disease, Onset Age: 67 Sibling Multiple sclerosis Social History Social History Social History: Healthcare power of state's attorney: Manan Paula, son. Code status: Full code. Smoking status: Never smoker Second hand tobacco smoke exposure: No Alcohol intake: never Alcohol use details: Rare Substance use: never Substance use type: does not use Do You Feel Safe in your Home?: Yes Lack of Transportation: No Lack of Food: Never True Current Housing: I Have Housing Concerned About Future Housing: No Difficulty Paying Gas/Electric Bills: No Difficulty Paying for Meds: No Currently Unemployed: No Education: High School Diploma/GED Difficulty w/ Childcare or Family Care: No Living arrangements: alone Additional living arrangements comments: Lives in her own apartment in [place]. Three children who all live out of town. 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 Spiritual care concerns: No Agree to blood products: Yes Exam Narrative: APPEARANCE: Well appearing, no pain, no distress, well-nourished. HEAD: normocephalic, atraumatic. EYES: PERRLA/EOMI, conjunctivae clear. NOSE: Normal no drainage EARS:TMS clear with good light reflex. THROAT: Pharynx clear, no exudate. NECK: Supple. No adenopathy, no masses. RESPIRATORY: Airway patent, respirations nonlabored. Clear to auscultation bilaterally, no rales, rhonchi, wheezing. CARDIOVASCULAR: Regular rate and rhythm without murmurs rubs or gallops. ABDOMINAL: Soft, nontender, nondistended, normal bowel sounds MUSCULOSKELETAL: Moves all extremities. Strengt
[2024-06-02 22:30] LABS: Appearance Urine Cloudy (Clear); Bacteria Urine 4+ /hpf; Bilirubin Urine Negative (Negative); Blood Urine Non-Hemolyzed Trace (Negative); Color Urine Yellow (Yellow); Glucose Urine UA Negative (Negative); Ketones Urine Negative (Negative); Leukocyte Esterase Ur 3+ LEU/UL (Negative); Nitrate Urine Negative (Negative); Non Pathogenic Casts 0-2; Protein Urine Trace mg/dL (Negative); RBC Urine 21-50 /hpf (0-2); Specific Grav Ur 1.013 (1.001-1.035); Squamous Epithelial Cell Urine None Seen /hpf (Few); Urobilinogen Urine 0.2 mg/dL (<2.0); WBC Urine >100 /hpf (0-3); pH Urine 6.5 (5.0-9.0)
[2024-06-02 22:34] LABS: Add Urine Microscopic? YES
--- NOTE | 2024-06-02 22:46 | PM.IMHP ---
H&P: HPI History of Present Illness Date/Time: 06/02/24 22:46 Chief Complaint: altered mental status Narrative: This is an 83-year-old female with past medical history significant for hypothyroidism, seizure disorder. Patient resides at [facility] was brought for evaluation to the emergency room due to generalized weakness unable to get up from her wheelchair. Most of the history has been obtained upon reviewing medical records as patient was obtunded at the time of my visit. Preliminary workup significant for urinalysis with numerous WBCs present. Patient has been admitted for further evaluation, management and treatment. EXAMINATION: CT brain wo con DATE: 06/02/2024 21:46 INDICATION: Head injury. Weakness. Multiple sclerosis. TECHNIQUE: Computed tomography (CT) of the head was performed without intravenous contrast. The mA was adjusted according to patient size. Iterative reconstruction technique was employed. The dose-length product was 681.00 mGy-cm. COMPARISON: Head CT 03/18/2023 FINDINGS: There are scattered areas of low attenuation in the cerebral white matter. There is no intracranial hemorrhage, acute infarction, or abnormal intracranial mass lesion. The ventricles are normal in size. The orbits are normal. There is mild mucosal thickening in the paranasal sinuses. The mastoid air cells are normal. IMPRESSION: 1. Stable moderate nonspecific cerebral white matter disease, consistent with chronic small vessel ischemic disease and/or multiple sclerosis. EXAMINATION: XR chest 2V DATE: 06/02/2024 21:56 INDICATION: Weakness. TECHNIQUE: Frontal and lateral views of the chest were obtained. COMPARISON: Chest single view 11/23/2023, chest CT 12/14/2022 FINDINGS: Calcified pulmonary nodules and calcified hilar lymph nodes are consistent with old granulomatous disease. There is no pneumonia, pleural effusion, or pneumothorax. Cardiomegaly is noted. IMPRESSION: 1. Cardiomegaly. Review of Systems Review of Systems: ROS unobtainable: Yes unobtainable due to mental status ( obtundation /lethargy) [facility] Past Medical History Medical History Hypertension Multiple sclerosis Osteoarthritis of left knee Seizures Vitamin D deficiency Surgical History Surgical History Deficient knowledge of hysterectomy History of hysterectomy History of open reduction and internal fixation (ORIF) procedure Repair of right thumb fracture. Family History Family History Father Family history of premature coronary heart disease, Onset Age: 69 Mother Family history of Alzheimer's disease, Onset Age: 67 Sibling Multiple sclerosis Social History Social History Social History: Healthcare power of set up and lay out inspector: Manan Paula, son. Code status: Full code. Smoking status: Never smoker Second hand tobacco smoke exposure: No Alcohol intake: never Alcohol use details: Rare Substance use: never Substance use type: does not use Do You Feel Safe in your Home?: Yes Lack of Transportation: No Lack of Food: Never True Current Housing: I Have Housing Concerned About Future Housing: No Difficulty Paying Gas/Electric Bills: No Difficulty Paying for Meds: No Currently Unemployed: No Education: High School Diploma/GED Difficulty w/ Childcare or Family Care: No Living arrangements: alone Additional living arrangements comments: Lives in her own apartment in [place]. Three children who all live out of town. 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 Spiritual care concerns: No Agree to blood products: Yes Meds Home Medications and Allergies Home Medications Medication
[2024-06-02 23:12] VITALS: BP 112/71; PULSE 68; RESP 14; O2SAT 97
[2024-06-02 23:43] VITALS: BP 109/75; PULSE 67; RESP 14; O2SAT 97
[2024-06-02 23:58] VITALS: BMI 15.7
[2024-06-02 23:59] VITALS: BP 132/85; PULSE 67; RESP 16; TEMP 36.5; O2SAT 99
--- NOTE | 2024-06-03 00:43 | ADMGEN ---
This patient, Maria Victoria Alfaro, was admitted to 2 Medical Room 249-01. Patient/family oriented to hospital policies and general routines including ID bracelet, bed and alarms, visiting hours, pain management, procedures, bathroom and other care routines, personal items, smoking policy, room service/diet, and visiting hours. Information on how to activate the Rapid Response Team has been discussed. Patient/Family are encouraged to report perceived risks to care and to ask questions if they do not understand what they are told or what they should do.
[2024-06-03 04:30] VITALS: BP 110/67; PULSE 63; RESP 16; TEMP 36.5; O2SAT 100
[2024-06-03 04:31] VITALS: BP 110/67; PULSE 63; RESP 16; TEMP 36.5; O2SAT 100
[2024-06-03] MEDS: LEVOTHYROXINE SODIUM 75 MCG TABLET PO (06:20)
--- NOTE | 2024-06-03 07:22 | PM.IMPN ---
Progress Note: A&P Assessment and Plan (1) Acute UTI: Code(s): N39.0 - Urinary tract infection, site not specified Status: Acute Assessment and Plan: - UA: Cloudy appearance, negative nitrates, 3+ leukocyte, 21-50 RBC, > 100 WBC, 4+ bacteria - UC obtained on 06/02: pending - previous micro reviewed 11/2022: Ecoli pansensitive - started on Rocephin 06/03 (2) Muscle weakness: Code(s): M62.81 - Muscle weakness (generalized) Status: Acute Assessment and Plan: Likely related to patients underlying infection, however could be worsening MS symptoms vs ankle injury. - Will continue to treat the UTI treatment (see #1) - MRI ankle ordered to rule out possible ligament vs muscle injury - PT/OT (3) Multiple sclerosis: Code(s): G35 - Multiple sclerosis Status: Acute Assessment and Plan: Patients neurologist is Dr. Whitfield, last seen 10/19/23. According to chart review patient has never been on any treatment. - Continue to monitor (4) Hypothyroid: Code(s): E03.9 - Hypothyroidism, unspecified Status: Acute Assessment and Plan: Chronic, continue home medications. - Levothyroxine 75 mcg daily (5) Seizures: Code(s): R56.9 - Unspecified convulsions Status: Chronic Assessment and Plan: Chronic. Follows neurology Dr. Whitfield. Continue home medications. - Keppra 500 mg BID - Monitor Time Spent With Patient Time with patient: 25 - 35 minutes Subjective Date/time seen: 06/03/24 07:22 Interval history: 83 year old female with past medical history of seizures, multiple sclerosis and hypothyroidism presents to the hospital from her nursing facility for evaluation of generalized weakness. According to chart review patient attempted to rise from her wheelchair and was unable to do so. Patient is pleasant lying comfortably in bed. She endorses right ankle pain specifically to the heel. She states that she had lost her balance causing her to twist laterally over her right ankle a few days ago. She has been experiencing pain since that time. She denies hearing any popping, but notes increased swelling to the right foot. Patient had an XR performed on 05/26 which showed normal calcaneus and no evidence of fracture, dislocation, or soft tissue swelling. MRI ankle ordered to rule out ligament vs muscle injury. Patient states that she has noticed increased weakness for some time, but has been able to ambulate short distances out of her wheel chair until this injury. Patient also notes that she has been having some pain and burning with urination. She denies hematuria. Patient also denies chest pain, shortness of breath, nausea/vomiting and abdominal pain. Review of Systems Review of Systems: All systems reviewed & are unremarkable except as noted in HPI and below Exam Narrative: AF HR 63 RR 16 SpO2 100 BP 110/67 General: frail female in no acute respiratory distress who is nontoxic appearing, lying semi recumbent in bed. HEENT: Normocephalic. Atraumatic. Pupils equal round reactive to light. Extraocular movement intact. Sclera clear and anicteric. No facial asymmetry. Chest: Lungs are clear but diminished to auscultation bilaterally. No wheezes or crackles. CV: Heart was regular rate and rhythm. Systolic murmur. S1-S2. No gallops, or rubs. Abd: Abdomen was soft. Nontender. Nondistended. Positive bowel sounds. No organomegaly or masses. Ext: Decreased ROM of the right ankle with increased pain to palpation of the calcaneus and anterior talofibular ligament. No pain to the internal aspect of the right ankle. 1+ pitting edema of the right foot. No clubbing, cyanosis. 2+ DP pulses bilaterally. Neuro: Patient is alert and oriented x4. Strength is symmetrical of the upper extremities. Cranial nerves 2-12 are intact. Speech is clear. Psych: Normal mood and affect. Patient is pleasant and cooperative. Skin: Warm and dry. No rashes noted. Objective Da
--- OUTSIDE RECORDS SUMMARY | 2024-06-03 08:05 | XMS_ITS | Continuity of Care Document ---
Author Name Unknown Organization [facility] Address [address] [place] [address] Care Team Providers Care Sampler Radioactive Waste Name Role Phone Brianna Allen Primary Care Physician [phone] Encounter ERNIE JESSIE NBR [id number] Date(s): 03/07/21 - 03/07/[address] [place] [id number] Discharge Disposition: Home or Self Care Allergies, Adverse Reactions, Alerts No Known Medication Allergies Immunizations Given and Recorded Vaccine Date Status Refusal Reason SARS-CoV-2 (COVID-19) mRNA-1273 vaccine 02/06/21 G iven SARS-CoV-2 (COVID-19) mRNA-1273 vaccine 01/09/21 G iven Medications gabapentin 100 mg oral capsule 2 CAP, By Mouth, TID, # 540 CAP, 1 Refill(s), Maintenance, eRx: [facility] #[id number] Start Date: 03/07/21 Stop Date: 09/03/21 Status: Ordered lisinopril 10 mg oral tablet 1 TAB, BY MOUTH, DAILY, # 30 TAB, 11 Refill(s), Maintenance Start Date: 07/23/20 Status: Ordered Problem List Condition Effective Dates Status Health Status Inform ant Hypertension(Confirmed) Active Multiple sclerosis(Confirmed) Active Procedures Procedure Date Related Diagnosis Body Site Status Hysterectomy 1980 Complet ed Tonsillectomy Completed Social History Social History Type Response Smoking Status Never smoker entered on: 02/06/21 Sex Female
--- OUTSIDE RECORDS SUMMARY | 2024-06-03 08:05 | XMS_ITS | Continuity of Care Document ---
Author Name Unknown Organization [facility] Address [address] [place] [phone] Encounter ERNIE ROMAN LOBOR [id number] Date(s): 09/30/20 - 09/30/[address] [place] [address] Discharge Disposition: Home or Self Care Medications gabapentin 100 mg oral capsule See Instructions, TAKE TWO CAPSULES BY MOUTH THREE TIMES A DAY, # 180 CAP, 0 Refill(s), Maintenance, eRx: [facility] [id number] Start Date: 09/30/20 Status: Ordered gabapentin 100 mg oral capsule See Instructions, TAKE TWO CAPSULES BY MOUTH THREE TIMES A DAY, # 180 CAP, 0 Refill(s), Maintenance, eRx: [facility] [id number] Start Date: 08/27/20 Status: Ordered gabapentin 100 mg oral capsule 2 CAP, BY MOUTH, TID, # 180 CAP, 0 Refill(s), Maintenance, eRx: [facility] #[id number] Start Date: 07/23/20 Stop Date: 08/22/20 Status: Ordered lisinopril 10 mg oral tablet [...] Response Smoking Status Never smoker entered on: 07/23/20 Sex
--- OUTSIDE RECORDS SUMMARY | 2024-06-03 08:05 | XMS_ITS | Continuity of Care Document ---
Author Name Unknown Organization [facility] Address [address] [place] [phone] Encounter ERNIE ROMAN R [id number] Date(s): 10/30/20 - 10/30/[address] [place] [address] Discharge Disposition: Home or Self Care Medications gabapentin 100 mg oral capsule See Instructions, TAKE TWO CAPSULES BY MOUTH THREE TIMES A DAY, # 180 CAP, 0 Refill(s), Maintenance, eRx: [facility] [id number] Start Date: 09/30/20 Status: Ordered gabapentin 100 mg oral capsule See Instructions, TAKE TWO CAPSULES BY MOUTH THREE TIMES A DAY, # 180 CAP, 0 Refill(s), Maintenance, eRx: [facility] [id number] Start Date: 08/27/20 Status: Ordered gabapentin 100 mg oral capsule See Instructions, TAKE TWO CAPSULES BY MOUTH THREE TIMES A DAY, # 180 CAP, 0 Refill(s), Maintenance, eRx: [facility] [id number] Start Date: 10/30/20 Status: Ordered gabapentin 100 mg oral capsule 2 CAP, BY MOUTH, TID, # 180 CAP, 0 Refill(s), Maintenance, eRx: [facility] #[id number] Start Date: 07/23/20 Stop Date: 08/22/20 Status: [...]
[2024-06-03] MEDS: ASPIRIN 81 MG CHEWABLE TABLET PO (08:29)
[2024-06-03] MEDS: levETIRAcetam 500 MG TABLET PO ×2 (08:30→20:22)
[2024-06-03] MEDS: SENNA/DOCUSATE SODIUM TABLET 1 TAB PO ×2 (08:30→18:37)
[2024-06-03] MEDS: GABAPENTIN 100 MG CAPSULE 200 MG PO ×3 (08:30→18:37)
[2024-06-03 09:19] LABS: Basophils Percent Auto 0.8 % (0.2-1.2); Eosinophils Absolute Auto 0.1 K/mm3 (0-0.3); Eosinophils Percent Auto 3.1 % (0-4.4); Hematocrit 34.6 % (37.0-47.0); Hemoglobin 10.7 g/dL (12.0-15.0); Immature Granulocyte Absolute 0.01 K/mm3 (0.00-0.031); Immature Granulocyte Percent A 0.3 % (0-0.5); Lymphocytes Absolute Auto 0.92 K/mm3 (0.9-3.2); Lymphocytes Percent Auto 25.7 % (18.3-44.2); Mean Corpuscular HGB Conc 30.9 g/dl (32-36); Mean Corpuscular Hemoglobin 29.6 pg (26-34); Mean Corpuscular Volume 95.6 fl (80-100); Mean Platelet Volume 8.7 fl (7.4-10.4); Monocytes Absolute Auto 0.4 K/mm3 (0.1-0.6); Monocytes Percent Auto 11.2 % (2.6-8.5); Neutrophils Absolute Auto 2.1 K/mm3 (1.3-6.7); Neutrophils Percent Auto 58.9 % (45.5-73.1); Platelet Count Result 212 k/mm3 (150-375); Red Blood Count 3.62 M/mm3 (4.2-5.4); Red Cell Distribution Width 14.3 % (11.5-14.5); White Blood Count 3.6 K/mm3 (4.5-10.0)
[2024-06-03 09:21] LABS: Alanine Aminotransferase 20 U/L (6-35); Albumin Level 3.9 g/dL (3.5-5.1); Alkaline Phosphatase 69 U/L (38-126); Anion Gap 9 mmol/L (4-12); Aspartate Amino Transferase 29 U/L (14-36); Bilirubin,Total 0.4 mg/dL (0.2-1.3); Blood Urea Nitrogen 19 mg/dL (7-17); Calcium 9.3 mg/dL (8.4-10.2); Carbon Dioxide 24 mmol/L (22-30); Chloride 105 mmol/L (98-107); Estimated CRCL calculation 41 ml/min; Estimated Glomerular Filt Rate > 60; Glucose 75 mg/dL (65-110); Potassium 4.1 mmol/L (3.4-5.0); Sodium 138 mmol/L (137-145)
[2024-06-03 14:00] VITALS: BP 137/71; PULSE 66; RESP 16; TEMP 36.7; O2SAT 100
[2024-06-03] MEDS: SODIUM CHLORIDE 0.9% IV 1,000 ML 75 ML IV CONT (18:37)
[2024-06-03] MEDS: traMADol HCL (*CRX) 50 MG TABLET PO (20:22)
[2024-06-03 22:00] VITALS: BP 123/62; PULSE 78; RESP 20; TEMP 37.1; O2SAT 97
--- NOTE | 2024-06-04 04:37 | PC.NURSE ---
Dr. Urrutia notified final urine culture positive for Aerococcus Urinae, continue rocephin, no new orders. Lab report posted at 4389 06/03, staff was NOT notified by lab of new critical result.
[2024-06-04 04:47] LABS: Basophils Percent Auto 0.3 % (0.2-1.2); Eosinophils Absolute Auto 0.1 K/mm3 (0-0.3); Hematocrit 30.3 % (37.0-47.0); Hemoglobin 9.6 g/dL (12.0-15.0); Immature Granulocyte Absolute 0.01 K/mm3 (0.00-0.031); Immature Granulocyte Percent A 0.3 % (0-0.5); Lymphocytes Absolute Auto 0.91 K/mm3 (0.9-3.2); Lymphocytes Percent Auto 30.1 % (18.3-44.2); Mean Corpuscular HGB Conc 31.7 g/dl (32-36); Mean Corpuscular Hemoglobin 29.9 pg (26-34); Mean Corpuscular Volume 94.4 fl (80-100); Mean Platelet Volume 8.9 fl (7.4-10.4); Monocytes Absolute Auto 0.4 K/mm3 (0.1-0.6); Monocytes Percent Auto 13.2 % (2.6-8.5); Neutrophils Absolute Auto 1.6 K/mm3 (1.3-6.7); Neutrophils Percent Auto 53.1 % (45.5-73.1); Platelet Count Result 184 k/mm3 (150-375); Red Blood Count 3.21 M/mm3 (4.2-5.4); Red Cell Distribution Width 14.5 % (11.5-14.5)
[2024-06-04 05:00] LABS: Alanine Aminotransferase 19 U/L (6-35); Albumin Level 3.2 g/dL (3.5-5.1); Alkaline Phosphatase 60 U/L (38-126); Anion Gap 7 mmol/L (4-12); Aspartate Amino Transferase 24 U/L (14-36); Bilirubin,Total 0.3 mg/dL (0.2-1.3); Blood Urea Nitrogen 18 mg/dL (7-17); Calcium 8.8 mg/dL (8.4-10.2); Carbon Dioxide 23 mmol/L (22-30); Chloride 111 mmol/L (98-107); Estimated CRCL calculation 41 ml/min; Estimated Glomerular Filt Rate > 60; Glucose 81 mg/dL (65-110); Potassium 3.9 mmol/L (3.4-5.0); Sodium 141 mmol/L (137-145)
[2024-06-04 06:00] VITALS: BP 126/68; PULSE 71; RESP 18; TEMP 36.6; O2SAT 97
[2024-06-04] MEDS: LEVOTHYROXINE SODIUM 75 MCG TABLET PO (06:37)
--- NOTE | 2024-06-04 08:30 | PM.IMPN ---
Progress Note: A&P Assessment and Plan (1) Acute UTI: Code(s): N39.0 - Urinary tract infection, site not specified Status: Acute Assessment and Plan: - UA: Cloudy appearance, negative nitrates, 3+ leukocyte, 21-50 RBC, > 100 WBC, 4+ bacteria - UC obtained on 06/02: Aerococcus urinae. The wound culture states that this usually responds to Bactrim. - previous micro reviewed 11/2022: Ecoli pansensitive - started on Rocephin 06/03, transitioned to Bactrim DS BID on 06/04 (2) Muscle weakness: Code(s): M62.81 - Muscle weakness (generalized) Status: Acute Assessment and Plan: Likely related to patients underlying infection, however could be worsening MS symptoms vs ankle injury. Patient states that the weakness and decreased mobility is related to the ankle pain. Patient has no focal deficits on exam that would be more concerning for MS flare. - Will continue to treat the UTI (see #1) - MRI ankle ordered to rule out possible ligament vs muscle injury - PT/OT (3) Multiple sclerosis: Code(s): G35 - Multiple sclerosis Status: Acute Assessment and Plan: Patients neurologist is Dr. Whitfield, last seen 10/19/23. According to chart review patient has never been on any treatment. Patient has no focal deficits on exam that would be more concerning for MS flare. - Continue to monitor (4) Hypothyroid: Code(s): E03.9 - Hypothyroidism, unspecified Status: Acute Assessment and Plan: Chronic, continue home medications. - Levothyroxine 75 mcg daily (5) Seizures: Code(s): R56.9 - Unspecified convulsions Status: Chronic Assessment and Plan: Chronic. Follows neurology Dr. Whitfield. Continue home medications. - Keppra 500 mg BID - Monitor Time Spent With Patient Time with patient: 25 - 35 minutes Subjective Date/time seen: 06/04/24 08:30 Interval history: 83 year old female with past medical history of seizures, multiple sclerosis and hypothyroidism presents to the hospital from her nursing facility for evaluation of generalized weakness. According to chart review patient attempted to rise from her wheelchair and was unable to do so. Patient appears a bit weaker today. She is lying comfortably in bed. She continues to work with PT/OT. Again discussed patients weakness and she relates it more to the right foot pain. No focal deficits concerning for MS flare. MRI ordered to evaluate possible tear. Patients urine culture grew Aerococcus urinae. The wound culture states that this usually responds to Bactrim. Patient transitioned from Rocephin to Bactrim. Patient states her urinary symptoms have improved. She denies chest pain, shortness of breath, palpitations, nausea/vomiting and dizziness/lightheadedness. Review of Systems Review of Systems: All systems reviewed & are unremarkable except as noted in HPI and below Exam Narrative: AF HR 71 RR 20 SpO2 96 BP 126/68 General: Frail female in no acute respiratory distress who is nontoxic appearing, lying semi recumbent in bed. Chest: Lungs are clear but diminished to auscultation bilaterally. No wheezes or crackles. CV: Heart was regular rate and rhythm. Systolic murmur. S1-S2. No gallops, or rubs. Abd: Abdomen was soft. Nontender. Nondistended. Positive bowel sounds. No organomegaly or masses. Ext: Decreased ROM of the right ankle with pain to palpation of the calcaneus and anterior talofibular ligament. No pain to the internal aspect of the right ankle. 1+ pitting edema of the right foot. No clubbing, cyanosis. 2+ DP pulses bilaterally. Neuro: Patient is alert and oriented x4. Strength is symmetrical of the upper extremities. She is able to lift lower extremities off the bed. Speech is clear but soft. Objective Data Vital Signs Vital Signs: Vital Signs - 24 hr 06/03/24 13:36 06/03/24 13:32 06/03/24 14:00 Temperature 98.0 F Pulse Rate 66 Respiratory Rate 16 Blood Pressure 137/71
[2024-06-04] MEDS: SODIUM CHLORIDE 0.9% IV 1,000 ML 75 ML IV CONT ×2 (08:58→22:55)
[2024-06-04] MEDS: ASPIRIN 81 MG CHEWABLE TABLET PO (08:59)
[2024-06-04] MEDS: SENNA/DOCUSATE SODIUM TABLET 1 TAB PO ×2 (08:59→17:01)
[2024-06-04] MEDS: GABAPENTIN 100 MG CAPSULE 200 MG PO ×3 (08:59→17:01)
[2024-06-04] MEDS: ENOXAPARIN 40 MG/0.4 ML SYRINGE SUB-Q (08:59)
[2024-06-04 09:00] VITALS: PULSE 71; RESP 20; O2SAT 96
[2024-06-04] MEDS: levETIRAcetam 500 MG TABLET PO ×2 (09:00→20:16)
--- NOTE | 2024-06-04 13:40 | PC.NURSE ---
Patient left unit for MRI
[2024-06-04 14:00] VITALS: BP 122/62; PULSE 73; RESP 18; TEMP 36.7; O2SAT 96
--- NOTE | 2024-06-04 14:10 | PC.NURSE ---
Patient returned from MRI.
[2024-06-04] MEDS: SULFAMETHOXAZOLE/TRIMETHOPRIM 800/160 MG DS TABLET 1 TAB PO (20:17)
[2024-06-04 20:23] VITALS: BP 150/79; PULSE 73; RESP 17; TEMP 36.8; O2SAT 98
[2024-06-04] MEDS: traMADol HCL (*CRX) 50 MG TABLET PO (22:47)
[2024-06-05] MEDS: ACETAMINOPHEN 325 MG TABLET 650 MG PO (00:04)
[2024-06-05 04:52] LABS: Basophils Percent Auto 0.8 % (0.2-1.2); Eosinophils Absolute Auto 0.2 K/mm3 (0-0.3); Eosinophils Percent Auto 4.5 % (0-4.4); Immature Granulocyte Absolute 0.01 K/mm3 (0.00-0.031); Immature Granulocyte Percent A 0.3 % (0-0.5); Lymphocytes Absolute Auto 0.96 K/mm3 (0.9-3.2); Lymphocytes Percent Auto 25.5 % (18.3-44.2); Mean Corpuscular HGB Conc 31.3 g/dl (32-36); Mean Corpuscular Hemoglobin 29.7 pg (26-34); Mean Platelet Volume 8.7 fl (7.4-10.4); Monocytes Absolute Auto 0.5 K/mm3 (0.1-0.6); Neutrophils Absolute Auto 2.1 K/mm3 (1.3-6.7); Neutrophils Percent Auto 56.9 % (45.5-73.1); Platelet Count Result 205 k/mm3 (150-375); Red Blood Count 3.37 M/mm3 (4.2-5.4); Red Cell Distribution Width 14.2 % (11.5-14.5); White Blood Count 3.8 K/mm3 (4.5-10.0)
[2024-06-05 05:07] LABS: Alanine Aminotransferase 21 U/L (6-35); Albumin Level 3.4 g/dL (3.5-5.1); Alkaline Phosphatase 65 U/L (38-126); Anion Gap 9 mmol/L (4-12); Aspartate Amino Transferase 28 U/L (14-36); Bilirubin,Total 0.6 mg/dL (0.2-1.3); Blood Urea Nitrogen 13 mg/dL (7-17); Calcium 8.8 mg/dL (8.4-10.2); Carbon Dioxide 22 mmol/L (22-30); Chloride 107 mmol/L (98-107); Estimated CRCL calculation 48 ml/min; Estimated Glomerular Filt Rate > 60; Glucose 79 mg/dL (65-110); Potassium 3.4 mmol/L (3.4-5.0); Sodium 138 mmol/L (137-145)
[2024-06-05 05:10] VITALS: BP 122/69; PULSE 63; RESP 16; TEMP 36.5; O2SAT 96
[2024-06-05] MEDS: LEVOTHYROXINE SODIUM 75 MCG TABLET PO (06:07)
--- NOTE | 2024-06-05 07:17 | PM.IMPN ---
Progress Note: A&P Assessment and Plan (1) Acute UTI: Code(s): N39.0 - Urinary tract infection, site not specified Status: Acute Assessment and Plan: - UA: Cloudy appearance, negative nitrates, 3+ leukocyte, 21-50 RBC, > 100 WBC, 4+ bacteria - UC obtained on 06/02: Aerococcus urinae. The wound culture states that this usually responds to Bactrim. - previous micro reviewed 11/2022: Ecoli pansensitive - started on Rocephin 06/03, transitioned to Bactrim DS BID on 06/04 (2) Fracture of tuberosity of calcaneus: Code(s): S92.043A - Displaced other fracture of tuberosity of unspecified calcaneus, initial encounter for closed fracture Status: Acute Assessment and Plan: - Ankle XR outpatient facility: Normal calcaneus - MRI ankle: Nondisplaced calcaneal tuberosity stress/insufficiency fracture. - Ortho consulted - PT/OT Light/Partial weight bearing in the CAM walker boot (3) Muscle weakness: Code(s): M62.81 - Muscle weakness (generalized) Status: Acute Assessment and Plan: Likely related to patients underlying infection and ankle inury, however could be worsening MS symptoms. Patient states that the weakness and decreased mobility is related to the ankle pain. Patient has no focal deficits on exam that would be more concerning for MS flare. - Will continue to treat the UTI (see #1) - MRI ankle: Nondisplaced calcaneal tuberosity stress/insufficiency fracture. - PT/OT Light/Partial weight bearing Cam walker boot - ER (4) Multiple sclerosis: Code(s): G35 - Multiple sclerosis Status: Acute Assessment and Plan: Patients neurologist is Dr. Whitfield, last seen 10/19/23. According to chart review patient has never been on any treatment. Patient has no focal deficits on exam that would be more concerning for MS flare. - Continue to monitor (5) Hypothyroid: Code(s): E03.9 - Hypothyroidism, unspecified Status: Acute Assessment and Plan: Chronic, continue home medications. - Levothyroxine 75 mcg daily (6) Seizures: Code(s): R56.9 - Unspecified convulsions Status: Chronic Assessment and Plan: Chronic. Follows neurology Dr. Whitfield. Continue home medications. - Keppra 500 mg BID - Monitor Time Spent With Patient Time with patient: 25 - 35 minutes Subjective Date/time seen: 06/05/24 07:17 Interval history: 83 year old female with past medical history of seizures, multiple sclerosis and hypothyroidism presents to the hospital from her nursing facility for evaluation of generalized weakness. According to chart review patient attempted to rise from her wheelchair and was unable to do so. Patient is pleasant lying comfortably in bed. She continues to endorse right ankle/foot pain. An MRI was performed and shows a nondisplaced calcaneal tuberosity stress/insufficiency fracture. Discussed this with ortho, Dr. Figueroa and patient will be made light/partial weight bearing in a CAM boot. Ortho has been consulted as patient will need to have follow up. Patient denies dysuria, burning sensation, and hematuria with urination. She denies chest pain, shortness of breath, nausea/vomiting and changes in bowel. Review of Systems Review of Systems: All systems reviewed & are unremarkable except as noted in HPI and below Exam Narrative: AF HR 72 RR 14 SpO2 96 BP 121/65 General: Frail female in no acute respiratory distress who is nontoxic appearing, lying semi recumbent in bed. Chest: Lungs are clear but diminished to auscultation bilaterally. No wheezes or crackles. CV: Heart was regular rate and rhythm. Systolic murmur. S1-S2. No gallops, or rubs. Abd: Abdomen was soft. Nontender. Nondistended. Positive bowel sounds. No organomegaly or masses. Ext: Decreased ROM in all francis of the right ankle with pain to palpation of the calcaneus and anterior talofibular ligament. No pain to the internal aspect of the right ankle. Triv
[2024-06-05] MEDS: levETIRAcetam 500 MG TABLET PO ×2 (09:11→20:09)
[2024-06-05] MEDS: SULFAMETHOXAZOLE/TRIMETHOPRIM 800/160 MG DS TABLET 1 TAB PO ×2 (09:11→20:10)
[2024-06-05] MEDS: ASPIRIN 81 MG CHEWABLE TABLET PO (09:11)
[2024-06-05] MEDS: SENNA/DOCUSATE SODIUM TABLET 1 TAB PO ×2 (09:11→16:36)
[2024-06-05] MEDS: ENOXAPARIN 40 MG/0.4 ML SYRINGE SUB-Q (09:11)
[2024-06-05] MEDS: GABAPENTIN 100 MG CAPSULE 200 MG PO ×3 (09:11→16:36)
--- NOTE | 2024-06-05 10:35 | PCOTNOTE ---
Patient refused treatment this session due to having a bad day Patient states she has to go down for a procedure today. Patient educated on purpose of therapy and goals. Patient insisted that she is just having a bad day. Will follow up.
--- NOTE | 2024-06-05 11:31 | PCPTNOTE ---
Patient refused PT treatment session this date. Patient reported pain in her right heel and that she does not feel up to it right now. Educated patient on the improtance of therapy and getting up to chair, patient continued to refuse.
[2024-06-05] MEDS: MORPHINE SULFATE (*CRX) 2 MG/ML INJ IV PUSH (11:43)
[2024-06-05] MEDS: SODIUM CHLORIDE 0.9% IV 1,000 ML 75 ML IV CONT (11:47)
--- NOTE | 2024-06-05 11:51 | PC.NURSE ---
Patient left unit for MRI procedure.
--- NOTE | 2024-06-05 12:14 | PC.NURSE ---
Patient returned to room from MRI procedure.
[2024-06-05 14:00] VITALS: BP 121/65; PULSE 72; RESP 14; TEMP 37.3; O2SAT 96
[2024-06-05 14:40] VITALS: BMI 15.7
[2024-06-05 19:47] VITALS: BP 108/58; PULSE 64; RESP 18; TEMP 36.7; O2SAT 98
[2024-06-06 05:10] LABS: Basophils Percent Auto 0.9 % (0.2-1.2); Eosinophils Absolute Auto 0.2 K/mm3 (0-0.3); Hematocrit 28.7 % (37.0-47.0); Immature Granulocyte Absolute 0.01 K/mm3 (0.00-0.031); Immature Granulocyte Percent A 0.3 % (0-0.5); Lymphocytes Absolute Auto 0.75 K/mm3 (0.9-3.2); Lymphocytes Percent Auto 23.6 % (18.3-44.2); Mean Corpuscular HGB Conc 31.4 g/dl (32-36); Mean Corpuscular Hemoglobin 29.4 pg (26-34); Mean Corpuscular Volume 93.8 fl (80-100); Mean Platelet Volume 8.8 fl (7.4-10.4); Monocytes Absolute Auto 0.4 K/mm3 (0.1-0.6); Monocytes Percent Auto 12.3 % (2.6-8.5); Neutrophils Absolute Auto 1.8 K/mm3 (1.3-6.7); Neutrophils Percent Auto 57.9 % (45.5-73.1); Platelet Count Result 185 k/mm3 (150-375); Red Blood Count 3.06 M/mm3 (4.2-5.4); Red Cell Distribution Width 14.4 % (11.5-14.5); White Blood Count 3.2 K/mm3 (4.5-10.0)
[2024-06-06 05:15] VITALS: BP 109/66; PULSE 61; RESP 17; TEMP 36.7; O2SAT 95
[2024-06-06 05:22] LABS: Alanine Aminotransferase 17 U/L (6-35); Alkaline Phosphatase 58 U/L (38-126); Anion Gap 7 mmol/L (4-12); Aspartate Amino Transferase 21 U/L (14-36); Bilirubin,Total 0.4 mg/dL (0.2-1.3); Blood Urea Nitrogen 17 mg/dL (7-17); Calcium 8.6 mg/dL (8.4-10.2); Carbon Dioxide 22 mmol/L (22-30); Chloride 110 mmol/L (98-107); Estimated CRCL calculation 36 ml/min; Estimated Glomerular Filt Rate > 60; Glucose 82 mg/dL (65-110); Potassium 3.9 mmol/L (3.4-5.0); Sodium 139 mmol/L (137-145)
[2024-06-06] MEDS: SODIUM CHLORIDE 0.9% IV 1,000 ML 75 ML IV CONT (05:50)
[2024-06-06] MEDS: LEVOTHYROXINE SODIUM 75 MCG TABLET PO (05:50)
[2024-06-06 07:30] LABS: Iron 41 ug/dL (37-170)
[2024-06-06 07:43] LABS: Percent Iron Saturation 16 % (20-50)
[2024-06-06 08:37] LABS: Folic Acid 6.4 ng/mL (2.76->20)
[2024-06-06] MEDS: levETIRAcetam 500 MG TABLET PO ×2 (08:44→20:33)
[2024-06-06] MEDS: SULFAMETHOXAZOLE/TRIMETHOPRIM 800/160 MG DS TABLET 1 TAB PO ×2 (08:44→20:34)
[2024-06-06] MEDS: SENNA/DOCUSATE SODIUM TABLET 1 TAB PO ×2 (08:44→18:43)
[2024-06-06] MEDS: GABAPENTIN 100 MG CAPSULE 200 MG PO ×3 (08:44→18:43)
[2024-06-06] MEDS: ENOXAPARIN 40 MG/0.4 ML SYRINGE SUB-Q (08:44)
[2024-06-06] MEDS: ASPIRIN 81 MG CHEWABLE TABLET PO (08:44)
--- NOTE | 2024-06-06 10:36 | PM.IMPN ---
Progress Note: A&P Assessment and Plan (1) Acute UTI: Code(s): N39.0 - Urinary tract infection, site not specified Status: Acute Assessment and Plan: - UA: Cloudy appearance, negative nitrates, 3+ leukocyte, 21-50 RBC, > 100 WBC, 4+ bacteria - UC obtained on 06/02: Aerococcus urinae. The wound culture states that this usually responds to Bactrim. - previous micro reviewed 11/2022: Ecoli pansensitive - started on Rocephin 06/03, transitioned to Bactrim DS BID on 06/04 (2) Fracture of tuberosity of calcaneus: Code(s): S92.043A - Displaced other fracture of tuberosity of unspecified calcaneus, initial encounter for closed fracture Status: Acute Assessment and Plan: - Ankle XR outpatient facility: Normal calcaneus - Heel XR: Possible interruption of the bony trabeculae posteriorly in the calcaneus which may indicate stress fracture. - MRI ankle: Nondisplaced calcaneal tuberosity stress/insufficiency fracture. - Ortho consulted - PT/OT Per Dr. Shawnee chino walker boot is not going to work due to patients equinus contracture. Patient is to remain nonweightbearing on the right leg for the next 4-6 weeks. PT working on bed to chair transfers with toe touch weight bearing on the right only with transfers. (3) Muscle weakness: Code(s): M62.81 - Muscle weakness (generalized) Status: Acute Assessment and Plan: Likely related to patients underlying infection and ankle inury, however could be worsening MS symptoms. Patient states that the weakness and decreased mobility is related to the ankle pain. Patient has no focal deficits on exam that would be more concerning for MS flare. - Will continue to treat the UTI (see #1) - MRI ankle: Nondisplaced calcaneal tuberosity stress/insufficiency fracture. - PT/OT Per Dr. Shawnee chino walker boot is not going to work due to patients equinus contracture. Patient is to remain nonweightbearing on the right leg for the next 4-6 weeks. PT working on bed to chair transfers with toe touch weight bearing on the right only with transfers. - Neuro consulted by Ortho for muscle rigidity (4) Multiple sclerosis: Code(s): G35 - Multiple sclerosis Status: Acute Assessment and Plan: Patients neurologist is Dr. Whitfield, last seen 10/19/23. According to chart review patient has never been on any treatment. Patient has no focal deficits on exam that would be more concerning for MS flare. - Continue to monitor (5) Hypothyroid: Code(s): E03.9 - Hypothyroidism, unspecified Status: Acute Assessment and Plan: Chronic, continue home medications. - Levothyroxine 75 mcg daily (6) Seizures: Code(s): R56.9 - Unspecified convulsions Status: Chronic Assessment and Plan: Chronic. Follows neurology Dr. Whitfield. Continue home medications. - Keppra 500 mg BID - Monitor Time Spent With Patient Time with patient: 25 - 35 minutes Subjective Date/time seen: 06/06/24 10:36 Interval history: 83 year old female with past medical history of seizures, multiple sclerosis and hypothyroidism presents to the hospital from her nursing facility for evaluation of generalized weakness. According to chart review patient attempted to rise from her wheelchair and was unable to do so. Patient is pleasant lying comfortably in bed. She has no complaints at this time, denying chest pain, shortness of breath, nausea/vomiting, and changes in bowel/bladder. Patient was evaluated by ortho today. Per Dr. Mallory a cam walker boot is not going to work due to patients equinus contracture. As a result patient is to remain nonweightbearing on the right leg for the next 4-6 weeks. PT will continue to follow and work with patient on bed to chair transfers with toe touch weight bearing on the right only with transfers. Ortho consulted neurology for recommendations on patients rigidity. Per patients RN Kirby, patient has made comments a
--- NOTE | 2024-06-06 12:58 | PM.CNOR ---
Assessment and Plan Assessment and plan (1) Fracture of tuberosity of calcaneus: Qualifiers: Encounter type: initial encounter Fracture type: closed Fracture morphology: other fracture Fracture alignment: nondisplaced Laterality: right Qualified Code(s): S92.044A - Nondisplaced other fracture of tuberosity of right calcaneus, initial encounter for closed fracture Code(s): S92.043A - Displaced other fracture of tuberosity of unspecified calcaneus, initial encounter for closed fracture Status: Acute Assessment and Plan: Patient is an 83-year-old female who was admitted on 06/02/2024 for inability to ambulate. She normally resides at in [facility]. She has a long history of multiple sclerosis and also history of seizure disorder and moderate anemia. She reports that she has had pain in her right heel for the past week. She recalls shortly before she noted pain in her heel falling backwards and landing into a garbage can actually but she does not believe she noticed any pain in her right heel after this accident but her soreness developed subsequently. Yesterday an MRI scan of the right hindfoot showed a impaction type fracture of the calcaneal tuberosity which is transverse to the axis of the tuberosity running close to and parallel to the posterior surface of the calcaneal tuberosity which would be consistent with a an insufficiency stress fracture pattern or possibly fracture pattern due to direct impact on the posterior heel. On exam today she has severe tenderness over the lateral aspect of the posterior most portion of the calcaneal tuberosity mild to moderate tenderness in the medial aspect of the posterior most aspect of the calcaneal tuberosity. Her Achilles tendon is palpably intact and nontender. There is no significant swelling or ecchymosis present. That would lead us to believe that this is an insufficiency fracture. I could not feel pedal pulses but the foot was warm and of normal color. 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 Babinski's test is downgoing however. She can dorsiflex her ankle to about 20? short of neutral actively. That is with the knee bent a little bit. She seems to have inability to relax her knees and hips well for examination. This would be consistent with spasticity due to longstanding multiple sclerosis affecting the brain and spinal cord potentially. For management, a cam walker boot is not going to work because of her equinus contracture. It will not really provide any benefit as her heel would rest a full 2 in off the portion of the boot that he will would be designed to rest. I would recommend that she be nonweightbearing on the right leg for the next 4-6 weeks. I would like to see her in the office in 4 weeks for x-rays and if she has no tenderness at that time she could be allowed to start weight-bearing. I am suspicious that she may have severe osteoporosis. I asked her if she is taking prednisone or steroids over the years but she is uncertain. She seems oriented but she does have a hard time finding her words I noticed. She states that prior to her admission she was able to get in and out of bed and walk a short distance to her bathroom using a walker. Since she is not going to be able to bear weight on this right leg I think that will be impossible without assistance so she is going to need a higher level of care. For DVT prophylaxis I think it would be appropriate to use a baby aspirin twice a day instead of the once daily she is currently taking. I would also like physical therapy to work with her on gentle stretching exercises for her gastrocsoleus bilaterally to see if she can have any improvements. She has been in the wheelchair for the last 3 years and she may have lost a lot of her flexibility during that time. History of Present Illne
[2024-06-06 14:00] VITALS: BP 147/69; PULSE 70; RESP 14; TEMP 36.6; O2SAT 90
[2024-06-06 19:45] VITALS: BP 135/67; PULSE 80; RESP 18; TEMP 36.5; O2SAT 97
[2024-06-07 04:30] VITALS: BP 137/81; PULSE 64; RESP 18; TEMP 36.5; O2SAT 99
[2024-06-07 05:12] LABS: Basophils Percent Auto 0.5 % (0.2-1.2); Eosinophils Absolute Auto 0.2 K/mm3 (0-0.3); Eosinophils Percent Auto 5.3 % (0-4.4); Hematocrit 31.6 % (37.0-47.0); Immature Granulocyte Absolute 0.01 K/mm3 (0.00-0.031); Immature Granulocyte Percent A 0.3 % (0-0.5); Lymphocytes Absolute Auto 0.77 K/mm3 (0.9-3.2); Lymphocytes Percent Auto 20.5 % (18.3-44.2); Mean Corpuscular HGB Conc 31.6 g/dl (32-36); Mean Corpuscular Volume 94.9 fl (80-100); Mean Platelet Volume 8.9 fl (7.4-10.4); Monocytes Absolute Auto 0.4 K/mm3 (0.1-0.6); Monocytes Percent Auto 10.9 % (2.6-8.5); Neutrophils Absolute Auto 2.3 K/mm3 (1.3-6.7); Neutrophils Percent Auto 62.5 % (45.5-73.1); Platelet Count Result 206 k/mm3 (150-375); Red Blood Count 3.33 M/mm3 (4.2-5.4); Red Cell Distribution Width 14.6 % (11.5-14.5); White Blood Count 3.8 K/mm3 (4.5-10.0)
[2024-06-07 05:24] LABS: Alanine Aminotransferase 20 U/L (6-35); Albumin Level 3.5 g/dL (3.5-5.1); Alkaline Phosphatase 65 U/L (38-126); Anion Gap 9 mmol/L (4-12); Aspartate Amino Transferase 25 U/L (14-36); Bilirubin,Total 0.5 mg/dL (0.2-1.3); Blood Urea Nitrogen 21 mg/dL (7-17); Calcium 9.2 mg/dL (8.4-10.2); Carbon Dioxide 22 mmol/L (22-30); Chloride 108 mmol/L (98-107); Estimated CRCL calculation 36 ml/min; Estimated Glomerular Filt Rate > 60; Glucose 80 mg/dL (65-110); Potassium 4.4 mmol/L (3.4-5.0); Sodium 139 mmol/L (137-145)
[2024-06-07] MEDS: LEVOTHYROXINE SODIUM 75 MCG TABLET PO (06:38)
[2024-06-07] MEDS: GABAPENTIN 100 MG CAPSULE 200 MG PO ×3 (08:53→16:51)
[2024-06-07] MEDS: levETIRAcetam 500 MG TABLET PO ×2 (08:54→20:37)
[2024-06-07] MEDS: ASPIRIN 81 MG CHEWABLE TABLET PO (08:54)
[2024-06-07] MEDS: ENOXAPARIN 40 MG/0.4 ML SYRINGE SUB-Q (08:54)
[2024-06-07] MEDS: SENNA/DOCUSATE SODIUM TABLET 1 TAB PO ×2 (08:54→16:51)
[2024-06-07] MEDS: SULFAMETHOXAZOLE/TRIMETHOPRIM 800/160 MG DS TABLET 1 TAB PO ×2 (08:54→20:37)
[2024-06-07] MEDS: polyethylene glycoL 3350 17 GM POWD.PACK PO (08:55)
--- NOTE | 2024-06-07 11:52 | PM.IMPN ---
Progress Note: A&P Assessment and Plan (1) Acute UTI: Code(s): N39.0 - Urinary tract infection, site not specified Status: Acute (2) Fracture of tuberosity of calcaneus: Qualifiers: Encounter type: initial encounter Fracture type: closed Fracture morphology: other fracture Fracture alignment: nondisplaced Laterality: right Qualified Code(s): S92.044A - Nondisplaced other fracture of tuberosity of right calcaneus, initial encounter for closed fracture Code(s): S92.043A - Displaced other fracture of tuberosity of unspecified calcaneus, initial encounter for closed fracture Status: Acute (3) Muscle weakness: Code(s): M62.81 - Muscle weakness (generalized) Status: Acute (4) Multiple sclerosis: Code(s): G35 - Multiple sclerosis Status: Acute (5) Hypothyroid: Code(s): E03.9 - Hypothyroidism, unspecified Status: Acute (6) Seizures: Code(s): R56.9 - Unspecified convulsions Status: Chronic (7) Hematuria: Code(s): R31.9 - Hematuria, unspecified Status: Acute Plan UTI: UA: Cloudy appearance, negative nitrates, 3+ leukocyte, 21-50 RBC, > 100 WBC, 4+ bacteria UC obtained on 06/02: Aerococcus urinae. The wound culture states that this usually responds to Bactrim. previous micro reviewed 11/2022: Ecoli pansensitive started on Rocephin 06/03, transitioned to Bactrim DS BID on 06/04 Hematuria RN noted blood and pure wake and patient depend HGB stable Will hold ASA and Lovenox Repeat H&H Fracture of Tuberosity Ankle XR outpatient facility: Normal calcaneus Heel XR: Possible interruption of the bony trabeculae posteriorly in the calcaneus which may indicate stress fracture. MRI ankle: Nondisplaced calcaneal tuberosity stress/insufficiency fracture. Ortho consulted PT/OT Per Dr. Shawnee chino walker boot is not going to work due to patients equinus contracture. Patient is to remain nonweightbearing on the right leg for the next 4-6 weeks. PT working on bed to chair transfers with toe touch weight bearing on the right only with transfers. Pain control Muscle weakness/muscle rigidity/MS follows with dr. Whitfield O/P No previous medication seen in chart for MS Neurology consulted for further recs on muscle rigidity PT/OT Hx hypothyroidism: Resume levothyroxine History of convulsions: Resume patient's Keppra/follows with Neurology outpatient Code status: Full code per patient DVT prophylaxis: SCD's Stress ulcer prophylaxis: Protonix 40 daily PT/OT notes: PT/OT (weight bearing per ortho) Disposition: Patient continues admission to the medical unit currently working on SNF placement for weight-bearing fracture. There was reported some hematuria per RN monitor H&H and hold ASA on Lovenox for now. Time Spent With Patient Time with patient: 15 - 25 minutes Subjective Date/time seen: 06/07/24 11:52 Interval history: 83 year old female with past medical history of seizures, multiple sclerosis and hypothyroidism presents to the hospital from her nursing facility for evaluation of generalized weakness. According to chart review patient attempted to rise from her wheelchair and was unable to do so. Patient is pleasant lying comfortably in bed. She has no complaints at this time, denying chest pain, shortness of breath, nausea/vomiting, and changes in bowel/bladder. Patient was evaluated by ortho today. Per Dr. Shawnee west cam walker boot is not going to work due to patients equinus contracture. As a result patient is to remain nonweightbearing on the right leg for the next 4-6 weeks. PT will continue to follow and work with patient on bed to chair transfers with toe touch weight bearing on the right only with transfers. Ortho consulted neurology for recommendations on patients rigidity. Per patients RN Kirby, patient has made comments about wanting to . Spoke with patient about these comments
--- NOTE | 2024-06-07 12:30 | PCPTNOTE ---
On 06/07/24, the student, [Maira Naqvi], provided care and completed [facility] documentation on this patient. I have reviewed the student's documentation and agree with the findings.
[2024-06-07] MEDS: traMADol HCL (*CRX) 50 MG TABLET PO (13:41)
[2024-06-07 13:53] VITALS: BP 135/72; PULSE 87; RESP 20; TEMP 36.2; O2SAT 98
[2024-06-07 15:33] LABS: Hematocrit 32.8 % (37.0-47.0); Hemoglobin 10.1 g/dL (12.0-15.0)
[2024-06-07 21:59] VITALS: BP 137/79; PULSE 80; RESP 18; TEMP 36.7; O2SAT 95
[2024-06-08 05:36] LABS: Basophils Percent Auto 0.6 % (0.2-1.2); Eosinophils Absolute Auto 0.2 K/mm3 (0-0.3); Eosinophils Percent Auto 4.5 % (0-4.4); Hematocrit 31.5 % (37.0-47.0); Hemoglobin 9.9 g/dL (12.0-15.0); Immature Granulocyte Absolute 0.01 K/mm3 (0.00-0.031); Immature Granulocyte Percent A 0.3 % (0-0.5); Lymphocytes Absolute Auto 0.82 K/mm3 (0.9-3.2); Lymphocytes Percent Auto 24.6 % (18.3-44.2); Mean Corpuscular HGB Conc 31.4 g/dl (32-36); Mean Corpuscular Hemoglobin 29.8 pg (26-34); Mean Corpuscular Volume 94.9 fl (80-100); Mean Platelet Volume 8.9 fl (7.4-10.4); Monocytes Absolute Auto 0.4 K/mm3 (0.1-0.6); Monocytes Percent Auto 11.1 % (2.6-8.5); Neutrophils Percent Auto 58.9 % (45.5-73.1); Platelet Count Result 213 k/mm3 (150-375); Red Blood Count 3.32 M/mm3 (4.2-5.4); Red Cell Distribution Width 14.7 % (11.5-14.5); White Blood Count 3.3 K/mm3 (4.5-10.0)
[2024-06-08 05:56] LABS: Alanine Aminotransferase 22 U/L (6-35); Albumin Level 3.5 g/dL (3.5-5.1); Alkaline Phosphatase 70 U/L (38-126); Anion Gap 7 mmol/L (4-12); Aspartate Amino Transferase 30 U/L (14-36); Bilirubin,Total 0.5 mg/dL (0.2-1.3); Blood Urea Nitrogen 23 mg/dL (7-17); Calcium 9.2 mg/dL (8.4-10.2); Carbon Dioxide 27 mmol/L (22-30); Chloride 105 mmol/L (98-107); Estimated CRCL calculation 36 ml/min; Estimated Glomerular Filt Rate > 60; Glucose 81 mg/dL (65-110); Potassium 4.3 mmol/L (3.4-5.0); Sodium 139 mmol/L (137-145)
[2024-06-08 06:00] VITALS: BP 111/66; PULSE 61; RESP 18; TEMP 36.4; O2SAT 98
[2024-06-08] MEDS: LEVOTHYROXINE SODIUM 75 MCG TABLET PO (06:14)
[2024-06-08] MEDS: SULFAMETHOXAZOLE/TRIMETHOPRIM 800/160 MG DS TABLET 1 TAB PO (10:19)
[2024-06-08] MEDS: GABAPENTIN 100 MG CAPSULE 200 MG PO ×2 (10:19→12:23)
[2024-06-08] MEDS: levETIRAcetam 500 MG TABLET PO (10:19)
[2024-06-08] MEDS: ASPIRIN 81 MG CHEWABLE TABLET PO (10:19)
[2024-06-08] MEDS: SENNA/DOCUSATE SODIUM TABLET 1 TAB PO (10:19)
[2024-06-08] MEDS: PANTOPRAZOLE 40 MG TABLET PO (10:20)
[2024-06-08] MEDS: polyethylene glycoL 3350 17 GM POWD.PACK PO (10:20)
--- NOTE | 2024-06-08 11:55 | P.DS_ITS ---
DS: Admitting Diagnosis Discharge Date 06/08/2024 Admitting Diagnosis Fracture of Tuberosity/UTI DS: Discharge Diagnosis Discharge Diagnosis (1) Acute UTI: Code(s): N39.0 - Urinary tract infection, site not specified Status: Acute (2) Fracture of tuberosity of calcaneus: Qualifiers: Encounter type: initial encounter Fracture alignment: nondisplaced Fracture morphology: other fracture Fracture type: closed Laterality: right Qualified Code(s): S92.044A - Nondisplaced other fracture of tuberosity of right calcaneus, initial encounter for closed fracture Code(s): S92.043A - Displaced other fracture of tuberosity of unspecified calcaneus, initial encounter for closed fracture Status: Acute (3) Muscle weakness: Code(s): M62.81 - Muscle weakness (generalized) Status: Acute (4) Multiple sclerosis: Code(s): G35 - Multiple sclerosis Status: Acute (5) Hypothyroid: Code(s): E03.9 - Hypothyroidism, unspecified Status: Acute (6) Seizures: Code(s): R56.9 - Unspecified convulsions Status: Chronic (7) Hematuria: Code(s): R31.9 - Hematuria, unspecified Status: Acute Plan UTI: * UA: Cloudy appearance, negative nitrates, 3+ leukocyte, 21-50 RBC, > 100 WBC, 4+ bacteria * UC obtained on 06/02: Aerococcus urinae. The wound culture states that this usually responds to Bactrim. * previous micro reviewed * 11/2022: Ecoli pansensitive * started on Rocephin 06/03, transitioned to Bactrim DS BID on 06/04 Hematuria * RN noted blood and pure wake and patient depend * HGB stable * Will hold ASA and Lovenox * Repeat H&H Fracture of Tuberosity * Ankle XR outpatient facility: Normal calcaneus * Heel XR: Possible interruption of the bony trabeculae posteriorly in the calcaneus which may indicate stress fracture. * MRI ankle: * Nondisplaced calcaneal tuberosity stress/insufficiency fracture. * Ortho consulted * PT/OT * Per Dr. Mallory a cam walker boot is not going to work due to patients equinus contracture. * Patient is to remain nonweightbearing on the right leg for the next 4-6 weeks. * PT working on bed to chair transfers with toe touch weight bearing on the right only with transfers. * Pain control Muscle weakness/muscle rigidity/MS * follows with dr. Whitfield O/P * No previous medication seen in chart for MS * Neurology consulted for further recs on muscle rigidity * PT/OT Hx hypothyroidism: Resume levothyroxine History of convulsions: Resume patient's Keppra/follows with Neurology outpatient Disposition: Discharged to SNF for continued PT/OT Non-weight bearing on RLE for 4-6 weeks. DS: Summary Hospital Course Reason for hospitalization: Fracture of Tuberosity/UTI Hospital Course: Admission: Medical Record 83 year old female with past medical history of seizures, multiple sclerosis and hypothyroidism presents to the hospital from her nursing facility for evaluation of generalized weakness. According to chart review patient attempted to rise from her wheelchair and was unable to do so. Patient is pleasant lying comfortably in bed. She has no complaints at this time, denying chest pain, shortness of breath, nausea/vomiting, and changes in bowel/bladder. Patient was evaluated by ortho today. Per Dr. Shawnee west cam walker boot is not going to work due to patients equinus contracture. As a result patient is to remain nonweightbearing on the right leg for
--- NOTE | 2024-06-08 11:55 | PM.DS ---
DS: Admitting Diagnosis Discharge Date 06/08/2024 Admitting Diagnosis Fracture of Tuberosity/UTI DS: Discharge Diagnosis Discharge Diagnosis (1) Acute UTI: Code(s): N39.0 - Urinary tract infection, site not specified Status: Acute (2) Fracture of tuberosity of calcaneus: Qualifiers: Encounter type: initial encounter Fracture alignment: nondisplaced Fracture morphology: other fracture Fracture type: closed Laterality: right Qualified Code(s): S92.044A - Nondisplaced other fracture of tuberosity of right calcaneus, initial encounter for closed fracture Code(s): S92.043A - Displaced other fracture of tuberosity of unspecified calcaneus, initial encounter for closed fracture Status: Acute (3) Muscle weakness: Code(s): M62.81 - Muscle weakness (generalized) Status: Acute (4) Multiple sclerosis: Code(s): G35 - Multiple sclerosis Status: Acute (5) Hypothyroid: Code(s): E03.9 - Hypothyroidism, unspecified Status: Acute (6) Seizures: Code(s): R56.9 - Unspecified convulsions Status: Chronic (7) Hematuria: Code(s): R31.9 - Hematuria, unspecified Status: Acute Plan UTI: UA: Cloudy appearance, negative nitrates, 3+ leukocyte, 21-50 RBC, > 100 WBC, 4+ bacteria UC obtained on 06/02: Aerococcus urinae. The wound culture states that this usually responds to Bactrim. previous micro reviewed 11/2022: Ecoli pansensitive started on Rocephin 06/03, transitioned to Bactrim DS BID on 06/04 Hematuria RN noted blood and pure wake and patient depend HGB stable Will hold ASA and Lovenox Repeat H&H Fracture of Tuberosity Ankle XR outpatient facility: Normal calcaneus Heel XR: Possible interruption of the bony trabeculae posteriorly in the calcaneus which may indicate stress fracture. MRI ankle: Nondisplaced calcaneal tuberosity stress/insufficiency fracture. Ortho consulted PT/OT Per Dr. Shawnee chino walker boot is not going to work due to patients equinus contracture. Patient is to remain nonweightbearing on the right leg for the next 4-6 weeks. PT working on bed to chair transfers with toe touch weight bearing on the right only with transfers. Pain control Muscle weakness/muscle rigidity/MS follows with dr. Whitfield O/P No previous medication seen in chart for MS Neurology consulted for further recs on muscle rigidity PT/OT Hx hypothyroidism: Resume levothyroxine History of convulsions: Resume patient's Keppra/follows with Neurology outpatient Disposition: Discharged to SNF for continued PT/OT Non-weight bearing on RLE for 4-6 weeks. DS: Summary Hospital Course Reason for hospitalization: Fracture of Tuberosity/UTI Hospital Course: Admission: Medical Record 83 year old female with past medical history of seizures, multiple sclerosis and hypothyroidism presents to the hospital from her nursing facility for evaluation of generalized weakness. According to chart review patient attempted to rise from her wheelchair and was unable to do so. Patient is pleasant lying comfortably in bed. She has no complaints at this time, denying chest pain, shortness of breath, nausea/vomiting, and changes in bowel/bladder. Patient was evaluated by ortho today. Per Dr. Mallory a cam walker boot is not going to work due to patients equinus contracture. As a result patient is to remain nonweightbearing on the right leg for the next 4-6 weeks. PT will continue to follow and work with patient on bed to chair transfers with toe touch weight bearing on the right only with transfers. Ortho consulted neurology for recommendations on patients rigidity. Per patients RN Kirby, patient has made comments about wanting to . Spoke with patient about these comments and she denies suicidal ideations. She states she is 83 years old and doesn't want to keep coming in and out of the hospital any more. She states when her
--- NOTE | 2024-06-08 12:01 | WPDNEURCNPN ---
Assessment and Plan Assessment and plan (1) Multiple sclerosis: Code(s): G35 - Multiple sclerosis Status: Acute (2) Seizure disorder: Code(s): G40.909 - Epilepsy, unspecified, not intractable, without status epilepticus Status: Acute (3) Fracture of tuberosity of calcaneus: Qualifiers: Encounter type: initial encounter Fracture type: closed Fracture morphology: other fracture Fracture alignment: nondisplaced Laterality: right Qualified Code(s): S92.044A - Nondisplaced other fracture of tuberosity of right calcaneus, initial encounter for closed fracture Code(s): S92.043A - Displaced other fracture of tuberosity of unspecified calcaneus, initial encounter for closed fracture Status: Acute Plan 1.The patient has had MRI of the brain which has shown MS plaques in the brain and upper part of the blood spinal cord consistent with her diagnosis which was made from around age 42 or so. She is not on any preventive medications however given her age and state of life she may be considered to be in remission unless the any other issues I would not suggest starting her on any medications. Patient has chronic disability in terms of walking as a result of this condition. 2.With regard to seizures it appears she is fairly well controlled with the Keppra 500 mg twice a day hence I would not suggest any change in this at this time given at age and state of the life. 3. With regard to the injury to the right foot this will appear to be and accidental finding does not made any changes in her anticonvulsants since he does not appear she had any seizure-like spell as a cause for this injury. Consult date: 06/08/24 HPI: Maria Victoria Alfaro is a 83 year old female history of multiple sclerosis since her 40s currently on Keppra 500 mg twice a day was seen for neurologic evaluation. She has had an injury to right ankle. She has been evaluated by the orthopedist. The current records were reviewed. I also noted the patient has not been on the for most but it is able to walk short distance with a walker under supervision of a therapist. She lives in assisted living. Her children live far from here the closest 1 is 2 hours away. However she does have friends and family in the local area. She does not think she had a seizure that led to the injury. In fact she is thinking that she probably does not even have seizure disorder. Based upon the previous notes it appears that after much consideration she was placed on Keppra and fact after that she had no more spells. Review of Systems Review of Systems: All systems reviewed & are unremarkable except as noted in HPI and below PMFSH Past Medical History Medical History (Updated 06/08/24 @ 12:06 by Edi Vaenssa MD) Hypertension Multiple sclerosis Multiple sclerosis Osteoarthritis of left knee Seizure disorder Seizures Vitamin D deficiency Surgical History Surgical History Deficient knowledge of hysterectomy History of hysterectomy History of open reduction and internal fixation (ORIF) procedure Repair of right thumb fracture. Family History Family History Father Family history of premature coronary heart disease, Onset Age: 69 Mother Family history of Alzheimer's disease, Onset Age: 67 Sibling Multiple sclerosis Social History Social History Social History: Healthcare power of business attorney: Manan Paula, son. Code status: Full code. Smoking status: Never smoker Second hand tobacco smoke exposure: No Alcohol intake: never Alcohol use details: Rare Substance use: never Substance use type: does not use Do You Feel Safe in your Home?: Yes Lack of Transportation: No Lack of Food: Never True Current Housing: I Have Housing C
--- NOTE | 2024-06-08 12:20 | PM.PNORT ---
Progress Note: A&P Assessment and Plan (1) Fracture of tuberosity of calcaneus: Qualifiers: Encounter type: initial encounter Fracture type: closed Fracture morphology: other fracture Fracture alignment: nondisplaced Laterality: right Qualified Code(s): S92.044A - Nondisplaced other fracture of tuberosity of right calcaneus, initial encounter for closed fracture Code(s): S92.043A - Displaced other fracture of tuberosity of unspecified calcaneus, initial encounter for closed fracture Status: Acute Assessment and Plan: Patient is up in the chair. She has no complaints. She is tearful. She denies any pain in her heel at this time. Continue present care and follow-up with me in 1 month in the office Subjective Subjective Date/Time Seen: 06/08/24 12:20 Objective Data Vital Signs Vital Signs: Vital Signs - 24 hr 06/07/24 13:53 06/07/24 20:35 06/07/24 21:59 Temperature 36.2 C L 36.7 C Pulse Rate 87 80 Respiratory Rate 20 18 Blood Pressure 135/72 137/79 Pulse Oximetry 98 95 Oxygen Delivery Room Air 06/08/24 06:00 06/08/24 10:30 Temperature 36.4 C Pulse Rate 61 Respiratory Rate 18 Blood Pressure 111/66 Pulse Oximetry 98 Oxygen Delivery Room Air Intake/Output Intake/Output: Intake & Output 06/05/24 06/06/24 06/07/24 06/08/24 23:59 23:59 23:59 23:59 Intake Total 1800 2720 1510 Output Total 1650 0703 023 1221 Balance 150 1320 710 -1000 Meds/Results Medications: Active Medications Generic Name Dose Route Start Last Admin Trade Name Freq PRN Reason Stop Dose Admin Acetaminophen 650 mg 06/03/24 02:37 06/05/24 00:04 Acetaminophen 325 Mg Tablet PO 650 mg Q6H PRN Administration Pain (Scale Score 1-3) Aspirin 81 mg 06/03/24 08:00 06/08/24 10:19 Aspirin 81 Mg Chewable Tablet PO 81 mg DAILY@0800 [facility] Administration Gabapentin 200 mg 06/03/24 09:00 06/08/24 10:19 Gabapentin 100 Mg Capsule PO 200 mg TID MARCIO Administration Levetiracetam 500 mg 06/03/24 09:00 06/08/24 10:19 Levetiracetam 500 Mg Tablet PO 500 mg Q12HR MARCIO Administration Levothyroxine Sodium 75 mcg 06/03/24 06:30 06/08/24 06:14 Levothyroxine Sodium 75 Mcg Tablet PO 75 mcg DAILY@0630 MARCIO Administration Magnesium Hydroxide 30 ml 06/03/24 02:37 Magnesium Hydroxide Susp 30 Ml Udc PO DAILY PRN Constipation Pantoprazole Sodium 40 mg 06/08/24 09:00 06/08/24 10:20 Pantoprazole 40 Mg Tablet PO 40 mg QAM MARCIO Administration Polyethylene Glycol 17 gm 06/06/24 10:45 06/08/24 10:20 Polyethylene Glycol 3350 17 Gm Powd.Pack PO 17 gm QAM MARCIO Administration Senna/Docusate Sodium 1 tab 06/03/24 09:00 06/08/24 10:19 Senna/Docusate Sodium Tablet PO 1 tab BID MARCIO Administration Tramadol HCl 50 mg 06/03/24 02:37 06/07/24 13:41 Tramadol Hcl (*Crx) 50 Mg Tablet PO 50 mg Q6H PRN Administration Pain (Scale Score 4-6) Trimethoprim/Sulfamethoxazole 1 tab 06/04/24 21:00 06/08/24 10:19 Sulfamethoxazole/Trimethoprim 800/160 Mg Ds Tablet PO 1 tab Q12HR MARCIO Administration Radiology Results: ITS Impressions Head CT 06/02/24 21:49 IMPRESSION: 1. Stable moderate nonspecific cerebral white matter disease, consistent with chronic small vessel ischemic disease and/or multiple sclerosis. Chest X-Ray 06/02/24 21:57 IMPRESSION: 1. Cardiomegaly. Foot MRI 06/05/24 13:41 IMPRESSION: 1. Nondisplaced calcaneal tuberosity stress/insufficiency fracture. 2. Unusual appearance of abnormal signal at the distal Achilles tendon without evident thickening. The increased signal could represent tendinosis of a linear low signal is more difficult to explain there is no evident fluid signal, architectural distortion or discontinuous tendon fibers which would be expected for a tear could potentially represent scarring related to a prior repaired tear or abnormal signal related to magic angle a
[2024-06-08 13:09] LABS: SARS-CoV-2 RNA PCR Negative (Negative)
== END 2024-06-08 14:15 | DRG 690 ==
LOC: ANHED 22:38 → ANH2MED 06-03 04:07
PROVIDERS: Student in an Organized Health Care Education/Training Program; Admitting Provider Internal Medicine; Emergency Provider Emergency Medicine; PCP Family Medicine; Visit Provider Nurse Practitioner Family
DX: N39.0 Urinary tract infection, site not specified (principal); B96.89 Other specified bacterial agents as the cause of diseases classified elsewhere; R31.9 Hematuria, unspecified; M84.374A Stress fracture, right foot, initial encounter for fracture; E03.9 Hypothyroidism, unspecified; G40.909 Epilepsy, unspecified, not intractable, without status epilepticus; M17.12 Unilateral primary osteoarthritis, left knee; E55.9 Vitamin D deficiency, unspecified; D64.9 Anemia, unspecified; G35 Multiple sclerosis; I10 Essential (primary) hypertension; K59.00 Constipation, unspecified; X58.XXXA Exposure to other specified factors, initial encounter; Z11.52 Encounter for screening for COVID-19; Z90.710 Acquired absence of both cervix and uterus; Z79.82 Long term (current) use of aspirin
CPT/HCPCS: 36415; 70450; 71046; 73650; 73718; 80053; 81001; 82607; 82746; 83540; 83550; 85014; 85018; 85025; 87086; 87635; 93005; 96365; 97110; 97161; 97164; 97165; 97530; 97535; 99285; A9270; J0696; J1650; J2270; J7030

== ENCOUNTER 2024-10-13 11:15 | Emergency (ER) | payer MEDICARE, SELFPAY ==
[2024-10-13] VITALS (7 sets, daily range): BP systolic 148–161; BP diastolic 81–87; PULSE 68–74; RESP 14–23; TEMP 35.8; O2SAT 97–98
--- NOTE | ~2024-10-13 | XR_ITS ---
EXAMINATION: XR chest 1V portable DATE: 10/13/2024 13:31 INDICATION: Weakness TECHNIQUE: frontal view of the chest was obtained. COMPARISON: Chest radiograph dated 06/02/2024 FINDINGS: No focal airspace opacities, pulmonary edema, pleural effusion or pneumothorax. Cardiomediastinal patsy houette is within normal limits conifer AP technique and rightward rotation of the patient. Visualize d bones and soft tissues are unremarkable. IMPRESSION: 1. No acute cardiopulmonary disease. Reviewed, dictated and finalized at location B. S REPRESENTATIVE ADDING MACHINES
[2024-10-13 12:34] LABS: Basophils Percent Auto 0.8 % (0.2-1.2); Eosinophils Absolute Auto 0.1 K/mm3 (0-0.3); Eosinophils Percent Auto 1.6 % (0-4.4); Hematocrit 34.3 % (37.0-47.0); Hemoglobin 10.6 g/dL (12.0-15.0); Immature Granulocyte Absolute 0.01 K/mm3 (0.00-0.031); Immature Granulocyte Percent A 0.3 % (0-0.5); Lymphocytes Absolute Auto 0.61 K/mm3 (0.9-3.2); Mean Corpuscular HGB Conc 30.9 g/dl (32-36); Mean Corpuscular Hemoglobin 27.4 pg (26-34); Mean Corpuscular Volume 88.6 fl (80-100); Mean Platelet Volume 9.2 fl (7.4-10.4); Monocytes Absolute Auto 0.4 K/mm3 (0.1-0.6); Monocytes Percent Auto 9.9 % (2.6-8.5); Neutrophils Absolute Auto 2.7 K/mm3 (1.3-6.7); Neutrophils Percent Auto 71.4 % (45.5-73.1); Platelet Count Result 202 k/mm3 (150-375); Red Blood Count 3.87 M/mm3 (4.2-5.4); Red Cell Distribution Width 15.3 % (11.5-14.5); White Blood Count 3.8 K/mm3 (4.5-10.0)
[2024-10-13 12:44] LABS: Prothrombin Time 13.2 Seconds (11.1-14.7)
[2024-10-13 12:45] LABS: Partial Thromboplastin Time 28.8 Seconds (22.3-36.8)
[2024-10-13 13:03] LABS: Alanine Aminotransferase 14 U/L (6-35); Alkaline Phosphatase 79 U/L (38-126); Anion Gap 6 mmol/L (4-12); Aspartate Amino Transferase 35 U/L (14-36); Bilirubin,Total 0.8 mg/dL (0.2-1.3); Blood Urea Nitrogen 16 mg/dL (7-17); Calcium 9.2 mg/dL (8.4-10.2); Carbon Dioxide 25 mmol/L (22-30); Chloride 105 mmol/L (98-107); Estimated CRCL calculation 43 ml/min; Estimated Glomerular Filt Rate > 60; Glucose 83 mg/dL (65-110); Potassium 4.1 mmol/L (3.4-5.0); Sodium 136 mmol/L (137-145)
[2024-10-13 13:07] LABS: Add Urine Microscopic? YES; Appearance Urine Turbid (Clear); Bacteria Urine 4+ /hpf; Bilirubin Urine Negative (Negative); Blood Urine 1+ (Negative); Color Urine Yellow (Yellow); Glucose Urine UA Negative (Negative); Ketones Urine Negative (Negative); Leukocyte Esterase Ur 3+ LEU/UL (Negative); Nitrate Urine Positive (Negative); Protein Urine Trace mg/dL (Negative); Specific Grav Ur 1.018 (1.001-1.035); Squamous Epithelial Cell Urine None Seen /hpf (Few); WBC Urine >100 /hpf (0-3)
--- NOTE | 2024-10-13 13:11 | ED.WEAKNESS ---
HPI - Weakness General Chief complaint: Weakness Stated complaint: not acting to her normal Time Seen by Provider: 10/13/24 12:01 History of Present Illness HPI Narrative: 84-year-old female with a history of MS presenting with increased weakness. Patient is coming from assisted living. Her daughter is at bedside and helps with the history. She has been increasingly weak over the last week or 2. She has been requiring 2 person assist and baseline she is able to transfer from her wheelchair to chairs by herself. Assisted living became concerned so they called EMS to bring her in today. Patient denies complaints other than chronic pain in her lower legs. Related Data Home Medications Medication Instructions Recorded Confirmed magnesium hydroxide 400 mg/5 mL 30 ml PO DAILY PRN Constipation 06/03/24 10/10/24 oral suspension (Milk of Magnesia) Allergies Allergy/AdvReac Type Severity Reaction Status Date / Time No Known Allergies Allergy Unknown Verified 10/10/24 11:38 Review of Systems Review of Systems: All systems reviewed & are unremarkable except as noted in HPI and below PMFSH Past Medical History Medical History Hypertension Multiple sclerosis Multiple sclerosis Multiple sclerosis Osteoarthritis of left knee Seizure disorder Seizures Vitamin D deficiency Surgical History Surgical History Deficient knowledge of hysterectomy History of hysterectomy History of open reduction and internal fixation (ORIF) procedure Repair of right thumb fracture. Family History Family History Father Family history of premature coronary heart disease, Onset Age: 69 Mother Family history of Alzheimer's disease, Onset Age: 67 Sibling Multiple sclerosis Social History Social History Social History: Healthcare power of life skills instructor: Manan Paula, son. Code status: Full code. Smoking status: Never smoker Second hand tobacco smoke exposure: No Alcohol intake: current Alcohol use details: Rare Substance use: never Substance use type: does not use Do You Feel Safe in your Home?: Yes Lack of Transportation: YES Lack of Food: Never True Current Housing: I Have Housing Concerned About Future Housing: No Difficulty Paying Gas/Electric Bills: No Difficulty Paying for Meds: No Currently Unemployed: No Education: Associate Degree Difficulty w/ Childcare or Family Care: No Living arrangements: alone Additional living arrangements comments: Lives in her own apartment in [place]. Three children who all live out of town. 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 Gender identity (if verbalized by the patient): Female Spiritual care concerns: No Agree to blood products: Yes Exam Narrative: GENERAL: Nontoxic, no acute distress, pleasant cooperative HEAD: Normocephalic, atraumatic. EYES: PERRLA and EOMI. ENT: Mucous membranes moist. NECK: Supple. CHEST: Clear to auscultation. No respiratory distress. HEART: Regular rate and rhythm ABDOMEN: Soft, nontender, nondistended EXTREMITIES: Normal range of motion SKIN: Warm, dry, no rash. NEURO: Alert and oriented x3. PSYCH: Normal mood and affect. Course Vital Signs Vital signs: Vital Signs Pulse Rate 69 10/13/24 11:25 Respiratory Rate 14 10/13/24 11:25 Temperature 96.4 F L 10/13/24 11:26 Pulse Rate 68 10/13/24 12:32 Respiratory Rate 18 10/13/24 12:31 Blood Pressure 161/87 H 10/13/24 11:31 Pulse Oximetry 97 10/13/24 12:31 Oxygen Delivery Room Air 10/13/24 11:26 MDM - Weakness MDM Narrative Medical decision making narrative: 84-year-old female presenting with increased generalized weakness. Vitals are stable. Exam remarkable for the above. Blood work without significant abnormality. Chest x-ray without acute abnormalities. UA is concerning for UTI. Patient received a L of fluids and IV Rocephin. Feel she is safe for outpatient management which is very much what she would prefer. Discussed appropriate supportive care and return precautions. Will send in for Keflex. Discharged in stable condition. Differential Diagnosis Differential diagnosis: Likely dehydration and other (UTI, generalized weakness) Medical Records Attestation: I reviewed the patient's medical records. Lab Data Attestation: I reviewed the patient's lab results. 10/13/24 12:26 10/13/24 12:26 Labs: Lab Results 10/13/24 10/13/24 Range/Units 12: 12:53 WBC 3.8 L (4.5-10.0) K/mm3 RBC 3.87 L (4.2-5.4) M/mm3 Hgb 10.6 L (12.0-15.0) g/dL Hct 34.3 L (37.0-47.0) % MCV 88.6 (80-100) fl MCH 27.4 (26-34) pg MCHC 30.9 L (32-36) g/dl RDW 15.3 H (11.5-14.5) % Plt Count 202 (150-375) k/mm3 MPV 9.2 (7.4-10.4) fl Immature Gran % (Auto) 0.3 (0-0.5) % Neut % (Auto) 71.4 (45.5-73.1) % Lymph % (Auto) 16.0 L (18.3-44.2) % [place] % (Auto) 9.9 H (2.6-8.5) % Eos % (Auto) 1.6 (0-4.4) % Baso % (Auto) 0.8 (0.2-1.2) % Lymph # (Auto) 0.61 L (0.9-3.2) K/mm3 [place] # (Auto) 0.4 (0.1-0.6) K/mm3 Eos # (Auto) 0.1 (0-0.3) K/mm3 Baso # (Auto) 0.0 (0.0-0.1) K/mm3 Abs Immat Gran (auto) 0.01 (0.00-0.031) K/mm3 Absolute Neuts (auto) 2.7 (1.3-6.7) K/mm3 Absolute Nucleated RBC 0.000 (0.0-0.012) K/mm3 Nucleated RBC % 0.0 (0.0-0.2) % PT 13.2 (11.1-14.7) Seconds INR 1.0 APTT 28.8 (22.3-36.8) Seconds Sodium 136 L (137-145) mmol/L Potassium 4.1 (3.4-5.0) mmol/L Chloride 105 (98-107) mmol/L Carbon Dioxide 25 (22-30) mmol/L Anion Gap 6 (4-12) mmol/L BUN 16 (7-17) mg/dL Creatinine 0.60 L (0.7-1.0) mg/dL Estim Creat Clear Calc 43 ml/min Estimated GFR > 60 (59 - ) Glucose 83 (65-110) mg/dL Calcium 9.2 (8.4-10.2) mg/dL Total Bilirubin 0.8 (0.2-1.3) mg/dL AST 35 (14-36) U/L ALT 14 (6-35) U/L Alkaline Phosphatase 79 (38-126) U/L Troponin I < 0.012 (0.000-0.034) ng/mL NT-Pro-B Natriuret Pep 211 H (19.9-100) pg/mL Total Protein 7.0 (6.3-8.2) g/dL Albumin 4.0 (3.5-5.1) g/dL Urine Color Yellow (Yellow) Urine Appearance Turbid H (Clear) Urine pH 7.0 (5.0-9.0) Ur Specific [place] 1.018 (1.001-1.035) Urine Protein Trace (Negative) mg/dL Urine Glucose (UA) Negative (Negative) mg/dL Urine Ketones Negative (Negative) mg/dL Ur Blood (Man) 1+ H (Negative) Urine Nitrate Positive H (Negative) Urine Bilirubin Negative (Negative) Urine Urobilinogen 1.0 (<2.0) mg/dL Leukocyte Esterase Rfl 3+ H (Negative) MIQUEL/UL Urine RBC 11-20 H (0-2) /hpf Urine WBC >100 H (0-3) /hpf Ur Squamous Epith Cells None seen (Few) /hpf Urine Bacteria 4+ H /hpf Urine Casts 3-5 Influenza A (RT-PCR) Negative (Negative) Influenza B (RT-PCR) Negative (Negative) RSV (RT-PCR) Negative (Negative) SARS-CoV-2 RNA (RT-PCR) Negative (Negative) Imaging Data Radiologist's impression: ITS Impressions Chest X-Ray 10/13/24 13:33 IMPRESSION: 1. No acute cardiopulmonary disease. Critical Care Time Critical Care Time Critical Care Time: No Discharge Plan Discharge Clinical Impression: UTI (urinary tract infection), Generalized weakness Patient Disposition: Home, Self-Care Condition: Stable Instructions: Antibiotic Form, Urinary Tract Infection in Older Adults (ED) Additional Instructions: We are treating you for a UTI. Please complete the antibiotics as prescribed. Please follow-up closely with your PCP. If your symptoms worsen or other concerning symptoms arise, please return to the ER. Prescriptions: New cephalexin 500 mg capsule 500 mg PO Q12H 7 Days Qty: 14 0RF No Action (DME) Elbow wrap See Rx Instructions .Route .MEDSUPPLY Qty: 1 0RF Rx Instructions: Pt to have right elbow wrapped daily to help with bursitis. magnesium hydroxide [Milk of Magnesia] 400 mg/5 mL Suspension 30 ml PO DAILY PRN (Reason: Constipation) sulfamethoxazole-trimethoprim 800-160 mg tablet 1 tablet PO Q12HR Qty: 14 0RF acetaminophen 325 mg tablet 650 mg PO QHS PRN (Reason: pain) Qty: 180 1RF Rx Instructions: DUE FOR APPOINTMENT IN AUGUST Senna Plus 8.6-50 mg capsule 1 tab-cap PO BID Qty: 180 1RF potassium chloride 10 mEq capsule, extended release 10 meq PO DAILY Qty: 90 1RF levothyroxine 75 mcg tablet 75 mcg PO DAILY Qty: 90 1RF levetiracetam [Keppra] 500 mg tablet 500 mg PO Q12HR Qty: 180 1RF aspirin [Children's Aspirin] 81 mg tablet,chewable 81 mg PO BID Qty: 90 1RF ascorbic acid (vitamin C) 500 mg tablet 500 mg PO DAILY Qty: 90 1RF tramadol 50 mg tablet 50 mg PO TID Qty: 90 5RF Rx Instructions: during the day. Not when she is asleep at night. gabapentin 100 mg capsule 200 mg PO TID Qty: 180 6RF Rx Instructions: TAKE 2 CAPSULES BY MOUTH 3 TIMES A DAY cholecalciferol (vitamin D3) 1,250 mcg (50,000 unit) capsule 1,250 mcg PO WEEKLY Qty: 14 3RF Follow-up/Referrals: Arti Barrientos MD [Primary Care Provider] -
[2024-10-13 13:12] LABS: Influenza A QL RT-PCR Negative (Negative); Influenza B QL RT-PCR Negative (Negative); RSV RNA, RT-PCR Negative (Negative); SARS-CoV-2 RNA PCR Negative (Negative)
[2024-10-13 13:15] LABS: NT Pro B Type Natriuretic Pept 211 pg/mL (19.9-100); Troponin I < 0.012 ng/mL (0.000-0.034)
[2024-10-13] MEDS: SODIUM CHLORIDE 0.9% IV 1,000 ML 999 ML IV CONT (13:31)
[2024-10-13] MEDS: cefTRIAXone 2 GM/NS 100 ML 2 GM/100 ML BAG IVPB (13:59)
[2024-10-13] MEDS: traMADol HCL (*CRX) 50 MG TABLET PO (14:39)
== END 2024-10-13 16:52 ==
PROVIDERS: Emergency Provider Emergency Medicine; PCP Family Medicine
DX: N39.0 Urinary tract infection, site not specified (principal); R53.1 Weakness; Z20.822 Contact with and (suspected) exposure to COVID-19; G40.909 Epilepsy, unspecified, not intractable, without status epilepticus; G35 Multiple sclerosis; M79.662 Pain in left lower leg; M79.661 Pain in right lower leg; G89.29 Other chronic pain; I10 Essential (primary) hypertension; E55.9 Vitamin D deficiency, unspecified; M17.12 Unilateral primary osteoarthritis, left knee; Z79.899 Other long term (current) drug therapy
CPT/HCPCS: 36415; 71045; 80053; 81001; 83880; 84484; 85025; 85610; 85730; 87086; 87181; 87637; 96361; 96365; 99284; A9270; J0696; J7030

== ENCOUNTER 2024-10-27 11:15 | Outpatient (NON) | payer MEDICARE, SELFPAY | END 2024-10-27 11:16 | disposition home or self-care (01) | LOC: ANHGOSHLAB 11:15 | PROVIDERS: PCP Family Medicine; Visit Provider Student in an Organized Health Care Education/Training Program | DX: R82.90 Unspecified abnormal findings in urine (principal) | CPT/HCPCS: 87086 ==

== ENCOUNTER 2025-04-26 11:15 | Outpatient (CLI) | payer MEDICARE, SELFPAY ==
--- OUTSIDE RECORDS SUMMARY | 2025-04-26 12:21 | XMS_ITS | Encounter Summary ---
Author Organization [employer] Address [address] [place] [address] Care Team Providers Care Infertility Nurse Name Role Phone Jacqueline Sethi MD Primary Care Provider +1- [phone] Encounter Details Date Type Department Care Team (Late st Contact Info) Description 11/06/2003 Outpatient [facility] Division of Neurology [address] [address] [address] Debora Bailey MD [address] [facility] [address] [place] [address] Social History Tobacco Use Types Packs/Day Years Used Date Smoking Tobacco: Never Assessed Comments Unknown Sex and Gender Information Value Date Recorded Sex Assigned at Not on file 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
--- OUTSIDE RECORDS SUMMARY | 2025-04-26 12:21 | XMS_ITS | Encounter Summary ---
Author Organization [employer] Address [address] [place] [address] Care Team Providers Care Stone Rigger Name Role Phone Jacqueline Sethi MD Primary Care Provider +1- [phone] Encounter Details Date Type Department Care Team (Late st Contact Info) Description 09/22/2006 Outpatient [facility] Division of Neurology [address] [address] [address] Debora Bailey MD [address] [facility] [address] [place] [address] Social History Tobacco Use Types Packs/Day Years Used Date Smoking Tobacco: Never Assessed Comments Unknown Sex and Gender Information Value Date Recorded Sex Assigned at Not on file 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
--- OUTSIDE RECORDS SUMMARY | 2025-04-26 12:21 | XMS_ITS | Encounter Summary ---
Author Organization [facility] Address [address] [place] [address] Care Team Providers Care Mental Health Specialist Name Role Phone Jacqueline Sethi MD Primary Care Provider +1- [phone] Encounter Details Date Type Department Care Team (Latest Contact Info) Description 06/19/2009 Outpatient Historical [facility] Bailey, Debora Flores MD [address] [facility] [address] [place] [address] Multiple Sclerosis (CMS/HCC) Social History Tobacco Use Types Packs/Day Years Used Date Smoking Tobacco: Never Assessed Comments Unknown Sex and Gender Information Value Date Recorded Sex Assigned at Not on file 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
--- OUTSIDE RECORDS SUMMARY | 2025-04-26 12:21 | XMS_ITS | Encounter Summary ---
Author Organization [facility] Address [address] [place] [address] Care Team Providers Care Tribal Judge Name Role Phone Jacqueline Sethi MD Primary Care Provider +1- [phone] Encounter Details Date Type Department Care Team (Latest Contact Info) Description 01/08/2005 Outpatient Historical HIS [facility] Bailey, Debora Flores MD [address] [facility] [address] [place] [address] AFTERCARE [facility] USE MEDICATN (Primary Dx) Social History Tobacco Use Types Packs/Day Years Used Date Smoking Tobacco: Never Assessed Comments Unknown Sex and Gender Information Value Date Recorded Sex Assigned at Not on file Legal Sex Female 4:35 AM JUMPBASTING MACHINE OPERATOR Gender Identity Not on file Sexual Orientation Not on file documented as of this encounter Plan of Treatment Not on file documented as of this encounter Procedures Procedure Name Priority Date/Time Associated Diagnosis Comments CBC WITH DIFFERENTIAL Routine 01/08/2005 3:24 PM JUMPBASTING MACHINE OPERATOR CBC WITH DIFFERENTIAL Routine 01/08/2005 3:24 PM JUMPBASTING MACHINE OPERATOR COMPREHENSIVE METABOLIC PANEL Routine 01/08/2005 3:24 PM JUMPBASTING MACHINE OPERATOR documented in this encounter Results * CBC WITH DIFFERENTIAL (01/08/2005 3:24 PM JUMPBASTING MACHINE OPERATOR) NEUTROPHILS 59 45 - 70 % INTERFAC E SYSTEM LYMPHOCYTES 27 16 - 45 % INTERFAC E SYSTEM MONOCYTES 9 3 - 13 % INTERFACE SYSTEM EOSINOPHILS 5 0 - 7 % INTERFAC E SYSTEM BASOPHILS 0 0 - 2 % INTERFACE SYSTEM NEUTROPHIL ABSOLUTE 3.48 1.90 - 7.00 K/uL INTERFACE SYSTEM LYMPHOCYTE ABSOLUTE 1.59 0.70 - 4.50 K/uL INTERFACE SYSTEM MONOCYTE ABSOLUTE 0.55 0.10 - 1.30 K/uL INTERFACE SYSTEM EOSINOPHIL ABSOLUTE 0.29 0.00 - 0.70 K/uL INTERFACE SYSTEM BASOPHILS ABSOLUTE 0.02 0.00 - 0.20 K/uL INTERFACE SYSTEM 01/08/2005 3:24 PM JUMPBASTING MACHINE OPERATOR Debora Bailey MD HEMATOLOGY ORDERABLES Final R esult Performing Organization Address City/[facility] de Phone Number INTERFACE SYSTEM Refer to clinic/hospital department * (ABNORMAL) CBC WITH DIFFERENTIAL (01/08/2005 3:24 PM JUMPBASTING MACHINE OPERATOR) WBC 5.9 4.0 - 9.8 K/uL INTERFACE SYSTEM RBC 4.24 3.90 - 4.90 M/uL INTERFACE SYSTEM HEMOGLOBIN 12.8 11.8 - 14.8 g/dL INTERFACE SYSTEM HEMATOCRIT 39.6 35.5 - 44.0 % INTERFACE SYSTEM MCV 93.4 82.0 - 99.0 fL INTERFACE SYSTEM MCH 30.2 27.2 - 32.6 pg INTERFACE SYSTEM MCHC 32.3 31.5 - 35.5 % INTERFACE SYSTEM RDW 13.3 11.5 - 14.5 % INTERFACE SYSTEM RDW-STDEV 45.1 37.1 - 48.7 fL INTERFACE SYSTEM PLATELETS 294 140 - 350 K/uL INTERFACE SYSTEM MPV 8.9(L) 9.3 - 12.4 fL INTERFACE SYSTEM 01/08/2005 3:24 PM JUMPBASTING MACHINE OPERATOR Debora Bailey MD HEMATOLOGY ORDERABLES Final R esult Performing Organization Address City/[facility] Co de Phone Number INTERFACE SYSTEM Refer to clinic/hospital department * COMPREHENSIVE METABOLIC PANEL (01/08/2005 3:24 PM JUMPBASTING MACHINE OPERATOR) GLUCOSE 84 65 - 109 mg/dL INTERFACE SYSTEM Comment:faxed 1630 CREATININE 0.8 0.4 - 1.2 mg/dL INTERFACE SYSTEM CALCIUM 9.3 8.6 - 10.2 mg/dL INTERFACE SYSTEM AST 18 12 - 32 U/L INTERFACE SYSTEM ALKALINE PHOSPHATASE 65 35 - 104 U/L INTERFACE SYSTEM BUN 17 6 - 20 mg/dL INTERFACE SYSTEM BILIRUBIN TOTAL 0.4 0.2 - 1.0 mg/dL INTERFACE SYSTEM ALBUMIN 4.3 3.4 - 4.8 g/dL INTERFACE SYSTEM TOTAL PROTEIN 7.5 6.3 - 8.6 g/dL INTERFACE SYSTEM ALT 13 0 - 31 U/L INTERFACE SYSTEM SODIUM 139 135 - 145 mmol/L INTERFACE SYSTEM POTASSIUM 4.4 3.5 - 4.9 mmol/L INTERFACE SYSTEM CHLORIDE 102 96 - 108 mmol/L INTERFACE SYSTEM CO2 28 22 - 30 mmol/L INTERFACE SYSTEM 01/08/2005 3:24 PM JUMPBASTING MACHINE OPERATOR us Debora Bailey MD CHEMISTRY ORDERABLES Final Re sult INTERFACE SYSTEM Refer to clinic/hospital department documented in this encounter Visit Diagnoses Diagnosis Encounter for long-term (current) use of other medications- Primary documented in this encounter Care Teams Tribal Judge Relationship Specialty Start Date End Date Jacqueline Sethi MD PCP - General Family Practice 04/21/13 documented as of this encounter
--- OUTSIDE RECORDS SUMMARY | 2025-04-26 12:21 | XMS_ITS | Encounter Summary ---
Author Organization [facility] Address [address] [place] [address] Care Team Providers Care Mat Machine Operator Name Role Phone Jacqueline Sethi MD Primary Care Provider +1- [phone] Encounter Details Date Type Department Care Team (Latest Contact Info) Description 03/30/2007 Outpatient Historical [facility] Bailey, Debora Flores MD [address] [facility] [address] [place] [address] Multiple Sclerosis (CMS/HCC) (Primary Dx) Social History Tobacco Use Types Packs/Day Years Used Date Smoking Tobacco: Never Assessed Comments Unknown Sex and Gender Information Value Date Recorded Sex Assigned at Not on file 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 Gender Identity Not on file Sexual Orientation Not on file documented as of this encounter Plan of Treatment Not on file documented as of this encounter Procedures Procedure Name Priority Date/Time Associated Diagnosis Comments CBC WITH DIFFERENTIAL Routine 03/30/2007 12:24 PM CDT CBC WITH DIFFERENTIAL Routine 03/30/2007 12:24 PM CDT COMPREHENSIVE METABOLIC PANEL Routine 03/30/2007 12:24 PM CDT documented in this encounter Results * (ABNORMAL) CBC WITH DIFFERENTIAL (03/30/2007 12:24 PM CDT) NEUTROPHILS 58 45 - 70 % INTERFAC E SYSTEM LYMPHOCYTES 24 16 - 45 % INTERFAC E SYSTEM MONOCYTES 10 3 - 13 % INTERFACE SYSTEM EOSINOPHILS 8(H) 0 - 7 % INTERFAC E SYSTEM BASOPHILS 1 0 - 2 % INTERFACE SYSTEM NEUTROPHIL ABSOLUTE 3.31 1.90 - 7.00 K/uL INTERFACE SYSTEM LYMPHOCYTE ABSOLUTE 1.39 0.70 - 4.50 K/uL INTERFACE SYSTEM MONOCYTE ABSOLUTE 0.54 0.10 - 1.30 K/uL INTERFACE SYSTEM EOSINOPHIL ABSOLUTE 0.44 0.00 - 0.70 K/uL INTERFACE SYSTEM BASOPHILS ABSOLUTE 0.03 0.00 - 0.20 K/uL INTERFACE SYSTEM 03/30/2007 12:2 4 PM CDT Debora Bailey MD HEMATOLOGY ORDERABLES Edited INTERFACE SYSTEM Refer to clinic/hospital department * CBC WITH DIFFERENTIAL (03/30/2007 12:24 PM CDT) WBC 5.7 4.0 - 9.8 K/uL INTERFACE SYSTEM RBC 4.59 3.90 - 4.90 M/uL INTERFACE SYSTEM HEMOGLOBIN 13.8 11.8 - 14.8 g/dL INTERFACE SYSTEM HEMATOCRIT 41.3 35.5 - 44.0 % INTERFACE SYSTEM MCV 90.0 82.0 - 99.0 fL INTERFACE SYSTEM MCH 30.1 27.2 - 32.6 pg INTERFACE SYSTEM MCHC 33.4 31.5 - 35.5 % INTERFACE SYSTEM RDW 13.5 11.5 - 14.5 % INTERFACE SYSTEM RDW-STDEV 44.2 37.1 - 48.7 fL INTERFACE SYSTEM PLATELETS 329 140 - 350 K/uL INTERFACE SYSTEM MPV 9.6 9.3 - 12.4 fL INTERFACE SYSTEM 03/30/2007 12:2 4 PM CDT Debora Bailey MD HEMATOLOGY ORDERABLES Edited INTERFACE SYSTEM Refer to clinic/hospital department * COMPREHENSIVE METABOLIC PANEL (03/30/2007 12:24 PM CDT) GLUCOSE 91 65 - 99 mg/dL INTERFACE SYSTEM CREATININE 0.59 0.51 - 0.95 mg/dL INTERFACE SYSTEM CALCIUM 9.6 8.4 - 10.2 mg/dL INTERFACE SYSTEM ALKALINE PHOSPHATASE 93 35 - 104 U/L INTERFACE SYSTEM AST 30 12 - 32 U/L INTERFACE SYSTEM ALT 19 0 - 31 U/L INTERFACE SYSTEM TOTAL PROTEIN 7.8 6.3 - 8.6 g/dL INTERFACE SYSTEM ALBUMIN 4.7 3.4 - 4.8 g/dL INTERFACE SYSTEM BILIRUBIN TOTAL 0.4 0.2 - 1.0 mg/dL INTERFACE SYSTEM BUN 10 6 - 20 mg/dL INTERFACE SYSTEM SODIUM 141 135 - 145 mmol/L INTERFACE SYSTEM POTASSIUM 4.2 3.5 - 4.9 mmol/L INTERFACE SYSTEM CHLORIDE 103 96 - 108 mmol/L INTERFACE SYSTEM CO2 29 22 - 30 mmol/L INTERFACE SYSTEM GFR, >60 >=60 mL/min/1.7 sq meter INTERFACE SYSTEM GFR >60 >=60 mL/min/1.7 sq meter INTERFACE SYSTEM Comment: Estimated GFR rate interpretative information for both Americans and non- Americans is available on the [facility] Intranet at: [email or web address] Select: Lab Policies and Procedures Select: Reference Ranges - GFR 03/30/2007 12:2 4 PM CDT us Debora Bailey MD CHEMISTRY ORDERABLES Edited INTERFACE SYSTEM Refer to clinic/hospital department documented in this encounter Visit Diagnoses Diagnosis Multiple sclerosis (CMS/HCC)- Primary Multiple sclerosis documented in this encounter Care Teams Mat Machine Operator Relationship Specialty Start Date End Date Jacqueline Sethi MD PCP - General Family Practice 04/21/13 documented as of this encounter
--- OUTSIDE RECORDS SUMMARY | 2025-04-26 12:21 | XMS_ITS | Encounter Summary ---
Author Organization [employer] Address 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
--- OUTSIDE RECORDS SUMMARY | 2025-04-26 12:21 | XMS_ITS | Encounter Summary ---
Author Organization [employer] Address [address] [place] [address] Care Team Providers Care Line Dancer Name Role Phone Jacqueline Sethi MD Primary Care Provider +1- [phone] Encounter Details Date Type Department Care Team (Late st Contact Info) Description 03/30/2007 Outpatient [facility] Division of Neurology [address] [facility] [address] [address] Debora Bailey MD [address] [facility] [address] [place] [address] Social History Tobacco Use Types Packs/Day Years Used Date Smoking Tobacco: Never Assessed Comments Unknown Sex and Gender Information Value Date Recorded Sex Assigned at Not on file Legal Sex Female 4:35 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
--- OUTSIDE RECORDS SUMMARY | 2025-04-26 12:21 | XMS_ITS | Encounter Summary ---
Author Organization [employer] Address [address] [place] [address] Care Team Providers Care Checker Loader Name Role Phone Jacqueline Sethi MD Primary Care Provider +1- [phone] Encounter Details Date Type Department Care Team (Late st Contact Info) Description 08/10/2002 Outpatient [facility] Division of Neurology [address] [facility] [address] [address] Debora Bailey MD [address] [facility] [address] [place] [address] Social History Tobacco Use Types Packs/Day Years Used Date Smoking Tobacco: Never Assessed Comments Unknown Sex and Gender Information Value Date Recorded Sex Assigned at Not on file Legal Sex Female 4:35 AM STATISTICAL ENGINEER Gender Identity Not on file Sexual Orientation Not on file documented as of this encounter Plan of Treatment Not on file documented as of this encounter Visit Diagnoses Not on filedocumented in this encounter Care Teams Checker Loader Relationship Specialty Start Date End Date Jacqueline Sethi MD PCP - General Family Practice 04/21/13 documented as of this encounter
--- OUTSIDE RECORDS SUMMARY | 2025-04-26 12:21 | XMS_ITS ---
Author Organization [facility] Care Team Providers Care Political Science Chair Name Role Phone Gissell An Unavailable Unavailable Lupillo Lujan Unavailable Unavailable Allergies and adverse reactions No Known Allergies Care Team Name Role Address Phone Organization Dates Lupillo Lujan PCP [address] [place], [place], [facility], [facility] (Office): : [facility] 12/26/2022 - 02/06/2023 Gissell An [address] [place] [address], [facility] (Office): [facility] 12/26/2022 - 02/06/2023 Immunizations Immunization Status Vaccine Details Vaccine Code CodeSystem Ugo e Notes SARS-COV-2 (COVID-19) completed SARS-COV-2 (COVID-19) vaccine, D614, prefusion spike recombinant protein subunit (CoV2 preS dTM), AS03 adjuvant added, preservative free, 5mcg/0.5mL dose Step 2 of Multi-step with next step required 225 CVX created date: 01/01/2023 administered date: 02/06/2021 SARS-COV-2 (COVID-19) completed SARS-COV-2 (COVID-19) vaccine, D614, prefusion spike recombinant protein subunit (CoV2 preS dTM), AS03 adjuvant added, preservative free, 5mcg/0.5mL dose Step 1 of Multi-step with next step required 225 CVX created date: 01/01/2023 administered date: 01/09/2021 SARS-COV-2 (COVID-19 Booster) completed SARS-COV-2 (COVID-19) vaccine, mRNA, spike protein, LNP, preservative free, 100 mcg/0.5mL dose or 50 mcg/0.25mL dose 207 CVX created date: 01/01/2023 administered date: 11/06/2021 Mental Status Section Date Assessment Total Score Description 02/06/2023 CAM 0 No delirium ind icated 12/30/2022 BIMS 12 moderate cognit sage impairment CAM 0 No delirium ind icated PHQ-9 10 moderate depres danna Problems Problem # Description Date of onset Resolved Date Code CodeSystem Concern Status 1 MULTIPLE SCLEROSIS 12/28/[address] active 2 CONTUSION OF LEFT HIP, SUBSEQUENT ENCOUNTER 12/25/[address] active 3 ESSENTIAL (PRIMARY) HYPERTENSION 12/25/[address] active 4 HYPOTHYROIDISM, UNSPECIFIED 12/25/[address] active 5 LACERATION WITHOUT FOREIGN BODY OF SCALP, SUBSEQUENT ENCOUNTER 12/25/[address] active 6 RHABDOMYOLYSIS 12/25/[address] ac tive 7 UNSPECIFIED CONVULSIONS 12/25/[address] active 8 UNSPECIFIED INJURY OF HEAD, SUBSEQUENT ENCOUNTER 12/25/[address] active 9 VITAMIN D DEFICIENCY, UNSPECIFIED 12/25/[address] active Reason for Referral No Reasons for Referral Entered Social History Social History Observation Description Start Date End Date Code Code System Current Smoking Status Tobacco smoking consumption unknown 983979024 SNOMED CT Sex Assigned At Female 1940 [address]-5 [facility] Gender Identity Vital Signs Code Code System Vitals Name Values and Units Timing Information 24888-4 LOINC Pain Level Value=3.0 02/05/2023 9279-1 LOINC Respiratory Rate Value=16.0 Units=/m in 02/04/2023 8462-4 [facility] Blood Pressure-Diastolic Value=82 Un its=mmHg 02/04/2023 8480-6 [facility] Blood Pressure-Systolic Jjjiz=840 Un its=mmHg 02/04/2023 8310-5 [facility] Body Temperature Value=97.6 Units= F 02/04/2023 8867-4 [facility] Heart rate Value=74.0 Units=/min 30897-9 [facility] O2 % BldC Oximetry Value=96.0 Units= % 02/04/2023 96446-7 [facility] Weight Qflyc=609.6 Units=Lbs 8302-2 [facility] Height Value=64.0 Units=Inches 12/29/2022
--- OUTSIDE RECORDS SUMMARY | 2025-04-26 12:21 | XMS_ITS | Encounter Summary ---
Author Organization [employer] Address [address] [place] [address] Care Team Providers Care Invasive Manager Name Role Phone Jacqueline Sethi MD Primary Care Provider +1- [phone] Encounter Details Date Type Department Care Team (Late st Contact Info) Description 07/20/2001 Outpatient [facility] Division of Neurology [address] [facility] [address] [address] Debora Bailey MD [address] [facility] [address] [place] [address] Social History Tobacco Use Types Packs/Day Years Used Date Smoking Tobacco: Never Assessed Comments Unknown Sex and Gender Information Value Date Recorded Sex Assigned at Not on file 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
--- OUTSIDE RECORDS SUMMARY | 2025-04-26 12:21 | XMS_ITS | Encounter Summary ---
Author Organization [employer] Address [address] [place] [address] Care Team Providers Care Clerk Funeral Detail Name Role Phone Jacqueline Sethi MD Primary Care Provider +1- [phone] Encounter Details Date Type Department Care Team (Late st Contact Info) Description 01/08/2005 Outpatient [facility] Division of Neurology [address] [facility] [address] [address] Debora Bailey MD [address] [facility] [address] [place] [address] Social History Tobacco Use Types Packs/Day Years Used Date Smoking Tobacco: Never Assessed Comments Unknown Sex and Gender Information Value Date Recorded Sex Assigned at Not on file 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
--- OUTSIDE RECORDS SUMMARY | 2025-04-26 12:21 | XMS_ITS | Encounter Summary ---
Author Organization [employer] Address [address] [place] [address] Care Team Providers Care Assistant Professor Of Chemistry Name Role Phone Jacqueline Sethi MD Primary Care Provider +1- [phone] Encounter Details Date Type Department Care Team (Late st Contact Info) Description 11/02/2007 Outpatient [facility] Division of Neurology [address] [facility] [address] [address] Debora Bailey MD [address] [facility] [address] [place] [address] Social History Tobacco Use Types Packs/Day Years Used Date Smoking Tobacco: Never Assessed Comments Unknown Sex and Gender Information Value Date Recorded Sex Assigned at Not on file Legal Sex Female 4:35 AM DIRECTOR OF INDUSTRIAL RELATIONS Gender Identity Not on file Sexual Orientation Not on file documented as of this encounter Plan of Treatment Not on file documented as of this encounter Visit Diagnoses Not on filedocumented in this encounter Care Teams Assistant Professor Of Chemistry Relationship Specialty Start Date End Date Jacqueline Sethi MD PCP - General Family Practice 04/21/13 documented as of this encounter
--- OUTSIDE RECORDS SUMMARY | 2025-04-26 12:21 | XMS_ITS | Clinical Summary ---
Author Organization [facility] Address [address] [place] [address] Phone Care Team Providers Care Balance Weigher Name Role Phone Jacqueline Sethi MD Primary Care Provider +1- [phone] Allergies No known active allergies Medications ibuprofen (ADVIL) 200 mg Oral tablet Take 200 mg by mouth every 4 hours as needed. Active cholecalciferol , Vitamin D3, (VITAMIN D3) 1,000 unit Capsule Take 1,000 Units by mouth daily. Active lisinopril (PRINIVIL) 10 mg tablet Take 1 Tab (10 mg) by mouth daily. 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 Never treated with immunomodulators. Propoxyphene 10/2007, Tramadol 50 mg 10/2007, Ibuprofen 03/2007, Neurontin 2001. 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 Gender Identity Not on file Sexual Orientation Not on file Last Filed Vital Signs Vital Sign Reading Time Taken Comments Blood Pressure 144/76 05/01/2015 3:27 PM CDT Pulse 73 05/01/2015 3:27 PM CDT Temperature - - Respiratory Rate - - Oxygen Saturation - - Inhaled Oxygen Concentration - - Weight 49.9 kg (110 lb) 05/01/2015 3:27 PM CDT Height 165.1 cm (5' 5) 05/01/2015 3:27 PM CDT Body Mass Index 18.3 05/01/2015 3:27 PM CDT Plan of Treatment Health Maintenance Due Date Last Done Comments DTAP/TDAP/TD VACCINES (1 - Tdap) 1961 PNEUMOCOCCAL VACCINE 50+ YEARS (1 of 1 - PCV) 07/08/19 92 ZOSTER VACCINE (1 of 2) 1992 OSTEOPOROSIS SCREENING 2007 RSV VACCINE (60+ or ) (1 - 1-dose 75+ series) 2017 INFLUENZA VACCINE (#1) 2024 Insurance Care Teams Balance Weigher Relationship Specialty Start Date End Date Jacqueline Sethi MD PCP - General Family Practice 04/21/13
[2025-04-26 13:09] LABS: Basophils Percent Auto 0.7 % (0.2-1.2); Eosinophils Absolute Auto 0.1 K/mm3 (0-0.3); Eosinophils Percent Auto 1.2 % (0-4.4); Hematocrit 37.7 % (37.0-47.0); Hemoglobin 11.1 g/dL (12.0-15.0); Immature Granulocyte Absolute 0.01 K/mm3 (0.00-0.031); Immature Granulocyte Percent A 0.2 % (0-0.5); Lymphocytes Absolute Auto 0.76 K/mm3 (0.9-3.2); Lymphocytes Percent Auto 17.8 % (18.3-44.2); Mean Corpuscular HGB Conc 29.4 g/dl (32-36); Mean Corpuscular Hemoglobin 25.7 pg (26-34); Mean Corpuscular Volume 87.3 fl (80-100); Mean Platelet Volume 9.2 fl (7.4-10.4); Monocytes Absolute Auto 0.4 K/mm3 (0.1-0.6); Monocytes Percent Auto 8.7 % (2.6-8.5); Neutrophils Absolute Auto 3.1 K/mm3 (1.3-6.7); Neutrophils Percent Auto 71.4 % (45.5-73.1); Platelet Count Result 215 k/mm3 (150-375); Red Blood Count 4.32 M/mm3 (4.2-5.4); Red Cell Distribution Width 16.4 % (11.5-14.5); White Blood Count 4.3 K/mm3 (4.5-10.0)
[2025-04-26 13:44] LABS: Alanine Aminotransferase 17 U/L (6-35); Albumin Level 4.3 g/dL (3.5-5.1); Alkaline Phosphatase 81 U/L (38-126); Anion Gap 7 mmol/L (4-12); Aspartate Amino Transferase 37 U/L (14-36); Bilirubin,Total 0.5 mg/dL (0.2-1.3); Blood Urea Nitrogen 11 mg/dL (7-17); Calcium 9.5 mg/dL (8.4-10.2); Carbon Dioxide 26 mmol/L (22-30); Chloride 105 mmol/L (98-107); Estimated Glomerular Filt Rate > 60; Glucose 92 mg/dL (65-110); Potassium 5.1 mmol/L (3.4-5.0); Sodium 138 mmol/L (137-145); Total Protein 7.2 g/dL (6.3-8.2)
[2025-04-26 14:15] LABS: Hypochromasia 1+; Ovalocytes 1+; Platelet Estimate Adequate (Adequate); Schistocytes None Seen
== END 2025-04-26 11:16 | disposition home or self-care (01) ==
LOC: ANHGOSHLAB 11:15
PROVIDERS: PCP Family Medicine; Visit Provider Student in an Organized Health Care Education/Training Program
DX: E03.9 Hypothyroidism, unspecified (principal); G35 Multiple sclerosis; D64.9 Anemia, unspecified
CPT/HCPCS: 36415; 80053; 84443; 85025

== ENCOUNTER 2025-05-02 09:02 | Inpatient (IN) | payer MEDICARE, SELFPAY ==
[2025-05-02] VITALS (10 sets, daily range): BP systolic 110–176; BP diastolic 62–98; PULSE 63–84; RESP 10–18; TEMP 36.4–36.8; O2SAT 94–100
--- NOTE | ~2025-05-02 | XR_ITS ---
EXAMINATION: XR chest 1V portable 05/02/2025 13:04 INDICATION: Status post fall. Elevated troponin. PROCEDURE: AP portable chest COMPARISON: 10/13/2024 FINDINGS: The lungs are clear. Cardiomegaly. Study limited by rotation.. There are no pleural effusi ons. There is no pneumothorax suspected. There are healed right rib fractures. IMPRESSION: 1: NO ACUTE CARDIOPULMONARY DISEASE. Reviewed, dictated and finalized at location B.
--- NOTE | ~2025-05-02 | CT_ITS ---
EXAMINATION: CT brain wo con DATE: 05/02/2025 09:38 INDICATION: Fall with possible head injury TECHNIQUE: Computed tomography (CT) of the head was performed without intravenous contrast. Sagittal and coronal reconstructions were performed. Dr. Zainab Joiner head The dose-length product was 605.33 mGy-cm. COMPARISON: head CT dated 06/02/2024 FINDINGS: No fracture. No acute intracranial hemorrhage, acute infarction or abnormal extra axial fluid collect ion. There are multiple small old lacunar infarcts including at the left thalamus, bilateral basal ga nglia and in the white matter of the bilateral frontal lobes, right occipital parietal region and rig ht cerebellum. There is moderate scattered white matter hypoattenuation consistent with chronic small vessel ischemic disease. Symmetric prominence of the sulci and ventricles consistent with moderate a ge-appropriate diffuse cerebral volume loss. No mass/mass effect. The orbits, paranasal sinuses and m astoid air cells are normal. IMPRESSION: 1. No fracture or acute intracranial process. 2. Numerous scattered small old infarcts in the right cerebellum, bilateral cerebral hemispheres, tayler ateral basal ganglia and left thalamus. 3. Age-related changes including moderate diffuse volume loss and moderate scattered white matter hyp oattenuation consistent with chronic small vessel ischemic disease. Reviewed, dictated and finalized at location A. IMPRESSION: 1. No fracture or acute intracranial process. 2. Numerous scattered small old infarcts in the right cerebellum, bilateral cer ebral hemispheres, bilateral basal ganglia and left thalamus. 3. Age-related changes including moderate diffuse volume loss and moderate scat tered white matter hypoattenuation consistent with chronic small vessel ischemi c disease.
--- NOTE | ~2025-05-02 | CT_ITS ---
EXAMINATION: CT cervical spine wo con DATE: 05/02/2025 09:39 INDICATION: Fall with possible head injury TECHNIQUE: Computed tomography (CT) of the cervical spine was performed without intravenous contrast. Automated exposure control and iterative reconstruction technique were employed. The dose-length pro duct was 99.58 mGy-cm. 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 Bone alignment is normal. Vertebral body heights are normal. No fracture. Severe disc height loss with severe uncovertebral ost eoarthritis at C5-C6. Moderate disc height loss with additional severe uncovertebral osteoarthritis a t C3-C4. Mild disc height loss at C2-C3, C4-C5 and C7-T1 with additional severe uncovertebral osteoar thritis on the left at C4-C5 and mild to moderate osteoarthritis at many of the remaining uncovertebr al joints. Multilevel moderate and severe facet osteoarthritis throughout the cervical and visualized upper thoracic spine. Disc bulges contributing to mild central canal stenosis at C4-C5 and C5-C6. Mu ltilevel neural foraminal stenosis, moderate on the left at C3-C4 through C5-C6 and mild at many of t he remaining cervical neural foramina. Cervical soft tissues are unremarkable. Minimal biapical pleur al-parenchymal scarring. IMPRESSION: 1. Severe cervical spondylosis with no acute osseous abnormality. Reviewed, dictated and finalized at location A.
--- NOTE | ~2025-05-02 | XR_ITS ---
AP view of the pelvis and AP and lateral views of the bilateral hips Clinical history: Pain Findings: No acute fracture or dislocation is seen. Osseous alignment is anatomic. Bilateral hip and SI joint spaces are preserved. Soft tissues are unremarkable. Impression: No significant abnormality is seen. Reviewed, dictated and finalized at location . Impression: No significant abnormality is seen.
--- NOTE | 2025-05-02 09:16 | ECG_ITS ---
Test Date: 2025-05-02 09:25:03 Measurements Intervals [place] Rate: 77 P: 55 [place]: 143 QRS: 18 QRSD: 94 T: 204 QT: 414 QTc: 470 Interpretive Statements SINUS RHYTHM ST-T WAVE ABNORMALITY IN DIFFUSE LEADS- CONSIDER ISCHEMIA BASELINE ARTIFACT- II, III, AVR, AVL, AVF, V4-V6 ABNORMAL ECG Compared to ECG 06/02/2024 21:31:47 ST-T WAVE ABNORMALITY NOW PRESENT Possible ischemia now present Electronically Signed On 05-02-2025 10:12:44 CDT by Lauro Narvaez D.O.
[2025-05-02 09:32] LABS: Basophils Percent Auto 0.3 % (0.2-1.2); Eosinophils Percent Auto 0.4 % (0-4.4); Hematocrit 35.1 % (37.0-47.0); Hemoglobin 10.5 g/dL (12.0-15.0); Immature Granulocyte Absolute 0.02 K/mm3 (0.00-0.031); Immature Granulocyte Percent A 0.3 % (0-0.5); Lymphocytes Absolute Auto 0.65 K/mm3 (0.9-3.2); Lymphocytes Percent Auto 8.9 % (18.3-44.2); Mean Corpuscular HGB Conc 29.9 g/dl (32-36); Mean Corpuscular Hemoglobin 25.5 pg (26-34); Mean Corpuscular Volume 85.4 fl (80-100); Mean Platelet Volume 8.6 fl (7.4-10.4); Monocytes Absolute Auto 0.6 K/mm3 (0.1-0.6); Monocytes Percent Auto 8.1 % (2.6-8.5); Platelet Count Result 210 k/mm3 (150-375); Red Blood Count 4.11 M/mm3 (4.2-5.4); Red Cell Distribution Width 16.8 % (11.5-14.5); White Blood Count 7.3 K/mm3 (4.5-10.0)
[2025-05-02 09:42] LABS: Alanine Aminotransferase 18 U/L (6-35); Alkaline Phosphatase 76 U/L (38-126); Anion Gap 6 mmol/L (4-12); Aspartate Amino Transferase 33 U/L (14-36); Bilirubin,Total 0.5 mg/dL (0.2-1.3); Blood Urea Nitrogen 18 mg/dL (7-17); Calcium 9.2 mg/dL (8.4-10.2); Carbon Dioxide 26 mmol/L (22-30); Chloride 108 mmol/L (98-107); Creatine Kinase 191 U/L (30-135); Estimated CRCL calculation 36 ml/min; Estimated Glomerular Filt Rate > 60; Glucose 104 mg/dL (65-110); Lactic Acid Reflex 1.2 mmol/L (0.7-2.0); Magnesium 1.8 mg/dL (1.6-2.3); Potassium 3.6 mmol/L (3.4-5.0); Sodium 140 mmol/L (137-145); Total Protein 6.8 g/dL (6.3-8.2)
--- NOTE | 2025-05-02 09:46 | ED.FALL ---
HPI - Fall General Chief Complaint: Fall <GUSTAVO Flores Last Filed: 05/02/25 12:14> Stated Complaint: found on floor <GUSTAVO Flores Filed: 05/02/25 12:14> Time Seen by Provider: 05/02/25 09:05 <GUSTAVO Flores Last Filed: 05/02/25 12:14> Source: patient <GUSTAVO Flores Filed: 05/02/25 12:14> Mode of arrival: EMS <GUSTAVO Flores Filed: 05/02/25 12:14> Limitations: no limitations <GUSTAVO Flores Filed: 05/02/25 12:14> History of Present Illness HPI Narrative: Patient is an 84-year-old female, with PMH of MS, wheelchair bound, hypothyroidism, seizure disorder, who presents to the ED via EMS with c/o fall. Patient is a resident of [facility]. She reportedly had a fall today. Unsure how the fall occurred. Per EMS, it appeared as though patient was attempting to transfer from her chair to her wheelchair and fell in between. EMS reported that she was in a very awkward position on the ground, contracted with her legs near her head. It appeared as though she had hit her head. Patient is unsure. Denied LOC. Patient has no acute complaints. Denies any areas of pain. <GUSTAVO Flores Last Filed: 05/02/25 12:14> Related Data Home Medications: Home Medications ?Medication ?Instructions ?Recorded ?Confirmed ?Last Taken ?Type magnesium hydroxide 400 mg/5 mL 15 ml PO DAILY PRN Constipation 06/03/24 05/02/25 Unknown History oral suspension (Milk of Magnesia) acetaminophen 325 mg tablet 325 mg PO Q6H PRN pain 05/02/25 05/02/25 Unknown History <GUSTAVO Flores Last Filed: 05/02/25 12:14> Allergies/Adverse Reactions: Allergies Allergy/AdvReac Type Severity Reaction Status Date / Time No Known Allergies Allergy Unknown Verified 05/02/25 13:12 <Kadie Durand PA-C - Last Filed: 05/02/25 12:14> Review of Systems Review of Systems: All systems reviewed & are unremarkable except as noted in HPI. <Kadie Durand PA-C - Last Filed: 05/02/25 12:14> All systems reviewed & are unremarkable except as noted in HPI and below <Kadie Durand PA-C - Last Filed: 05/02/25 12:14> [facility] Past Medical History Medical History: Medical History (Updated 05/02/25 @ 17:03 by Arti Barrientos MD) Seizures Osteoarthritis of left knee Vitamin D deficiency Hypertension Multiple sclerosis <Kadie Durand PA-C - Last Filed: 05/02/25 12:14> Surgical History Surgical History: Surgical History History of hysterectomy History of open reduction and internal fixation (ORIF) procedure Repair of right thumb fracture. Deficient knowledge of hysterectomy <Kadie Durand PA-C - Last Filed: 05/02/25 12:14> Family History Family History: Family History Father Family history of premature coronary heart disease, Onset Age: 69 Mother Family history of Alzheimer's disease, Onset Age: 67 Sibling Multiple sclerosis <Kadie Durand PA-C - Last Filed: 05/02/25 12:14> Social History Social History: Social History Social History: Healthcare power of criminal defense attorney: Manan Paula, son. Code status: Full code. Smoking status: Never smoker Second hand tobacco smoke exposure: No Alcohol intake: former Alcohol use details: Rare Substance use: never Substance use type: does not use Do You Feel Safe in your Home?: Yes Lack of Transportation: No Lack of Food: Never True Current Housing: I Have Housing Concerned About Future Housing: No Difficulty Paying Gas/Electric Bills: No Difficulty Paying for Meds: No Currently Unemployed: No Education: High School Diploma/GED Difficulty w/ Childcare or Family Care: No Living arrangements: alone Additional living arrangements comments: Lives in her own apartment in [place]. Three children who all live out of town. 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 Gender identity (if verbalized by the patient): Female Spiritual care concerns: No Agree to blood products: Yes <Kadie Durand PA-C - Last Filed: 05/02/25 12:14> Exam Narrative: GENERAL: Elderly, thin/frail, non-toxic, in no acute distress. HEAD: Normocephalic, atraumatic. ENT: MMs dry RESPIRATORY: Airway patent, respirations nonlabored. Clear to auscultation bilaterally, no rales, rhonchi, wheezing. CARDIOVASCULAR: Regular rate and rhythm without murmurs, rubs, or gallops. ABDOMINAL: Soft, nontender, nondistended. Normoactive BS. MUSCULOSKELETAL: Moves all extremities. Extremities are contracted, but able to move. No tenderness throughout extremities or tayler hips. SKIN: Warm, dry, normal color. NEURO: A&O X3. Speech clear. Cranial nerves II-XII grossly intact. Steady gait. No ataxic movements. No focal deficits. PSYCHIATRIC: Appropriate mood and affect. Normal interaction. <Kadie Durand PA-C - Last Filed: 05/02/25 12:14> Course GROUNDS AND NURSERY SPECIALIST/PA Physician Supervision This visit was performed by both a physician and an APC. I performed all aspects of the MDM as documented. <Brent Corona MD - Last Filed: 05/02/25 17:30> Vital Signs Vital signs: Vital Signs Temperature 98.1 F 05/02/25 09:03 Pulse Rate 84 05/02/25 09:03 Respiratory Rate 17 05/02/25 09:03 Blood Pressure 158/92 H 05/02/25 09:03 Pulse Oximetry 100 05/02/25 09:03 Oxygen Delivery Room Air 05/02/25 09:03 Temperature 98.3 F 05/02/25 16:00 Pulse Rate 79 05/02/25 16:00 Respiratory Rate 16 05/02/25 16:00 Blood Pressure 176/80 H 05/02/25 16:00 Pulse Oximetry 98 05/02/25 16:00 Oxygen Delivery Room Air 05/02/25 16:00 <Kadie Durand PA-C - Last Filed: 05/02/25 12:14> Vital Signs Temperature 98.1 F 05/02/25 09:03 Pulse Rate 84 05/02/25 09:03 Respiratory Rate 17 05/02/25 09:03 Blood Pressure 158/92 H 05/02/25 09:03 Pulse Oximetry 100 05/02/25 09:03 Oxygen Delivery Room Air 05/02/25 09:03 Temperature 98.3 F 05/02/25 16:00 Pulse Rate 79 05/02/25 16:00 Respiratory Rate 16 05/02/25 16:00 Blood Pressure 176/80 H 05/02/25 16:00 Pulse Oximetry 98 05/02/25 16:00 Oxygen Delivery Room Air 05/02/25 16:00 <Brent Corona MD - Last Filed: 05/02/25 17:30> MDM - Fall MDM Narrative Medical decision making narrative: Patient presented to ED with fall from local assisted living facility. Unsure exactly how the fall occurred. Vital signs are stable upon arrival. Patient is in no acute distress. Denies any acute complaints. EKG was obtained and showing several areas of moderate ST depression and deep T-wave inversions. These appear new from EKG in May of last year. Laboratory studies w/o leukocytosis, chronic anemia- consistent with previous records. CMP unremarkable. Stable electrolytes. Mag within normal range. Lactic acid WNL. CK very mildly elevated to 191. Patient given fluids in the ED. She did appear very dry on exam. Troponin did result elevated to 0.052. Patient denies CP at this time. Will continue to trend. CT brain and cervical spine without acute traumatic findings. Showing previous infarcts. X-ray of bilateral hips negative. CXR pending EMS did report NH staff expressed concern over patient's frequent falls and needing more around the clock fdc care vs assisted living. Will place care coordination consult. Discussed case with Dr. Roberts, hospitalist, accepted patient for admission to IMU. <Kadie Durand PA-C - Last Filed: 05/02/25 12:14> Medical Records Attestation: I reviewed the patient's medical records. <Kadie Durand PA-C - Last Filed: 05/02/25 12:14> Lab Data Attestation: I reviewed the patient's lab results. <Kadie Durand PA-C - Last Filed: 05/02/25 12:14> Result diagrams: 05/02/25 09:26 05/02/25 09:26 <Kadie Durand PA-C - Last Filed: 05/02/25 12:14> Labs: Lab Results 05/02/25 Range/Units 09:26 WBC 7.3 (4.5-10.0) K/mm3 RBC 4.11 L (4.2-5.4) M/mm3 Hgb 10.5 L (12.0-15.0) g/dL Hct 35.1 L (37.0-47.0) % MCV 85.4 (80-100) fl MCH 25.5 L (26-34) pg MCHC 29.9 L (32-36) g/dl RDW 16.8 H (11.5-14.5) % Plt Count 210 (150-375) k/mm3 MPV 8.6 (7.4-10.4) fl Immature Gran % (Auto) 0.3 (0-0.5) % Neut % (Auto) 82.0 H (45.5-73.1) % Lymph % (Auto) 8.9 L (18.3-44.2) % [place] % (Auto) 8.1 (2.6-8.5) % Eos % (Auto) 0.4 (0-4.4) % Baso % (Auto) 0.3 (0.2-1.2) % Lymph # (Auto) 0.65 L (0.9-3.2) K/mm3 [place] # (Auto) 0.6 (0.1-0.6) K/mm3 Eos # (Auto) 0.0 (0-0.3) K/mm3 Baso # (Auto) 0.0 (0.0-0.1) K/mm3 Abs Immat Gran (auto) 0.02 (0.00-0.031) K/mm3 Absolute Neuts (auto) 6.0 (1.3-6.7) K/mm3 Absolute Nucleated RBC 0.000 (0.0-0.012) K/mm3 Band Neutrophils % Not Reportable Nucleated RBC % 0.0 (0.0-0.2) % Platelet Estimate Adequate (Adequate) Hypochromasia 1+ Schistocytes None seen Sodium 140 (137-145) mmol/L Potassium 3.6 (3.4-5.0) mmol/L Chloride 108 H (98-107) mmol/L Carbon Dioxide 26 (22-30) mmol/L Anion Gap 6 (4-12) mmol/L BUN 18 H (7-17) mg/dL Creatinine 0.69 L (0.7-1.0) mg/dL Estim Creat Clear Calc 36 ml/min Estimated GFR > 60 (59 - ) Glucose 104 (65-110) mg/dL Lactic Acid 1.2 (0.7-2.0) mmol/L Calcium 9.2 (8.4-10.2) mg/dL Magnesium 1.8 (1.6-2.3) mg/dL Total Bilirubin 0.5 (0.2-1.3) mg/dL AST 33 (14-36) U/L ALT 18 (6-35) U/L Alkaline Phosphatase 76 (38-126) U/L Total Creatine Kinase 191 H (30-135) U/L Troponin I 0.052 H* (0.000-0.034) ng/mL Total Protein 6.8 (6.3-8.2) g/dL Albumin 4.0 (3.5-5.1) g/dL <Kadie Durand PA-C - Last Filed: 05/02/25 12:14> Lab Results 05/02/25 Range/Units 09:26 WBC 7.3 (4.5-10.0) K/mm3 RBC 4.11 L (4.2-5.4) M/mm3 Hgb 10.5 L (12.0-15.0) g/dL Hct 35.1 L (37.0-47.0) % MCV 85.4 (80-100) fl MCH 25.5 L (26-34) pg MCHC 29.9 L (32-36) g/dl RDW 16.8 H (11.5-14.5) % Plt Count 210 (150-375) k/mm3 MPV 8.6 (7.4-10.4) fl Immature Gran % (Auto) 0.3 (0-0.5) % Neut % (Auto) 82.0 H (45.5-73.1) % Lymph % (Auto) 8.9 L (18.3-44.2) % [place] % (Auto) 8.1 (2.6-8.5) % Eos % (Auto) 0.4 (0-4.4) % Baso % (Auto) 0.3 (0.2-1.2) % Lymph # (Auto) 0.65 L (0.9-3.2) K/mm3 [place] # (Auto) 0.6 (0.1-0.6) K/mm3 Eos # (Auto) 0.0 (0-0.3) K/mm3 Baso # (Auto) 0.0 (0.0-0.1) K/mm3 Abs Immat Gran (auto) 0.02 (0.00-0.031) K/mm3 Absolute Neuts (auto) 6.0 (1.3-6.7) K/mm3 Absolute Nucleated RBC 0.000 (0.0-0.012) K/mm3 Band Neutrophils % Not Reportable Nucleated RBC % 0.0 (0.0-0.2) % Platelet Estimate Adequate (Adequate) Hypochromasia 1+ Schistocytes None seen Sodium 140 (137-145) mmol/L Potassium 3.6 (3.4-5.0) mmol/L Chloride 108 H (98-107) mmol/L Carbon Dioxide 26 (22-30) mmol/L Anion Gap 6 (4-12) mmol/L BUN 18 H (7-17) mg/dL Creatinine 0.69 L (0.7-1.0) mg/dL Estim Creat Clear Calc 36 ml/min Estimated GFR > 60 (59 - ) Glucose 104 (65-110) mg/dL Lactic Acid 1.2 (0.7-2.0) mmol/L Calcium 9.2 (8.4-10.2) mg/dL Magnesium 1.8 (1.6-2.3) mg/dL Total Bilirubin 0.5 (0.2-1.3) mg/dL AST 33 (14-36) U/L ALT 18 (6-35) U/L Alkaline Phosphatase 76 (38-126) U/L Total Creatine Kinase 191 H (30-135) U/L Troponin I 0.052 H* (0.000-0.034) ng/mL Total Protein 6.8 (6.3-8.2) g/dL Albumin 4.0 (3.5-5.1) g/dL <Brent Corona MD - Last Filed: 05/02/25 17:30> Imaging Data Attestation: I personally reviewed and interpreted this imaging study as follows: <Kadie Durand PA-C - Last Filed: 05/02/25 12:14> Radiologist's impression: ITS Impressions Head CT 05/02/25 09:44 IMPRESSION: 1. No fracture or acute intracranial process. 2. 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 3. Age-related changes including moderate diffuse volume loss and moderate scattered white matter hypoattenuation consistent with chronic small vessel ischemic disease. Hip/Pelvis X-Ray 05/02/25 10:18 Impression: No significant abnormality is seen. Cervical Spine CT 05/02/25 10:55 IMPRESSION: 1. Severe cervical spondylosis with no acute osseous abnormality. <Kadie Durand PA-C - Last Filed: 05/02/25 12:14> ECG Data EKG #1: Attestation: I personally reviewed and interpreted this ECG as follows: <Kadie Durand PA-C - Last Filed: 05/02/25 12:14> ECG completion date: 05/02/25 <Kadie Durand PA-C - Last Filed: 05/02/25 12:14> ECG completion time: : <GUSTAVO Flores Last Filed: 05/02/25 12:14> Prior ECG tracings: available for review (ST depression and T wave inversions not present on EKG 06/02/24) <Kadie Durand PA-C - Last Filed: 05/02/25 12:14> EKG Interpretation: normal rate (77), sinus rhythm, non-specific ST changes (t wave inversions anterior leads) and ST depression <Kadie Durand PA-C - Last Filed: 05/02/25 12:14> Discharge Plan Discharge Clinical Impression: Fall from ground level, Elevated troponin, ST segment depression, Multiple sclerosis <Kadie Durand PA-C - Last Filed: 05/02/25 12:14> Patient Disposition: Still a Patient <Kadie Durand PA-C - Last Filed: 05/02/25 12:14> Condition: Stable <Kadie Durand PA-C - Last Filed: 05/02/25 12:14>
--- OUTSIDE RECORDS SUMMARY | 2025-05-02 09:47 | XMS_ITS | Encounter Summary ---
Author Organization [facility] Address [address] [place] [address] Care Team Providers Care Gate Technician Name Role Phone Jacqueline Sethi MD Primary Care Provider +1- [phone] Encounter Details Date Type Department Care Team (Late st Contact Info) Description 01/08/2005 Outpatient [facility] Division of Neurology [address] [address] Debora Bailey MD [address] [facility] [address] [place] [address] Social History Tobacco Use Types Packs/Day Years Used Date Smoking Tobacco: Never Assessed Comments Unknown Sex and Gender Information Value Date Recorded Sex Assigned at Not on file Legal Sex 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
--- OUTSIDE RECORDS SUMMARY | 2025-05-02 09:48 | XMS_ITS | Encounter Summary ---
Author Organization [facility] Address [address] [place] [address] Care Team Providers Care Sales Route Driver Helper Name Role Phone Jacqueline Sethi MD Primary Care Provider +1- [phone] Encounter Details Date Type Department Care Team (Late st Contact Info) Description 11/20/2002 Outpatient Historical [facility] Debora Bailey MD [address] [facility] [address] [address] [place] [address] HEMIPLEG/PARES UNSP SIDE NOS (CMS/HCC) (Primary Dx) Social History Tobacco Use Types Packs/Day Years Used Date Smoking Tobacco: Never Assessed Comments Unknown Sex and Gender Information Value Date Recorded Sex Assigned at Not on file Legal Sex Female 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
--- OUTSIDE RECORDS SUMMARY | 2025-05-02 09:48 | XMS_ITS | Encounter Summary ---
Author Organization [facility] Address [address] [place] [address] Care Team Providers Care Control Clerk Subassembly Name Role Phone Jacqueline Sethi MD Primary Care Provider +1- [phone] Encounter Details Date Type Department Care Team (Latest Contact Info) Description 03/30/2007 Outpatient Historical [facility] Bailey, Debora Flores MD [address] [address] [place] [address] Multiple Sclerosis (CMS/HCC) (Primary Dx) Social History Tobacco Use Types Packs/Day Years Used Date Smoking Tobacco: Never Assessed Comments Unknown Sex and Gender Information Value Date Recorded Sex Assigned at Not on file Legal Sex Female 4:35 AM CUSTOMER ADVOCACY MANAGER Gender Identity Not on file Sexual Orientation [...] and non- Americans is available on the [facility] Intranet at: [email or web address] Select: Lab Policies and Procedures Select: Reference Ranges - GFR 03/30/2007 12:2 4 PM CDT us Debora Bailey MD CHEMISTRY ORDERABLES Edited INTERFACE SYSTEM Refer to clinic/hospital department documented in this encounter Visit Diagnoses Diagnosis Multiple sclerosis (CMS/HCC)- Primary Multiple sclerosis documented in this encounter Care Teams Control Clerk Subassembly Relationship Specialty Start Date End Date Jacqueline Sethi MD PCP - General Family Practice 04/21/13 documented as of this encounter
--- OUTSIDE RECORDS SUMMARY | 2025-05-02 09:48 | XMS_ITS | Encounter Summary ---
Author Organization [facility] Address [address] [place] [address] Care Team Providers Care Process Machine Operator Name Role Phone Jacqueline Sethi MD Primary Care Provider +1- [phone] Encounter Details Date Type Department Care Team (Late st Contact Info) Description 11/06/2003 Outpatient [facility] Division of Neurology [address] [address] Debora Bailey MD [address] [facility] [address] [place] [address] Social History Tobacco Use Types Packs/Day Years Used Date Smoking Tobacco: Never Assessed Comments Unknown Sex and Gender Information Value Date Recorded Sex Assigned at Not on file 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
--- OUTSIDE RECORDS SUMMARY | 2025-05-02 09:48 | XMS_ITS | Encounter Summary ---
Author Organization [facility] Address [address] [place] [address] Care Team Providers Care Thread Trimmer Name Role Phone Jacqueline Sethi MD Primary Care Provider +1- [phone] Encounter Details Date Type Department Care Team (Latest Contact Info) Description 01/08/2005 Outpatient Historical [facility] Bailey, Debora Flores MD [address] [facility] [address] [place] [address] AFTERCARE SMOKE CONTROL SUPERVISOR USE MEDICATN (Primary Dx) Social History Tobacco Use Types Packs/Day Years Used Date Smoking Tobacco: Never Assessed Comments Unknown Sex and Gender Information Value Date Recorded Sex Assigned at Not on file Legal Sex Female 4:35 AM REPAIRER SWITCHGEAR Gender Identity Not on file Sexual Orientation Not on file documented as of this encounter Plan of Treatment Not on file documented as of this encounter Procedures Procedure Name Priority Date/Time Associated Diagnosis Comments CBC WITH DIFFERENTIAL Routine 01/08/2005 3:24 PM REPAIRER SWITCHGEAR CBC WITH DIFFERENTIAL Routine 01/08/2005 3:24 PM REPAIRER SWITCHGEAR COMPREHENSIVE METABOLIC PANEL Routine 01/08/2005 3:24 PM REPAIRER SWITCHGEAR documented in this encounter Results * CBC WITH DIFFERENTIAL (01/08/2005 3:24 PM REPAIRER SWITCHGEAR) NEUTROPHILS 59 45 - 70 % INTERFAC [...] 0.20 K/uL INTERFACE SYSTEM 01/08/2005 3:24 PM REPAIRER SWITCHGEAR Debora Bailey MD HEMATOLOGY ORDERABLES Final R esult Performing Organization Address City/[facility] de Phone Number INTERFACE SYSTEM Refer to clinic/hospital department * (ABNORMAL) CBC WITH DIFFERENTIAL (01/08/2005 3:24 PM REPAIRER SWITCHGEAR) WBC 5.9 4.0 - 9.8 K/uL INTERFACE [...] 12.4 fL INTERFACE SYSTEM 01/08/2005 3:24 PM REPAIRER SWITCHGEAR Debora Bailey MD HEMATOLOGY ORDERABLES Final R esult Performing Organization Address City/[facility] Co de Phone Number INTERFACE SYSTEM Refer to clinic/hospital department * COMPREHENSIVE METABOLIC PANEL (01/08/2005 3:24 PM REPAIRER SWITCHGEAR) GLUCOSE 84 65 - 109 mg/dL INTERFACE [...] 30 mmol/L INTERFACE SYSTEM 01/08/2005 3:24 PM REPAIRER SWITCHGEAR us Debora Bailey MD CHEMISTRY ORDERABLES Final Re sult INTERFACE SYSTEM Refer to clinic/hospital department documented in this encounter Visit Diagnoses Diagnosis Encounter for long-term (current) use of other medications- Primary documented in this encounter Care Teams Thread Trimmer Relationship Specialty Start Date End Date Jacqueline Sethi MD PCP - General Family Practice 04/21/13 documented as of this encounter
--- OUTSIDE RECORDS SUMMARY | 2025-05-02 09:48 | XMS_ITS | Encounter Summary ---
Author Organization [facility] Address [address] [place] [address] Care Team Providers Care Hand Router Operator Name Role Phone Jacqueline Sethi MD Primary Care Provider +1- [phone] Encounter Details Date Type Department Care Team (Latest Contact Info) Description 06/19/2009 Outpatient Historical [facility] Bailey, Debora Flores MD [address] [facility] [address] [place] [address] Multiple Sclerosis (CMS/HCC) Social History Tobacco Use Types Packs/Day Years Used Date Smoking Tobacco: Never Assessed Comments Unknown Sex and Gender Information Value Date Recorded Sex Assigned at Not on file Legal Sex Female 4:35 AM MANAGER CHILD Gender Identity Not on file Sexual Orientation Not on file documented as of this encounter Plan of Treatment Not on file documented as of this encounter Visit Diagnoses Diagnosis Multiple sclerosis (CMS/HCC) Multiple sclerosis documented in this encounter Care Teams Hand Router Operator Relationship Specialty Start Date End Date Jacqueline Sethi MD PCP - General Family Practice 04/21/13 documented as of this encounter
--- OUTSIDE RECORDS SUMMARY | 2025-05-02 09:48 | XMS_ITS | Encounter Summary ---
Author Organization [facility] Address [address] [place] [address] Care Team Providers Care Generating Plant Superintendent Name Role Phone Jacqueline Sethi MD Primary Care Provider +1- [phone] Encounter Details Date Type Department Care Team (Late st Contact Info) Description 03/30/2007 Outpatient [facility] Division of Neurology [address] [address] Debora Bailey MD [address] [facility] [address] [place] [address] Social History Tobacco Use Types Packs/Day Years Used Date Smoking Tobacco: Never Assessed Comments Unknown Sex and Gender Information Value Date Recorded Sex Assigned at Not on file Legal Sex Female 4:35 AM DIRECTOR BIOSTATISTICS Gender Identity Not on file Sexual Orientation Not on file documented as of this encounter Plan of Treatment Not on file documented as of this encounter Visit Diagnoses Not on filedocumented in this encounter Care Teams Generating Plant Superintendent Relationship Specialty Start Date End Date Jacqueline Sethi MD PCP - General Family Practice 04/21/13 documented as of this encounter
--- OUTSIDE RECORDS SUMMARY | 2025-05-02 09:48 | XMS_ITS | Encounter Summary ---
Author Organization [facility] Address [address] [place] [address] Care Team Providers Care Jackscrew Man Name Role Phone Jacqueline Sethi MD Primary Care Provider +1- [phone] Encounter Details Date Type Department Care Team (Late st Contact Info) Description 11/02/2007 Outpatient [facility] Division of Neurology [address] [address] Debora Bailey MD [address] [facility] [address] [place] [address] Social History Tobacco Use Types Packs/Day Years Used Date Smoking Tobacco: Never Assessed Comments Unknown Sex and Gender Information Value Date Recorded Sex Assigned at Not on file Legal Sex Female 4:35 AM SOIL TECHNICIAN Gender Identity Not on file Sexual Orientation Not on file documented as of this encounter Plan of Treatment Not on file documented as of this encounter Visit Diagnoses Not on filedocumented in this encounter Care Teams Jackscrew Man Relationship Specialty Start Date End Date Jacqueline Sethi MD PCP - General Family Practice 04/21/13 documented as of this encounter
--- OUTSIDE RECORDS SUMMARY | 2025-05-02 09:48 | XMS_ITS | Encounter Summary ---
Author Organization [facility] Address [address] [place] [address] Care Team Providers Care Cutting And Splicing Supervisor Name Role Phone Jacqueline Sethi MD Primary Care Provider +1- [phone] Encounter Details Date Type Department Care Team (Late st Contact Info) Description 09/22/2006 Outpatient [facility] Division of Neurology [address] [address] Debora Bailey MD [address] [facility] [place] [address] [place] [address] Social History Tobacco Use Types Packs/Day Years Used Date Smoking Tobacco: Never Assessed Comments Unknown Sex and Gender Information Value Date Recorded Sex Assigned at Not on file 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
--- OUTSIDE RECORDS SUMMARY | 2025-05-02 09:48 | XMS_ITS | Clinical Summary ---
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
--- OUTSIDE RECORDS SUMMARY | 2025-05-02 09:48 | XMS_ITS | Encounter Summary ---
Author Organization [facility] Address [address] [place] [address] Care Team Providers Care Caustic Purification Operator Name Role Phone Jacqueline Sethi MD Primary Care Provider +1- [phone] Encounter Details Date Type Department Care Team (Late st Contact Info) Description 07/20/2001 Outpatient [facility] Division of Neurology 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
--- OUTSIDE RECORDS SUMMARY | 2025-05-02 09:48 | XMS_ITS | Encounter Summary ---
Author Organization [facility] [employer] Address [address] [place] [address] Care Team Providers Care Brick Picker Name Role Phone Jacqueline Sethi MD Primary Care Provider +1- [phone] Encounter Details Date Type Department Care Team (Late st Contact Info) Description 08/10/2002 Outpatient [facility] Division of Neurology [address] [address] Debora Bailey MD [address] [facility] [address] [place] [address] Social History Tobacco Use Types Packs/Day Years Used Date Smoking Tobacco: Never Assessed Comments Unknown Sex and Gender Information Value Date Recorded Sex Assigned at Not on file 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
--- NOTE | 2025-05-02 09:49 | PC.NURSE ---
patient in imaging at this time
[2025-05-02 09:51] LABS: Hypochromasia 1+; Platelet Estimate Adequate (Adequate); Schistocytes None Seen
[2025-05-02] MEDS: SODIUM CHLORIDE 0.9% IV 1,000 ML 999 ML IV CONT (10:01)
[2025-05-02 10:11] LABS: Troponin I 0.052 ng/mL (0.000-0.034)
--- NOTE | 2025-05-02 12:27 | PM.IMHP ---
H&P: HPI History of Present Illness Date/Time: 05/02/25 12:27 Chief Complaint: Fall Narrative: 84 y/o F with PMH of multiple sclerosis, wheelchair-bound, hypothyroidism, and seizure disorder presents here with fall. The patient presents here from [facility] EMS on 05/02 for further evaluation post fall. She reports an unwitnessed ground level fall that occurred today. She is unsure how the fall occurred, however EMS reports that it. The patient may have been attempting to transfer from the chair to her wheelchair and fell in between based off of findings seen. She believes the fall occurred because she was transferring too quickly. Believes she was on the floor for approximately 3 hours. The patient is unsure if she had a positive head strike, but does not believe she did. Denies loss of consciousness. She denies neck pain, headache, or pain in her extremities. During the initial evaluation in the emergency department, the patient was found to have EKG changes including ST depressions and T-wave inversions that are new compared to previous EKG as well as a mildly elevated troponin. The patient denies associated chest pain, shortness of breath, diaphoresis, nausea, GERD-like symptoms. She does report intermittent fatigue. Initial VS at presentation: 98.1? F, HR 84, RR 17, 158/92, and 100% on RA. ED workup showed: No leukocytosis, hemoglobin 10.5 (at baseline), creatinine 0.69 and GFR >60, no significant electrolyte derangements, lactic 1.2, CK 191, troponin 0.052. Head CT showed no acute fracture or intracranial process, numerous scattered small old infarcts, age related changes. Hip/pelvic XR showed he no significant abnormality. C-spine CT showed severe cervical spondylosis with no acute osseous abnormality. EKG showed sinus rhythm, rate 77, ST-T-wave abnormality in diffuse leads consider ischemia. When compared to EKG done 06/02/2024, ST-T-wave abnormality now present. Review of Systems Review of Systems: All systems reviewed & are unremarkable except as noted in HPI and below [facility] Past Medical History Medical History (Updated 05/02/25 @ 12:39 by Maryjane Wellington, ARA) Seizures Osteoarthritis of left knee Vitamin D deficiency Hypertension Multiple sclerosis Surgical History Surgical History History of hysterectomy History of open reduction and internal fixation (ORIF) procedure Repair of right thumb fracture. Deficient knowledge of hysterectomy Family History Family History Father Family history of premature coronary heart disease, Onset Age: 69 Mother Family history of Alzheimer's disease, Onset Age: 67 Sibling Multiple sclerosis Social History Social History Social History: Healthcare power of assistant city attorney: Manan Paula, son. Code status: Full code. Smoking status: Never smoker Second hand tobacco smoke exposure: No Alcohol intake: former Alcohol use details: Rare Substance use: never Substance use type: does not use Do You Feel Safe in your Home?: Yes Lack of Transportation: No Lack of Food: Never True Current Housing: I Have Housing Concerned About Future Housing: No Difficulty Paying Gas/Electric Bills: No Difficulty Paying for Meds: No Currently Unemployed: No Education: High School Diploma/GED Difficulty w/ Childcare or Family Care: No Living arrangements: alone Additional living arrangements comments: Lives in her own apartment in [place]. Three children who all live out of town. 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 Gender identity (if verbalized by the patient): Female Spiritual care concerns: No Agree to blood products: Yes Meds Home Medications and Allergies Home Medications ?Medication ?Instructions ?Recorded ?Confirmed ?Type magnesium hydroxide 400 mg/5 mL 15 ml PO DAILY PRN Constipation 06/03/24 05/02/25 History oral suspension (Milk of Magnesia) gabapentin 100 mg capsule 200 mg (2 x 100 mg) PO TID #180 08/28/24 05/02/25 Rx caps cholecalciferol (vitamin D3) 1,250 1,250 mcg PO WEEKLY #14 caps 09/07/24 05/02/25 Rx mcg (50,000 unit) capsule Elbow wrap #1 ea 10/10/24 04/26/25 Rx aspirin 81 mg chewable tablet 81 mg PO BID #90 tabs 12/29/24 05/02/25 Rx (Children's Aspirin) ascorbic acid (vitamin C) 500 mg 500 mg PO DAILY #90 tabs 01/12/25 05/02/25 Rx tablet potassium chloride 10 mEq 10 meq PO DAILY #90 caps 01/12/25 05/02/25 Rx capsule,extended release levetiracetam 500 mg tablet See Rx Instructions .Route 01/26/25 05/02/25 Rx .COMPLEX #180 tabs sennosides 8.6 mg-docusate sodium 1 tab-cap PO BID #180 caps 01/26/25 05/02/25 Rx 50 mg capsule (Senna Plus) levothyroxine 75 mcg tablet 75 mcg PO DAILY #90 tabs 02/09/25 05/02/25 Rx tramadol 50 mg tablet 50 mg PO TID #90 tabs 02/23/25 05/02/25 Rx fluticasone propionate 50 1 spray intranasal DAILY #16 grams 04/26/25 05/02/25 Rx mcg/actuation nasal spray,suspension (Flonase Allergy Relief) prednisone 20 mg tablet See Rx Instructions PO DAILY #21 04/26/25 05/02/25 Rx tabs acetaminophen 325 mg tablet 325 mg PO Q6H PRN pain 05/02/25 05/02/25 History Allergies Allergy/AdvReac Type Severity Reaction Status Date / Time No Known Allergies Allergy Unknown Verified 05/02/25 13:12 Vital Signs Vital Signs - 24 hr 05/02/25 09:03 05/02/25 11:18 Temperature 98.1 F Pulse Rate 84 71 Respiratory Rate 17 10 L Blood Pressure 158/92 H 150/88 H Pulse Oximetry 100 96 Oxygen Delivery Room Air Exam Const: General: comfortable and no acute distress Other: , female, nontoxic appearance HENMT: Face/Nose/Sinus: Normal nares present Mouth: Yes dry mucous membranes Eyes: General: appearance normal, both eyes and all related structures Sclera: sclerae normal Pupils: Equal, round and reactive pupils present EOM: EOMs intact bilaterally Cardio: Rate: regular rate Rhythm: regular rhythm Other: S1-S2 present without murmur, rub, ectopy GI: Other: Abdomen soft, nondistended, nontender. Normoactive bowel sounds in all quadrants. Skin: General skin exam: normal color and no rashes or lesions noted Wounds: no wounds Neuro: Speech: normal speech Sensory Exam: normal sensation Other: A&O x4, generalized weakness more so in the lower extremities Extrem: Other: Mild edema to dorsum of bilateral feet, nonpitting and symmetric. Psych: Mental Status: mental status grossly normal Affect: normal affect Other: Good insight and judgment, very pleasant H&P: Results Labs Labs: Short CBC 05/02/25 Range/Units 09:26 WBC 7.3 (4.5-10.0) K/mm3 Hgb 10.5 L (12.0-15.0) g/dL Hct 35.1 L (37.0-47.0) % Plt Count 210 (150-375) k/mm3 BMP 05/02/25 09:26 Sodium 140 Potassium 3.6 Chloride 108 H Carbon Dioxide 26 BUN 18 H Creatinine 0.69 L Glucose 104 Calcium 9.2 Cardiac Enzymes 05/02/25 Range/Units 09:26 Total Creatine Kinase 191 H (30-135) U/L Troponin I 0.052 H* (0.000-0.034) ng/mL Liver Function 05/02/25 Range/Units 09:26 Total Bilirubin 0.5 (0.2-1.3) mg/dL AST 33 (14-36) U/L ALT 18 (6-35) U/L Alkaline Phosphatase 76 (38-126) U/L Albumin 4.0 (3.5-5.1) g/dL Assessment and Plan Assessment and plan (1) Elevated troponin: Code(s): R79.89 - Other specified abnormal findings of blood chemistry Status: Acute Assessment and Plan: - EKG, initial: sinus rhythm, rate 77, ST-T-wave abnormality in diffuse leads consider ischemia. When compared to EKG done 06/02/2024, ST-T-wave abnormality now present. repeat EKG with 3 and 6 hr troponins - CX ordered - Troponin: 0.052 -> 0.062 - ASA 324 -> 81 daily (home med) - SL nitro PRN - if troponin continues to up-trend and EKG findings do not resolve, will consult cardiology. no current symptoms concerning for ACS. Troponin mildly up trended, discussed cardiology consultation with patient. She would like to forego cardiac workup at this time as she would not want any interventions if abnormal. 6 hour troponin discontinued. - no previous stress test or echo on file - telemetry monitoring (2) Fall from ground level: Code(s): W18.30XA - Fall on same level, unspecified, initial encounter Status: Acute Assessment and Plan: - unwitnessed ground level fall, -head strike (patient unsure), no loss of consciousness - C-spine CT, head CT, hip/pelvic XR negative for acute traumatic findings. Chronic findings noted, see impressions for details. - fall precautions - analgesics p.r.n. (3) Elevated creatine kinase level: Code(s): R74.8 - Abnormal levels of other serum enzymes Status: Acute Assessment and Plan: - CK 191 - IV fluids: 1L bolus -> LR at 100 mL/hr x1L - trend down (4) Frequent falls: Code(s): R29.6 - Repeated falls Status: Acute Assessment and Plan: - history of MS, wheelchair-bound - assisted living reported concerns due to frequency of falls and recommended evaluation for possible further level of care PT/OT evaluation for placement Care coordination for placement (5) Hypothyroid: Qualifiers: Hypothyroidism type: unspecified Qualified Code(s): E03.9 - Hypothyroidism, unspecified Code(s): E03.9 - Hypothyroidism, unspecified Status: Acute Assessment and Plan: - continue home medication: Synthroid 75 mcg daily (6) Multiple sclerosis: Code(s): G35 - Multiple sclerosis Status: Acute Assessment and Plan: - fall precautions - continue home medication: Tramadol, gabapentin (7) Seizure disorder: Code(s): G40.909 - Epilepsy, unspecified, not intractable, without status epilepticus Status: Acute Assessment and Plan: - continue home medications: Keppra 500 mg b.i.d. Plan Diet: Heart healthy GI Prophylaxis: Not currently indicated DVT Prophylaxis: SCDs IV fluids: LR 100 mL/hour x1 L Lines/Tubes: Peripheral IV Code Status: DNR Quality VTE Prophylaxis VTE prophylaxis: mechanical ordered Hospitalist MIPS Advance Care Plan I have confirmed that the patient's Advanced Care Plan is present, code status is documented, or surrogate decision maker is listed in patient medical record.: Yes Medication Reconciliation I have utilized all available resources to obtain, update and review the patients current medications (includes all prescriptions, OTC, herbals, cannabis, and nutritional supplements).: Yes
--- NOTE | 2025-05-02 12:30 | ECG_ITS ---
Test Date: 2025-05-02 13:04:32 Measurements Intervals [place] Rate: 75 P: 27 IA: 114 QRS: 2 QRSD: 88 T: 179 QT: 390 QTc: 438 Interpretive Statements SINUS RHYTHM WITH SHORT IA INTERVAL CANNOT R/O SEPTAL INFARCT, AGE INDETERMINATE ST-T WAVE ABNORMALITY IN ANTEROLAT/HIGH LAT LEADS- CONSIDER ISCHEMIA BASELINE ARTIFACT- I, II, III, AVR, AVL ,AVF, V1-V6 ABNORMAL ECG Compared to ECG 05/02/2025 09:25:03 NO SIGNIFICANT CHANGE Electronically Signed On 05-02-2025 13:22:29 CDT by Lauro Narvaez D.O.
--- NOTE | 2025-05-02 12:30 | PC.NURSE ---
Attempted at this time to call report to Anca Anne with patient updates and update to admission to the hospital, no answer after being transferred by paralegal legal secretary. Will call again
--- NOTE | 2025-05-02 12:59 | ADMGEN ---
This patient, Maria Victoria Alfaro, was admitted to IMU Room 205-02 at approximately 1230. Patient/family oriented to hospital policies and general routines including ID bracelet, bed and alarms, visiting hours, pain management, procedures, bathroom and other care routines, personal items, smoking policy, room service/diet, and visiting hours. Information on how to activate the Rapid Response Team has been discussed. Patient/Family are encouraged to report perceived risks to care and to ask questions if they do not understand what they are told or what they should do.
[2025-05-02] MEDS: LACTATED RINGERS 1,000 ML 100 ML IV CONT (13:09)
[2025-05-02] MEDS: ASPIRIN 81 MG CHEWABLE TABLET 324 MG PO (13:09)
[2025-05-02 13:37] LABS: Troponin I 0.062 ng/mL (0.000-0.034)
[2025-05-02] MEDS: levETIRAcetam 500 MG TABLET PO ×2 (14:46→21:21)
[2025-05-02] MEDS: POTASSIUM CHLORIDE 10 MEQ ER TABLET PO (14:46)
[2025-05-02] MEDS: traMADol HCL (*CRX) 50 MG TABLET PO ×2 (14:46→17:44)
[2025-05-02] MEDS: GABAPENTIN 100 MG CAPSULE 200 MG PO ×2 (14:46→17:44)
[2025-05-02] MEDS: ASCORBIC ACID 500 MG TABLET PO (14:46)
--- NOTE | 2025-05-02 15:30 | ECG_ITS ---
Test Date: 2025-05-02 15:39:03 Measurements Intervals [place] Rate: 78 P: 56 FL: 117 QRS: 8 QRSD: 96 T: 176 QT: 420 QTc: 479 Interpretive Statements SINUS RHYTHM WITH SHORT [place] INTERVAL CANNOT R/O SEPTAL INFARCT, AGE INDETERMINATE ST-T WAVE ABNORMALITY IN ANTEROLAT/HIGH LAT LEADS- CONSIDER ISCHEMIA BASELINE ARTIFACT- I, II ,III, AVR, AVL ,AVF, V1-V6 ABNORMAL ECG Compared to ECG 05/02/2025 13:04:32 NO SIGNIFICANT CHANGE Electronically Signed On 05-02-2025 15:43:43 CDT by Lauro Narvaez D.O.
[2025-05-02] MEDS: ACETAMINOPHEN 325 MG TABLET 650 MG PO (16:47)
[2025-05-02] MEDS: SENNA/DOCUSATE SODIUM TABLET 1 TAB PO (16:48)
[2025-05-02] MEDS: ASPIRIN 81 MG CHEWABLE TABLET PO (16:48)
[2025-05-03] VITALS (16 sets, daily range): BP systolic 111–149; BP diastolic 59–81; PULSE 65–87; RESP 14–18; TEMP 36.5–37.1; O2SAT 96–98; BMI 16.7
[2025-05-03 04:52] LABS: Basophils Percent Auto 0.8 % (0.2-1.2); Eosinophils Absolute Auto 0.1 K/mm3 (0-0.3); Eosinophils Percent Auto 2.6 % (0-4.4); Hematocrit 29.3 % (37.0-47.0); Hemoglobin 8.7 g/dL (12.0-15.0); Immature Granulocyte Absolute 0.01 K/mm3 (0.00-0.031); Immature Granulocyte Percent A 0.3 % (0-0.5); Lymphocytes Absolute Auto 0.86 K/mm3 (0.9-3.2); Lymphocytes Percent Auto 21.9 % (18.3-44.2); Mean Corpuscular HGB Conc 29.7 g/dl (32-36); Mean Corpuscular Hemoglobin 25.7 pg (26-34); Mean Corpuscular Volume 86.4 fl (80-100); Mean Platelet Volume 8.9 fl (7.4-10.4); Monocytes Absolute Auto 0.5 K/mm3 (0.1-0.6); Monocytes Percent Auto 11.7 % (2.6-8.5); Neutrophils Absolute Auto 2.5 K/mm3 (1.3-6.7); Neutrophils Percent Auto 62.7 % (45.5-73.1); Platelet Count Result 168 k/mm3 (150-375); Red Blood Count 3.39 M/mm3 (4.2-5.4); Red Cell Distribution Width 16.9 % (11.5-14.5); White Blood Count 3.9 K/mm3 (4.5-10.0)
[2025-05-03 05:13] LABS: Alanine Aminotransferase 15 U/L (6-35); Alkaline Phosphatase 59 U/L (38-126); Anion Gap 3 mmol/L (4-12); Aspartate Amino Transferase 36 U/L (14-36); Bilirubin,Total 0.4 mg/dL (0.2-1.3); Blood Urea Nitrogen 11 mg/dL (7-17); Calcium 8.5 mg/dL (8.4-10.2); Carbon Dioxide 24 mmol/L (22-30); Chloride 110 mmol/L (98-107); Creatine Kinase 665 U/L (30-135); Estimated CRCL calculation 46 ml/min; Estimated Glomerular Filt Rate > 60; Glucose 83 mg/dL (65-110); Potassium 3.6 mmol/L (3.4-5.0); Sodium 137 mmol/L (137-145); Total Protein 5.5 g/dL (6.3-8.2)
[2025-05-03 05:22] LABS: Add Urine Microscopic? NO; Appearance Urine Clear (Clear); Bilirubin Urine Negative (Negative); Blood Urine Negative (Negative); Color Urine Yellow (Yellow); Glucose Urine UA Negative (Negative); Ketones Urine Negative (Negative); Leukocyte Esterase Ur Negative LEU/UL (Negative); Nitrate Urine Negative (Negative); Protein Urine Negative (Negative); Specific Grav Ur 1.017 (1.001-1.035)
[2025-05-03 05:31] LABS: Anisocytosis 1+; Hypochromasia 1+; Ovalocytes 1+; Platelet Estimate Adequate (Adequate); Poikilocytosis 1+; Schistocytes None Seen
[2025-05-03] MEDS: LEVOTHYROXINE SODIUM 75 MCG TABLET PO (05:35)
[2025-05-03] MEDS: traMADol HCL (*CRX) 50 MG TABLET PO ×3 (08:38→17:00)
[2025-05-03] MEDS: SENNA/DOCUSATE SODIUM TABLET 1 TAB PO ×2 (08:38→17:00)
[2025-05-03] MEDS: POTASSIUM CHLORIDE 10 MEQ ER TABLET PO (08:38)
[2025-05-03] MEDS: ASPIRIN 81 MG CHEWABLE TABLET PO ×2 (08:38→17:00)
[2025-05-03] MEDS: GABAPENTIN 100 MG CAPSULE 200 MG PO ×3 (08:38→17:00)
[2025-05-03] MEDS: ASCORBIC ACID 500 MG TABLET PO (08:38)
[2025-05-03] MEDS: levETIRAcetam 500 MG TABLET PO ×2 (08:38→21:30)
[2025-05-03] MEDS: ACETAMINOPHEN 325 MG TABLET 650 MG PO ×3 (08:38→21:30)
--- NOTE | 2025-05-03 08:55 | PM.IMPN ---
Progress Note: A&P Assessment and Plan (1) Elevated troponin: Code(s): R79.89 - Other specified abnormal findings of blood chemistry Status: Acute Assessment and Plan: - EKG, initial: sinus rhythm, rate 77, ST-T-wave abnormality in diffuse leads consider ischemia. When compared to EKG done 06/02/2024, ST-T-wave abnormality now present. repeat EKG with 3 and 6 hr troponins - CXR no acute cardiopulmonary process - Troponin: 0.052 -> 0.062 - ASA 324 -> 81 daily (home med) - SL nitro PRN - no previous stress test or echo on file - telemetry monitoring No current symptoms concerning for ACS. Patient denies chest pain. Troponin was mildly up trended, however again discussed cardiology consultation and further workup with patient and she would like to forego cardiac workup at this time as she would not want any interventions if abnormal. (2) Fall from ground level: Code(s): W18.30XA - Fall on same level, unspecified, initial encounter Status: Acute Assessment and Plan: - wheelchair bound at baseline - unwitnessed ground level fall, unsure if head strike, no loss of consciousness - C-spine CT, head CT, hip/pelvic XR negative for acute traumatic findings. Chronic findings noted, see impressions for details. - fall precautions - analgesics p.r.n. - PT/OT (3) Elevated creatine kinase level: Code(s): R74.8 - Abnormal levels of other serum enzymes Status: Acute Assessment and Plan: Ground level fall, down for approximately 3 hours - CK 191 >> 665 - IV fluids: 1L bolus -> LR at 100 mL/hr x1L -> NS at 75ml/hr x1L (4) Frequent falls: Code(s): R29.6 - Repeated falls Status: Acute Assessment and Plan: - history of MS, wheelchair-bound - assisted living reported concerns due to frequency of falls and recommended evaluation for possible further level of care PT/OT evaluation for placement Care coordination for placement (5) Decreased urine output: Code(s): R34 - Anuria and oliguria Status: Acute Assessment and Plan: Decreased urine output, patient required straight cath overnight and has not voided since however bladder scan showing little urine present Possibly secondary to volume depletion as patient appears dry on exam and has not been having adequate oral intake per RN Kidney function WNL PRN bladder scan NS at 75 ml/hr x1L Monitor (6) Hypothyroid: Qualifiers: Hypothyroidism type: unspecified Qualified Code(s): E03.9 - Hypothyroidism, unspecified Code(s): E03.9 - Hypothyroidism, unspecified Status: Acute Assessment and Plan: - continue home medication: Synthroid 75 mcg daily (7) Multiple sclerosis: Code(s): G35 - Multiple sclerosis Status: Acute Assessment and Plan: - fall precautions - continue home medication: Tramadol, gabapentin (8) Seizure disorder: Code(s): G40.909 - Epilepsy, unspecified, not intractable, without status epilepticus Status: Acute Assessment and Plan: - continue home medications: Keppra 500 mg b.i.d. Time Spent With Patient Time with patient: 25 - 35 minutes Subjective Date/time seen: 05/03/25 08:55 Interval history: 84 year old female with past medical history of MS (wheelchair bound), hypothyroidism, and seizure disorder presents to the hospital with ground level fall. Patient is pleasant sitting up in her chair. She remains AOx3 on assessment. She states that she has been getting progressively weak for at least a month. She notes that her right sided lean is chronic. She denies any new weakness. Rediscussed her cardiac findings with the elevated troponins and EKG findings. She again states that she does not wish to pursue further cardiac workup. She has no complaints denying chest pain, palpitations, shortness of breath, nausea/vomiting, abdominal pain, dizziness and lightheadedness. She states she wishes to go home. Concern about patient returned to assisted living given weakness. Patient states she is interested in possible hospice consult, consult placed. Review of Systems Review of Systems: All systems reviewed & are unremarkable except as noted in HPI and below Exam Narrative: AF HR 78 RR 16 SpO2 98 BP 118/81 General: frail female in no acute respiratory distress who is nontoxic appearing, sitting up in chair HEENT: Normocephalic. Atraumatic. Extraocular movement intact. Sclera clear and anicteric. No facial asymmetry. Chest: Lungs are clear to auscultation bilaterally. No wheezes or crackles. CV: Heart was regular rate and rhythm. Abd: Abdomen was soft. Nontender. Nondistended. Positive bowel sounds. Ext: No clubbing, cyanosis, or edema. DP pulses bilaterally. Neuro: Patient is alert and oriented x3. Right lean. Patient is extremely weak but strength is symmetrical in both upper and lower extremities. Speech is clear. Objective Data Vital Signs Vital Signs: Vital Signs - 24 hr 05/02/25 09:03 05/02/25 11:18 05/02/25 13:09 Temperature 98.1 F 98.2 F Pulse Rate 84 71 77 Respiratory Rate 17 10 L 18 Blood Pressure 158/92 H 150/88 H 152/98 H Pulse Oximetry 100 96 100 Oxygen Delivery Room Air 05/02/25 13:48 05/02/25 14:00 05/02/25 16:00 Temperature 98.3 F Pulse Rate 82 79 Respiratory Rate 16 Blood Pressure 176/80 H Pulse Oximetry 98 Oxygen Delivery Room Air 05/02/25 16:00 05/02/25 16:00 05/02/25 18:00 Temperature Pulse Rate 78 72 Respiratory Rate Blood Pressure Pulse Oximetry Oxygen Delivery Room Air 05/02/25 19:50 05/02/25 20:00 05/02/25 20:00 Temperature 97.8 F Pulse Rate 70 69 Respiratory Rate 17 Blood Pressure 125/64 Pulse Oximetry 97 Oxygen Delivery Room Air 05/02/25 22:00 05/02/25 23:40 05/03/25 00:00 Temperature 97.6 F Pulse Rate 66 63 Respiratory Rate 16 Blood Pressure 110/62 Pulse Oximetry 94 Oxygen Delivery Room Air 05/03/25 00:00 05/03/25 02:00 05/03/25 03:57 Temperature 97.7 F Pulse Rate 66 68 70 Respiratory Rate 16 Blood Pressure 111/74 Pulse Oximetry 97 Oxygen Delivery 05/03/25 04:00 05/03/25 04:00 05/03/25 06:00 Temperature Pulse Rate 65 68 Respiratory Rate Blood Pressure Pulse Oximetry Oxygen Delivery Room Air 05/03/25 07:40 Temperature 98.7 F Pulse Rate 74 Respiratory Rate 16 Blood Pressure 149/77 H Pulse Oximetry 98 Oxygen Delivery Intake/Output Intake/Output: Intake & Output 04/30/25 05/01/25 05/02/25 05/03/25 23:59 23:59 23:59 23:59 Intake Total 1440 25 Output Total 600 Balance 1440 -575 Meds/Results Medications: Active Medications Generic Name Dose Route Start Last Admin Trade Name Freq PRN Reason Stop Dose Admin Acetaminophen 650 mg 05/02/25 11:45 05/03/25 08:38 Acetaminophen 325 Mg Tablet PO 650 mg Q4H PRN Administration Mild Pain (1-3) or Fever Ascorbic Acid 500 mg 05/02/25 14:00 05/03/25 08:38 Ascorbic Acid 500 Mg Tablet PO 500 mg DAILY MARCIO Administration Aspirin 81 mg 05/02/25 17:00 05/03/25 08:38 Aspirin 81 Mg Chewable Tablet PO 81 mg BID MARCIO Administration Dextrose 12.5 gm 05/02/25 11:45 Dextrose 50% 25 Gm/50 Ml Syringe IV PUSH PRN PRN Hypoglycemia Protocol Ergocalciferol 1,250 mcg 05/06/25 09:00 Ergocalciferol (Vitamin D2) 1,250 Mcg (50,000 Units) Capsule PO Jordan@0900 [facility] Fluticasone Propionate 1 spray 05/02/25 14:00 05/03/25 08:39 Fluticasone Propionate 0.05% Na Spr 16 Gm Btl (*Bkc) NASAL Not Given DAILY [facility] Gabapentin 200 mg 05/02/25 13:00 05/03/25 08:38 Gabapentin 100 Mg Capsule PO 200 mg TID MARCIO Administration Glucagon 1 mg 05/02/25 11:45 Glucagon For Inj 1 Mg Vial IM PRN PRN Hypoglycemia Protocol Glucose 15 gm 05/02/25 11:45 Glucose Oral Gel 15 Gm Of Glucse In 37.5 Gm Tube PO PRN PRN Hypoglycemia Protocol Dextrose 1,000 mls @ 100 mls/hr 05/02/25 11:45 Dextrose 5% 1,000 Ml IVPB PRN PRN Hypoglycemia Protocol Levetiracetam 500 mg 05/02/25 13:50 05/03/25 08:38 Levetiracetam 500 Mg Tablet PO 500 mg Q12HR MARCIO Administration Levothyroxine Sodium 75 mcg 05/03/25 06:30 05/03/25 05:35 Levothyroxine Sodium 75 Mcg Tablet PO 75 mcg DAILY@0630 MARCIO Administration Magnesium Hydroxide 15 ml 05/02/25 13:50 Magnesium Hydroxide Susp 30 Ml Udc PO DAILY PRN Constipation Nitroglycerin 0.4 mg 05/02/25 12:44 Nitroglycerin Sl 0.4 Mg Tablet SUBLINGUAL Q5MIN PRN Chest Pain Ondansetron HCl 4 mg 05/02/25 11:45 Ondansetron Inj 4 Mg/2 Ml Vial IV PUSH Q4H PRN Nausea Potassium Chloride 10 meq 05/02/25 14:00 05/03/25 08:38 Potassium Chloride 10 Meq Er Tablet PO 06/02/25 13:59 10 meq DAILY MARCIO Administration Senna/Docusate Sodium 1 tab 05/02/25 17:00 05/03/25 08:38 Senna/Docusate Sodium Tablet PO 1 tab BID MARCIO Administration Tramadol HCl 50 mg 05/02/25 14:00 05/03/25 08:38 Tramadol Hcl (*Crx) 50 Mg Tablet PO 50 mg TID MARCIO Administration Radiology Results: ITS Impressions Head CT 05/02/25 09:44 IMPRESSION: 1. No fracture or acute intracranial process. 2. 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 3. Age-related changes including moderate diffuse volume loss and moderate scattered white matter hypoattenuation consistent with chronic small vessel ischemic disease. Hip/Pelvis X-Ray 05/02/25 10:18 Impression: No significant abnormality is seen. Cervical Spine CT 05/02/25 10:55 IMPRESSION: 1. Severe cervical spondylosis with no acute osseous abnormality. Chest X-Ray 05/02/25 13:28 IMPRESSION: 1: NO ACUTE CARDIOPULMONARY DISEASE. Labs Labs: Laboratory Results - last 24 hr 05/02/25 05/02/25 05/03/25 09:26 12:41 04:40 WBC 7.3 3.9 L RBC 4.11 L 3.39 L Hgb 10.5 L 8.7 L Hct 35.1 L 29.3 L MCV 85.4 86.4 MCH 25.5 L 25.7 L MCHC 29.9 L 29.7 L RDW 16.8 H 16.9 H Plt Count 210 168 MPV 8.6 8.9 Immature Gran % (Auto) 0.3 0.3 Neut % (Auto) 82.0 H 62.7 Lymph % (Auto) 8.9 L 21.9 Cherry % (Auto) 8.1 11.7 H Eos % (Auto) 0.4 2.6 Baso % (Auto) 0.3 0.8 Lymph # (Auto) 0.65 L 0.86 L Cherry # (Auto) 0.6 0.5 Eos # (Auto) 0.0 0.1 Baso # (Auto) 0.0 0.0 Abs Immat Gran (auto) 0.02 0.01 Absolute Neuts (auto) 6.0 2.5 Absolute Nucleated RBC 0.000 0.000 Band Neutrophils % Not Reportable Not Reportable Nucleated RBC % 0.0 0.0 Platelet Estimate Adequate Adequate Hypochromasia 1+ 1+ Poikilocytosis 1+ Anisocytosis 1+ Ovalocytes 1+ Schistocytes None seen None seen Sodium 140 137 Potassium 3.6 3.6 Chloride 108 H 110 H Carbon Dioxide 26 24 Anion Gap 6 3 L BUN 18 H 11 D Creatinine 0.69 L 0.55 L Estim Creat Clear Calc 36 46 Estimated GFR > 60 > 60 Glucose 104 83 Lactic Acid 1.2 Calcium 9.2 8.5 Magnesium 1.8 Total Bilirubin 0.5 0.4 AST 33 36 ALT 18 15 Alkaline Phosphatase 76 59 Total Creatine Kinase 191 H 665 H Troponin I 0.052 H* 0.062 H* Total Protein 6.8 5.5 L Albumin 4.0 3.0 L Urine Color Urine Appearance Urine pH Ur Specific [place] Urine Protein Urine Glucose (UA) Urine Ketones Ur Blood (Man) Urine Nitrate Urine Bilirubin Urine Urobilinogen Leukocyte Esterase Rfl 05/03/25 05:15 WBC RBC Hgb Hct MCV MCH MCHC RDW Plt Count MPV Immature Gran % (Auto) Neut % (Auto) Lymph % (Auto) Cherry % (Auto) Eos % (Auto) Baso % (Auto) Lymph # (Auto) Cherry # (Auto) Eos # (Auto) Baso # (Auto) Abs Immat Gran (auto) Absolute Neuts (auto) Absolute Nucleated RBC Band Neutrophils % Nucleated RBC % Platelet Estimate Hypochromasia Poikilocytosis Anisocytosis Ovalocytes Schistocytes Sodium Potassium Chloride Carbon Dioxide Anion Gap BUN Creatinine Estim Creat Clear Calc Estimated GFR Glucose Lactic Acid Calcium Magnesium Total Bilirubin AST ALT Alkaline Phosphatase Total Creatine Kinase Troponin I Total Protein Albumin Urine Color Yellow Urine Appearance Clear Urine pH 7.0 Ur Specific [place] 1.017 Urine Protein Negative Urine Glucose (UA) Negative Urine Ketones Negative Ur Blood (Man) Negative Urine Nitrate Negative Urine Bilirubin Negative Urine Urobilinogen 1.0 Leukocyte Esterase Rfl Negative Quality VTE Prophylaxis VTE prophylaxis: mechanical ordered
[2025-05-03] MEDS: SODIUM CHLORIDE 0.9% IV 1,000 ML 75 ML IV CONT (13:06)
--- NOTE | 2025-05-03 13:33 | PC.NURSE ---
Notified [facility] that the bladder scan showed approximately 260ml. provider to start fluids.
--- NOTE | 2025-05-03 16:00 | PC.NURSE ---
Notified [facility] that the current bladder scan showed approximately 323ml. provider to place bladder scan order.
[2025-05-04] VITALS (10 sets, daily range): BP systolic 125–157; BP diastolic 68–89; PULSE 65–92; RESP 18; TEMP 36.4–36.9; O2SAT 96–99
[2025-05-04 05:44] LABS: Alanine Aminotransferase 14 U/L (6-35); Albumin Level 3.1 g/dL (3.5-5.1); Alkaline Phosphatase 42 U/L (38-126); Anion Gap 5 mmol/L (4-12); Aspartate Amino Transferase 49 U/L (14-36); Bilirubin,Total 0.6 mg/dL (0.2-1.3); Blood Urea Nitrogen 13 mg/dL (7-17); Calcium 8.2 mg/dL (8.4-10.2); Carbon Dioxide 18 mmol/L (22-30); Chloride 112 mmol/L (98-107); Estimated CRCL calculation 50 ml/min; Estimated Glomerular Filt Rate > 60; Glucose 79 mg/dL (65-110); Potassium 4.4 mmol/L (3.4-5.0); Sodium 135 mmol/L (137-145); Total Protein 5.8 g/dL (6.3-8.2)
[2025-05-04] MEDS: LEVOTHYROXINE SODIUM 75 MCG TABLET PO (06:08)
[2025-05-04 06:56] LABS: Hematocrit 32.3 % (37.0-47.0); Hemoglobin 9.4 g/dL (12.0-15.0); Mean Corpuscular HGB Conc 29.1 g/dl (32-36); Mean Corpuscular Hemoglobin 25.9 pg (26-34); Mean Platelet Volume 9.2 fl (7.4-10.4); Platelet Count Result 158 k/mm3 (150-375); Red Blood Count 3.63 M/mm3 (4.2-5.4); White Blood Count 3.4 K/mm3 (4.5-10.0)
--- NOTE | 2025-05-04 07:34 | PM.IMPN ---
Progress Note: A&P Assessment and Plan (1) Elevated troponin: Code(s): R79.89 - Other specified abnormal findings of blood chemistry Status: Acute Assessment and Plan: - EKG, initial: sinus rhythm, rate 77, ST-T-wave abnormality in diffuse leads consider ischemia. When compared to EKG done 06/02/2024, ST-T-wave abnormality now present. repeat EKG with 3 and 6 hr troponins - CXR no acute cardiopulmonary process - Troponin: 0.052 -> 0.062 - ASA 324 -> 81 daily (home med) - SL nitro PRN - no previous stress test or echo on file - telemetry monitoring No current symptoms concerning for ACS. Patient denies chest pain. Troponin was mildly up trended, however again discussed cardiology consultation and further workup with patient and she would like to forego cardiac workup at this time as she would not want any interventions if abnormal. (2) Fall from ground level: Code(s): W18.30XA - Fall on same level, unspecified, initial encounter Status: Acute Assessment and Plan: - wheelchair bound at baseline - unwitnessed ground level fall, unsure if head strike, no loss of consciousness - C-spine CT, head CT, hip/pelvic XR negative for acute traumatic findings. Chronic findings noted, see impressions for details. - fall precautions - analgesics p.r.n. - PT/OT (3) Elevated creatine kinase level: Code(s): R74.8 - Abnormal levels of other serum enzymes Status: Acute Assessment and Plan: Ground level fall, down for approximately 3 hours - CK 191 >> 665 >> 475 - IV fluids: 1L bolus -> LR at 100 mL/hr x1L -> NS at 75ml/hr x1L (4) Frequent falls: Code(s): R29.6 - Repeated falls Status: Acute Assessment and Plan: - history of MS, wheelchair-bound - assisted living reported concerns due to frequency of falls and recommended evaluation for possible further level of care PT/OT evaluation for placement Care coordination for placement (5) Decreased urine output: Code(s): R34 - Anuria and oliguria Status: Acute Assessment and Plan: Decreased urine output, patient required straight cath overnight and has not voided since however bladder scan showing little urine present Possibly secondary to volume depletion as patient appears dry on exam and has not been having adequate oral intake per RN Kidney function WNL PRN bladder scan NS at 75 ml/hr x1L Monitor Call received by RN that patient had still not voided. Bladder scan showed > 700 ml. Munroe catheter placed. (6) Hypothyroid: Qualifiers: Hypothyroidism type: unspecified Qualified Code(s): E03.9 - Hypothyroidism, unspecified Code(s): E03.9 - Hypothyroidism, unspecified Status: Acute Assessment and Plan: - continue home medication: Synthroid 75 mcg daily (7) Multiple sclerosis: Code(s): G35 - Multiple sclerosis Status: Acute Assessment and Plan: - fall precautions - continue home medication: Tramadol, gabapentin (8) Seizure disorder: Code(s): G40.909 - Epilepsy, unspecified, not intractable, without status epilepticus Status: Acute Assessment and Plan: - continue home medications: Keppra 500 mg b.i.d. Subjective Date/time seen: 05/04/25 07:34 Interval history: 84 year old female with past medical history of MS (wheelchair bound), hypothyroidism, and seizure disorder presents to the hospital with ground level fall. Review of Systems Review of Systems: All systems reviewed & are unremarkable except as noted in HPI and below Exam Narrative: AF HR General: frail female in no acute respiratory distress who is nontoxic appearing, sitting up in chair HEENT: Normocephalic. Atraumatic. Extraocular movement intact. Sclera clear and anicteric. No facial asymmetry. Chest: Lungs are clear to auscultation bilaterally. No wheezes or crackles. CV: Heart was regular rate and rhythm. Abd: Abdomen was soft. Nontender. Nondistended. Positive bowel sounds. Ext: No clubbing, cyanosis, or edema. DP pulses bilaterally. Neuro: Patient is alert and oriented x3. Right lean. Patient is extremely weak but strength is symmetrical in both upper and lower extremities. Speech is clear. Objective Data Vital Signs Vital Signs: Vital Signs - 24 hr 05/03/25 07:40 05/03/25 08:00 05/03/25 08:00 Temperature 98.7 F Pulse Rate 74 79 Respiratory Rate 16 Blood Pressure 149/77 H Pulse Oximetry 98 Oxygen Delivery Room Air 05/03/25 10:00 05/03/25 10:50 05/03/25 12:00 Temperature 98.3 F Pulse Rate 79 78 Respiratory Rate 16 Blood Pressure 118/81 Pulse Oximetry 98 Oxygen Delivery Room Air 05/03/25 12:00 05/03/25 12:00 05/03/25 14:00 Temperature Pulse Rate 76 72 Respiratory Rate Blood Pressure Pulse Oximetry Oxygen Delivery Room Air 05/03/25 15:16 05/03/25 15:50 05/03/25 16:00 Temperature 97.9 F Pulse Rate 70 Respiratory Rate 14 Blood Pressure 120/59 L Pulse Oximetry 97 Oxygen Delivery Room Air Room Air 05/03/25 16:00 05/03/25 18:00 05/03/25 19:47 Temperature 98.2 F Pulse Rate 75 85 83 Respiratory Rate 18 Blood Pressure 147/74 H Pulse Oximetry 96 Oxygen Delivery 05/03/25 20:00 05/03/25 20:00 05/03/25 23:02 Temperature Pulse Rate 87 80 Respiratory Rate Blood Pressure Pulse Oximetry Oxygen Delivery Room Air 05/04/25 00:00 05/04/25 00:00 05/04/25 00:00 Temperature 98.4 F Pulse Rate 69 69 Respiratory Rate 18 Blood Pressure 125/69 Pulse Oximetry 97 Oxygen Delivery Room Air 05/04/25 02:00 05/04/25 04:00 05/04/25 04:00 Temperature 97.5 F L Pulse Rate 65 70 Respiratory Rate 18 Blood Pressure 138/68 Pulse Oximetry 96 Oxygen Delivery Room Air 05/04/25 04:00 05/04/25 06:00 Temperature Pulse Rate 70 77 Respiratory Rate Blood Pressure Pulse Oximetry Oxygen Delivery Intake/Output Intake/Output: Intake & Output 05/01/25 05/02/25 05/03/25 05/04/25 23:59 23:59 23:59 23:59 Intake Total 1440 865 Output Total 600 1100 Balance 1440 265 -1100 Meds/Results Medications: Active Medications Generic Name Dose Route Start Last Admin Trade Name Freq PRN Reason Stop Dose Admin Acetaminophen 650 mg 05/02/25 11:45 05/03/25 21:30 Acetaminophen 325 Mg Tablet PO 650 mg Q4H PRN Administration Mild Pain (1-3) or Fever Ascorbic Acid 500 mg 05/02/25 14:00 05/03/25 08:38 Ascorbic Acid 500 Mg Tablet PO 500 mg DAILY MARCIO Administration Aspirin 81 mg 05/02/25 17:00 05/03/25 17:00 Aspirin 81 Mg Chewable Tablet PO 81 mg BID MARCIO Administration Dextrose 12.5 gm 05/02/25 11:45 Dextrose 50% 25 Gm/50 Ml Syringe IV PUSH PRN PRN Hypoglycemia Protocol Ergocalciferol 1,250 mcg 05/06/25 09:00 Ergocalciferol (Vitamin D2) 1,250 Mcg (50,000 Units) Capsule PO Jordan@0900 MARCIO Fluticasone Propionate 1 spray 05/02/25 14:00 05/03/25 08:39 Fluticasone Propionate 0.05% Na Spr 16 Gm Btl (*Bkc) NASAL Not Given DAILY MARCIO Gabapentin 200 mg 05/02/25 13:00 05/03/25 17:00 Gabapentin 100 Mg Capsule PO 200 mg TID MARCIO Administration Glucagon 1 mg 05/02/25 11:45 Glucagon For Inj 1 Mg Vial IM PRN PRN Hypoglycemia Protocol Glucose 15 gm 05/02/25 11:45 Glucose Oral Gel 15 Gm Of Glucse In 37.5 Gm Tube PO PRN PRN Hypoglycemia Protocol Dextrose 1,000 mls @ 100 mls/hr 05/02/25 11:45 Dextrose 5% 1,000 Ml IVPB PRN PRN Hypoglycemia Protocol Levetiracetam 500 mg 05/02/25 13:50 05/03/25 21:30 Levetiracetam 500 Mg Tablet PO 500 mg Q12HR MARCIO Administration Levothyroxine Sodium 75 mcg 05/03/25 06:30 05/04/25 06:08 Levothyroxine Sodium 75 Mcg Tablet PO 75 mcg DAILY@0630 MARCIO Administration Magnesium Hydroxide 15 ml 05/02/25 13:50 Magnesium Hydroxide Susp 30 Ml Udc PO DAILY PRN Constipation Nitroglycerin 0.4 mg 05/02/25 12:44 Nitroglycerin Sl 0.4 Mg Tablet SUBLINGUAL Q5MIN PRN Chest Pain Ondansetron HCl 4 mg 05/02/25 11:45 Ondansetron Inj 4 Mg/2 Ml Vial IV PUSH Q4H PRN Nausea Potassium Chloride 10 meq 05/02/25 14:00 05/03/25 08:38 Potassium Chloride 10 Meq Er Tablet PO 06/02/25 13:59 10 meq DAILY MARCIO Administration Senna/Docusate Sodium 1 tab 05/02/25 17:00 05/03/25 17:00 Senna/Docusate Sodium Tablet PO 1 tab BID MARCIO Administration Tramadol HCl 50 mg 05/02/25 14:00 05/03/25 17:00 Tramadol Hcl (*Crx) 50 Mg Tablet PO 50 mg TID MARCIO Administration Radiology Results: ITS Impressions Head CT 05/02/25 09:44 IMPRESSION: 1. No fracture or acute intracranial process. 2. 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 3. Age-related changes including moderate diffuse volume loss and moderate scattered white matter hypoattenuation consistent with chronic small vessel ischemic disease. Hip/Pelvis X-Ray 05/02/25 10:18 Impression: No significant abnormality is seen. Cervical Spine CT 05/02/25 10:55 IMPRESSION: 1. Severe cervical spondylosis with no acute osseous abnormality. Chest X-Ray 05/02/25 13:28 IMPRESSION: 1: NO ACUTE CARDIOPULMONARY DISEASE. Labs Labs: Laboratory Results - last 24 hr 05/04/25 05/04/25 05:02 06:41 WBC 3.4 L RBC 3.63 L Hgb 9.4 L Hct 32.3 L MCV 89.0 MCH 25.9 L MCHC 29.1 L RDW 17.0 H Plt Count 158 MPV 9.2 Sodium 135 L Potassium 4.4 Chloride 112 H Carbon Dioxide 18 L Anion Gap 5 BUN 13 Creatinine 0.53 L Estim Creat Clear Calc 50 Estimated GFR > 60 Glucose 79 Calcium 8.2 L Total Bilirubin 0.6 AST 49 H ALT 14 Alkaline Phosphatase 42 Total Protein 5.8 L Albumin 3.1 L Quality VTE Prophylaxis VTE prophylaxis: mechanical ordered
[2025-05-04 08:22] LABS: Creatine Kinase 475 U/L (30-135)
[2025-05-04] MEDS: SENNA/DOCUSATE SODIUM TABLET 1 TAB PO ×2 (09:00→16:08)
[2025-05-04] MEDS: traMADol HCL (*CRX) 50 MG TABLET PO ×3 (09:00→16:08)
[2025-05-04] MEDS: POTASSIUM CHLORIDE 10 MEQ ER TABLET PO (09:00)
[2025-05-04] MEDS: ASCORBIC ACID 500 MG TABLET PO (09:00)
[2025-05-04] MEDS: levETIRAcetam 500 MG TABLET PO (09:00)
[2025-05-04] MEDS: GABAPENTIN 100 MG CAPSULE 200 MG PO ×3 (09:01→16:08)
[2025-05-04] MEDS: FLUTICASONE PROPIONATE 0.05% NA SPR 16 GM BTL (*BKC) 1 SPRAY NASAL (09:01)
[2025-05-04] MEDS: ASPIRIN 81 MG CHEWABLE TABLET PO ×2 (09:01→16:08)
--- NOTE | 2025-05-04 12:15 | PCOTNOTE ---
Per RN, and care coordination. Patient does not need therapy services, Patient is discharging home on hospice today.
--- NOTE | 2025-05-04 14:10 | P.DS_ITS ---
DS: Admitting Diagnosis Discharge Date 05/04/2025 Admitting Diagnosis elevated troponin fall from ground level elevated CK frequent falls decreased urine output hypothyroid MS seizure disorder DS: Discharge Diagnosis Discharge Diagnosis (1) Elevated troponin: Code(s): R79.89 - Other specified abnormal findings of blood chemistry Status: Acute (2) Fall from ground level: Code(s): W18.30XA - Fall on same level, unspecified, initial encounter Status: Acute (3) Elevated creatine kinase level: Code(s): R74.8 - Abnormal levels of other serum enzymes Status: Acute (4) Frequent falls: Code(s): R29.6 - Repeated falls Status: Acute (5) Decreased urine output: Code(s): R34 - Anuria and oliguria Status: Acute (6) Hypothyroid: Qualifiers: Hypothyroidism type: unspecified Qualified Code(s): E03.9 - Hypothyroidism, unspecified Code(s): E03.9 - Hypothyroidism, unspecified Status: Acute (7) Multiple sclerosis: Code(s): G35 - Multiple sclerosis Status: Acute (8) Seizure disorder: Code(s): G40.909 - Epilepsy, unspecified, not intractable, without status epilepticus Status: Acute DS: Summary Hospital Course Reason for hospitalization: elevated troponin fall from ground level elevated CK frequent falls decreased urine output hypothyroid MS seizure disorder Hospital Course: 84 year old female with past medical history of MS (wheelchair bound), hypothyroidism, and seizure disorder presents to the hospital with unwitnessed ground level fall. Unsure of head strike but denied loss of conciousness. 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 C-spine CT showed severe cervical spondylosis with no acute osseous abnormality. Hip/pelvis x-ray showed no significant abnormality. On admission CK slightly elevated with a peak at 665. Received IV fluids and this started to down trend. Electrolytes stayed stable. Patient worked PT/OT during admission who was originally recommending SNF placement however patient now planning to return on hospice. On admission patient was noted to have elevated troponins. EKG showed sinus rhythm, rate 77, ST-T-wave abnormality in diffuse leads consider ischemia. When compared to EKG done 06/02/2024, ST-T-wave abnormality now present. Chest XR showed no acute cardiopulmonary process. No current symptoms concerning for ACS. Patient denies chest pain. Troponin was mildly up trending during admission, however discussed cardiology consultation and further workup with patient and she would like to forego cardiac workup at this time as she would not want any interventions if abnormal. During admission patient developed decreased urine output. P.r.n. bladder scans were obtained and showed urinary retention. Attempted straight cathing patient however urinary retention continued and a Munroe catheter was placed at time. Retention likely secondary to patients progressing MS. Discussed patient with Neurology Dr. Bragg who was in agreement with catheter placement and likely etiology. He states that patient is able to follow up in the outpatient setting. During admission patient reported that she is not wanting to continue returning to the hospital and wishes to be made comfortable. After further discussion patient was interested in discussing hospice. Per care coordination she is so due to patient's POA/son and her daughter in regards to hospice and both were amenable as well as patient. Plan is for patient to return to facility on [facility].Patient no complaints at time of discharge denying chest pain, shortness a breath, palpitations, nausea/vomiting, and abdominal pain. Patient discharged back to her facility on [facility]. Status at Discharge Functional status at discharge: wheelchair bound Time Spent with Patient Time attestation: Total time spent providing and/or coordinating discharge services: Time spent: Greater than 30 minutes Exam Narrative: AF HR 82 RR 18 SpO2 99 BP 143/77 General: frail female in no acute respiratory distress who is nontoxic appearing, sitting up in bed HEENT: Normocephalic. Atraumatic. Extraocular movement intact. Sclera clear and anicteric. No facial asymmetry. Chest: Lungs are clear to auscultation bilaterally. No wheezes or crackles. CV: Heart was regular rate and rhythm. Abd: Abdomen was soft. Nontender. Nondistended. Positive bowel sounds. Ext: No clubbing, cyanosis, or edema. DP pulses bilaterally. Neuro: Patient is alert and oriented x3. Right lean. Patient is extremely weak but strength is symmetrical in both upper and lower extremities. Speech is clear. DS: Data Data Completed and Pending Completed studies during hospitalization: chest xr c spine ct hip/pelvis xr head ct Labs on day of discharge: Labs from last 24 hours 05/04/25 05/04/25 06:41 05:02 WBC 3.4 L RBC 3.63 L Hgb 9.4 L Hct 32.3 L MCV 89.0 MCH 25.9 L MCHC 29.1 L RDW 17.0 H Plt Count 158 MPV 9.2 Sodium 135 L Potassium 4.4 Chloride 112 H Carbon Dioxide 18 L Anion Gap 5 BUN 13 Creatinine 0.53 L Estim Creat Clear Calc 50 Estimated GFR > 60 Glucose 79 Calcium 8.2 L Total Bilirubin 0.6 AST 49 H ALT 14 Alkaline Phosphatase 42 Total Creatine Kinase 475 H Total Protein 5.8 L Albumin 3.1 L Discharge Plan Discharge Attending physician on discharge: Scott Liriano Discharging Clinician: Minda Aly Anticipated Discharge Date/Time: 05/04/25 14:03 Patient Disposition: Hospice - Home Activity: as tolerated Diet: as tolerated Discharge Instructions: Discharge disposition: Patient discharged on [facility] Care to be taken over by [facility] upon arrival to facility, medication adjustments to be done per [facility] Thank you for choosing [facility] for your healthcare needs Patient Instructions: Hospice Care (GEN), Munroe Catheter Placement and Care (DC), Help Prevent Suicide in Older Adults (DC) Patient Language: Hebrew Stand Alone Forms: General Discharge Information Follow-up/Referrals: Arti Barrientos MD [Primary Care Provider] - Discharge Medications: Continued acetaminophen 325 mg tablet 325 mg PO Q6H PRN (Reason: pain) magnesium hydroxide [Milk of Magnesia] 400 mg/5 mL Suspension 15 ml PO DAILY PRN (Reason: Constipation) gabapentin 100 mg capsule 200 mg PO TID Qty: 180 6RF Rx Instructions: TAKE 2 CAPSULES BY MOUTH 3 TIMES A DAY cholecalciferol (vitamin D3) 1,250 mcg (50,000 unit) capsule 1,250 mcg PO WEEKLY Qty: 14 3RF aspirin [Children's Aspirin] 81 mg tablet,chewable 81 mg PO BID Qty: 90 1RF potassium chloride 10 mEq capsule, extended release 10 meq PO DAILY Qty: 90 1RF ascorbic acid (vitamin C) 500 mg tablet 500 mg PO DAILY Qty: 90 1RF levetiracetam 500 mg tablet See Rx Instructions .ROUTE .COMPLEX Qty: 180 1RF Dose Instruction: TAKE ONE TABLET BY MOUTH EVERY MORNING AND IN THE EVENING Rx Instructions: TAKE ONE TABLET BY MOUTH EVERY MORNING AND IN THE EVENING Senna Plus 8.6-50 mg capsule 1 tab-cap PO BID Qty: 180 1RF levothyroxine 75 mcg tablet 75 mcg PO DAILY Qty: 90 1RF tramadol 50 mg tablet 50 mg PO TID Qty: 90 5RF Rx Instructions: while awake fluticasone propionate [Flonase Allergy Relief] 50 mcg/actuation spray,suspension 1 spray intranasal DAILY Qty: 16 2RF Rx Instructions: administer into each nostril prednisone 20 mg tablet See Rx Instructions PO DAILY Qty: 21 0RF Rx Instructions: Take 2 tablets (40 mg) daily for 1 week, then 1 tablet daily for 1 week, then stop Date of admission: 05/03/25 14:49 Primary Care Provider: Arti Barrientos Admitting Provider: Guilherme Roberts Attending physician on admission: Minda Aly Condition: Stable Hospitalist MIPS Heart Failure (Exclusion) Patient has history of Heart Transplant or Left Ventricular Assistive Device?: No IF YES, STOP HERE Heart Failure (Qualifier) Patient has current or prior documentation of LVEF less than or equal to 40%, or mod/servere depressed LVSF?: No IF NO, STOP HERE
== END 2025-05-04 16:20 | disposition hospice, home (50) | DRG 60 ==
LOC: ANHED 09:09 → ANHIMU 12:08
PROVIDERS: Student in an Organized Health Care Education/Training Program; Admitting Provider Family Medicine; Emergency Provider Physician Assistant; PCP Family Medicine; Visit Provider Student in an Organized Health Care Education/Training Program
DX: G35 Multiple sclerosis (principal); I10 Essential (primary) hypertension; E03.9 Hypothyroidism, unspecified; E55.9 Vitamin D deficiency, unspecified; R34 Anuria and oliguria; R33.9 Retention of urine, unspecified; R74.8 Abnormal levels of other serum enzymes; R79.89 Other specified abnormal findings of blood chemistry; R29.6 Repeated falls; G40.909 Epilepsy, unspecified, not intractable, without status epilepticus; M17.12 Unilateral primary osteoarthritis, left knee; Z99.3 Dependence on wheelchair; Z79.82 Long term (current) use of aspirin; Z51.5 Encounter for palliative care
CPT/HCPCS: 36415; 70450; 71045; 72125; 73521; 80053; 81003; 82550; 83605; 83735; 84484; 85025; 85027; 93005; 96374; 97162; 97165; 99285; A9270; G0378; J7030; J7120